=== PATIENT | male | born 1955 | race Caucasian/White ===

== ENCOUNTER 2018-04-05 04:24 | Emergency (ER) | payer MEDICAID, SELFPAY ==
[2018-04-05] VITALS (36 sets, daily range): BP systolic 102–134; BP diastolic 57–88; PULSE 60–76; RESP 11–39; TEMP 36.5; O2SAT 80–99
--- NOTE | 2018-04-05 04:26 | ED.GENADUL_ITS ---
Discharge Plan Disposition Patient Disposition: HOME Condition: Good Discharge Details Chief Complaint: ETOHWithdr Clinical Impression: Alcohol intoxication in active alcoholic Primary Care Provider: Abraham Rosario ED Provider: Robinson Mayorga Finley Meds and New Rx's Prescriptions: Continue citalopram 20 MG tablet 20 mg PO DAILY RF: 0 ibuprofen 600 MG tablet 600 mg PO PRN PRNRF: 0 hydroxyzine HCl 25 MG tablet 25 mg PO PRN PRNRF: 0 Discharge Instructions Instructions: Alcohol Intoxication (ED) Additional Instructions: Continue to work with Mauricio Amador in getting into rehab. Try drinking in moderation, not excess in the meantime, if unable to stop on own. Follow up with primary care as needed. Return to ED if problems. Referrals: Abraham Rosario MD [Primary Care Provider] - Medical Decision Making Will hold patient here until clinically sober then discharge. No acute medical issues. No respiratory distress with associated chronic SOB from smoking. No evidence of acute withdrawal. Can continue to attempt placement in rehab as outpatient on his own. Patient awakens easily and feels ok this morning. His vitals are fine. His speech is clear. He says he is ready to go. He needs to find a ride. Will plan on discharge. Medical Records Medical records reviewed: Yes I reviewed the patient's medical records. HPI General Mode of arrival: EMS . Date/Time Provider Initiated Documentation: 04/05/18 04:56 . Information obtained by: patient and old records reviewed . HPI Narrative: Patient here with alcohol intoxication. Patient reports being at his girlfriend's house, woke her up and they began fighting because he was intoxicated. Rather than let it escalate, he called 911 and asked the ambulance to bring him here. He denies any physical complaints other than smoker's cough and chronic SOB from 40 years of smoking. He denies suicidal or homicidal thoughts. He is trying to get into a 30 day program even though he just got out of [facility] two weeks ago and started drinking again after just a couple of days. Related Data Home Medications Medication Instructions Recorded Confirmed citalopram 20 mg PO DAILY 01/20/17 04/05/18 ibuprofen 600 mg PO PRN PRN 01/20/17 04/05/18 hydroxyzine HCl 25 mg PO PRN PRN 02/05/17 04/05/18 Allergies Allergy/AdvReac Type Severity Reaction Status Date / Time Penicillins Allergy Unverified 04/05/18 04:44 Sulfa (Sulfonamide AdvReac Unverified 04/05/18 04:44 Antibiotics) Review of Systems Constitutional Denies chills, Denies fever(s), Denies headache(s) and Denies weakness ENT Denies headache(s) and Denies neck pain Cardiovascular Denies chest pain, Denies syncope, Denies rapid heart rate and Reports dyspnea Respiratory Reports cough and Reports dyspnea Gastrointestinal Denies abdominal pain, Denies nausea and Denies vomiting Musculoskeletal Denies back pain, Denies arthralgias, Denies neck pain and Denies numbness Neurologic Denies syncope, Denies headache(s), Denies numbness and Denies weakness Psychiatric Denies homicidal ideation and Denies suicidal ideation [facility] Medical History Alcohol abuse (Chronic) HTN (hypertension) (Chronic) Social History Smoking/Tobacco Use Status: Current every day alcohol intake: current Surgical History H/O hernia repair (Inactive) Exam Const General: cooperative, no acute distress and intoxicated appearing Orientation: alert and oriented x3 Neck Neck: trachea midline and supple Resp Effort & Inspection: normal respiratory effort Auscultation: rhonchi (scattered through out) Cardio Rate: regular rate Rhythm: regular rhythm Heart Sounds: S1 normal and S2 normal GI Palpation: soft, not firm, no guarding and nontender Neuro General: alert, oriented x3, no focal motor deficits and CN's II-XI intact bilaterally Speech: abnormal speech slurred Psych Appearance: grossly normal Speech and Movement: slurred speech Attitude: cooperative Thought Process: normal Thought Content: normal
== END 2018-04-05 07:59 | disposition home or self-care (01) ==
PROVIDERS: Emergency Provider Emergency Medicine; PCP General Practice
DX: F10.229 Alcohol dependence with intoxication, unspecified (principal); I10 Essential (primary) hypertension
CPT/HCPCS: 99284; 99283

== ENCOUNTER 2018-04-07 21:38 | Emergency (ER) | payer MEDICAID, SELFPAY ==
[2018-04-07 21:40] VITALS: BP 136/84; PULSE 86; RESP 18; TEMP 37.5; O2SAT 94
--- NOTE | 2018-04-07 22:29 | ED.GENADUL_ITS ---
Discharge Plan Disposition Patient Disposition: HOME Condition: Stable Discharge Details Chief Complaint: GenMedical Clinical Impression: Alcohol intoxication, Medication refill Reason For Visit: RANDAL Primary Care Provider: Abraham Rosario ED Provider: Jazmine Barker Home Meds and New Rx's Prescriptions: Continue citalopram 20 MG tablet 20 mg PO DAILY RF: 0 ibuprofen 600 MG tablet 600 mg PO PRN PRNRF: 0 hydroxyzine HCl 25 MG tablet 25 mg PO PRN PRNRF: 0 Discharge Instructions Instructions: Alcohol Intoxication (ED) Additional Instructions: Call your primary care doctor's office tomorrow to schedule follow-up appointment for reevaluation and to discuss whether he should continue these medications, especially with drinking alcohol daily. You should receive a call from care management regarding plan for follow-up with primary care doctor and your medications. Return to the emergency department any worsening or new concerning symptoms. Discharge Data Discharge Physician: Jazmine Barker Medical Decision Making 62-year-old male with history of alcohol abuse who presents for request for refill of his Celexa and Atarax. Patient was here 2 days ago for alcohol abuse and was discharged home after clinically sober. Patient states he has been in care home for the past 2 days and was released yesterday but he is unsure about why he was initially there. ED note from 2 days ago notes that patient had an argument with his girlfriend but he had denied suicidal or homicidal ideation and was medically cleared. Patient states the police took his bottles of Celexa and Atarax 2 days ago and he has been without these meds for 2 days. He currently denies any suicidal or homicidal ideation. Patient states he takes 20 mg of Celexa daily and 25 mg of Atarax as needed. He states he drank 1 /5 of vodka today. He denies any drug use. Oxygen saturation 94% but he is a chronic smoker. He denies any complaints of chest pain or shortness of breath. No tachycardia or hypertension. No acute signs of alcohol withdrawal. I discussed with patient that I am concerned about giving him prescriptions for Atarax and Celexa as they should not be taken with alcohol. 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 Alcohol level checked due to concern of giving Atarax in intoxication and to verify that patient may not go through withdrawal if alcohol negative. Alcohol level 329. Will give 1 dose of celexa here now and place pt on care management list to verify with pcp if pt is taking these medications and whether they should be continued especially if patient continues to drink daily. Patient states he does not have a plan to stop drinking alcohol at this time. He states he was in [facility] recently for rehab. Patient states he does not have a ride home. Patient took ambulance here. Patient has been ambulatory around the ED, in no acute distress, no acute signs of withdrawal, talking and walking and appears in no acute distress. This alcohol level may be close to his baseline. I think patient is medically cleared for discharge home. Discussed with care management and they will arrange for a ride home through [facility]. HPI General Mode of arrival: EMS . Date/Time Provider Initiated Documentation: 04/07/18 21:41 . Limitations to Documentation: no limitations and other (intoxicated) . Information obtained by: patient . HPI Narrative: Pt is a 62yo M w/ a h/o alcohol abuse who presents for request for medication refill. Patient states he takes Celexa 20 mg daily and Atarax 25 mg as needed anxiety. Patient was seen here 2 days ago for alcohol abuse and was sent home after clinically sober. Patient states he has been in care home for the past 2 days and was released from the care home yesterday. Patient states while he was in the care home the police took custody of his bottles of Celexa and Atarax and he has not had medications for the past 2 days. Patient states he drank 1/5 of vodka today. He denies any acute medical complaints. He denies suicidal homicidal ideation. Patient was brought here by EMS. Patient states he does not have a ride home. Pt states Dr. Rosario fills his medications. Pt states he thinks they were last filled 1 month ago. Pt states he wants a new primary care doctor. Past medical history: Alcohol abuse, hypertension Surgical history: Hernia repair Social history: Smokes tobacco, daily alcohol use, denies drugs Medications: Celexa, hydroxyzine Allergies: Sulfa, penicillin PCP: Dr. Rosario Related Data Home Medications Medication Instructions Recorded Confirmed citalopram 20 mg PO DAILY 01/20/17 04/07/18 ibuprofen 600 mg PO PRN PRN 01/20/17 04/07/18 hydroxyzine HCl 25 mg PO PRN PRN 02/05/17 04/07/18 Allergies Allergy/AdvReac Type Severity Reaction Status Date / Time Penicillins Allergy Unverified 04/07/18 21:39 Sulfa (Sulfonamide AdvReac Unverified 04/07/18 21:39 Antibiotics) General Stated Complaint: GenMedical ALEENA: 4 Review of Systems Review of Systems All systems reviewed & are unremarkable except as noted in HPI and below Constitutional Reports as per HPI, Denies chills and Denies fever(s) Eyes Denies blurry vision ENT Denies dizziness, Denies sore throat and Denies throat swelling Cardiovascular Denies chest pain and Denies dyspnea Respiratory Denies dyspnea Gastrointestinal Denies abdominal pain, Denies diarrhea and Denies vomiting Genitourinary Denies hematuria and Denies dysuria Musculoskeletal Denies back pain and Denies numbness Integumentary/Breasts Denies lesions and Denies rash Neurologic Denies dizziness and Denies numbness Allergic/Immunologic Denies throat swelling [facility] Medical History Alcohol abuse (Chronic) HTN (hypertension) (Chronic) Social History Smoking/Tobacco Use Status: Current every day alcohol intake: current Surgical History H/O hernia repair (Inactive) Exam Const General: cooperative, healthy appearing, no acute distress and intoxicated appearing Orientation: alert, awake and oriented x3 HENMT Head: normal to inspection Mouth: oral mucosae normal Eyes General: appearance normal, both eyes and all related structures Neck Neck: normal visual inspection Resp Effort & Inspection: normal respiratory effort and able to speak in complete sentences Auscultation: clear to auscultation bilaterally Cardio Rate: regular rate Rhythm: regular rhythm GI Palpation: soft, not firm and nontender Auscultation: normal bowel sounds Skin General skin exam: no rashes or lesions noted Neuro General: alert, awake and oriented x3 Motor: muscle tone normal throughout Extrem General: normal to inspection and full ROM Psych Appearance: grossly normal Affect: normal affect Course Vital Signs Temperature 99.5 F 04/07/18 21:40 Pulse 86 04/07/18 21:40 Respiratory Rate 18 04/07/18 21:40 Blood Pressure 136/84 04/07/18 21:40 Pulse Oximetry 94 L 04/07/18 21:40 Temperature 99.5 F 04/07/18 21:40 Temperature Source Temporal Artery Scan 04/07/18 21:40 Pulse 86 04/07/18 21:40 Respiratory Rate 18 04/07/18 21:40 Respiratory Effort 04/07/18 21:43 Blood Pressure 136/84 04/07/18 21:40 Pulse Oximetry 94 L 04/07/18 21:40 Oxygen Delivery Method Room Air 04/07/18 21:40 Oxygen Flow Rate 0 04/07/18 21:40 Pain Level 0 04/07/18 21:40
[2018-04-07 22:32] LABS: ETHANOL BLOOD 329.5 mg/dL (<3)
[2018-04-07] MEDS: Citalopram 20 MG TAB PO (23:14)
--- NOTE | 2018-04-08 07:51 | PDOC.ERCMPRO ---
Care Management Progress Note 04/08-Dr. Barker requested assistance with a PCP (Abraham) f/u this week for ETOH and ? Medication refills, ?should patient continue on meds. Referral faxed to Dr. Rosario's office this am.
== END 2018-04-07 23:20 | disposition home or self-care (01) ==
PROVIDERS: Emergency Provider Physician Assistant; PCP General Practice
DX: F10.120 Alcohol abuse with intoxication, uncomplicated (principal)
CPT/HCPCS: 99282; 80320

== ENCOUNTER 2018-04-12 13:33 | Emergency (ER) | payer MEDICAID, SELFPAY ==
[2018-04-12 13:40] VITALS: BP 126/81; PULSE 72; RESP 16; TEMP 36.3; O2SAT 95
--- NOTE | 2018-04-12 14:03 | DI.RAD_ITS ---
SYMPTOM/DIAGNOSIS: SOB, CHEST CONGESTION FRONTAL AND LATERAL CHEST: Comparison is made with 01/07/18. Heart size and pulmonary vasculature are within normal limits. There is an infiltrate seen in the left lung base. The right lung is clear. No effusions or pneumothoraces are identified. Mild degenerative changes are seen in the spine. IMPRESSION: Left basilar infiltrate. This may represent atelectasis or pneumonia.
--- NOTE | 2018-04-12 14:04 | W.ED.GENAD ---
Discharge Plan Disposition Patient Disposition: HOME Condition: Improving Discharge Details Chief Complaint: ETOHWithdr Clinical Impression: ETOH abuse, PNA (pneumonia) Primary Care Provider: Abraham Rosario ED Provider: Michael Dimas [place] Meds and New Rx's Prescriptions: New doxycycline monohydrate 100 mg tablet 100 mg PO BID Qty: 20 RF: 0 No Action citalopram 20 MG tablet 20 mg PO DAILY RF: 0 ibuprofen 600 MG tablet 600 mg PO PRN PRNRF: 0 hydroxyzine HCl 25 MG tablet 25 mg PO PRN PRNRF: 0 Discharge Instructions Instructions: Abuse of Alcohol (ED), Pneumonia (ED) Referrals: [facility] Emergency Dept. [Outside] - Return if symptoms worsen Medical Decision Making Patient clearly intoxicated. Will establish IV and administer banana bag and promethazine for nausea. Will monitor until clinical sober. we will reevaluate for discharge home at that time. GF came from the room saying patient is an ass hole and asked for help. Pt states he is more restless and is hungry. Will have nurse administer Ativan and provide supper. GF at bedside becomes restless and concerned about his breathing. Patient is sedated after Ativan. SaO2 94%. Easily aroused. Laying on left side. GF voices her concern for him but admits she never had to deal with alcohol abuse until meeting South. South slept most of all afternoon. He is now easily arousal and tells me and nurse he is feeling better. He ambulated to the BR with smooth stable gait. He received one banana bag. His GF is concerned about his well being and maintaining his sobriety. I explained that alcoholism is a hard fight that starts the individual. She verbalized understanding. He verbalized understanding. I advised to f/u at Dr. Shante brooks and attend AA meetings. Continue to try to get in [facility]. I did prescribe Doxy for suspect pneumonia. First dose administered here. Advised to return to ED for worsening symptoms. Elisa with [facility] did stop in tonight to see another patient and also talked with him. She has been trying to help him get into [facility]. Imaging Data Radiologic Study: My impression: ? patchiness o the left lower. Radiologist's impression: v-rad: Mild opacity in the left base may represent atelectasis or pneumonia Lab Data Lab results reviewed: Yes I reviewed the patient's lab results. Lab results narrative: Other than etoh over 400 labs are remarkably within acceptable limits. Mild low magnesium and potassium. Patient is receiving banana which should support. HPI General Mode of arrival: ambulatory. Date/Time Provider Initiated Documentation: 04/12/18 13:50. Limitations to Documentation: altered mental status (patient intoxicated). Information obtained by: patient. HPI Narrative: 62 y/o male brought in by Mita JONES asking for detoxification from ETOH. He tells me he drank a bottle of vodka this am. He has been trying to get into [facility] for rehab but they have no opening currently. He explains he has been in and out of rehab many times. He has been drinking for over 40 years. He admits to being homeless for years but currently living with mother and drives her car. Denies any cp but has had a cough and feels like he may be SOB. He is a daily smoker. Denies any drug use or other concerns. Want to detox from ETOH. He does speak out about not knowing what he is capable of and doesn't want to harm anyone. However he denies any SI or HI. He does have slight slurred speech. Related Data Home Medications Medication Instructions Recorded Confirmed citalopram 20 mg PO DAILY 01/20/17 04/12/18 ibuprofen 600 mg PO PRN PRN 01/20/17 04/12/18 hydroxyzine HCl 25 mg PO PRN PRN 02/05/17 04/12/18 doxycycline monohydrate 100 mg PO BID #20 tab 04/12/18 Previous Rx's Medication Instructions Recorded doxycycline monohydrate 100 mg PO BID #20 tab 04/12/18 Allergies Allergy/AdvReac Type Severity Reaction Status Date / Time Penicillins Allergy Unverified 04/12/18 13:46 Sulfa (Sulfonamide AdvReac Unverified 04/12/18 13:46 Antibiotics) General Stated Complaint: ETOHWithdr ALEENA: 3 Review of Systems Constitutional Reports as per HPI Eyes Reports system reviewed and no additional complaints, except as docu ENT Reports system reviewed and no additional complaints, except as docu Cardiovascular Reports system reviewed and no additional complaints, except as docu Respiratory Reports cough Gastrointestinal Reports system reviewed and no additional complaints, except as docu Genitourinary Reports system reviewed and no additional complaints, except as docu Musculoskeletal Reports system reviewed and no additional complaints, except [facility] Integumentary/Breasts Reports system reviewed and no additional complaints, except as [facility] Neurologic Reports system reviewed and no additional complaints, except as [facility] Psychiatric Reports as per [facility] Hematologic/Lymphatic Reports system reviewed and no additional complaints, except as docu Exam Const General: cooperative, no acute distress, disheveled and other (appears intoxicated) Nutritional Appearance: average body habitus Orientation: alert, awake and oriented x3 Limitations: altered mental status (from ETOH) [facility] Head: normal to inspection Ears: hearing grossly normal bilaterally and external ears normal General nose exam: external nose normal Mouth: oropharynx normal, no drooling and oral mucosa abnormal (dry) Throat: posterior oropharynx normal and other (gag reflux active and normal) Eyes General: appearance normal, both eyes and all related structures Alignment and Position: alignment normal Eyelids: eyelids normal Conjunctivae: conjunctivae normal Sclera: sclerae normal Pupils: PERRL EOM: nystagmus Neck Neck: normal visual inspection, full ROM and no lymphadenopathy Chest Chest: normal inspection of the chest Resp Effort & Inspection: normal respiratory effort Auscultation: bronchial breath sounds bilaterally Cardio Jugular venous pressure: no JVD Rate: regular rate Rhythm: regular rhythm Heart Sounds: S1 normal and S2 normal GI Inspection: normal to inspection Palpation: soft, no guarding, no hepatosplenomegaly, no masses and nontender Auscultation: normal bowel sounds Back/Spine/Pelvis Back: No back tenderness Skin General skin exam: no rashes or lesions noted and jaundice (skin looks ambigous jaundice to the chest and upper arms) Lesions: no lesions Rashes: no rashes Wounds: no wounds Neuro General: alert, awake, oriented x3 and other (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 ) Cranial Nerves: nystagmus Extrem General: normal to inspection Psych Appearance: disheveled Mental Status: mental status grossly normal Mood: congruent mood Affect: indifferent (from ETOH) Attitude: cooperative Thought Process: normal Insight: fair Judgment: fair Course Vital Signs Temperature 36.3 C L 04/12/18 13:40 Pulse 72 04/12/18 13:40 Respiratory Rate 16 04/12/18 13:40 Blood Pressure 126/81 04/12/18 13:40 Pulse Oximetry 95 04/12/18 13:40 Temperature 36.3 C L 04/12/18 13:40 Temperature Source Skin 04/12/18 13:40 Pulse 72 04/12/18 13:40 Respiratory Rate 16 04/12/18 13:40 Respiratory Effort Non-Labored 04/12/18 13:44 Blood Pressure 126/81 04/12/18 13:40 Pulse Oximetry 95 04/12/18 13:40 Pain Level 10 04/12/18 13:40
[2018-04-12 14:19] LABS: Bilirubin Negative (Negative); Blood Negative (Negative); Clarity Clear; Glucose Negative (Negative); Ketones Negative (Negative); Leukocyte Esterase Negative (Negative); Nitrite Negative (Negative); Urobilinogen 0.2 EU/dL (Up TO 0.2)
[2018-04-12 14:23] LABS: Abs Immature Grans 0.01 k/cumm (0.0-0.09); Absolute Basophil Count 0.02 k/cumm (0.0-0.2); Absolute Eosinophil Count 0.13 k/cumm (0.0-0.7); Absolute Monocyte Count 0.43 k/cumm (0.11-0.7); Basophils % 0.5; Eosinophils % 3.3; HCT 35.4 % (40.0-50.0); Immature Grans % 0.3; Lymphocytes % 30.8; Mean Corp. HGB Concentration 33.9 g/dL (32.0-36.0); Mean Corpuscular Hemoglobin 32.6 pg (27.0-33.0); Mean Corpuscular Volume 96.2 fL (80-95); Mean Platelet Volume 9.2 fL (8.0-11.0); Monocytes % 11.1; Platelet Count 118 x1000/uL (130-400); RBC 3.68 m/cumm (4.50-6.00); RBC Distribution Width 16.6 % (11.8-14.1); White Blood Cell Count 3.89 k/cumm (4.4-10.8)
--- NOTE | 2018-04-12 14:24 | ED.GENADUL_ITS ---
Discharge Plan Disposition Patient Disposition: HOME Condition: Improving Discharge Details Chief Complaint: ETOHWithdr Clinical Impression: ETOH abuse, PNA (pneumonia) Primary Care Provider: Abraham Rosario ED Provider: Michael Dimas [place] Meds and New Rx's Prescriptions: New doxycycline monohydrate 100 mg tablet 100 mg PO BID Qty: 20 RF: 0 No Action citalopram 20 MG tablet 20 mg PO DAILY RF: 0 ibuprofen 600 MG tablet 600 mg PO PRN PRNRF: 0 hydroxyzine HCl 25 MG tablet 25 mg PO PRN PRNRF: 0 Discharge Instructions Instructions: Abuse of Alcohol (ED), Pneumonia (ED) Referrals: [facility] Emergency Dept. [Outside] - Return if symptoms worsen Medical Decision Making Patient clearly intoxicated. Will establish IV and administer banana bag and promethazine for nausea. Will monitor until clinical sober. we will reevaluate for discharge home at that time. GF came from the room saying patient is an ass hole and asked for help. Pt states he is more restless and is hungry. Will have nurse administer Ativan and provide supper. GF at bedside becomes restless and concerned about his breathing. Patient is sedated after Ativan. SaO2 94%. Easily aroused. Laying on left side. GF voices her concern for him but admits she never had to deal with alcohol abuse until meeting South. South slept most of all afternoon. He is now easily arousal and tells me and nurse he is feeling better. He ambulated to the BR with smooth stable gait. He received one banana bag. His GF is concerned about his well being and maintaining his sobriety. I explained that alcoholism is a hard fight that starts the individual. She verbalized understanding. He verbalized understanding. I advised to f/u at Dr. Shante brooks and attend AA meetings. Continue to try to get in [facility]. I did prescribe Doxy for suspect pneumonia. First dose administered here. Advised to return to ED for worsening symptoms. Elisa with [facility] did stop in tonight to see another patient and also talked with him. She has been trying to help him get into [facility]. Imaging Data Radiologic Study: My impression: ? patchiness o the left lower. Radiologist's impression: v-rad: Mild opacity in the left base may represent atelectasis or pneumonia Lab Data Lab results reviewed: Yes I reviewed the patient's lab results. Lab results narrative: Other than etoh over 400 labs are remarkably within acceptable limits. Mild low magnesium and potassium. Patient is receiving banana which should support. HPI General Mode of arrival: ambulatory . Date/Time Provider Initiated Documentation: 04/12/18 13:50 . Limitations to Documentation: altered mental status (patient intoxicated) . Information obtained by: patient . HPI Narrative: 62 y/o male brought in by Mita JONES asking for detoxification from ETOH. He tells me he drank a bottle of vodka this am. He has been trying to get into [facility] for rehab but they have no opening currently. He explains he has been in and out of rehab many times. He has been drinking for over 40 years. He admits to being homeless for years but currently living with mother and drives her car. Denies any cp but has had a cough and feels like he may be SOB. He is a daily smoker. Denies any drug use or other concerns. Want to detox from ETOH. He does speak out about not knowing what he is capable of and doesn' t want to harm anyone. However he denies any SI or HI. He does have slight slurred speech. Related Data Home Medications Medication Instructions Recorded Confirmed citalopram 20 mg PO DAILY 01/20/17 04/12/18 ibuprofen 600 mg PO PRN PRN 01/20/17 04/12/18 hydroxyzine HCl 25 mg PO PRN PRN 02/05/17 04/12/18 doxycycline monohydrate 100 mg PO BID #20 tab 04/12/18 Previous Rx's Medication Instructions Recorded doxycycline monohydrate 100 mg PO BID #20 tab 04/12/18 Allergies Allergy/AdvReac Type Severity Reaction Status Date / Time Penicillins Allergy Unverified 04/12/18 13:46 Sulfa (Sulfonamide AdvReac Unverified 04/12/18 13:46 Antibiotics) General Stated Complaint: ETOHWithdr ALEENA: 3 Review of Systems Constitutional Reports as per HPI Eyes Reports system reviewed and no additional complaints, except as docu ENT Reports system reviewed and no additional complaints, except as docu Cardiovascular Reports system reviewed and no additional complaints, except as docu Respiratory Reports cough Gastrointestinal Reports system reviewed and no additional complaints, except as docu Genitourinary Reports system reviewed and no additional complaints, except as docu Musculoskeletal Reports system reviewed and no additional complaints, except as [facility] Integumentary/Breasts Reports system reviewed and no additional complaints, except as [facility] Neurologic Reports system reviewed and no additional complaints, except as [facility] Psychiatric Reports as per [facility] Hematologic/Lymphatic Reports system reviewed and no additional complaints, except as docu Exam Const General: cooperative, no acute distress, disheveled and other (appears intoxicated) Nutritional Appearance: average body habitus Orientation: alert, awake and oriented x3 Limitations: altered mental status (from ETOH) [facility] Head: normal to inspection Ears: hearing grossly normal bilaterally and external ears normal General nose exam: external nose normal Mouth: oropharynx normal, no drooling and oral mucosa abnormal (dry) Throat: posterior oropharynx normal and other (gag reflux active and normal) Eyes General: appearance normal, both eyes and all related structures Alignment and Position: alignment normal Eyelids: eyelids normal Conjunctivae: conjunctivae normal Sclera: sclerae normal Pupils: PERRL EOM: nystagmus Neck Neck: normal visual inspection, full ROM and no lymphadenopathy Chest Chest: normal inspection of the chest Resp Effort & Inspection: normal respiratory effort Auscultation: bronchial breath sounds bilaterally Cardio Jugular venous pressure: no JVD Rate: regular rate Rhythm: regular rhythm Heart Sounds: S1 normal and S2 normal GI Inspection: normal to inspection Palpation: soft, no guarding, no hepatosplenomegaly, no masses and nontender Auscultation: normal bowel sounds Back/Spine/Pelvis Back: No back tenderness Skin General skin exam: no rashes or lesions noted and jaundice (skin looks ambigous jaundice to the chest and upper arms) Lesions: no lesions Rashes: no rashes Wounds: no wounds Neuro General: alert, awake, oriented x3 and other (grossly altered from the bottle of vodka he drank [employer]. ) Cranial Nerves: nystagmus Extrem General: normal to inspection Psych Appearance: disheveled Mental Status: mental status grossly normal Mood: congruent mood Affect: indifferent (from ETOH) Attitude: cooperative Thought Process: normal Insight: fair Judgment: fair Course Vital Signs Temperature 36.3 C L 04/12/18 13:40 Pulse 72 04/12/18 13:40 Respiratory Rate 16 04/12/18 13:40 Blood Pressure 126/81 04/12/18 13:40 Pulse Oximetry 95 04/12/18 13:40 Temperature 36.3 C L 04/12/18 13:40 Temperature Source Skin 04/12/18 13:40 Pulse 72 04/12/18 13:40 Respiratory Rate 16 04/12/18 13:40 Respiratory Effort Non-Labored 04/12/18 13:44 Blood Pressure 126/81 04/12/18 13:40 Pulse Oximetry 95 04/12/18 13:40 Pain Level 10 04/12/18 13:40
[2018-04-12 14:28] LABS: *AMPHETAMINES SCREEN URINE Negative (Negative); *BARBITURATES SCREEN URINE Negative (Negative); *BENZODIAZEPINES SCREEN URINE Negative (Negative); Cannabinoids THC Negative (Negative); Cocaine Screen,Urine Negative (Negative); METHADONE URINE SCREEN Negative (Negative); OPIATES URINE SCREEN Negative (Negative)
[2018-04-12 14:37] LABS: ALT 44 U/L (12-78); AST 77 U/L (15-37); Albumin 3.2 g/dL (3.4-5.0); Alkaline Phosphatase 91 U/L (46-116); BUN 5 mg/dL (7-18); CREATININE 0.85 mg/dL (0.70-1.30); Calcium 8.3 mg/dL (8.5-10.1); Chloride 102 mmol/L (98-107); Glucose 72 mg/dL (70-100); Potassium 3.4 mmol/L (3.5-5.1); Sodium 145 mmol/L (136-145); Total Protein 6.8 g/dL (6.4-8.2)
[2018-04-12] MEDS: MAGNESIUM SULFATE 8.12 MEQ, MULTIVITAMIN 10 ML, THIAMINE 100 MG, FOLIC ACID 1 MG in Nor... 168.867 MG IV (14:41)
[2018-04-12 14:42] LABS: Tricyclic Antidepressants Negative (Negative)
[2018-04-12 14:42] LABS: ETHANOL BLOOD 410.9 mg/dL (<3)
[2018-04-12] MEDS: LORazepam 2 MG/ML VIAL IVP (15:23)
[2018-04-12 15:30] VITALS: PULSE 70; O2SAT 95
[2018-04-12 15:55] VITALS: BP 126/87; PULSE 69; O2SAT 98
--- NOTE | 2018-04-12 16:44 | DI.VRAD_ITS ---
EXAM: XR Chest, 2 Views EXAM DATE/TIME: 04/12/2018 2:04 PM CLINICAL HISTORY: 62 years old, male; Signs and symptoms; Shortness of breath TECHNIQUE: XR of the chest, 2 views. COMPARISON: CR CHEST 2 VIEWS PA,LAT 01/07/2018 6:15 PM FINDINGS: Lungs: Mild opacity in the left base may represent atelectasis or pneumonia. Pleural space: Unremarkable. No pleural effusion. No pneumothorax. Heart/Mediastinum: Unremarkable. No cardiomegaly. Bones/joints: Osseous structures are stable IMPRESSION: Mild opacity in the left base may represent atelectasis or pneumonia. Dictated and Authenticated by: Heron Chakraborty MD. Ordering:YEMI REEVES MD
[2018-04-12 17:13] VITALS: BP 143/69; PULSE 72; RESP 17; O2SAT 96
[2018-04-12 19:35] VITALS: BP 130/72; PULSE 58; RESP 16; O2SAT 92
[2018-04-12] MEDS: Doxycycline Hyclate 100 MG CAP PO (19:51)
[2018-04-12 21:04] VITALS: BP 126/56; PULSE 64; RESP 17; O2SAT 98
== END 2018-04-12 21:04 | disposition home or self-care (01) ==
PROVIDERS: Emergency Provider Nurse Practitioner Family; PCP General Practice
DX: F10.230 Alcohol dependence with withdrawal, uncomplicated (principal); J18.9 Pneumonia, unspecified organism
CPT/HCPCS: 36415; 80053; 80307; 96365; 96366; 96367; 96375; 99285; 71046; 80320; 81003; 83735; 85025; 99284; J2060

== ENCOUNTER 2018-04-29 19:11 | Emergency (ER) | payer MEDICAID, SELFPAY ==
[2018-04-29] VITALS (21 sets, daily range): BP systolic 111–145; BP diastolic 64–79; PULSE 62–75; RESP 11–22; TEMP 36.8; O2SAT 90–96
--- NOTE | 2018-04-29 19:18 | DI.CT_ITS ---
SYMPTOMS/DIAGNOSIS: SHORTNESS OF BREATH CT ANGIOGRAPHY, CHEST: CT angiography was performed with multi slice acquisition and multi planar and 3D reconstruction. CT angiography of the chest was performed with a bolus infusion of 100 cc of Omnipaque 350. Images obtained through the upper abdomen show hepatic steatosis. Visualized portions of the spleen, pancreas and adrenals appear normal. The lungs are predominantly clear with minimal lingular scarring or atelectasis. No pleural effusion or pleural-based mass. No mediastinal or hilar adenopathy. The tracheobronchial tree appears intact. No evidence of pulmonary embolic disease. No aortic dissection or aneurysm. CONCLUSION: No evidence of pulmonary embolic disease. Note is made of hepatic steatosis.
--- NOTE | 2018-04-29 19:24 | ED.GENADUL_ITS ---
Discharge Plan Discharge Details Chief Complaint: SOB Reason For Visit: RANDAL Primary Care Provider: Abraham Rosario ED Provider: Ronnie Scanlon Home Meds and New Rx's Prescriptions: No Action citalopram 20 MG tablet 20 mg PO DAILY RF: 0 ibuprofen 600 MG tablet 600 mg PO PRN PRNRF: 0 hydroxyzine HCl 25 MG tablet 25 mg PO PRN PRNRF: 0 Medical Decision Making <Michael Muniz MD - Last Filed: 04/29/18 19:24> 62 yo male with hx of htn, alcohol abuse, who comes in with chief complaint of shortness of breath intermittently for 2 weeks despite being treated for pna with doxy and finishing this. He is intoxicated and admits to heavy alcohol use tonight though is caox4. He denies chest pain or pressure. He has clear lungs on exam. No fevers so unlikely pna. Given clear lung sounds and wells score moderate will obtain CTA to eval for possible pe and also eval for anemia. No chest pain or pressure, no radiation of pain or pain with exertion so doubt acs at this time Differential Diagnosis pe, pna, anemia, acs ECG Data Attestation: I personally reviewed and interpreted this ECG (s) as follows: Prior ECG tracings: not available for review Interpretation: sinus rhythm, rate of 65, pr 164, normal axis, no acute st t wave ischemic findings <Ronnie Scanlon DO - Last Filed: 04/29/18 22:45> This is a 62-year-old male with a past medical history of alcoholism who presents for evaluation of shortness of breath. The case is signed out to me by my colleague Dr. Muniz, we are pending CT angios at that time. CT scan results have returned and demonstrates no evidence of acute process. I reevaluated the patient he does appear clinically sober. I discussed with him my desire to get a repeat troponin at 3 hours, however patient was unwilling to wait for this. He was frustrated that he has not been able to get in contact with his outpatient caseworkers for mental health, and so I did personally call mental health, and discussed the case with them and they will be following up with him in the next 24-48 hours. I gave them his new cellular phone number. The patient's troponin and EKG were normal. Unfortunately the patient was very unwilling to wait for the repeat troponin. Patient left against my medical advice. He does appear clinically sober and of sound mind so I think it is reasonable that he does leave however we had a long discussion with him regarding the risks of leaving prior to complete evaluation. The patient is able to speak clearly. There is no demonstration of any slurring of speech. There is evidence of clear decision making capacity. Patient is able to ambulate well without any difficulty. There are no signs of ataxia or stumbling motions. MPRESSION: No pulmonary embolism or other acute abnormality. HPI <Michael Muniz MD - Last Filed: 04/29/18 19:24> General Mode of arrival: EMS . Date/Time Provider Initiated Documentation: 04/29/18 19:15 . Limitations to Documentation: no limitations . Information obtained by: patient . History of Present Illness 62 year old M presents to the emergency department with the chief complaint of short of breath, described as moderate, Patient started experiencing this week(s) (2) and it has been intermittent. No relieving factors improve symptom(s), No exacerbating factors reported . Patient did receive the following treatments prior to arrival, none Related Data Home Medications Medication Instructions Recorded Confirmed citalopram 20 mg PO DAILY 01/20/17 04/29/18 ibuprofen 600 mg PO PRN PRN 01/20/17 04/29/18 hydroxyzine HCl 25 mg PO PRN PRN 02/05/17 04/29/18 Allergies Allergy/AdvReac Type Severity Reaction Status Date / Time Penicillins Allergy Unverified 04/29/18 19:33 Sulfa (Sulfonamide AdvReac Unverified 04/29/18 19:33 Antibiotics) General ALEENA: 3 Review of Systems <Michael Muniz MD - Last Filed: 04/29/18 19:24> Review of Systems All systems reviewed & are unremarkable except as noted in HPI and below Constitutional Denies chills, Denies fever(s) and Denies weakness Eyes Denies loss of vision ENT Denies change in voice Cardiovascular Denies chest pain Gastrointestinal Denies abdominal pain, Denies nausea and Denies vomiting Genitourinary Denies dysuria Musculoskeletal Denies joint swelling Integumentary/Breasts Denies rash Neurologic Denies loss of vision and Denies weakness Exam <Michael Muniz MD - Last Filed: 04/29/18 19:24> Const General: no acute distress Orientation: alert HENMT Head: normal to inspection Ears: external ears normal General nose exam: external nose normal Mouth: moist mucous membranes Eyes General: appearance normal, both eyes and all related structures Neck Neck: normal visual inspection Resp Effort & Inspection: normal respiratory effort and able to speak in complete sentences Cardio Rate: regular rate Skin General skin exam: no rashes or lesions noted Neuro General: alert and oriented x3 Extrem General: normal to inspection Psych Mental Status: mental status grossly normal
[2018-04-29] MEDS: Omnipaque 350 MG/ML 100 ML BTL IV (19:40)
[2018-04-29 19:42] LABS: Abs Immature Grans 0.01 k/cumm (0.0-0.09); Absolute Basophil Count 0.05 k/cumm (0.0-0.2); Absolute Eosinophil Count 0.37 k/cumm (0.0-0.7); Absolute Lymphocyte Count 1.92 k/cumm (1.2-3.4); Absolute Monocyte Count 0.45 k/cumm (0.11-0.7); Absolute Neutrophil Count 2.36 k/cumm (1.2-6.7); Eosinophils % 7.2; HCT 35.2 % (40.0-50.0); HGB 11.9 g/dL (13.5-17.5); Immature Grans % 0.2; Lymphocytes % 37.2; Mean Corp. HGB Concentration 33.8 g/dL (32.0-36.0); Mean Corpuscular Hemoglobin 33.6 pg (27.0-33.0); Mean Corpuscular Volume 99.4 fL (80-95); Mean Platelet Volume 9.5 fL (8.0-11.0); Monocytes % 8.7; Neutrophils % 45.7; Platelet Count 237 x1000/uL (130-400); RBC 3.54 m/cumm (4.50-6.00); RBC Distribution Width 16.4 % (11.8-14.1); White Blood Cell Count 5.16 k/cumm (4.4-10.8)
[2018-04-29 19:52] LABS: PTT Activated 22.4 sec (21.0-31.4); Prothrombin Time 9.9 sec (9.3-10.8)
[2018-04-29 19:53] LABS: ALT 82 U/L (12-78); AST 76 U/L (15-37); Albumin 3.6 g/dL (3.4-5.0); Alkaline Phosphatase 71 U/L (46-116); Anion Gap 10.8 mmol/L (3-11); BUN 6 mg/dL (7-18); Bilirubin, Total 0.8 mg/dL (0.2-1.0); CO2 29.2 mmol/L (21.0-32.0); CREATININE 0.79 mg/dL (0.70-1.30); Chloride 101 mmol/L (98-107); Glucose 72 mg/dL (70-100); Potassium 3.4 mmol/L (3.5-5.1); Sodium 141 mmol/L (136-145); Total Protein 7.2 g/dL (6.4-8.2)
[2018-04-29 19:55] LABS: ETHANOL BLOOD 301.5 mg/dL (<3); Troponin I < 0.02 ng/mL (0.00-0.06)
[2018-04-29] MEDS: Normal Saline 1,000 ML 1000 ML IV (20:06)
--- NOTE | 2018-04-29 20:07 | DI.VRAD_ITS ---
EXAM: CT Angiography Chest With Intravenous Contrast EXAM DATE/TIME: 04/29/2018 7:19 PM CLINICAL HISTORY: 62 years old, male; Signs and symptoms; Shortness of breath TECHNIQUE: Axial computed tomographic angiography images of the chest with intravenous contrast using CT angiography protocol. All CT scans at this facility use at least one of these dose optimization techniques: automated exposure control; mA and/or kV adjustment per patient size (includes targeted exams where dose is matched to clinical indication); or iterative reconstruction. Coronal and sagittal reformatted images were created and reviewed. MIP reconstructed images were created and reviewed. CONTRAST: 100 ml of omnipaque 350 administered intravenously. COMPARISON: CR XR CHEST 2V PA LATERAL 04/12/2018 4:08 PM FINDINGS: Pulmonary arteries: Normal. No pulmonary emboli. Aorta: Normal. No aortic aneurysm. No aortic dissection. Lungs: Minimal linear atelectasis and/or scar in the lingula. Mild paraseptal and centrilobular pulmonary emphysema. Pleural space: Normal. No pneumothorax. No pleural effusion. Heart: Normal. No cardiomegaly. No pericardial effusion. Bones/joints: Unremarkable. No acute fracture. Soft tissues: Unremarkable. Lymph nodes: Unremarkable. No enlarged lymph nodes. IMPRESSION: No pulmonary embolism or other acute abnormality. Dictated and Authenticated by: Eliceo Murry MD. Ordering:MARITZA REEVES MD
[2018-04-29 20:09] LABS: D-Dimer 1367 ng/mlFEU (<500)
[2018-04-29 21:16] LABS: *BARBITURATES SCREEN URINE Negative (Negative); *BENZODIAZEPINES SCREEN URINE Negative (Negative); Cannabinoids THC Negative (Negative); Cocaine Screen,Urine Negative (Negative); METHADONE URINE SCREEN Negative (Negative); OPIATES URINE SCREEN Negative (Negative)
[2018-04-29 21:40] LABS: Tricyclic Antidepressants Negative (Negative)
[2018-04-29 21:45] LABS: *AMPHETAMINES SCREEN URINE Negative (Negative)
--- NOTE | 2018-04-29 22:10 | NUR.NOTE ---
Nursing Note: Pt pulling off leads and became very aggitated- refusing any more treatment and demanding to go AMA. Dr. Scanlon is aware and patient has signed AMA paperwork. Gait is steady, speech is clear. Pt called a taxi on cell phone but was told they are not running at this hour. [facility] will attempt to get patient a ride from [facility].
--- NOTE | 2018-04-29 22:21 | NUR.NOTE ---
Nursing Note: Pt registered and is in front waiting room awaiting call back from [facility] for a possible ride tonight. Pt was provided with a cup of coffee per his request
--- NOTE | 2018-04-29 23:15 | NUR.NOTE ---
Nursing Note: Pt was provided a ride home from [facility]
== END 2018-04-29 22:11 ==
PROVIDERS: Emergency Medicine; Emergency Provider Student in an Organized Health Care Education/Training Program; PCP General Practice
DX: R06.02 Shortness of breath (principal); Z53.29 Procedure and treatment not carried out because of patient's decision for other reasons; F10.229 Alcohol dependence with intoxication, unspecified; Y90.8 Blood alcohol level of 240 mg/100 ml or more; I10 Essential (primary) hypertension
CPT/HCPCS: 36415; 71275; 80053; 80307; 93005; 96360; 99285; 80320; 84484; 85025; 85379; 85610; 85730; 93010; 99284; J3490

== ENCOUNTER 2018-05-06 14:25 | Emergency (ER) | payer MEDICAID, SELFPAY ==
[2018-05-06 14:32] VITALS: BP 152/89; PULSE 70; TEMP 36.7; O2SAT 96
--- NOTE | 2018-05-06 14:43 | W.ED.GENAD ---
Discharge Plan Disposition Patient Disposition: [facility] Condition: Fair Discharge Details Chief Complaint: Laceration Clinical Impression: Alcohol intoxication, Abrasion of face, Elevated liver enzymes, Closed compression fracture of thoracic vertebra, Enlarged prostate Reason For Visit: RANDAL Primary Care Provider: Abraham Rosario ED Provider: Lata Dickson Home Meds and New Rx's Prescriptions: Continue citalopram 20 MG tablet 20 mg PO DAILY RF: 0 ibuprofen 600 MG tablet 600 mg PO PRN PRNRF: 0 hydroxyzine HCl 25 MG tablet 25 mg PO PRN PRNRF: 0 Discharge Instructions Instructions: Head Injury (ED), Alcohol Intoxication (ED) Additional Instructions: Encourage hydration with water. I have asked her care according to have facility follow-up with both urology and orthopedics as we discussed. No acute findings were noted on your imaging today. No intervention is needed for your facial abrasion. Please keep the wound clean and dry. Monitor for signs of infection with redness, warmth, drainage, fever/chills. If these arise please seek care urgently once again. Please seek care urgently once again with any new or worsening symptoms. Referrals: Abraham Rosario MD [Primary Care Provider] - Discharge Data Discharge Date/Time-TO BE ENTERED AT DEPARTURE: 05/06/18 19:07 Medical Decision Making Patient is a 62-year-old male, well-known to the department, with chief complaint of fall while intoxicated. Unknown amount of alcohol this morning. Reports I drink a quart of vodka a day. States that this morning, while in his home, he tripped and fell forward striking his chin. Does not believe that he lost consciousness but is currently endorsing a headache. Denies any neck pain but reports that he has had chest pain. However, states the chest pain has been chronic since a fall that he had a few weeks ago. States that he falls frequently. Reports that he has multiple blackout spells. Denies any suicidal or homicidal ideation. He did suffer a laceration to his chin. Patient does have facial hair make this difficult to evaluate. I have asked nursing staff to cleanse and so I can get a better look. Will check tetanus status. Patient does appear clearly intoxicated at this time. Will prather scan the patient is I am unable to evaluate him well secondary to his intoxicated state. He reports he does not want help with his alcoholism. States his been to rehab multiple times does not feel that this is successful. However, he would like help with housing as he currently lives in his mother's basement. Laboratory evaluation significant for alcohol of 417. Patient is noted to be anemic, this is unchanged from baseline. AST and ALT are elevated, likely associated with his drinking, and have been elevated historically. Patient does have upcoming appointment with his primary care at which time we will discuss this further with him. Patient's alcohol is typically elevated in the 300s. Mentation is intact and unchanged from baseline when I have seen him historically. CT reviewed by radiologist. CT of the head showed no acute intracranial hemorrhage. Mild diffuse heterogeneity with white matter attenuation, consistent with chronic white matter ischemic changes. Mild cerebral atrophy. No ventriculomegaly. Incomplete fracture of the right zygomatic arch. This fracture was not noted by the O radiologist we have here. This is also not consistent with physical exam findings. There is no swelling, discoloration or pain to palpation over this area. There is a note in no acute sinusitis. Mastoid air cells are normal as visualized with no mass or effusion. Soft tissues are normal. CT of the cervical spine reviewed by radiologist. No acute fracture of cervical spine. No subluxation or dislocation of the cervical spine. Anterior osteophyte formation at C2 through C7 degenerative facet at multiple levels there are degenerative changes at C1-C2. Intervertebral disc space narrowing at C5 C7 which may represent degenerative disc disease. Osteophytic formation noted posteriorly at C3 through C7. Soft tissues are unremarkable. Thyroid is heterogeneous. Lung apices are normal. CT of the patient's chest reviewed by radiologist. No consolidation or masses. No pneumothorax or pleural effusion. No cardiomegaly or pericardial effusion. No aortic aneurysm. Lymph no significant for small retropharyngeal nodes. Mild compression fractures of unknown age in the lower thoracic spine. Soft tissues are unremarkable. Advised no acute fracture CT of the abdomen and pelvis read by radiologist. Advised liver is normal with no mass. Gallbladder and bile ducts are normal limits of the duct dilation. Pancreas is normal in the ductal dilation. Spleen is normal no splenomegaly. The adrenals are normal no mass. Kidneys are normal no hydronephrosis. Stomach and bowel are normal no obstruction or mucosal thickening. No evidence of appendicitis. Bladder is distended. Prostate is enlarged greater than 5 cm. Contains calcifications, they recommend urology consult. Intraperitoneal space is normal no free air, no significant fluid collection. Bones are normal with no acute fracture or dislocation. Soft tissues are unremarkable procedure is normal with no abdominal aortic aneurysm. Lymph nodes are significant for small. Pancreatic nodes. On the right ankle have asked her insurance healthcare consultant to help facilitate follow-up with urology for enlarged prostate. I discussed this with the patient he reports that he has known that he has prostatic enlargement and has frequent urination associated with this. Also discussed these mild compression fractures of unknown age with the patient. I reevaluated the patient he has full range of motion of the spine with no pain on palpation. He reports he fell and injured his back and chest approximately 1 month ago, these are likely not acute. At this point, patient continues to decline any help with alcohol management. He continues to deny any suicidal homicidal ideation. Do not feel any intervention is appropriate for the abrasion on his chin. There is no area that requires closure. This was cleansed by nursing staff. Tetanus is updated. With the patient's alcohol level and frequent falls, I feel that he is unsafe to be discharged home. Instead, I feel that the patient should be discharged into police custody to be able to sober up. I have requested [facility] human services to evaluate the patient and discuss placement for tonight. Mental health evaluated the patient. Given his level of intoxication, he will be sent to corrections where he is able to sober. This will allow him to do this in a safe place for continued monitoring. I do not see any acute medical emergent issue at this time. However, he was given strict return precautions. Our insurance healthcare consultant will reach out to him with follow-up with orthopedics as well as urology. Encourage hydration and for him to continue to consider alcohol cessation. He has been given intervention by techniques for this historically multiple times. However, at this point he does not feel that is appropriate for him to stop drinking alcohol does not feel that he would be successful with this. All of his questions and concerns were addressed and he is in agreement this plan. Patient will be discharged into police custody HPI General Mode of arrival: ambulatory. Date/Time Provider Initiated Documentation: 05/06/18 14:42. Limitations to Documentation: no limitations. Information obtained by: patient and police. History of Present Illness 62 year old M presents to the emergency department with the chief complaint of chin laceration, described as mild, Quality is described as aching (endorses headache), and is localized to the head, face and chest. Patient reports no radiation. Patient started experiencing this unknown (patient has had multiple falls with several different areas of discomfort) and it has been constant. No relieving factors improve symptom(s), No exacerbating factors reported . Patient notes chest pain, headaches and syncope (endorses multiple black out); denies cough, fever/chills, loss of appetite, nausea/vomiting, rash, seizure and shortness of breath. Related Data Home Medications Medication Instructions Recorded Confirmed citalopram 20 mg PO DAILY 01/20/17 04/29/18 ibuprofen 600 mg PO PRN PRN 01/20/17 04/29/18 hydroxyzine HCl 25 mg PO PRN PRN 02/05/17 04/29/18 Allergies Allergy/AdvReac Type Severity Reaction Status Date / Time Penicillins Allergy Unverified 04/29/18 19:33 Sulfa (Sulfonamide AdvReac Unverified 04/29/18 19:33 Antibiotics) General Stated Complaint: Laceration ALEENA: 4 Review of Systems Review of Systems Unobtainable due to (Patient is intoxicated) Constitutional Reports as per HPI, Denies body ache(s), Denies chills, Denies fatigue, Denies fever(s), Reports headache(s) and Denies weakness Eyes Denies change in vision, Denies diplopia and Denies loss of vision ENT Reports headache(s) Cardiovascular Reports as per HPI, Reports chest pain (Endorses chest discomfort since fall one month ago), Denies dyspnea and Denies dyspnea on exertion Respiratory Reports as per HPI, Denies chest congestion, Denies cough, Denies dyspnea, Denies dyspnea on exertion and Denies wheezing Gastrointestinal Reports as per HPI, Denies abdominal pain, Denies change in stool character, Denies nausea and Denies vomiting Genitourinary Denies system reviewed and no additional complaints, except as docu Musculoskeletal Reports as per HPI, Denies numbness and Denies tingling Integumentary/Breasts Reports as per HPI Neurologic Reports as per HPI, Reports headache(s), Denies lack of coordination, Denies focal weakness, Denies loss of vision, Denies numbness, Denies tingling and Denies weakness Endocrine Denies fatigue Allergic/Immunologic Denies wheezing Exam Const General: cooperative, comfortable, no acute distress and intoxicated appearing Nutritional Appearance: average body habitus and well nourished Orientation: alert, awake and oriented x3 [facility] Head: normal to inspection, no palpable skull fracture, normocephalic and atraumatic Ears: hearing grossly normal bilaterally, external ears normal and TM's normal bilaterally General nose exam: external nose normal Face and sinus: normal facial exam, sinuses nontender, face symmetric, abrasion (Patient has multiple scabbed over abrasions. Reports that he frequently picks at his forehead. Has a new abrasion over his chin measuring approximate 1.5 cm x 5 mm. No deep wound. This does not communicate to the inner aspect of the lip), no erythema, no edema, no maxillary instability and no sinus tenderness Mouth: oral mucosae normal, lip normal and tongue normal Throat: posterior oropharynx normal, tonsils normal and uvula midline Eyes General: appearance normal, both eyes and all related structures Neck Neck: normal visual inspection, full ROM, no meningeal signs and trachea midline Chest Chest: normal inspection of the chest, normal palpation of entire chest wall, no crepitus and no localized rib tenderness Resp Effort & Inspection: normal respiratory effort, able to speak in complete sentences and no respiratory distress Auscultation: clear to auscultation bilaterally, no rales, no rhonchi and no wheezes Cardio Rate: regular rate Rhythm: regular rhythm Heart Sounds: S1 normal and S2 normal GI Inspection: normal to inspection and no edema Palpation: soft, no hepatosplenomegaly, not firm, no guarding and nontender Auscultation: normal bowel sounds Back/Spine/Pelvis Back: no CVA tenderness Cervical Spine: normal cervical lordosis and cervical ROM normal Thoracic/Lumbar Spine: thoracic and lumbar spine normal to inspection, thoraco-lumbar ROM normal, No pain with thoraco-lumbar ROM, No paraspinal tenderness, No thoraco-lumbar ROM limited and No thoracic spinal tenderness Pelvis: no pain with anterior-posterior compression Skin Trauma: abrasion (As above. Patient has multiple areas consistent with a history of picking on his back and face) Neuro General: alert, awake, oriented x3, gait normal, tone normal, moves all extremities, no meningeal signs, no focal motor deficits, CN's II-XI intact bilaterally and deep tendon reflexes 2+ bilaterally Cranial Nerves: CN's II-XI intact bilaterally, PERRL, accommodation normal, EOM intact bilaterally, no nystagmus, facial strength normal and tongue midline Cognition: normal cognition Speech: speech normal Gait: normal gait Motor: muscle tone normal throughout, strength 5/5 throughout, no pronator drift, no movement abnormalities noted and no fasciculations Sensory Exam: no sensory deficits noted Plantar Reflexes: Downgoing: bilateral Coordination: [id number] test normal and [id number] test normal Extrem General: normal to inspection Psych Appearance: grossly normal Mental Status: mental status grossly normal Speech and Movement: speech and movement normal Course Vital Signs Temperature 36.7 C 05/06/18 14:32 Pulse 70 05/06/18 14:32 Blood Pressure 152/89 H 05/06/18 14:32 Pulse Oximetry 96 05/06/18 14:32 Temperature 36.7 C 05/06/18 14:32 Temperature Source Temporal Artery Scan 05/06/18 14:32 Pulse 70 05/06/18 14:32 Respiratory Effort 05/06/18 14:34 Blood Pressure 152/89 H 05/06/18 14:32 Blood Pressure Position Supine 05/06/18 14:32 Pulse Oximetry 96 05/06/18 14:32 Oxygen Delivery Method Room Air 05/06/18 14:32 Oxygen Flow Rate 0 05/06/18 14:32 Pain Level 10 05/06/18 14:35
--- NOTE | 2018-05-06 14:59 | ED.GENADUL_ITS ---
Discharge Plan Disposition Patient Disposition: [facility] Condition: Fair Discharge Details Chief Complaint: Laceration Clinical Impression: Alcohol intoxication, Abrasion of face, Elevated liver enzymes, Closed compression fracture of thoracic vertebra, Enlarged prostate Reason For Visit: RANDAL Primary Care Provider: Abraham Rosario ED Provider: Lata Dickson Home Meds and New Rx's Prescriptions: Continue citalopram 20 MG tablet 20 mg PO DAILY RF: 0 ibuprofen 600 MG tablet 600 mg PO PRN PRNRF: 0 hydroxyzine HCl 25 MG tablet 25 mg PO PRN PRNRF: 0 Discharge Instructions Instructions: Head Injury (ED), Alcohol Intoxication (ED) Additional Instructions: Encourage hydration with water. I have asked her care according to have facility follow-up with both urology and orthopedics as we discussed. No acute findings were noted on your imaging today. No intervention is needed for your facial abrasion. Please keep the wound clean and dry. Monitor for signs of infection with redness, warmth, drainage, fever/chills. If these arise please seek care urgently once again. Please seek care urgently once again with any new or worsening symptoms. Referrals: Abraham Rosario MD [Primary Care Provider] - Discharge Data Discharge Date/Time-TO BE ENTERED AT DEPARTURE: 05/06/18 19:07 Medical Decision Making Patient is a 62-year-old male, well-known to the department, with chief complaint of fall while intoxicated. Unknown amount of alcohol this morning. Reports I drink a quart of vodka a day. States that this morning, while in his home, he tripped and fell forward striking his chin. Does not believe that he lost consciousness but is currently endorsing a headache. Denies any neck pain but reports that he has had chest pain. However, states the chest pain has been chronic since a fall that he had a few weeks ago. States that he falls frequently. Reports that he has multiple blackout spells. Denies any suicidal or homicidal ideation. He did suffer a laceration to his chin. Patient does have facial hair make this difficult to evaluate. I have asked nursing staff to cleanse and so I can get a better look. Will check tetanus status. Patient does appear clearly intoxicated at this time. Will prather scan the patient is I am unable to evaluate him well secondary to his intoxicated state. He reports he does not want help with his alcoholism. States his been to rehab multiple times does not feel that this is successful. However, he would like help with housing as he currently lives in his mother's basement. Laboratory evaluation significant for alcohol of 417. Patient is noted to be anemic, this is unchanged from baseline. AST and ALT are elevated, likely associated with his drinking, and have been elevated historically. Patient does have upcoming appointment with his primary care at which time we will discuss this further with him. Patient's alcohol is typically elevated in the 300s. Mentation is intact and unchanged from baseline when I have seen him historically. CT reviewed by radiologist. CT of the head showed no acute intracranial hemorrhage. Mild diffuse heterogeneity with white matter attenuation, consistent with chronic white matter ischemic changes. Mild cerebral atrophy. No ventriculomegaly. Incomplete fracture of the right zygomatic arch. This fracture was not noted by the O radiologist we have here. This is also not consistent with physical exam findings. There is no swelling, discoloration or pain to palpation over this area. There is a note in no acute sinusitis. Mastoid air cells are normal as visualized with no mass or effusion. Soft tissues are normal. CT of the cervical spine reviewed by radiologist. No acute fracture of cervical spine. No subluxation or dislocation of the cervical spine. Anterior osteophyte formation at C2 through C7 degenerative facet at multiple levels there are degenerative changes at C1-C2. Intervertebral disc space narrowing at C5 C7 which may represent degenerative disc disease. Osteophytic formation noted posteriorly at C3 through C7. Soft tissues are unremarkable. Thyroid is heterogeneous. Lung apices are normal. CT of the patient's chest reviewed by radiologist. No consolidation or masses. No pneumothorax or pleural effusion. No cardiomegaly or pericardial effusion. No aortic aneurysm. Lymph no significant for small retropharyngeal nodes. Mild compression fractures of unknown age in the lower thoracic spine. Soft tissues are unremarkable. Advised no acute fracture CT of the abdomen and pelvis read by radiologist. Advised liver is normal with no mass. Gallbladder and bile ducts are normal limits of the duct dilation. Pancreas is normal in the ductal dilation. Spleen is normal no splenomegaly. The adrenals are normal no mass. Kidneys are normal no hydronephrosis. Stomach and bowel are normal no obstruction or mucosal thickening. No evidence of appendicitis. Bladder is distended. Prostate is enlarged greater than 5 cm. Contains calcifications, they recommend urology consult. Intraperitoneal space is normal no free air, no significant fluid collection. Bones are normal with no acute fracture or dislocation. Soft tissues are unremarkable procedure is normal with no abdominal aortic aneurysm. Lymph nodes are significant for small. Pancreatic nodes. On the right ankle have asked her home health care worker to help facilitate follow-up with urology for enlarged prostate. I discussed this with the patient he reports that he has known that he has prostatic enlargement and has frequent urination associated with this. Also discussed these mild compression fractures of unknown age with the patient. I reevaluated the patient he has full range of motion of the spine with no pain on palpation. He reports he fell and injured his back and chest approximately 1 month ago, these are likely not acute. At this point, patient continues to decline any help with alcohol management. He continues to deny any suicidal homicidal ideation. Do not feel any intervention is appropriate for the abrasion on his chin. There is no area that requires closure. This was cleansed by nursing staff. Tetanus is updated. With the patient's alcohol level and frequent falls, I feel that he is unsafe to be discharged home. Instead, I feel that the patient should be discharged into police custody to be able to sober up. I have requested [facility] human services to evaluate the patient and discuss placement for tonight. Mental health evaluated the patient. Given his level of intoxication, he will be sent to corrections where he is able to sober. This will allow him to do this in a safe place for continued monitoring. I do not see any acute medical emergent issue at this time. However, he was given strict return precautions. Our home health care worker will reach out to him with follow-up with orthopedics as well as urology. Encourage hydration and for him to continue to consider alcohol cessation. He has been given intervention by techniques for this historically multiple times. However, at this point he does not feel that is appropriate for him to stop drinking alcohol does not feel that he would be successful with this. All of his questions and concerns were addressed and he is in agreement this plan. Patient will be discharged into police custody HPI General Mode of arrival: ambulatory . Date/Time Provider Initiated Documentation: 05/06/18 14:42 . Limitations to Documentation: no limitations . Information obtained by: patient and police . History of Present Illness 62 year old M presents to the emergency department with the chief complaint of chin laceration, described as mild, Quality is described as aching ( endorses headache), and is localized to the head, face and chest. Patient reports no radiation. Patient started experiencing this unknown (patient has had multiple falls with several different areas of discomfort) and it has been constant. No relieving factors improve symptom(s), No exacerbating factors reported . Patient notes chest pain, headaches and syncope (endorses multiple black out); denies cough, fever/chills, loss of appetite, nausea/ vomiting, rash, seizure and shortness of breath. Related Data Home Medications Medication Instructions Recorded Confirmed citalopram 20 mg PO DAILY 01/20/17 04/29/18 ibuprofen 600 mg PO PRN PRN 01/20/17 04/29/18 hydroxyzine HCl 25 mg PO PRN PRN 02/05/17 04/29/18 Allergies Allergy/AdvReac Type Severity Reaction Status Date / Time Penicillins Allergy Unverified 04/29/18 19:33 Sulfa (Sulfonamide AdvReac Unverified 04/29/18 19:33 Antibiotics) General Stated Complaint: Laceration ALEENA: 4 Review of Systems Review of Systems Unobtainable due to (Patient is intoxicated) Constitutional Reports as per HPI, Denies body ache(s), Denies chills, Denies fatigue, Denies fever(s), Reports headache(s) and Denies weakness Eyes Denies change in vision, Denies diplopia and Denies loss of vision ENT Reports headache(s) Cardiovascular Reports as per HPI, Reports chest pain (Endorses chest discomfort since fall one month ago), Denies dyspnea and Denies dyspnea on exertion Respiratory Reports as per HPI, Denies chest congestion, Denies cough, Denies dyspnea, Denies dyspnea on exertion and Denies wheezing Gastrointestinal Reports as per HPI, Denies abdominal pain, Denies change in stool character, Denies nausea and Denies vomiting Genitourinary Denies system reviewed and no additional complaints, except as docu Musculoskeletal Reports as per HPI, Denies numbness and Denies tingling Integumentary/Breasts Reports as per HPI Neurologic Reports as per HPI, Reports headache(s), Denies lack of coordination, Denies focal weakness, Denies loss of vision, Denies numbness, Denies tingling and Denies weakness Endocrine Denies fatigue Allergic/Immunologic Denies wheezing Exam Const General: cooperative, comfortable, no acute distress and intoxicated appearing Nutritional Appearance: average body habitus and well nourished Orientation: alert, awake and oriented x3 [facility] Head: normal to inspection, no palpable skull fracture, normocephalic and atraumatic Ears: hearing grossly normal bilaterally, external ears normal and TM's normal bilaterally General nose exam: external nose normal Face and sinus: normal facial exam, sinuses nontender, face symmetric, abrasion (Patient has multiple scabbed over abrasions. Reports that he frequently picks at his forehead. Has a new abrasion over his chin measuring approximate 1.5 cm x 5 mm. No deep wound. This does not communicate to the inner aspect of the lip), no erythema, no edema, no maxillary instability and no sinus tenderness Mouth: oral mucosae normal, lip normal and tongue normal Throat: posterior oropharynx normal, tonsils normal and uvula midline Eyes General: appearance normal, both eyes and all related structures Neck Neck: normal visual inspection, full ROM, no meningeal signs and trachea midline Chest Chest: normal inspection of the chest, normal palpation of entire chest wall, no crepitus and no localized rib tenderness Resp Effort & Inspection: normal respiratory effort, able to speak in complete sentences and no respiratory distress Auscultation: clear to auscultation bilaterally, no rales, no rhonchi and no wheezes Cardio Rate: regular rate Rhythm: regular rhythm Heart Sounds: S1 normal and S2 normal GI Inspection: normal to inspection and no edema Palpation: soft, no hepatosplenomegaly, not firm, no guarding and nontender Auscultation: normal bowel sounds Back/Spine/Pelvis Back: no CVA tenderness Cervical Spine: normal cervical lordosis and cervical ROM normal Thoracic/Lumbar Spine: thoracic and lumbar spine normal to inspection, thoraco- lumbar ROM normal, No pain with thoraco-lumbar ROM, No paraspinal tenderness, No thoraco-lumbar ROM limited and No thoracic spinal tenderness Pelvis: no pain with anterior-posterior compression Skin Trauma: abrasion (As above. Patient has multiple areas consistent with a history of picking on his back and face) Neuro General: alert, awake, oriented x3, gait normal, tone normal, moves all extremities, no meningeal signs, no focal motor deficits, CN's II-XI intact bilaterally and deep tendon reflexes 2+ bilaterally Cranial Nerves: CN's II-XI intact bilaterally, PERRL, accommodation normal, EOM intact bilaterally, no nystagmus, facial strength normal and tongue midline Cognition: normal cognition Speech: speech normal Gait: normal gait Motor: muscle tone normal throughout, strength 5/5 throughout, no pronator drift , no movement abnormalities noted and no fasciculations Sensory Exam: no sensory deficits noted Plantar Reflexes: Downgoing: bilateral Coordination: [id number] test normal and [id number] test normal Extrem General: normal to inspection Psych Appearance: grossly normal Mental Status: mental status grossly normal Speech and Movement: speech and movement normal Course Vital Signs Temperature 36.7 C 05/06/18 14:32 Pulse 70 05/06/18 14:32 Blood Pressure 152/89 H 05/06/18 14:32 Pulse Oximetry 96 05/06/18 14:32 Temperature 36.7 C 05/06/18 14:32 Temperature Source Temporal Artery Scan 05/06/18 14:32 Pulse 70 05/06/18 14:32 Respiratory Effort 05/06/18 14:34 Blood Pressure 152/89 H 05/06/18 14:32 Blood Pressure Position Supine 05/06/18 14:32 Pulse Oximetry 96 05/06/18 14:32 Oxygen Delivery Method Room Air 05/06/18 14:32 Oxygen Flow Rate 0 05/06/18 14:32 Pain Level 10 05/06/18 14:35
[2018-05-06 15:29] LABS: Abs Immature Grans 0.02 k/cumm (0.0-0.09); Absolute Basophil Count 0.02 k/cumm (0.0-0.2); Absolute Eosinophil Count 0.26 k/cumm (0.0-0.7); Absolute Lymphocyte Count 1.35 k/cumm (1.2-3.4); Absolute Monocyte Count 0.32 k/cumm (0.11-0.7); Absolute Neutrophil Count 1.61 k/cumm (1.2-6.7); Basophils % 0.6; Eosinophils % 7.3; HCT 36.9 % (40.0-50.0); HGB 12.3 g/dL (13.5-17.5); Immature Grans % 0.6; Lymphocytes % 37.7; Mean Corp. HGB Concentration 33.3 g/dL (32.0-36.0); Mean Corpuscular Hemoglobin 33.1 pg (27.0-33.0); Mean Corpuscular Volume 99.2 fL (80-95); Mean Platelet Volume 9.7 fL (8.0-11.0); Monocytes % 8.9; Neutrophils % 44.9; Platelet Count 156 x1000/uL (130-400); RBC 3.72 m/cumm (4.50-6.00); RBC Distribution Width 16.8 % (11.8-14.1); White Blood Cell Count 3.58 k/cumm (4.4-10.8)
[2018-05-06 15:44] LABS: ALT 97 U/L (12-78); AST 130 U/L (15-37); Albumin 3.4 g/dL (3.4-5.0); Alkaline Phosphatase 70 U/L (46-116); Anion Gap 9.2 mmol/L (3-11); BUN 6 mg/dL (7-18); Bilirubin, Total 0.4 mg/dL (0.2-1.0); CO2 32.8 mmol/L (21.0-32.0); CREATININE 0.96 mg/dL (0.70-1.30); Calcium 8.6 mg/dL (8.5-10.1); Chloride 103 mmol/L (98-107); Glucose 83 mg/dL (70-100); Magnesium 1.1 mg/dL (1.8-2.4); Potassium 3.6 mmol/L (3.5-5.1); Sodium 145 mmol/L (136-145); Total Protein 6.8 g/dL (6.4-8.2)
[2018-05-06 15:45] LABS: Troponin I < 0.02 ng/mL (0.00-0.06)
[2018-05-06 15:59] LABS: Bilirubin Negative (Negative); Blood Negative (Negative); Clarity Clear; Glucose Negative (Negative); Ketones Negative (Negative); Leukocyte Esterase Negative (Negative); Nitrite Negative (Negative); Urobilinogen 0.2 EU/dL (Up TO 0.2)
[2018-05-06] MEDS: Omnipaque 350 MG/ML 100 ML BTL IJ (16:15)
--- NOTE | 2018-05-06 16:21 | DI.CT_ITS ---
SYMPTOMS/DIAGNOSIS: FALL WHILE INTOXICATED CRANIAL CT: A noncontrast examination was performed. There is no evidence of an intra/extra -axial hemorrhage. There is some increased absorption, likely on the bases of beam hardening involving the frontal lobe. There is no mass or edema. Findings in the frontoparietal and periventricular white matter are consistent with small vessel disease. There is no evidence of a territorial infarct, edema or fluid collection. The ventricles are intact. The posterior fossa is unremarkable. There is no abnormality involving the paranasal sinuses or mastoid air cells. SUMMARY: No acute intracranial abnormality is demonstrated. C-SPINE CT: The study was carried out without contrast enhancement according to the usual protocol. The vertebral bodies are intact. The vertebral alignment is normal. There is disc narrowing and associated degenerative bony changes involving C4 through C7-T1, the findings most advanced at C5-6 and C6-C7. At C6-C7, there is prominent posterior spurring with moderate bilateral bony foraminal compromise. Less severe changes are also noted at C5-C6. The posterior elements are intact. The odontoid is well maintained and is closely applied to the anterior arch of C1. The prevertebral soft tissues are unremarkable. SUMMARY: No evidence of a fracture or subluxation. Degenerative changes as described above.
--- NOTE | 2018-05-06 16:21 | DI.CT_ITS ---
SYMPTOMS/DIAGNOSIS: FALL WHILE INTOXICATED CHEST, ABDOMEN AND PELVIS CT: CT examination of the chest, abdomen and pelvis was performed with a bolus infusion of 100 cc of Omnipaque 350. The lungs are clear and well expanded. No evidence of mediastinal vascular injury. No adenopathy seen. Tracheobronchial tree appears intact. No pleural effusions seen. Note is made of hepatic steatosis. No evidence of acute injury of liver, spleen , pancreas, adrenals or kidneys. No evidence of intraabdominal vascular injury. No abdominal or pelvic adenopathy seen. No evidence of bowel injury. Prostatic enlargement noted. Urinary bladder is distended. No bony injury seen. CONCLUSION: No evidence of acute thoracic or abdominal injury.
--- NOTE | 2018-05-06 16:44 | DI.VRAD_ITS ---
EXAM: CT Head Without Intravenous Contrast EXAM DATE/TIME: 05/06/2018 2:56 PM CLINICAL HISTORY: 62 years old, male; Injury or trauma; Fall; Initial encounter; Blunt trauma (contusions or hematomas); Consciousness not specified; Injury details: Fall while intoxicated TECHNIQUE: Axial computed tomography images of the head/brain without intravenous contrast. All CT scans at this facility use at least one of these dose optimization techniques: automated exposure control; mA and/or kV adjustment per patient size (includes targeted exams where dose is matched to clinical indication); or iterative reconstruction. Coronal and sagittal reformatted images were created and reviewed. COMPARISON: No relevant prior studies available. FINDINGS: Brain: No acute intracranial hemorrhage. There is mild diffuse heterogeneity of the white matter attenuation, consistent with chronic white matter ischemic changes. Mild cerebral atrophy Ventricles: Normal. No ventriculomegaly. Bones/joints: Incompletely fracture of the right zygomatic arch. Sinuses: Normal as visualized. No acute sinusitis. Mastoid air cells: Normal as visualized. No mastoid effusion. Soft tissues: Normal. IMPRESSION: 1. No acute intracranial hemorrhage. 2. Incompletely fracture of the right zygomatic arch. EXAM: CT Cervical Spine Without Intravenous Contrast EXAM DATE/TIME: 05/06/2018 2:56 PM CLINICAL HISTORY: 62 years old, male; Injury or trauma; Fall; Initial encounter; Blunt trauma (contusions or hematomas); Consciousness not specified; Injury details: Fall while intoxicated TECHNIQUE: Axial computed tomography images of the cervical spine without intravenous contrast. All CT scans at this facility use at least one of these dose optimization techniques: automated exposure control; mA and/or kV adjustment per patient size (includes targeted exams where dose is matched to clinical indication); or iterative reconstruction. Coronal and sagittal reformatted images were created and reviewed. COMPARISON: No relevant prior studies available. FINDINGS: Vertebrae: No acute fracture of the cervical spine. No subluxation or dislocation of the cervical spine. Anterior osteophyte formation C2-C7 Degenerative changes in the facets at multiple levels Degenerative changes at C1/C2 Discs/Spinal canal/Neural foramina: Intervertebral disc space narrowing C5-C7 may represent degenerative disc disease.. Posterior osteophyte formation C3-C7 Soft tissues: Unremarkable. Thyroid: The thyroid is heterogeneous Lungs: Lung apices are normal. IMPRESSION: 1. No acute fracture of the cervical spine. 2. No subluxation or dislocation of the cervical spine. 3. Intervertebral disc space narrowing C5-C7 may represent degenerative disc disease.. Dictated and Authenticated by: Heron Chakraborty MD. Ordering:MARILYN TORO MD
[2018-05-06] MEDS: Normal Saline 1,000 ML 1000 ML IV (16:48)
--- NOTE | 2018-05-06 16:51 | DI.VRAD_ITS ---
EXAM: CT Chest With Contrast EXAM DATE/TIME: 05/06/2018 2:56 PM CLINICAL HISTORY: 62 years old, male; Injury or trauma; Fall; Initial encounter; Blunt; Generalized; Blunt trauma (contusions or hematomas); Patient HX: Fall while intoxicated TECHNIQUE: Axial computed tomography images of the chest with intravenous contrast. All CT scans at this facility use at least one of these dose optimization techniques: automated exposure control; mA and/or kV adjustment per patient size (includes targeted exams where dose is matched to clinical indication); or iterative reconstruction. Coronal and sagittal reformatted images were created and reviewed. COMPARISON: No relevant prior studies available. FINDINGS: Lungs: Normal. No consolidation. No masses. Pleural space: Normal. No pneumothorax. No pleural effusion. Heart: Normal. No cardiomegaly. No pericardial effusion. Aorta: Normal. No aortic aneurysm. Lymph nodes: Small retrocrural nodes Bones/joints: Mild compression fractures of unknown age in the lower thoracic spine Soft tissues: Unremarkable. IMPRESSION: No acute process EXAM: CT Abdomen and Pelvis With Intravenous Contrast EXAM DATE/TIME: 05/06/2018 2:56 PM CLINICAL HISTORY: 62 years old, male; Injury or trauma; Fall; Initial encounter; Blunt; Generalized; Blunt trauma (contusions or hematomas); Patient HX: Fall while intoxicated TECHNIQUE: Axial computed tomography images of the abdomen and pelvis with intravenous contrast. All CT scans at this facility use at least one of these dose optimization techniques: automated exposure control; mA and/or kV adjustment per patient size (includes targeted exams where dose is matched to clinical indication); or iterative reconstruction. Coronal and sagittal reformatted images were created and reviewed. CONTRAST: 100 ml of omni 350 administered intravenously. COMPARISON: No relevant prior studies available. FINDINGS: Lower thorax: See report for CT chest ABDOMEN: Liver: Normal. No mass. Gallbladder and bile ducts: Normal. No calcified stones. No ductal dilation. Pancreas: Normal. No ductal dilation. Spleen: Normal. No splenomegaly. Adrenals: Normal. No mass. Kidneys and ureters: Normal. No hydronephrosis. Stomach and bowel: Normal. No obstruction. No mucosal thickening. Appendix: No evidence of appendicitis. PELVIS: Bladder: Distended bladder Reproductive: The prostate is enlarged, greater than 5 cm.. It contains calcifications Recommend urology consult ABDOMEN and PELVIS: Intraperitoneal space: Normal. No free air. No significant fluid collection. Bones/joints: No acute fracture. No dislocation. Soft tissues: Unremarkable. Vasculature: Normal. No abdominal aortic aneurysm. Lymph nodes: Small peripancreatic nodes IMPRESSION: The prostate is enlarged, greater than 5 cm.. It contains calcifications Recommend urology consult Dictated and Authenticated by: Heron Chakraborty MD. Ordering:MARILYN TORO MD
[2018-05-06 19:05] VITALS: BP 135/80; PULSE 88; RESP 18; TEMP 36.8; O2SAT 96
== END 2018-05-06 19:07 | disposition home or self-care (01) ==
PROVIDERS: Emergency Provider Physician Assistant; PCP General Practice
DX: S00.81XA Abrasion of other part of head, initial encounter (principal); F10.920 Alcohol use, unspecified with intoxication, uncomplicated; R94.5 Abnormal results of liver function studies; S22.000A Wedge compression fracture of unspecified thoracic vertebra, initial encounter for closed fracture; W01.0XXA Fall on same level from slipping, tripping and stumbling without subsequent striking against object, initial encounter
CPT/HCPCS: 36415; 74177; 80053; 90471; 96360; 99285; 70450; 71260; 72125; 80320; 81003; 83735; 84484; 85025; J3490

== ENCOUNTER 2018-06-16 06:53 | Emergency (ER) | payer MEDICAID, SELFPAY ==
[2018-06-16] VITALS (14 sets, daily range): BP systolic 125–138; BP diastolic 66–83; PULSE 71–81; RESP 5–23; TEMP 37; O2SAT 79–97
--- NOTE | 2018-06-16 06:59 | NUR.NOTE ---
MD Muniz is at the bedside.
--- NOTE | 2018-06-16 07:09 | W.ED.GENAD ---
Discharge Plan Disposition Patient Disposition: [facility] Condition: Stable Discharge Details Chief Complaint: ETOHWithdr Clinical Impression: Alcohol intoxication Reason For Visit: RANDAL Primary Care Provider: Abraham Rosario ED Provider: Liz Stevens Home Meds and New Rx's Prescriptions: No Action citalopram 20 MG tablet 20 mg PO DAILY RF: 0 ibuprofen 600 MG tablet 600 mg PO PRN PRNRF: 0 hydroxyzine HCl 25 MG tablet 25 mg PO PRN PRNRF: 0 Discharge Instructions Instructions: Alcohol Intoxication (ED) Additional Instructions: Please return immediately to the emergency department if you develop any new or worsening symptoms or if you become otherwise concerned. It is extremely important that you make an appointment to be seen by your primary care doctor within the next 1-2 weeks in follow-up for this visit. Referrals: Abraham Rosario MD [Primary Care Provider] - Medical Decision Making <Michael Muniz MD - Last Filed: 06/16/18 07:13> 62 yo male with hx of alcoholism who was released from [facility] a week ago comes in with continued alcohol use and wants to go to rehab again. He has no other complaints a tthis time, does smell of alcohol and denies si/hi. I advised we can't place pt's in detox from here. I recommended he call facilities himself which he did not give a response to. He has no one to come pick him up. Zaynab attempted breathalyzer but he couldn't do it do to lack of participation, will have lab draw blood level. Differential Diagnosis alcohol intoxication, alcohol abuse <Liz Stevens MD - Last Filed: 06/16/18 10:04> Patient signed out to me by Dr. Muniz at time of shift change with ethanol level and evaluation by mental health pending. Time of my evaluation, patient reporting that he feels fine and has no complaints. He reports chronic pain everywhere that is unchanged. He denies falling or hitting his head. He reports that he drinks a quart of vodka a day, which he did yesterday. Patient with normal gait, loose thought process, clear speech. Clinically sober. Patient seen by mental health, plan for placement at [facility] for detox. I had a lengthy discussion with Patient regarding return to emergency department precautions and importance of outpatient follow-up with PCP. Pt verbalizes understanding of the plan. Disposition decision was made weighing the risks and benefits of hospitalization versus outpatient treatment, the risk for further decompensation, and the patient's wishes. Lab Data Lab results reviewed: Yes I reviewed the patient's lab results. Laboratory Tests Range/Units 06/16/18 07:30 Ethyl Alcohol (<3) mg/dL 376.0 HPI <Michael Muniz MD - Last Filed: 06/16/18 07:13> General Mode of arrival: EMS. Date/Time Provider Initiated Documentation: 06/16/18 06:56. Limitations to Documentation: no limitations. Information obtained by: patient. History of Present Illness 62 year old M presents to the emergency department with the chief complaint of alcohol intoxication, and it has been constant. No relieving factors improve symptom(s), No exacerbating factors reported . Patient notes no other symptoms.. Related Data Home Medications Medication Instructions Recorded Confirmed citalopram 20 mg PO DAILY 01/20/17 04/29/18 ibuprofen 600 mg PO PRN PRN 01/20/17 04/29/18 hydroxyzine HCl 25 mg PO PRN PRN 02/05/17 04/29/18 Allergies Allergy/AdvReac Type Severity Reaction Status Date / Time Penicillins Allergy Unverified 06/16/18 06:56 Sulfa (Sulfonamide AdvReac Unverified 06/16/18 06:56 Antibiotics) General Stated Complaint: ETOHWithdr ALEENA: 3 Review of Systems <Michael Muniz MD - Last Filed: 06/16/18 07:13> Review of Systems All systems reviewed & are unremarkable except as noted in HPI and below Constitutional Denies chills, Denies fever(s) and Denies weakness ENT Denies change in voice Gastrointestinal Denies nausea and Denies vomiting Neurologic Denies weakness Endocrine Denies heat intolerance PFSH <Michael Muniz MD - Last Filed: 06/16/18 07:13> Medical History Alcohol abuse (Chronic) HTN (hypertension) (Chronic) Surgical History H/O hernia repair (Inactive) Social History Smoking/Tobacco Use Status: Current every day alcohol intake: current Exam <Michael Muniz MD - Last Filed: 06/16/18 07:13> Const General: no acute distress Orientation: alert HENNV Head: normal to inspection Ears: external ears normal General nose exam: external nose normal Mouth: moist mucous membranes Eyes General: appearance normal, both eyes and all related structures Neck Neck: normal visual inspection Resp Effort & Inspection: normal respiratory effort and able to speak in complete sentences Cardio Rate: regular rate Skin General skin exam: no rashes or lesions noted Neuro General: alert and oriented x3 Extrem General: normal to inspection Psych Mental Status: mental status grossly normal Course <Michael Muniz MD - Last Filed: 06/16/18 07:13> Vital Signs Temperature 37.0 C 06/16/18 06:51 Pulse 81 06/16/18 06:51 Respiratory Rate 16 06/16/18 06:51 Blood Pressure 134/83 06/16/18 06:51 Pulse Oximetry 93 L 06/16/18 06:51 Temperature 37.0 C 06/16/18 06:51 Temperature Source Temporal Artery Scan 06/16/18 06:51 Pulse 81 06/16/18 06:51 Respiratory Rate 16 06/16/18 06:51 Respiratory Effort 06/16/18 06:58 Respiratory Pattern Normal 06/16/18 06:57 Blood Pressure 134/83 06/16/18 06:51 Pulse Oximetry 93 L 06/16/18 06:51 Pain Level 0 06/16/18 06:51
--- NOTE | 2018-06-16 07:13 | ED.GENADUL_ITS ---
Discharge Plan Disposition Patient Disposition: [facility] Condition: Stable Discharge Details Chief Complaint: ETOHWithdr Clinical Impression: Alcohol intoxication Reason For Visit: RANDAL Primary Care Provider: Abraham Rosario ED Provider: Liz Stevens Home Meds and New Rx's Prescriptions: No Action citalopram 20 MG tablet 20 mg PO DAILY RF: 0 ibuprofen 600 MG tablet 600 mg PO PRN PRNRF: 0 hydroxyzine HCl 25 MG tablet 25 mg PO PRN PRNRF: 0 Discharge Instructions Instructions: Alcohol Intoxication (ED) Additional Instructions: Please return immediately to the emergency department if you develop any new or worsening symptoms or if you become otherwise concerned. It is extremely important that you make an appointment to be seen by your primary care doctor within the next 1-2 weeks in follow-up for this visit. Referrals: Abraham Rosario MD [Primary Care Provider] - Medical Decision Making <Michael Muniz MD - Last Filed: 06/16/18 07:13> 62 yo male with hx of alcoholism who was released from [facility] a week ago comes in with continued alcohol use and wants to go to rehab again. He has no other complaints a tthis time, does smell of alcohol and denies si/hi. I advised we can't place pt's in detox from here. I recommended he call facilities himself which he did not give a response to. He has no one to come pick him up. Zaynab attempted breathalyzer but he couldn't do it do to lack of participation, will have lab draw blood level. Differential Diagnosis alcohol intoxication, alcohol abuse <Liz Stevens MD - Last Filed: 06/16/18 10:04> Patient signed out to me by Dr. Muniz at time of shift change with ethanol level and evaluation by mental health pending. Time of my evaluation, patient reporting that he feels fine and has no complaints. He reports chronic pain everywhere that is unchanged. He denies falling or hitting his head. He reports that he drinks a quart of vodka a day, which he did yesterday. Patient with normal gait, loose thought process, clear speech. Clinically sober. Patient seen by mental health, plan for placement at [facility] for detox. I had a lengthy discussion with Patient regarding return to emergency department precautions and importance of outpatient follow-up with PCP. Pt verbalizes understanding of the plan. Disposition decision was made weighing the risks and benefits of hospitalization versus outpatient treatment, the risk for further decompensation, and the patient's wishes. Lab Data Lab results reviewed: Yes I reviewed the patient's lab results. Laboratory Tests Range/Units 06/16/18 07:30 Ethyl Alcohol (<3) mg/dL 376.0 HPI <Michael Muniz MD - Last Filed: 06/16/18 07:13> General Mode of arrival: EMS . Date/Time Provider Initiated Documentation: 06/16/18 06:56 . Limitations to Documentation: no limitations . Information obtained by: patient . History of Present Illness 62 year old M presents to the emergency department with the chief complaint of alcohol intoxication, and it has been constant. No relieving factors improve symptom(s), No exacerbating factors reported . Patient notes no other symptoms.. Related Data Home Medications Medication Instructions Recorded Confirmed citalopram 20 mg PO DAILY 01/20/17 04/29/18 ibuprofen 600 mg PO PRN PRN 01/20/17 04/29/18 hydroxyzine HCl 25 mg PO PRN PRN 02/05/17 04/29/18 Allergies Allergy/AdvReac Type Severity Reaction Status Date / Time Penicillins Allergy Unverified 06/16/18 06:56 Sulfa (Sulfonamide AdvReac Unverified 06/16/18 06:56 Antibiotics) General Stated Complaint: ETOHWithdr ALEENA: 3 Review of Systems <Michael Muniz MD - Last Filed: 06/16/18 07:13> Review of Systems All systems reviewed & are unremarkable except as noted in HPI and below Constitutional Denies chills, Denies fever(s) and Denies weakness ENT Denies change in voice Gastrointestinal Denies nausea and Denies vomiting Neurologic Denies weakness Endocrine Denies heat intolerance PFSH <Michael Muniz MD - Last Filed: 06/16/18 07:13> Medical History Alcohol abuse (Chronic) HTN (hypertension) (Chronic) Surgical History H/O hernia repair (Inactive) Social History Smoking/Tobacco Use Status: Current every day alcohol intake: current Exam <Michael Muniz MD - Last Filed: 06/16/18 07:13> Const General: no acute distress Orientation: alert HENRI Head: normal to inspection Ears: external ears normal General nose exam: external nose normal Mouth: moist mucous membranes Eyes General: appearance normal, both eyes and all related structures Neck Neck: normal visual inspection Resp Effort & Inspection: normal respiratory effort and able to speak in complete sentences Cardio Rate: regular rate Skin General skin exam: no rashes or lesions noted Neuro General: alert and oriented x3 Extrem General: normal to inspection Psych Mental Status: mental status grossly normal Course <Michael Muniz MD - Last Filed: 06/16/18 07:13> Vital Signs Temperature 37.0 C 06/16/18 06:51 Pulse 81 06/16/18 06:51 Respiratory Rate 16 06/16/18 06:51 Blood Pressure 134/83 06/16/18 06:51 Pulse Oximetry 93 L 06/16/18 06:51 Temperature 37.0 C 06/16/18 06:51 Temperature Source Temporal Artery Scan 06/16/18 06:51 Pulse 81 06/16/18 06:51 Respiratory Rate 16 06/16/18 06:51 Respiratory Effort 06/16/18 06:58 Respiratory Pattern Normal 06/16/18 06:57 Blood Pressure 134/83 06/16/18 06:51 Pulse Oximetry 93 L 06/16/18 06:51 Pain Level 0 06/16/18 06:51
--- NOTE | 2018-06-16 09:06 | NUR.NOTE ---
sleeping, RR WNL.
== END 2018-06-16 10:02 | disposition home or self-care (01) ==
PROVIDERS: Emergency Medicine; Emergency Provider Student in an Organized Health Care Education/Training Program; PCP General Practice
DX: F10.220 Alcohol dependence with intoxication, uncomplicated (principal); I10 Essential (primary) hypertension
CPT/HCPCS: 36415; 99283; 80320

== ENCOUNTER 2018-07-03 22:58 | Emergency (ER) | payer MEDICAID, SELFPAY ==
[2018-07-03 23:01] VITALS: BP 141/86; PULSE 79; RESP 18; TEMP 36.8; O2SAT 90
--- NOTE | 2018-07-03 23:11 | W.ED.GENAD ---
Discharge Plan Disposition Patient Disposition: [facility] Condition: Serious Discharge Details Chief Complaint: PsychEval Clinical Impression: Chest wall contusion, Abrasion of elbow, Depression with suicidal ideation, Alcohol abuse, Acute alcohol intoxication Reason For Visit: RANDAL Primary Care Provider: Abraham Rosario ED Provider: Lata Dickson Home Meds and New Rx's Prescriptions: Continued citalopram 20 MG tablet 20 mg PO DAILY RF: 0 ibuprofen 600 MG tablet 600 mg PO PRN PRNRF: 0 hydroxyzine HCl 25 MG tablet 25 mg PO PRN PRNRF: 0 Discharge Instructions Instructions: Depression (ED), Abuse of Alcohol (ED), Contusion in Adults (ED), Suicide Prevention for Adults (ED) Additional Instructions: Encourage hydration. Stop drinking alcohol, you have contact information for rehab facilities. Please call them tomorrow. JOAQUIN SMITH will evaluate you in the morning before being discharged from police custody. Monitor abrasion for signs of infection including redness, warmth, drainage, increased pain, fevers/chills. If these arise seek care urgently once again. Follow up as soon as possible with primary care physician. Referrals: Abraham Rosario MD [Primary Care Provider] - Discharge Data Discharge Date/Time-TO BE ENTERED AT DEPARTURE: 07/04/18 02:27 Medical Decision Making Patient is 62-year-old male, brought in via EMS, with chief complaint of fall. Patient is well-known to the department. History of alcohol abuse currently appears intoxicated. Speech is clear and is answering questions appropriately. Is unclear how much alcohol he has had thus far today but his previously reported he drinks approximately quart of vodka daily. He presents today after falling when he slipped on icy sidewalks while walking to [employer] [place]. Reports he landed on his right elbow. Patient does have a superficial abrasion along the lateral aspect of the right elbow. Full range of motion with no discomfort. No swelling. Will obtain imaging of this to evaluate for any fracture although I find this unlikely given his good range of motion. However, given his intoxicated state, will obtain imaging to rule out fracture. Patient is also endorsing pain along the lateral aspect of left chest wall associated with fall last night. States that he tripped in his home and fell striking it against a door jam. Denies any shortness of breath. Pain does not radiate. Pain is worse with deep inspiration. Lungs are clear on exam. Pain is focal over the left lateral chest wall. No evidence of swelling or ecchymosis. Patient is largely excoriated throughout much of his body. He is disheveled and has feces on his feet. Patient appears to have been incontinent of urine recently. Patient is also endorsing feeling like he does not want to live. He denies any plan for suicide, is not actively planning this out but rather feels there is no reason to live. Does not want help for his alcoholism. Reports that he has attempted this in the past and was unsuccessful. Feels that at 62, he would continue to be unsuccessful. He attributes his feeling worthless to his alcohol intake. CPSO ordered and with patient. Heis sleeping comfortably. Patient was evaluated by mental health, he is denying any thoughts of suicidal ideation with them. Plan to obtain screening labs as well and is anxious of the patient's left chest with right elbow. XR reviewed by Dr. Mayorga, no acute abnormalities noted. Labs reviewed, WBC is low, this is typical for patient. Anemia is chornic and unchanged from baseline. AST and ALT elevated, this has been elevated historically and is likely associated with his chronic alcohol abuse. I advised following up with his primary care for this. TSH is low, will obtain free T4. Alcohol 395. [facility] reports that he knows patient. We discussed treatment options. Patient refusing rehab facility at this time. We discussed keeping patient here vs. in police custody. At this time, department has very acute patients. Feel that patient will be better monitored in police custody until he is able to sober enough to speak with mental health for further screening. Discussed plan with patient. He has been in police custody on multiple nights historically with similar alcohol levels. He is frustrated about food at the snf but is otherwise in agreement. JOAQUIN SMITH will evaluate in the morning. Patient is clincally sober and appropriate at this time. XR reviewed by radiologist: CXR FINDINGS: Bones/joints: Deformity of the distal left clavicle is chronic, with left acromioclavicular degenerative changes. No acute fracture or subluxation. No rib fractures are identified. Soft tissues: Normal. IMPRESSION: No acute bony pathology. FINDINGS: Bones/joints: No displaced fracture. Minimal undulation, lateral aspect of the radial head, with no cortical step-off. Probable mild joint effusion. Mild swelling over the olecranon. Soft tissues: See Bones/joints Finding. IMPRESSION: 1. No displaced fracture. 2. Minimal undulation, lateral aspect of the radial head, with no cortical step-off. Consider a minor nondisplaced fracture in the right clinical setting. 3. Probable mild joint effusion. Mild swelling over the olecranon. Discussed this with Dr. Mayorga who felt that there was no XR. Patient continues to have full ROM. Pain seems to be morea ssociated with abrasion that bony tenderness. At this point, I do not feel that patient will keep sling on and have low suspicion for an actual fracture. Concerned that this may be an over read. HPI General Mode of arrival: EMS. Date/Time Provider Initiated Documentation: 07/03/18 23:10. Limitations to Documentation: altered mental status (appears intoxicated). Information obtained by: patient and EMS. HPI Narrative: Patient is a 62 year old male, history of hypertension, alcohol abuse, with c/c of fall. He reports that he fell today while walking to [place]. States he slipped on the ice and fell striking his right forearm and suffering superficial abrasion to lateral elbow. Is also endorsing left sided rib pain. States he fell yesterday at home when he tripped while intoxicated and injured his left anterior chest wall at that time. He denies SOB. Denies striking his head, no LOC. Denies pain in his back. Endorses diarrhea x 1 week. Patient reports he drinks heavily daily, does not know how much he drank today. Also endorsing thoughts of self harm, rpeorts there is no point is living. Denies any plan. Feels that at 62, there is no reason to attempt to stop drinking or seek help, feels that it is just too late. Currently living in his mothers basement. Related Data Home Medications Medication Instructions Recorded Confirmed citalopram 20 mg PO DAILY 01/20/17 04/29/18 ibuprofen 600 mg PO PRN PRN 01/20/17 04/29/18 hydroxyzine HCl 25 mg PO PRN PRN 02/05/17 04/29/18 Allergies Allergy/AdvReac Type Severity Reaction Status Date / Time Penicillins Allergy Unverified 07/03/18 23:11 Sulfa (Sulfonamide AdvReac Unverified 07/03/18 23:11 Antibiotics) General Stated Complaint: PsychEval ALEENA: 2 Review of Systems Constitutional Reports as per HPI, Denies chills, Denies fatigue, Denies fever(s), Denies headache(s) and Denies weakness Eyes Reports as per HPI, Denies blurry vision, Denies change in vision and Denies loss of vision ENT Denies headache(s) and Denies neck pain Cardiovascular Reports as per HPI, Denies chest pain and Denies dyspnea Respiratory Reports as per HPI, Denies cough and Denies dyspnea Gastrointestinal Reports as per HPI, Denies abdominal pain, Denies melena, Reports diarrhea, Denies nausea and Denies vomiting Genitourinary Reports as per HPI (patient denies any change in urinary habits) Musculoskeletal Reports as per HPI, Denies back pain, Denies muscle cramps, Denies neck pain, Denies numbness and Denies tingling Integumentary/Breasts Reports as per HPI and Reports other (abrasion right elbow) Neurologic Denies headache(s), Denies loss of vision, Denies numbness, Denies tingling and Denies weakness Psychiatric Reports as per HPI, Reports depression, Reports hopelessness, Denies hallucinations, Denies homicidal ideation and Reports suicidal ideation Endocrine Denies fatigue [facility] Medical History Alcohol abuse (Chronic) HTN (hypertension) (Chronic) Surgical History H/O hernia repair (Inactive) Social History Smoking/Tobacco Use Status: Current every day alcohol intake: current Exam Const General: cooperative, comfortable, no acute distress, well developed, disheveled, ill appearing chronically and intoxicated appearing Nutritional Appearance: average body habitus and well nourished Orientation: alert, awake and oriented x3 HENMT Head: normal to inspection, no palpable skull fracture, normocephalic and atraumatic Ears: hearing grossly normal bilaterally, external ears normal and TM's normal bilaterally General nose exam: external nose normal Mouth: oral mucosae normal, lip normal and tongue normal Throat: posterior oropharynx normal Eyes General: appearance normal, both eyes and all related structures Visual Manzo: normal visual manzo by confrontation Alignment and Position: alignment normal Periorbital: periorbital findings normal Eyelids: eyelids normal Conjunctivae: conjunctivae normal Pupils: PERRL EOM: EOM intact bilaterally Neck Neck: normal visual inspection, full ROM, no lymphadenopathy, no meningeal signs, trachea midline and supple Chest Chest: normal inspection of the chest, normal palpation of entire chest wall, no crepitus and localized rib tenderness with anteroposterior compression (patient has discomort with palpation over the left lateral chest wall) Resp Effort & Inspection: normal respiratory effort, able to speak in complete sentences and no respiratory distress Auscultation: clear to auscultation bilaterally, no rales, no rhonchi and no wheezes Cardio Rate: regular rate Rhythm: regular rhythm Heart Sounds: S1 normal and S2 normal GI Inspection: normal to inspection, no abdominal wall ecchymosis, no edema and non-distended Palpation: soft, no hepatosplenomegaly, not firm, no guarding, no pulsatile masses, not rigid and nontender Auscultation: normal bowel sounds Back/Spine/Pelvis Back: no CVA tenderness Cervical Spine: normal cervical lordosis and cervical ROM normal Thoracic/Lumbar Spine: thoracic and lumbar spine normal to inspection, thoraco-lumbar ROM normal, No thoraco-lumbar ROM limited, No thoraco-lumbar spasm and No thoracic spinal tenderness Pelvis: no pain with anterior-posterior compression and no pain with lateral compression Skin General skin exam: crusts, dry skin and other (patient is excoriated on back, head, extremities) Trauma: abrasion (superficial abrasion to lateral right elbow) Neuro General: alert, awake, oriented x3, gait normal, tone normal and moves all extremities Cranial Nerves: CN's II-XI intact bilaterally Cognition: normal cognition Speech: speech normal Gait: normal gait Motor: muscle tone normal throughout and strength 5/5 throughout Sensory Exam: no sensory deficits noted (no saddle paresthesias) Extrem General: abnormal to inspection (abrasion as above. Full ROM RUE), full ROM, normal capillary refill, no pedal edema and no calf tenderness Psych Appearance: disheveled Mental Status: mental status grossly normal Speech and Movement: speech and movement normal and speech clear Mood: labile mood Affect: sad Attitude: avoids eye contact Course Vital Signs Temperature 36.8 C 07/03/18 23:01 Pulse 79 07/03/18 23:01 Respiratory Rate 18 07/03/18 23:01 Blood Pressure 141/86 H 07/03/18 23:01 Pulse Oximetry 90 L 07/03/18 23:01 Temperature 36.8 C 07/03/18 23:01 Temperature Source Temporal Artery Scan 07/03/18 23:01 Pulse 79 07/03/18 23:01 Respiratory Rate 18 07/03/18 23:01 Blood Pressure 141/86 H 07/03/18 23:01 Pulse Oximetry 90 L 07/03/18 23:01 Oxygen Delivery Method Room Air 07/03/18 23:01 Oxygen Flow Rate 0 07/03/18 23:01 Pain Level 0 07/03/18 23:01
--- NOTE | 2018-07-03 23:22 | ED.GENADUL_ITS ---
Discharge Plan Disposition Patient Disposition: [facility] Condition: Serious Discharge Details Chief Complaint: PsychEval Clinical Impression: Chest wall contusion, Abrasion of elbow, Depression with suicidal ideation, Alcohol abuse, Acute alcohol intoxication Reason For Visit: RANDAL Primary Care Provider: Abraham Rosario ED Provider: Lata Dickson Home Meds and New Rx's Prescriptions: Continued citalopram 20 MG tablet 20 mg PO DAILY RF: 0 ibuprofen 600 MG tablet 600 mg PO PRN PRNRF: 0 hydroxyzine HCl 25 MG tablet 25 mg PO PRN PRNRF: 0 Discharge Instructions Instructions: Depression (ED), Abuse of Alcohol (ED), Contusion in Adults (ED), Suicide Prevention for Adults (ED) Additional Instructions: Encourage hydration. Stop drinking alcohol, you have contact information for rehab facilities. Please call them tomorrow. JOAQUIN SMITH will evaluate you in the morning before being discharged from police custody. Monitor abrasion for signs of infection including redness, warmth, drainage, increased pain, fevers/chills. If these arise seek care urgently once again. Follow up as soon as possible with primary care physician. Referrals: Abraham Rosario MD [Primary Care Provider] - Discharge Data Discharge Date/Time-TO BE ENTERED AT DEPARTURE: 07/04/18 02:27 Medical Decision Making Patient is 62-year-old male, brought in via EMS, with chief complaint of fall. Patient is well-known to the department. History of alcohol abuse currently appears intoxicated. Speech is clear and is answering questions appropriately. Is unclear how much alcohol he has had thus far today but his previously reported he drinks approximately quart of vodka daily. He presents today after falling when he slipped on icy sidewalks while walking to [place]. Reports he landed on his right elbow. Patient does have a superficial abrasion along the lateral aspect of the right elbow. Full range of motion with no discomfort. No swelling. Will obtain imaging of this to evaluate for any fracture although I find this unlikely given his good range of motion. However, given his intoxicated state, will obtain imaging to rule out fracture. Patient is also endorsing pain along the lateral aspect of left chest wall associated with fall last night. States that he tripped in his home and fell striking it against a door jam. Denies any shortness of breath. Pain does not radiate. Pain is worse with deep inspiration. Lungs are clear on exam. Pain is focal over the left lateral chest wall. No evidence of swelling or ecchymosis. Patient is largely excoriated throughout much of his body. He is disheveled and has feces on his feet. Patient appears to have been incontinent of urine recently. Patient is also endorsing feeling like he does not want to live. He denies any plan for suicide, is not actively planning this out but rather feels there is no reason to live. Does not want help for his alcoholism. Reports that he has attempted this in the past and was unsuccessful. Feels that at 62, he would continue to be unsuccessful. He attributes his feeling worthless to his alcohol intake. [employer] ordered and with patient. Heis sleeping comfortably. Patient was evaluated by mental health, he is denying any thoughts of suicidal ideation with them. Plan to obtain screening labs as well and is anxious of the patient's left chest with right elbow. XR reviewed by Dr. Mayorga, no acute abnormalities noted. Labs reviewed, WBC is low, this is typical for patient. Anemia is chornic and unchanged from baseline. AST and ALT elevated, this has been elevated historically and is likely associated with his chronic alcohol abuse. I advised following up with his primary care for this. TSH is low, will obtain free T4. Alcohol 395. [facility] reports that he knows patient. We discussed treatment options. Patient refusing rehab facility at this time. We discussed keeping patient here vs. in police custody. At this time, department has very acute patients. Feel that patient will be better monitored in police custody until he is able to sober enough to speak with mental health for further screening. Discussed plan with patient. He has been in police custody on multiple nights historically with similar alcohol levels. He is frustrated about food at the [facility] but is otherwise in agreement. JOAQUIN SMITH will evaluate in the morning. Patient is clincally sober and appropriate at this time. XR reviewed by radiologist: CXR FINDINGS: Bones/joints: Deformity of the distal left clavicle is chronic, with left acromioclavicular degenerative changes. No acute fracture or subluxation. No rib fractures are identified. Soft tissues: Normal. IMPRESSION: No acute bony pathology. FINDINGS: Bones/joints: No displaced fracture. Minimal undulation, lateral aspect of the radial head, with no cortical step-off. Probable mild joint effusion. Mild swelling over the olecranon. Soft tissues: See Bones/joints Finding. IMPRESSION: 1. No displaced fracture. 2. Minimal undulation, lateral aspect of the radial head, with no cortical step- off. Consider a minor nondisplaced fracture in the right clinical setting. 3. Probable mild joint effusion. Mild swelling over the olecranon. Discussed this with Dr. Mayorga who felt that there was no XR. Patient continues to have full ROM. Pain seems to be morea ssociated with abrasion that bony tenderness. At this point, I do not feel that patient will keep sling on and have low suspicion for an actual fracture. Concerned that this may be an over read. HPI General Mode of arrival: EMS . Date/Time Provider Initiated Documentation: 07/03/18 23:10 . Limitations to Documentation: altered mental status (appears intoxicated) . Information obtained by: patient and EMS . HPI Narrative: Patient is a 62 year old male, history of hypertension, alcohol abuse, with c/c of fall. He reports that he fell today while walking to [place]. States he slipped on the ice and fell striking his right forearm and suffering superficial abrasion to lateral elbow. Is also endorsing left sided rib pain. States he fell yesterday at home when he tripped while intoxicated and injured his left anterior chest wall at that time. He denies SOB. Denies striking his head, no LOC. Denies pain in his back. Endorses diarrhea x 1 week. Patient reports he drinks heavily daily, does not know how much he drank today. Also endorsing thoughts of self harm, rpeorts there is no point is living. Denies any plan. Feels that at 62, there is no reason to attempt to stop drinking or seek help, feels that it is just too late. Currently living in his mothers basement. Related Data Home Medications Medication Instructions Recorded Confirmed citalopram 20 mg PO DAILY 01/20/17 04/29/18 ibuprofen 600 mg PO PRN PRN 01/20/17 04/29/18 hydroxyzine HCl 25 mg PO PRN PRN 02/05/17 04/29/18 Allergies Allergy/AdvReac Type Severity Reaction Status Date / Time Penicillins Allergy Unverified 07/03/18 23:11 Sulfa (Sulfonamide AdvReac Unverified 07/03/18 23:11 Antibiotics) General Stated Complaint: PsychEval ALEENA: 2 Review of Systems Constitutional Reports as per HPI, Denies chills, Denies fatigue, Denies fever(s), Denies headache(s) and Denies weakness Eyes Reports as per HPI, Denies blurry vision, Denies change in vision and Denies loss of vision ENT Denies headache(s) and Denies neck pain Cardiovascular Reports as per HPI, Denies chest pain and Denies dyspnea Respiratory Reports as per HPI, Denies cough and Denies dyspnea Gastrointestinal Reports as per HPI, Denies abdominal pain, Denies melena, Reports diarrhea, Denies nausea and Denies vomiting Genitourinary Reports as per HPI (patient denies any change in urinary habits) Musculoskeletal Reports as per HPI, Denies back pain, Denies muscle cramps, Denies neck pain, Denies numbness and Denies tingling Integumentary/Breasts Reports as per HPI and Reports other (abrasion right elbow) Neurologic Denies headache(s), Denies loss of vision, Denies numbness, Denies tingling and Denies weakness Psychiatric Reports as per HPI, Reports depression, Reports hopelessness, Denies hallucinations, Denies homicidal ideation and Reports suicidal ideation Endocrine Denies fatigue [facility] Medical History Alcohol abuse (Chronic) HTN (hypertension) (Chronic) Surgical History H/O hernia repair (Inactive) Social History Smoking/Tobacco Use Status: Current every day alcohol intake: current Exam Const General: cooperative, comfortable, no acute distress, well developed, disheveled, ill appearing chronically and intoxicated appearing Nutritional Appearance: average body habitus and well nourished Orientation: alert, awake and oriented x3 HENMT Head: normal to inspection, no palpable skull fracture, normocephalic and atraumatic Ears: hearing grossly normal bilaterally, external ears normal and TM's normal bilaterally General nose exam: external nose normal Mouth: oral mucosae normal, lip normal and tongue normal Throat: posterior oropharynx normal Eyes General: appearance normal, both eyes and all related structures Visual Manzo: normal visual manzo by confrontation Alignment and Position: alignment normal Periorbital: periorbital findings normal Eyelids: eyelids normal Conjunctivae: conjunctivae normal Pupils: PERRL EOM: EOM intact bilaterally Neck Neck: normal visual inspection, full ROM, no lymphadenopathy, no meningeal signs, trachea midline and supple Chest Chest: normal inspection of the chest, normal palpation of entire chest wall, no crepitus and localized rib tenderness with anteroposterior compression (patient has discomort with palpation over the left lateral chest wall) Resp Effort & Inspection: normal respiratory effort, able to speak in complete sentences and no respiratory distress Auscultation: clear to auscultation bilaterally, no rales, no rhonchi and no wheezes Cardio Rate: regular rate Rhythm: regular rhythm Heart Sounds: S1 normal and S2 normal GI Inspection: normal to inspection, no abdominal wall ecchymosis, no edema and non-distended Palpation: soft, no hepatosplenomegaly, not firm, no guarding, no pulsatile masses, not rigid and nontender Auscultation: normal bowel sounds Back/Spine/Pelvis Back: no CVA tenderness Cervical Spine: normal cervical lordosis and cervical ROM normal Thoracic/Lumbar Spine: thoracic and lumbar spine normal to inspection, thoraco- lumbar ROM normal, No thoraco-lumbar ROM limited, No thoraco-lumbar spasm and No thoracic spinal tenderness Pelvis: no pain with anterior-posterior compression and no pain with lateral compression Skin General skin exam: crusts, dry skin and other (patient is excoriated on back, head, extremities) Trauma: abrasion (superficial abrasion to lateral right elbow) Neuro General: alert, awake, oriented x3, gait normal, tone normal and moves all extremities Cranial Nerves: CN's II-XI intact bilaterally Cognition: normal cognition Speech: speech normal Gait: normal gait Motor: muscle tone normal throughout and strength 5/5 throughout Sensory Exam: no sensory deficits noted (no saddle paresthesias) Extrem General: abnormal to inspection (abrasion as above. Full ROM RUE), full ROM, normal capillary refill, no pedal edema and no calf tenderness Psych Appearance: disheveled Mental Status: mental status grossly normal Speech and Movement: speech and movement normal and speech clear Mood: labile mood Affect: sad Attitude: avoids eye contact Course Vital Signs Temperature 36.8 C 07/03/18 23:01 Pulse 79 07/03/18 23:01 Respiratory Rate 18 07/03/18 23:01 Blood Pressure 141/86 H 07/03/18 23:01 Pulse Oximetry 90 L 07/03/18 23:01 Temperature 36.8 C 07/03/18 23:01 Temperature Source Temporal Artery Scan 07/03/18 23:01 Pulse 79 07/03/18 23:01 Respiratory Rate 18 07/03/18 23:01 Blood Pressure 141/86 H 07/03/18 23:01 Pulse Oximetry 90 L 07/03/18 23:01 Oxygen Delivery Method Room Air 07/03/18 23:01 Oxygen Flow Rate 0 07/03/18 23:01 Pain Level 0 07/03/18 23:01
--- NOTE | 2018-07-04 00:03 | DI.RAD_ITS ---
SYMPTOMS/DIAGNOSIS: FALL, PAIN LATERAL ELBOW RIGHT ELBOW: Three views priors. No acute fracture or dislocation is identified. On the oblique view there is mild undulation of the lateral aspect of the radial head. This may be chronic but a mild nondisplaced fracture can not be excluded. There is a small joint effusion present. On the lateral view there is a lucency seen in the coronoid process and a nondisplaced fracture can not be excluded. IMPRESSION: 1. Small joint effusion. 2. Lucency on the lateral view overlying the coronoid process which may represent a nondisplaced fracture. 3. Undulation along the lateral aspect of the articular surface of the radial head. This may be chronic but a small nondisplaced fracture can not be excluded. Follow up as clinically appropriate. LEFT RIBS AND PA AND LATERAL CHEST: The heart size and pulmonary vasculature are within normal limits. The lungs are clear. No effusions or pneumothoraces are identified. No acute rib fractures are seen. There are hypertrophic changes of the acromioclavicular joints bilaterally consistent with osteoarthritis. There is underlying COPD. Degenerative changes are seen in the spine. IMPRESSION: No acute pulmonary process.
[2018-07-04 00:54] LABS: Salicylate < 2.8 mg/dL (2.8-20.0)
[2018-07-04 01:04] LABS: ALT 92 U/L (12-78); AST 171 U/L (15-37); Albumin 3.2 g/dL (3.4-5.0); Alkaline Phosphatase 75 U/L (46-116); Anion Gap 10.4 mmol/L (3-11); BUN 13 mg/dL (7-18); Bilirubin, Total 0.4 mg/dL (0.2-1.0); CO2 31.6 mmol/L (21.0-32.0); CREATININE 0.98 mg/dL (0.70-1.30); Calcium 8.4 mg/dL (8.5-10.1); Chloride 105 mmol/L (98-107); Glucose 90 mg/dL (70-100); Potassium 3.7 mmol/L (3.5-5.1); Sodium 147 mmol/L (136-145); TSH 0.18 uIU/mL (0.358-3.74); Total Protein 6.8 g/dL (6.4-8.2)
[2018-07-04 01:10] LABS: ETHANOL BLOOD 395.4 mg/dL (<3)
[2018-07-04 01:18] LABS: Abs Immature Grans 0.01 k/cumm (0.0-0.09); Absolute Basophil Count 0.02 k/cumm (0.0-0.2); Absolute Monocyte Count 0.44 k/cumm (0.11-0.7); Basophils % 0.6; HCT 35.3 % (40.0-50.0); HGB 11.9 g/dL (13.5-17.5); Immature Grans % 0.3; Lymphocytes % 23.7; Mean Corp. HGB Concentration 33.7 g/dL (32.0-36.0); Mean Corpuscular Hemoglobin 32.5 pg (27.0-33.0); Mean Corpuscular Volume 96.4 fL (80-95); Mean Platelet Volume 10.2 fL (8.0-11.0); Monocytes % 13.1; Neutrophils % 59.3; RBC 3.66 m/cumm (4.50-6.00); RBC Distribution Width 16.4 % (11.8-14.1); White Blood Cell Count 3.37 k/cumm (4.4-10.8)
[2018-07-04 01:34] LABS: Acetaminophen < 2 ug/mL (10-30)
[2018-07-04 01:36] LABS: Platelet Count 76 x1000/uL (130-400)
[2018-07-04 01:37] LABS: Diff Comment PLT Morph Reviewed; RBC Morphology Normal
--- NOTE | 2018-07-04 02:39 | DI.VRAD_ITS ---
EXAM: XR Left Ribs, 2 Views EXAM DATE/TIME: 07/04/2018 12:05 AM CLINICAL HISTORY: 62 years old, male; Injury or trauma; Fall; Initial encounter; Blunt trauma (contusions or hematomas); Rib area, left side TECHNIQUE: XR Left ribs 2 views. COMPARISON: CR XR CHEST 2V PA LATERAL 04/12/2018 4:08 PM FINDINGS: Bones/joints: Deformity of the distal left clavicle is chronic, with left acromioclavicular degenerative changes. No acute fracture or subluxation. No rib fractures are identified. Soft tissues: Normal. IMPRESSION: No acute bony pathology. EXAM: XR Chest, 2 Views EXAM DATE/TIME: 07/04/2018 12:05 AM CLINICAL HISTORY: 62 years old, male; Injury or trauma; Fall; Initial encounter; Blunt trauma (contusions or hematomas); Rib area, left side TECHNIQUE: XR of the chest, 2 views. COMPARISON: CR XR CHEST 2V PA LATERAL 04/12/2018 4:08 PM FINDINGS: Lungs: Hyperinflation without airspace consolidation. Pleural space: No pleural effusion. No pneumothorax. Heart/Mediastinum: No cardiomegaly. Bones/joints: Chronic deformities of the distal clavicles are stable. Degenerative changes in the acromioclavicular joints. IMPRESSION: Hyperinflation without airspace consolidation. Dictated and Authenticated by: Bonnie Ferreira MD. Ordering:MARILYN Guido MD
--- NOTE | 2018-07-04 02:40 | DI.VRAD_ITS ---
EXAM: XR Right Elbow Complete, 3 or more Views EXAM DATE/TIME: 07/04/2018 12:21 AM CLINICAL HISTORY: 62 years old, male; Injury or trauma; Fall; Initial encounter; Blunt trauma (contusions or hematomas; Elbow; Right TECHNIQUE: XR Right elbow, 3 or more views. COMPARISON: No relevant prior studies available. FINDINGS: Bones/joints: No displaced fracture. Minimal undulation, lateral aspect of the radial head, with no cortical step-off. Probable mild joint effusion. Mild swelling over the olecranon. Soft tissues: See Bones/joints Finding. IMPRESSION: 1. No displaced fracture. 2. Minimal undulation, lateral aspect of the radial head, with no cortical step-off. Consider a minor nondisplaced fracture in the right clinical setting. 3. Probable mild joint effusion. Mild swelling over the olecranon. Dictated and Authenticated by: Bonnie Ferreira MD. Ordering:MARILYN Guido MD
[2018-07-04 02:41] LABS: FREE T4 1.01 ng/dL (0.76-1.46)
[2018-07-04 02:47] VITALS: BP 140/84; PULSE 72; RESP 18; O2SAT 92
== END 2018-07-04 02:27 | disposition home or self-care (01) ==
PROVIDERS: Emergency Provider Physician Assistant; PCP General Practice
DX: S20.212A Contusion of left front wall of thorax, initial encounter (principal); S50.02XA Contusion of left elbow, initial encounter; R45.851 Suicidal ideations; F10.120 Alcohol abuse with intoxication, uncomplicated; W00.0XXA Fall on same level due to ice and snow, initial encounter; I10 Essential (primary) hypertension
CPT/HCPCS: 80053; 99285; 71046; 71100; 73080; 80320; 80329; 84439; 84443; 85025; 99284

== ENCOUNTER 2018-07-19 09:02 | Outpatient (CLI) | payer MEDICAID, SELFPAY ==
[2018-07-19 10:54] LABS: HCT 33.2 % (40.0-50.0); HGB 11.5 g/dL (13.5-17.5); Mean Corp. HGB Concentration 34.6 g/dL (32.0-36.0); Mean Corpuscular Hemoglobin 33.5 pg (27.0-33.0); Mean Corpuscular Volume 96.8 fL (80-95); Mean Platelet Volume 10.8 fL (8.0-11.0); RBC 3.43 m/cumm (4.50-6.00); RBC Distribution Width 16.9 % (11.8-14.1); White Blood Cell Count 3.16 k/cumm (4.4-10.8)
[2018-07-19 11:12] LABS: Platelet Count 52 x1000/uL (130-400)
[2018-07-19 12:04] LABS: ALT 77 U/L (12-78); AST 159 U/L (15-37); Albumin 3.5 g/dL (3.4-5.0); Alkaline Phosphatase 83 U/L (46-116); Anion Gap 12.8 mmol/L (3-11); BUN 10 mg/dL (7-18); Bilirubin, Total 0.8 mg/dL (0.2-1.0); CO2 28.2 mmol/L (21.0-32.0); CREATININE 0.96 mg/dL (0.70-1.30); Chloride 99 mmol/L (98-107); Glucose 93 mg/dL (70-100); Magnesium 1.3 mg/dL (1.8-2.4); Potassium 3.8 mmol/L (3.5-5.1); Sodium 140 mmol/L (136-145); Total Protein 7.5 g/dL (6.4-8.2); Vitamin B12 732 pg/mL (193-986)
[2018-07-22 12:35] LABS: Thiamine (Vitamin B1), WB 92 nmol/L (70-180)
== END 2018-07-19 09:22 ==
PROVIDERS: PCP Nurse Practitioner Family; Visit Provider Nurse Practitioner Family
DX: I10 Essential (primary) hypertension (principal); F10.10 Alcohol abuse, uncomplicated
CPT/HCPCS: 36415; 80053; 85027; 82607; 83735; 84425

== ENCOUNTER 2018-07-25 15:21 | Emergency (ER) | payer MEDICAID, SELFPAY ==
[2018-07-25] VITALS (31 sets, daily range): BP systolic 128–180; BP diastolic 72–93; PULSE 75–101; RESP 10–35; TEMP 36.6; O2SAT 92–100
[2018-07-25] MEDS: FAMOTIDINE 20 MG/50 ML BAG 200 MG IVPB (15:52)
[2018-07-25] MEDS: diphenhydrAMINE 50 MG/ML VIAL IVP (15:53)
[2018-07-25] MEDS: methylPREDNISolone SUCC 125 MG VIAL IVP (15:53)
--- NOTE | 2018-07-25 15:56 | DI.CT_ITS ---
SYMPTOM/DIAGNOSIS: DRUNK, FALLS CT BRAIN: Noncontrast examination. Comparison 05/06/18 No intracranial hemorrhage, midline shift or mass effect is identified. There is global cerebral atrophy consistent with the patient's age. There are areas of decreased attenuation in the white matter most likely reflecting small vessel ischemic disease. The ventricles are intact. The basilar cisterns are patent. There is an old right zygomatic arch fracture. Deformity of the nasal bones appears stable. No definite acute fracture is appreciated. There is mucosal thickening seen in the maxillary sinuses and ethmoid air cells. There is fluid seen in the nasal passageway which may reflect congestion or blood. The mastoid air cells are well pneumatized. IMPRESSION: 1. No definite acute intracranial process 2. Findings of old facial fractures. 3. Mucosal thickening in the maxillary sinuses and ethmoid air cells. 4. Fluid seen within the nasal passageway. This may represent congestion vs hemorrhage. Please correlate clinically.
[2018-07-25 16:02] LABS: Abs Immature Grans 0.02 k/cumm (0.0-0.09); Absolute Basophil Count 0.02 k/cumm (0.0-0.2); Absolute Eosinophil Count 0.09 k/cumm (0.0-0.7); Absolute Lymphocyte Count 1.24 k/cumm (1.2-3.4); Absolute Monocyte Count 0.59 k/cumm (0.11-0.7); Absolute Neutrophil Count 1.87 k/cumm (1.2-6.7); Basophils % 0.5; Eosinophils % 2.3; HCT 35.8 % (40.0-50.0); HGB 12.2 g/dL (13.5-17.5); Immature Grans % 0.5; Lymphocytes % 32.4; Mean Corp. HGB Concentration 34.1 g/dL (32.0-36.0); Mean Corpuscular Hemoglobin 33.6 pg (27.0-33.0); Mean Corpuscular Volume 98.6 fL (80-95); Mean Platelet Volume 10.7 fL (8.0-11.0); Monocytes % 15.4; Neutrophils % 48.9; RBC 3.63 m/cumm (4.50-6.00); RBC Distribution Width 16.8 % (11.8-14.1); White Blood Cell Count 3.83 k/cumm (4.4-10.8)
[2018-07-25] MEDS: PROPOFOL 1,000 MG/100 ML BTL 7.6 MG (16:10)
--- NOTE | 2018-07-25 16:12 | DI.RAD_ITS ---
SYMPTOM/DIAGNOSIS: INTUBATION CHEST X-RAY: AP views. Comparison 07/04/18 Heart size and pulmonary vasculature are within normal limits. There is poor inspiration. Linear infiltrates are seen in the lung bases bilaterally. This may represent atelectasis or scarring. Pneumonia cannot be entirely excluded. No focal consolidating infiltrates, effusions or pneumothoraces are identified. There is an endotracheal tube present. The tip lies at the level of the thoracic inlet. it lies approximately 7 cm above the zaida IMPRESSION: 1. Tip of endotracheal tube approximately 7 cm above the zaida. 2. Bilateral linear basilar opacities. This is likely reflecting atelectasis.
[2018-07-25 16:29] LABS: Platelet Count 78 x1000/uL (130-400)
[2018-07-25 16:30] LABS: ALT 78 U/L (12-78); AST 177 U/L (15-37); Albumin 3.9 g/dL (3.4-5.0); Alkaline Phosphatase 80 U/L (46-116); Anion Gap 9.7 mmol/L (3-11); BUN 14 mg/dL (7-18); CO2 28.3 mmol/L (21.0-32.0); CREATININE 1.03 mg/dL (0.70-1.30); Calcium 8.9 mg/dL (8.5-10.1); Chloride 97 mmol/L (98-107); Glucose 92 mg/dL (70-100); Potassium 4.5 mmol/L (3.5-5.1); Sodium 135 mmol/L (136-145); Total Protein 8.6 g/dL (6.4-8.2)
[2018-07-25 16:40] LABS: ETHANOL BLOOD 311.1 mg/dL (<3)
[2018-07-25 16:42] LABS: Bilirubin Negative (Negative); Blood Trace-lysed (Negative); Clarity Sl Cloudy; Glucose Negative (Negative); Ketones Negative (Negative); Leukocyte Esterase Negative (Negative); Nitrite Negative (Negative); Urobilinogen 0.2 EU/dL (Up TO 0.2); pH 6.5 (5-8)
--- NOTE | 2018-07-25 16:44 | DI.VRAD_ITS ---
EXAM: XR Chest, 1 View EXAM DATE/TIME: 07/25/2018 4:23 PM CLINICAL HISTORY: 62 years old, male; Device placement; Other: Intubation TECHNIQUE: XR of the chest, 1 view. COMPARISON: CR XR CHEST 2V PA LATERAL 04/12/2018 4:08 PM FINDINGS: Tubes, catheters and devices: Endotracheal tube present within the mid trachea approximately 7 cm above the zaida. Lungs: Minimal linear and patchy densities in the lung bases, likely atelectasis. Tiny infiltrate in the right lower lobe is not completely excluded. Pleural space: Unremarkable. No pleural effusion. No pneumothorax. Heart/Mediastinum: The cardiomediastinal silhouette and pulmonary vasculature are within normal limits. Bones/joints: There are degenerative changes of aging throughout the thoracic spine. IMPRESSION: 1. Endotracheal tube tip superimposed over the mid trachea approximate 7 cm above the zaida. 2. Bibasilar lung opacities, likely atelectasis. Dictated and Authenticated by: Eliceo Murry MD. Ordering:NARINDER Rico MD
--- NOTE | 2018-07-25 16:45 | W.ED.GENAD ---
Discharge Plan Disposition Patient Disposition: [facility] Condition: Serious Discharge Details Chief Complaint: Allergic Clinical Impression: Angioedema Primary Care Provider: Mounika Heard ED Provider: Ronnie Scanlon Home Meds and New Rx's Prescriptions: No Action citalopram 20 MG tablet 20 mg PO DAILY RF: 0 ibuprofen 600 MG tablet 600 mg PO PRN PRNRF: 0 hydroxyzine HCl 25 MG tablet 25 mg PO PRN PRNRF: 0 Medical Decision Making This is a 62-year-old male who presents today for evaluation of angioedema. The patient states that late this morning/early this afternoon he developed notable swelling of his lower lip, and over the last hour he has had worsening swelling of his lip, some swelling of his tongue, and stating that it feels like his throat is tightening up and closing. On initial assessment the patient is hemodynamically stable. He has no historical factors of familial hereditary angioedema recent seafood intake, or other food allergies. The patient is on lisinopril, but has missed a couple doses in the past week. He is a poor historian in general. Patient is a notable chronic alcoholic. Physical exam demonstrates notable edema and swelling of the lower lip, mild to moderate swelling of the tongue, and a grade 3 malum potty view. I had a long discussion with the patient and his significant other who were at bedside discussing the risks and benefits of intubation for airway protection, and through shared decision making process we have elected to debate protection as he seems to be rapidly swelling, and signs concerning for loss of the airway. He has been given Solu-Medrol, Benadryl, and Pepcid. Do not think that epinephrine is indicated at this time. Patient was intubated successfully with anesthesia at bedside. No complications during the intubation. Because of the patient's alcoholism we did get a head CT, no acute process is noted. Patient's laboratory workup is otherwise relatively benign, with slightly low platelets at 78 which appears to be near his baseline, no significant anemia, no significant electrolyte or renal abnormalities. Alcohol is present and elevated, which correlates well with his chronic clinical history. I did discuss the case with office rental clerk at [facility], Dr. Bragg and and they agreed with the current plan, the did not recommend giving FFP. Made no additional recommendations and did recommend transfer. The patient will be transferred down to [facility] by main campus medical center for further management. I have extensively reviewed the treatment plan with the patient. I have addressed all patient concerns at this time. I have also discussed the plan with the admitting physician and they agree with the current assessment and plan and have agreed to assume responsibility for the patient. All parties demonstrate verbal understanding and agreement with our assessment and plan at this time. Comparison: CT HEAD CERVICAL SPINE WO 05/06/2018 3:53 PM Findings: Brain: Global cerebral atrophy is consistent with patient's age. Decreased attenuation within the white matter tracts of both cerebral hemispheres is nonspecific but typically seen with small vessel disease/chronic white matter ischemic changes of aging. No intracranial hemorrhage or mass effect. Ventricles: Unremarkable. No ventriculomegaly. Bones/joints: Findings suspicious for a nondisplaced fracture of the anterior aspect of the left nasal bone of uncertain age. Sinuses: Bilateral maxillary and bilateral ethmoid mucosal thickening. No paranasal sinus air fluid level. Mastoid air cells: Visualized mastoid air cells are unremarkable. No mastoid effusion. Soft tissues: Unremarkable. Nasal cavity: Diminished aeration of the nasal passages, likely congestion or blood in the setting of trauma. Impression: 1. No acute intracranial abnormality. 2. Mild mucosal thickening of ethmoid and maxillary sinuses. 3. Findings suspicious for nondisplaced fracture the anterior aspect of the left nasal bone of uncertain age. 4. Nasal cavity congestion. Dictated and Authenticated by: Eliceo Murry MD. Comparison: CR XR CHEST 2V PA LATERAL 04/12/2018 4:08 PM Findings: Tubes, catheters and devices: Endotracheal tube present within the mid trachea approximately 7 cm above the zaida. Lungs: Minimal linear and patchy densities in the lung bases, likely atelectasis. Tiny infiltrate in the right lower lobe is not completely excluded. Pleural space: Unremarkable. No pleural effusion. No pneumothorax. Heart/Mediastinum: The cardiomediastinal silhouette and pulmonary vasculature are within normal limits. Bones/joints: There are degenerative changes of aging throughout the thoracic spine. Impression: 1. Endotracheal tube tip superimposed over the mid trachea approximate 7 cm above the zaida. 2. Bibasilar lung opacities, likely atelectasis. Dictated and Authenticated by: Eliceo Murry MD. HPI General Date/Time Provider Initiated Documentation: 07/25/18 15:45. HPI Narrative: This is a 62-year-old male with a past medical history of hypertension, chronic alcoholism, and anxiety who presents today for evaluation of edema of the lip and tongue. The patient does take lisinopril regularly, but may have missed various doses as of late. Patient states that this morning he woke up and had no significant edema or swelling, however late this morning and early this afternoon he noticed some increased lip swelling which is gradually and noticeably worsening over the last few hours. Over the last hour the patient has noticed swelling of his tongue, tightening of his throat, stating that he is like he is having a slightly harder time to breathe now. He has not eaten any new foods, he has no history of food allergies. He denies any family history of hereditary angioedema. He denies any recent traumas, but does have bruises over him likely secondary to his chronic alcoholism and falls. Patient denies any other complaints at this time. He denies any nausea, vomiting, diarrhea, chest pain or shortness of breath Related Data Home Medications Medication Instructions Recorded Confirmed citalopram 20 mg PO DAILY 01/20/17 07/25/18 ibuprofen 600 mg PO PRN PRN 01/20/17 07/25/18 hydroxyzine HCl 25 mg PO PRN PRN 02/05/17 07/25/18 Allergies Allergy/AdvReac Type Severity Reaction Status Date / Time lisinopril Allergy Severe Swelling/Ed Unverified 07/25/18 17:13 pastor Penicillins Allergy Unverified 07/25/18 17:13 Sulfa (Sulfonamide AdvReac Unverified 07/25/18 17:13 Antibiotics) General Stated Complaint: Allergic ALEENA: 2 Review of Systems Review of Systems All systems reviewed & are unremarkable except as noted in HPI and below [facility] Social History Smoking and Tabacco status: Current every day alcohol intake: current Exam Narrative Exam Narrative: 1.Const: Well-nourished, Well-developed, appearing stated age 2.Eyes: PERRL, no conjunctival injection, and symmetrical lids. 3.ENT: Atraumatic external nose and ears. Moist MM. Neck: Symmetric, trachea midline, No thyromegaly. Notable swelling of the patient's lower lip, mild swelling of the patient's upper lip. Tongue demonstrates minimal edema. Mallampati score of 3, no significant uvular edema. There is no evidence of raccoon eyes, hawk sign, CSF rhinorrhea, mastoid tenderness, cranial crepitus, hemotympanum, exophthalmos, or hyphema. Patient demonstrates intact dentition with no signs of tooth avulsion or fracture, no signs of jaw deformity, no evidence of a LeFort's fracture, with an intact palate, nose and orbital region. There is no evidence of a nasal septal hematoma. No proptosis. Jaw closes symmetrically. 4.CVS: +S1/S2, No murmurs or gallops. Peripheral pulses 2+ and equal in all extremities. Brisk capillary refill in all extremities. 5.RESP: Unlabored respiratory effort. Clear to auscultation bilaterally. No wheezes rales or rhonchi 6.GI: Soft, Nontender/Nondistended, No hepatosplenomegaly. No guarding or rebound. 7.MSK: Normocephalic/Atraumatic, Extremities w/o deformity or ttp No cyanosis or clubbing, Normal movement of all extremities 8.Skin: Warm, Dry. Visible old abrasions and old bruises are present on the extremities. 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 Sensation grossly intact, no focal neurologic deficits. 10.Psych: (AAO) x3. Appropriate mood and affect Course Vital Signs Temperature 36.6 C 07/25/18 15:30 Pulse 86 07/25/18 15:30 Respiratory Rate 18 07/25/18 15:30 Blood Pressure 128/72 07/25/18 15:30 Pulse Oximetry 93 L 07/25/18 15:30 Temperature 36.6 C 07/25/18 15:30 Temperature Source Temporal Artery Scan 07/25/18 15:30 Pulse 75 07/25/18 15:59 Respiratory Rate 15 07/25/18 16:22 Respiratory Effort 07/25/18 15:36 Blood Pressure 163/93 H 07/25/18 15:59 Blood Pressure Position Sitting 07/25/18 15:30 Pulse Oximetry 99 07/25/18 16:22 Respiratory End-tidal CO2 38 07/25/18 16:22 Oxygen Delivery Method Nasal Cannula 07/25/18 15:59 Oxygen Flow Rate 15 07/25/18 15:59 Fraction of Inspired Oxygen (FIO2) 50 07/25/18 16:22 Pain Level 0 07/25/18 15:30 Lab/Test Results Lab/Test Results: Laboratory Tests Range/Units 07/25/18 07/25/18 07/25/18 15:49 15:49 15:50 WBC (4.4-10.8) k/cumm 3.83 L RBC (4.50-6.00) m/cumm 3.63 L Hgb (13.5-17.5) g/dL 12.2 L Hct (40.0-50.0) % 35.8 L MCV (80-95) fL 98.6 H MCH (27.0-33.0) pg 33.6 H MCHC (32.0-36.0) g/dL 34.1 RDW (11.8-14.1) % 16.8 H Plt Count (130-400) x1000/uL 78 L MPV (8.0-11.0) fL 10.7 Immature Gran % 0.5 Neutrophils % 48.9 Lymphocytes % 32.4 Monocytes % 15.4 Eosinophils % 2.3 Basophils % 0.5 Absolute Neutrophils (1.2-6.7) k/cumm 1.87 Absolute Lymphocytes (1.2-3.4) k/cumm 1.24 Absolute Monocytes (0.11-0.7) k/cumm 0.59 Absolute Eosinophils (0.0-0.7) k/cumm 0.09 Absolute Basophils (0.0-0.2) k/cumm 0.02 Sodium (136-145) mmol/L 135 L Potassium (3.5-5.1) mmol/L 4.5 Chloride (98-107) mmol/L 97 L BUN (7-18) mg/dL 14 Creatinine (0.70-1.30) mg/dL 1.03 Estimated GFR/1.73 m2 (mL/min/1.73m2) >= 60.00 Glucose (70-100) mg/dL 92 Calcium (8.5-10.1) mg/dL 8.9 Total Bilirubin (0.2-1.0) mg/dL 1.0 Alkaline Phosphatase (46-116) U/L 80 Total Protein (6.4-8.2) g/dL 8.6 H Albumin (3.4-5.0) g/dL 3.9 Ethyl Alcohol (<3) mg/dL 311.1
[2018-07-25 16:49] LABS: Bacteria Rare HPF (Negative); C & S Indicated? No; Casts Negative LPF (Negative); Crystals Negative HPF (Negative); Epithelial Cells Rare HPF (Negative); Mucus Negative (Negative); Other Cells Negative (Negative); RBC 0-2 (0-2); WBC Negative HPF (0-5)
--- NOTE | 2018-07-25 17:01 | NUR.NOTE ---
propofol rate increased to 25 mcg/kg/min 1700.
--- NOTE | 2018-07-25 17:02 | DI.VRAD_ITS ---
EXAM: CT Head Without Contrast EXAM DATE/TIME: 07/25/2018 3:57 PM CLINICAL HISTORY: 62 years old, male; Injury or trauma; Fall; Initial encounter; Additional info: ETOH TECHNIQUE: Axial computed tomography images of the head/brain without contrast. Coronal and sagittal reformatted images were created and reviewed. COMPARISON: CT HEAD CERVICAL SPINE WO 05/06/2018 3:53 PM FINDINGS: Brain: Global cerebral atrophy is consistent with patient's age. Decreased attenuation within the white matter tracts of both cerebral hemispheres is nonspecific but typically seen with small vessel disease/chronic white matter ischemic changes of aging. No intracranial hemorrhage or mass effect. Ventricles: Unremarkable. No ventriculomegaly. Bones/joints: Findings suspicious for a nondisplaced fracture of the anterior aspect of the left nasal bone of uncertain age. Sinuses: Bilateral maxillary and bilateral ethmoid mucosal thickening. No paranasal sinus air fluid level. Mastoid air cells: Visualized mastoid air cells are unremarkable. No mastoid effusion. Soft tissues: Unremarkable. Nasal cavity: Diminished aeration of the nasal passages, likely congestion or blood in the setting of trauma. IMPRESSION: 1. No acute intracranial abnormality. 2. Mild mucosal thickening of ethmoid and maxillary sinuses. 3. Findings suspicious for nondisplaced fracture the anterior aspect of the left nasal bone of uncertain age. 4. Nasal cavity congestion. Dictated and Authenticated by: Eliceo Murry MD. Ordering:ANGELICA Trujillo MD
--- NOTE | 2018-07-25 17:13 | NUR.NOTE ---
patient's propofol increased to 30 mcg/kg/min due to some restlessness.:
[2018-07-25 17:14] LABS: BE -1.2 mmol/L (-3-3); HCO3 24 mmol/L (22-28); pCO2 43 mmHg (34-47); pH 7.36 (7.35-7.45); pO2 132 mmHg (83-108); sO2 99 % (94-98); tCO2 23 mmol/L (22-29)
[2018-07-25 17:15] LABS: Site Left Radial
--- NOTE | 2018-07-25 17:15 | NUR.NOTE ---
patient given 100 mg bolus of propofol in r forearm due to becoming more alert per Dr. Muniz.
[2018-07-25] MEDS: Rocuronium 50 MG/5 ML SYR 100 MG IVP (17:20)
[2018-07-25] MEDS: Rocuronium 50 MG/5 ML SYR 100 MG IV (17:21)
[2018-07-25] MEDS: MIDAZOLAM 50 MG in Normal Saline 90 ML IV (17:44)
== END 2018-07-25 18:14 | disposition short-term general hospital (02) ==
PROVIDERS: Emergency Provider Student in an Organized Health Care Education/Training Program; PCP Nurse Practitioner Family
DX: R60.0 Localized edema (principal); R09.89 Other specified symptoms and signs involving the circulatory and respiratory systems; T78.3XXA Angioneurotic edema, initial encounter; F10.20 Alcohol dependence, uncomplicated; Y90.8 Blood alcohol level of 240 mg/100 ml or more; I10 Essential (primary) hypertension
CPT/HCPCS: 31500; 36415; 51702; 77001; 80053; 82805; 96365; 96366; 96368; 96375; 96376; 99291; 36569; 36600; 70450; 80320; 81003; 81015; 85025; J2930; J3490

== ENCOUNTER 2018-08-14 17:04 | Outpatient (REF) | payer MEDICAID, SELFPAY ==
[2018-08-14 19:40] LABS: Anion Gap 4.5 mmol/L (3-11); BUN 17 mg/dL (7-18); CO2 33.5 mmol/L (21.0-32.0); CREATININE 1.27 mg/dL (0.70-1.30); Calcium 9.6 mg/dL (8.5-10.1); Chloride 102 mmol/L (98-107); Estimated GFR 57.46 (mL/min/1.73m2); Glucose 118 mg/dL (70-100); Sodium 140 mmol/L (136-145)
== END 2018-08-14 17:24 ==
LOC: NCHCN 17:04
PROVIDERS: PCP Nurse Practitioner Family; Visit Provider Nurse Practitioner Family
DX: F10.10 Alcohol abuse, uncomplicated (principal)
CPT/HCPCS: 80048

== ENCOUNTER 2018-08-22 15:11 | Outpatient (REF) | payer MEDICAID, SELFPAY ==
[2018-08-25 10:00] LABS: PSA, Screening 1.1 ng/ml (0-4.5)
== END 2018-08-22 15:31 ==
LOC: NCHCN 15:11
PROVIDERS: PCP Nurse Practitioner Family; Visit Provider Nurse Practitioner Family
DX: Z12.5 Encounter for screening for malignant neoplasm of prostate (principal); N40.0 Benign prostatic hyperplasia without lower urinary tract symptoms
CPT/HCPCS: 84153

== ENCOUNTER 2018-09-22 14:56 | Outpatient (REF) | payer MEDICAID, SELFPAY ==
[2018-09-22 14:28] LABS: HCT 39.3 % (40.0-50.0); HGB 13.1 g/dL (13.5-17.5); Mean Corp. HGB Concentration 33.3 g/dL (32.0-36.0); Mean Corpuscular Hemoglobin 32.7 pg (27.0-33.0); Mean Platelet Volume 11.3 fL (8.0-11.0); Platelet Count 188 x1000/uL (130-400); RBC 4.01 m/cumm (4.50-6.00); RBC Distribution Width 13.1 % (11.8-14.1); White Blood Cell Count 6.21 k/cumm (4.4-10.8)
[2018-09-22 14:43] LABS: ALT 31 U/L (12-78); AST 30 U/L (15-37); Albumin 4.1 g/dL (3.4-5.0); Alkaline Phosphatase 63 U/L (46-116); Bilirubin, Direct 0.13 mg/dL (0.00-0.20); Bilirubin, Total 0.7 mg/dL (0.2-1.0); Total Protein 7.6 g/dL (6.4-8.2)
== END 2018-09-22 15:16 ==
LOC: NCHCN 14:56
PROVIDERS: PCP Nurse Practitioner Family; Visit Provider Nurse Practitioner Family
DX: F10.10 Alcohol abuse, uncomplicated (principal)
CPT/HCPCS: 80076; 85027

== ENCOUNTER 2018-09-26 08:14 | Day surgery (SDC) | payer MEDICAID, SELFPAY ==
[2018-09-26 08:45] VITALS: BP 135/82; PULSE 84; RESP 18; TEMP 35.6; O2SAT 99
[2018-09-26] MEDS: Lactated Ringers 1,000 ML 80 ML IV (08:52)
--- NOTE | 2018-09-26 09:52 | W.COLOREPORT ---
Date of service: 09/26/18 Time of Service: 09:53 Colonoscopy Report Date of procedure: 09/26/18 Pre-op diagnosis general: CRC screen Post-op diagnosis procedure note: same Procedure: CE Surgeon: iMcheline Acosta Anesthesia proc note operative: GETA Estimated blood loss (mL): 0 Pathology: none sent Complications: None Disposition: same day Indications: CRC screen Prep: Miralax Retraction Time: 15 mins Findings: nl Procedure Description: After informed consent was obtained the patient was taken to the procedure room and placed in a left decubitous position. Monitors were applied and a time out was done. The patients name, date of , procedure, allergies to medications and metal in their body was reviewed. The patient was then sedated. Once sedated and comfortable a rectal exam was done. External exam was normal. Internal exam revealed a normal sphincter tone and no palpable masses. The prostate nl. The scope was then introduced and retrofelexed. NO internal hemorrhoids were identified. The scope was then advanced to the cecum 90cm difficulty. The TI and appendiceal orifice were identified. The prep was adequate. The scope was then slowly retracted over 15 minutes back into the rectum. We had to quite a bit of washing to view the muscosa- lesions smaller than 5mm may have been missed. no divertic. Polyps were removed at -none. The scope was removed and the patient was woken up and taken back to Same day surgery in stable condition. The patient tolerated the procedure well and there were no immediate complications. Follow up: The patient should follow up in 10 years unless they develop changes in bowel habits or other new gastrointestinal complaints.
--- NOTE | 2018-09-26 09:55 | W.PM.DSUDISC ---
Discharge Plan Disposition Patient Disposition: HOME Condition: Good Discharge Details Attending Provider: Micheline Acosta Primary Care Provider: Mounika Heard Home Meds and New Rx's Prescriptions: Continued fluticasone propionate [Flonase Allergy Relief] 50 mcg/actuation spray,suspension 1 spray CRISTIANA DAILY RF: 0 tamsulosin 0.4 mg capsule 0.4 mg PO DAILY RF: 0 chlorpromazine 25 mg tablet 25 mg PO Q6H RF: 0 thiamine HCl (vitamin B1) 100 mg tablet 100 mg PO DAILY RF: 0 loratadine 10 mg capsule 10 mg PO DAILY RF: 0 folic acid 1 mg tablet 1 mg PO DAILY RF: 0 amlodipine 5 mg tablet 5 mg PO DAILY RF: 0 Symbicort 160-4.5 mcg/actuation HFA aerosol inhaler 2 puff IH BID RF: 0 mirtazapine 15 mg tablet 15 mg PO DAILY RF: 0 albuterol sulfate [ProAir HFA] 90 mcg/actuation HFA aerosol inhaler 2 puff IH Q6H PRNRF: 0 magnesium citrate 100 mg tablet 400 mg PO DAILY RF: 0 hydrochlorothiazide 25 mg tablet 25 mg PO DAILY RF: 0 trazodone 50 mg Tablet 50 mg PO HS RF: 0 citalopram 20 MG tablet 20 mg PO DAILY RF: 0 ibuprofen 600 MG tablet 600 mg PO PRN PRNRF: 0 hydroxyzine HCl 25 MG tablet 25 mg PO PRN PRNRF: 0 Discontinued bisacodyl [Dulcolax (bisacodyl)] 5 mg tablet,delayed release (DR/EC) 5 mg PO ONCE Qty: 4 RF: 0 polyethylene glycol 3350 17 gram/dose powder 238 g PO ONCE Qty: 238 RF: 0 Discharge Instructions Activity:: no lifting over 10#'s. no driving. strenous activity all for 24 hrs Diet:: sm lt meals today
[2018-09-26 10:22] VITALS: BP 126/70; PULSE 66; RESP 18; TEMP 35.4; O2SAT 98
== END 2018-09-26 11:05 | disposition home or self-care (01) ==
PROVIDERS: PCP Nurse Practitioner Family; Visit Provider Surgery
PROC: 0DJD8ZZ Inspection of Lower Intestinal Tract, Via Natural or Artificial Opening Endoscopic (ICD-10-PCS; CPT 45378; principal; 2018-09-26 09:30)
DX: Z12.11 Encounter for screening for malignant neoplasm of colon (principal); J44.9 Chronic obstructive pulmonary disease, unspecified; F17.210 Nicotine dependence, cigarettes, uncomplicated; F10.10 Alcohol abuse, uncomplicated
CPT/HCPCS: 45378

== ENCOUNTER 2018-10-06 12:35 | Emergency (ER) | payer MEDICAID, SELFPAY ==
--- NOTE | 2018-10-06 12:47 | W.ED.GENAD ---
Discharge Plan Disposition Patient Disposition: HOME Condition: Improving Discharge Details Chief Complaint: PsychEval Clinical Impression: Alcohol abuse Primary Care Provider: Mounika Heard ED Provider: Sergio Muro Home Meds and New Rx's Prescriptions: Continued fluticasone propionate [Flonase Allergy Relief] 50 mcg/actuation spray,suspension 1 spray CRISTIANA DAILY RF: 0 tamsulosin 0.4 mg capsule 0.4 mg PO DAILY RF: 0 chlorpromazine 25 mg tablet 25 mg PO Q6H RF: 0 thiamine HCl (vitamin B1) 100 mg tablet 100 mg PO DAILY RF: 0 loratadine 10 mg capsule 10 mg PO DAILY RF: 0 folic acid 1 mg tablet 1 mg PO DAILY RF: 0 amlodipine 5 mg tablet 5 mg PO DAILY RF: 0 Symbicort 160-4.5 mcg/actuation HFA aerosol inhaler 2 puff IH BID RF: 0 mirtazapine 15 mg tablet 15 mg PO DAILY RF: 0 albuterol sulfate [ProAir HFA] 90 mcg/actuation HFA aerosol inhaler 2 puff IH Q6H PRNRF: 0 magnesium citrate 100 mg tablet 400 mg PO DAILY RF: 0 hydrochlorothiazide 25 mg tablet 25 mg PO DAILY RF: 0 trazodone 50 mg Tablet 50 mg PO HS RF: 0 citalopram 20 MG tablet 20 mg PO DAILY RF: 0 ibuprofen 600 MG tablet 600 mg PO PRN PRNRF: 0 hydroxyzine HCl 25 MG tablet 25 mg PO PRN PRNRF: 0 Discharge Instructions Instructions: Abuse of Alcohol (ED) Additional Instructions: Please continue efforts to decrease and cease use of alcohol. Continue your regularly prescribed medications. Follow-up with Mounika Heard for routine care. Please followup with [facility] Human Services as discussed with Pete oneal [facility]. Return at any time for re-evaluation. Medical Decision Making 62-year-old male presents via EMS from local [facility]. He states to me that since the of his mother, he lost ability to live in her house and is been alternatively homeless and living in motels. He is been on an alcohol binge for some weeks, not taking his medications, complains primarily of loose watery stool and depression that led him to call EMS this morning he was at fear for harming himself. On initial exam is diminished breath sounds bilaterally, otherwise notable for poorly groomed and likely with numerous bedbug's. He underwent medical screening examination, including laboratory analysis, given banana bag, DuoNeb updraft, chest x-ray. Laboratories are mostly notable for an elevated alcohol level greater than 300. Chemistries reassuring, mild elevation AST at 81. Chest x-ray without focal infiltrate. Following DuoNeb, patient able to wean from oxygen. He will need to restart his daily medications including budesonide, albuterol, antihypertensives. Budesonide initiated in the emergency department in addition to DuoNeb. After period of observation, alcohol rechecked and patient metabolizing alcohol and clinically sobering. He is able to sit, conversant, ate a meal. Patient's girlfriend Nerissa presented to the emergency department, was evaluated by mental health, accepts custody of the patient. He is now no longer complaining of depression or suicidal thoughts. He understands the need to cut down his alcohol use. He is stable for discharge with sober adult. Lab Data Lab results reviewed: Yes I reviewed the patient's lab results. Laboratory Results - last 24 hr 10/06/18 10/06/18 10/06/18 13:00 13:00 13:00 WBC 5.43 RBC 3.89 L Hgb 12.9 L Hct 37.8 L MCV 97.2 H MCH 33.2 H MCHC 34.1 RDW 13.5 Plt Count 138 MPV 9.8 Immature Gran % 0.2 Neutrophils % 50.0 Lymphocytes % 36.8 Monocytes % 8.3 Eosinophils % 4.1 Basophils % 0.6 Absolute Neutrophils 2.72 Absolute Lymphocytes 2.00 Absolute Monocytes 0.45 Absolute Eosinophils 0.22 Absolute Basophils 0.03 Sodium 144 Potassium 4.3 Chloride 103 Carbon Dioxide 32.2 H Anion Gap 8.8 BUN 11 Creatinine 1.05 Estimated GFR/1.73 m2 >= 60.00 Glucose 101 H Calcium 8.8 Total Bilirubin 0.6 AST 81 H ALT 55 Alkaline Phosphatase 62 Total Protein 7.2 Albumin 3.6 TSH 0.11 L Salicylates < 2.8 L Acetaminophen < 2 L Ethyl Alcohol 391.0 HPI General Mode of arrival: EMS. Date/Time Provider Initiated Documentation: 10/06/18 12:37. Limitations to Documentation: no limitations. Information obtained by: patient and EMS. History of Present Illness 62 year old M presents to the emergency department with the chief complaint of Depression and alcohol abuse since mother , described as moderate, Quality is described as constant, Patient started experiencing this day(s) and it has been constant. No relieving factors improve symptom(s), No exacerbating factors reported . Patient notes loss of appetite and other (Loose and watery stool. Not taking medications.). Patient did receive the following treatments prior to arrival, none Related Data Home Medications Medication Instructions Recorded Confirmed citalopram 20 mg PO DAILY 01/20/17 10/06/18 ibuprofen 600 mg PO PRN PRN 01/20/17 10/06/18 hydroxyzine HCl 25 mg PO PRN PRN 02/05/17 10/06/18 albuterol sulfate HFA 90 2 puff IH Q6H PRN 09/03/18 10/06/18 mcg/actuation aerosol inhaler amlodipine 5 mg tablet 5 mg PO DAILY 09/03/18 10/06/18 budesonide-formoterol HFA 160 2 puff IH BID 09/03/18 10/06/18 mcg-4.5 mcg/actuation aerosol inhaler chlorpromazine 25 mg tablet 25 mg PO Q6H 09/03/18 10/06/18 fluticasone propionate 50 1 spray CRISTIANA DAILY 09/03/18 10/06/18 mcg/actuation nasal spray,suspension folic acid 1 mg tablet 1 mg PO DAILY 09/03/18 10/06/18 hydrochlorothiazide 25 mg tablet 25 mg PO DAILY 09/03/18 10/06/18 loratadine 10 mg capsule 10 mg PO DAILY 09/03/18 10/06/18 magnesium citrate 100 mg tablet 400 mg PO DAILY tab 09/03/18 10/06/18 mirtazapine 15 mg tablet 15 mg PO DAILY 09/03/18 10/06/18 tamsulosin 0.4 mg capsule 0.4 mg PO DAILY 09/03/18 10/06/18 thiamine HCl (vitamin B1) 100 mg 100 mg PO DAILY 09/03/18 10/06/18 tablet trazodone 50 mg PO HS 09/26/18 10/06/18 Allergies Allergy/AdvReac Type Severity Reaction Status Date / Time lisinopril Allergy Severe Swelling/Ed Unverified 10/06/18 13:10 pastor Penicillins Allergy pt unsure Unverified 10/06/18 13:10 happened in childhood ? Rash, hives Sulfa (Sulfonamide AdvReac Skin Rash Unverified 10/06/18 13:10 Antibiotics) General ALEENA: 2 Review of Systems Review of Systems Patient has loose watery stool. Not taking medicines. ongoing depression, cannot live with his mother's house since her , living in a local motel, denies fall, headache, recent injury [facility] Medical History Hx of angioedema (Acute) Alcohol abuse (Chronic) BPH (benign prostatic hyperplasia) (Chronic) COPD (chronic obstructive pulmonary disease) (Chronic) Depression (Chronic) HTN (hypertension) (Chronic) Left knee pain (Chronic) Alcohol withdrawal seizure (Resolved) Surgical History H/O hernia repair (Inactive) Social History Smoking/Tobacco Use Status: Current every day Tobacco Type: cigarettes Alcohol Intake: current Drug use: Never Substance use type: does not use Details: Pt states he quit drinking approximately 2 months ago (07/2018) and is currently in a recovery facility. Pt states that he had a seizure when at [facility] for alcohol abuse approx 2 months ago Do you feel safe at home: No Do you feel safe in your relationship?: Yes Exam Narrative Exam Narrative: GEN: awake, alert, oriented 3. Pleasant, poorly groomed, interactive. HEAD: Normocephalic, atraumatic ENT: Mucous membranes moist, oropharynx unremarkable, External ear exam unremarkable EYES: PERRL, EOMI NECK: Full ROM, no SCARLETT, no menigismus CHEST/RESP: Nontender, diminished bilateral CARDIOVASCULAR: RRR, no murmur, rub alee. 2+ Rad pulse bilateral ABDOMEN: Soft, nontender, no mass. +Bowel sounds EXT: Full ROM, no edema, no rash. Few excoriated lesions on skin. Neuro: Grossly normal neurologic exam, conversant, interactive. Psych: Speech fluent, thoughts congruent, affect normal
--- NOTE | 2018-10-06 12:52 | ED.GENADUL_ITS ---
Discharge Plan Disposition Patient Disposition: HOME Condition: Improving Discharge Details Chief Complaint: PsychEval Clinical Impression: Alcohol abuse Primary Care Provider: Mounika Heard ED Provider: Sergio Muro Home Meds and New Rx's Prescriptions: Continued fluticasone propionate [Flonase Allergy Relief] 50 mcg/actuation spray,suspension 1 spray CRISTIANA DAILY RF: 0 tamsulosin 0.4 mg capsule 0.4 mg PO DAILY RF: 0 chlorpromazine 25 mg tablet 25 mg PO Q6H RF: 0 thiamine HCl (vitamin B1) 100 mg tablet 100 mg PO DAILY RF: 0 loratadine 10 mg capsule 10 mg PO DAILY RF: 0 folic acid 1 mg tablet 1 mg PO DAILY RF: 0 amlodipine 5 mg tablet 5 mg PO DAILY RF: 0 Symbicort 160-4.5 mcg/actuation HFA aerosol inhaler 2 puff IH BID RF: 0 mirtazapine 15 mg tablet 15 mg PO DAILY RF: 0 albuterol sulfate [ProAir HFA] 90 mcg/actuation HFA aerosol inhaler 2 puff IH Q6H PRNRF: 0 magnesium citrate 100 mg tablet 400 mg PO DAILY RF: 0 hydrochlorothiazide 25 mg tablet 25 mg PO DAILY RF: 0 trazodone 50 mg Tablet 50 mg PO HS RF: 0 citalopram 20 MG tablet 20 mg PO DAILY RF: 0 ibuprofen 600 MG tablet 600 mg PO PRN PRNRF: 0 hydroxyzine HCl 25 MG tablet 25 mg PO PRN PRNRF: 0 Discharge Instructions Instructions: Abuse of Alcohol (ED) Additional Instructions: Please continue efforts to decrease and cease use of alcohol. Continue your regularly prescribed medications. Follow-up with Mounika Heard for routine care. Please followup with [facility] Human Services as discussed with Pete oneal [facility]. Return at any time for re-evaluation. Medical Decision Making 62-year-old male presents via EMS from local [facility]. He states to me that since the of his mother, he lost ability to live in her house and is been al ternatively homeless and living in motels. He is been on an alcohol binge for some weeks, not taking his medications, complains primarily of loose watery stool and depression that led him to call EMS this morning he was at fear for harming himself. On initial exam is diminished breath sounds bilaterally, otherwise notable for poorly groomed and likely with numerous bedbug's. He underwent medical screening examination, including laboratory analysis, given banana bag, DuoNeb updraft, chest x-ray. Laboratories are mostly notable for an elevated alcohol level greater than 300. Chemistries reassuring, mild elevation AST at 81. Chest x-ray without focal infiltrate. Following DuoNeb, patient able to wean from oxygen. He will need to restart his daily medications including budesonide, albuterol, antihypertensives. Budesonide initiated in the emergency department in addition to DuoNeb. After period of observation, alcohol rechecked and patient metabolizing alcohol and clinically sobering. He is able to sit, conversant, ate a meal. Patient's girlfriend Nerissa presented to the emergency department, was evaluated by mental health, accepts custody of the patient. He is now no longer complaining of depression or suicidal thoughts. He understands the need to cut down his alcohol use. He is stable for discharge with sober adult. Lab Data Lab results reviewed: Yes I reviewed the patient's lab results. Laboratory Results - last 24 hr 10/06/18 10/06/18 10/06/18 13:00 13:00 13:00 WBC 5.43 RBC 3.89 L Hgb 12.9 L Hct 37.8 L MCV 97.2 H MCH 33.2 H MCHC 34.1 RDW 13.5 Plt Count 138 MPV 9.8 Immature Gran % 0.2 Neutrophils % 50.0 Lymphocytes % 36.8 Monocytes % 8.3 Eosinophils % 4.1 Basophils % 0.6 Absolute Neutrophils 2.72 Absolute Lymphocytes 2.00 Absolute Monocytes 0.45 Absolute Eosinophils 0.22 Absolute Basophils 0.03 Sodium 144 Potassium 4.3 Chloride 103 Carbon Dioxide 32.2 H Anion Gap 8.8 BUN 11 Creatinine 1.05 Estimated GFR/1.73 m2 >= 60.00 Glucose 101 H Calcium 8.8 Total Bilirubin 0.6 AST 81 H ALT 55 Alkaline Phosphatase 62 Total Protein 7.2 Albumin 3.6 TSH 0.11 L Salicylates < 2.8 L Acetaminophen < 2 L Ethyl Alcohol 391.0 HPI General Mode of arrival: EMS . Date/Time Provider Initiated Documentation: 10/06/18 12:37 . Limitations to Documentation: no limitations . Information obtained by: patient and EMS . History of Present Illness 62 year old M presents to the emergency department with the chief complaint of Depression and alcohol abuse since mother , described as moderate, Quality is described as constant, Patient started experiencing this day(s) and it has been constant. No relieving factors improve symptom(s), No exacerbating factors reported . Patient notes loss of appetite and other (Loose and watery stool. Not taking medications.). Patient did receive the following treatments prior to arrival, none Related Data Home Medications Medication Instructions Recorded Confirmed citalopram 20 mg PO DAILY 01/20/17 10/06/18 ibuprofen 600 mg PO PRN PRN 01/20/17 10/06/18 hydroxyzine HCl 25 mg PO PRN PRN 02/05/17 10/06/18 albuterol sulfate HFA 90 2 puff IH Q6H PRN 09/03/18 10/06/18 mcg/actuation aerosol inhaler amlodipine 5 mg tablet 5 mg PO DAILY 09/03/18 10/06/18 budesonide-formoterol HFA 160 2 puff IH BID 09/03/18 10/06/18 mcg-4.5 mcg/actuation aerosol inhaler chlorpromazine 25 mg tablet 25 mg PO Q6H 09/03/18 10/06/18 fluticasone propionate 50 1 spray CRISTIANA DAILY 09/03/18 10/06/18 mcg/actuation nasal spray,suspension folic acid 1 mg tablet 1 mg PO DAILY 09/03/18 10/06/18 hydrochlorothiazide 25 mg tablet 25 mg PO DAILY 09/03/18 10/06/18 loratadine 10 mg capsule 10 mg PO DAILY 09/03/18 10/06/18 magnesium citrate 100 mg tablet 400 mg PO DAILY tab 09/03/18 10/06/18 mirtazapine 15 mg tablet 15 mg PO DAILY 09/03/18 10/06/18 tamsulosin 0.4 mg capsule 0.4 mg PO DAILY 09/03/18 10/06/18 thiamine HCl (vitamin B1) 100 mg 100 mg PO DAILY 09/03/18 10/06/18 tablet trazodone 50 mg PO HS 09/26/18 10/06/18 Allergies Allergy/AdvReac Type Severity Reaction Status Date / Time lisinopril Allergy Severe Swelling/Ed Unverified 10/06/18 13:10 pastor Penicillins Allergy pt unsure Unverified 10/06/18 13:10 happened in childhood ? Rash, hives Sulfa (Sulfonamide AdvReac Skin Rash Unverified 10/06/18 13:10 Antibiotics) General ALEENA: 2 Review of Systems Review of Systems Patient has loose watery stool. Not taking medicines. ongoing depression, cannot live with his mother's house since her , living in a local motel, denies fall, headache, recent injury [facility] Medical History Hx of angioedema (Acute) Alcohol abuse (Chronic) BPH (benign prostatic hyperplasia) (Chronic) COPD (chronic obstructive pulmonary disease) (Chronic) Depression (Chronic) HTN (hypertension) (Chronic) Left knee pain (Chronic) Alcohol withdrawal seizure (Resolved) Surgical History H/O hernia repair (Inactive) Social History Smoking/Tobacco Use Status: Current every day Tobacco Type: cigarettes Alcohol Intake: current Drug use: Never Substance use type: does not use Details: Pt states he quit drinking approximately 2 months ago (07/2018) and is currently in a recovery facility. Pt states that he had a seizure when at [facility] for alcohol abuse approx 2 months ago Do you feel safe at home: No Do you feel safe in your relationship?: Yes Exam Narrative Exam Narrative: GEN: awake, alert, oriented 3. Pleasant, poorly groomed, interactive. HEAD: Normocephalic, atraumatic ENT: Mucous membranes moist, oropharynx unremarkable, External ear exam unremarkable EYES: PERRL, EOMI NECK: Full ROM, no SCARLETT, no menigismus CHEST/RESP: Nontender, diminished bilateral CARDIOVASCULAR: RRR, no murmur, rub alee. 2+ Rad pulse bilateral ABDOMEN: Soft, nontender, no mass. +Bowel sounds EXT: Full ROM, no edema, no rash. Few excoriated lesions on skin. Neuro: Grossly normal neurologic exam, conversant, interactive. Psych: Speech fluent, thoughts congruent, affect normal
--- NOTE | 2018-10-06 12:54 | DI.RAD_ITS ---
SYMPTOMS/DIAGNOSIS: COPD, MILD HYPOXIA PORTABLE AP CHEST: Comparison is made with July,. The heart size is within normal limits for projection. The lungs appear clear. IMPRESSION: Negative portable chest.
[2018-10-06 13:00] VITALS: BP 125/70; PULSE 79; RESP 12; TEMP 36.5; O2SAT 85
[2018-10-06 13:10] LABS: Abs Immature Grans 0.01 k/cumm (0.0-0.09); Absolute Basophil Count 0.03 k/cumm (0.0-0.2); Absolute Eosinophil Count 0.22 k/cumm (0.0-0.7); Absolute Monocyte Count 0.45 k/cumm (0.11-0.7); Absolute Neutrophil Count 2.72 k/cumm (1.2-6.7); Basophils % 0.6; Eosinophils % 4.1; HCT 37.8 % (40.0-50.0); HGB 12.9 g/dL (13.5-17.5); Immature Grans % 0.2; Lymphocytes % 36.8; Mean Corp. HGB Concentration 34.1 g/dL (32.0-36.0); Mean Corpuscular Hemoglobin 33.2 pg (27.0-33.0); Mean Corpuscular Volume 97.2 fL (80-95); Mean Platelet Volume 9.8 fL (8.0-11.0); Monocytes % 8.3; Platelet Count 138 x1000/uL (130-400); RBC 3.89 m/cumm (4.50-6.00); RBC Distribution Width 13.5 % (11.8-14.1); White Blood Cell Count 5.43 k/cumm (4.4-10.8)
--- NOTE | 2018-10-06 13:21 | PDOC.MHCN ---
Date of service: 10/06/18 Time of Service: 13:22 Mental Health Crisis Note Presenting Issue How did you arrive at the ED and why did you come: South was called in to emergency services through a phone calll he had made to his outpatient clinician reporting that he was feeling suicidal. The therapist called [facility] emergency services and an outreach contact was made. South reiterated that he is suicidal, doesn't care about living anymore, and refused to leave his information with this global technical writer as to where he was. Precipitating Factors South's mother approximately two months ago. South has a history of these symptoms of depression that have been exacerbated by patterns of chronic alcohol misuse. South has been assessed historically with B.A.C. levels between .3 and .4. He is currently homeless due to he not being allowed on his mother's property; even though he had lived there with her . He had been staying at a [facility] based recovery community in [facility] for two months. This logan based recovery program took him off his medications and/or has kept the medication from him for other reasons (South's report of this is not clear). Either way he reports he has not taken his medication for both medical and psychological reasons. Disposition BEHAVIOR: Sullen EYE CONTACT: poor MOOD: depressed AFFECT: flat APPETITE: poor SLEEP(trouble falling/staying asleep: poor Plan South will be screened for a voluntary hospitalization and/or one that can handle co-occurring disorders.
[2018-10-06 13:29] LABS: Salicylate < 2.8 mg/dL (2.8-20.0)
[2018-10-06 13:30] LABS: Acetaminophen < 2 ug/mL (10-30)
--- NOTE | 2018-10-06 13:31 | PDOC.MHCN_ITS ---
Date of service: 10/06/18 Time of Service: 13:22 Mental Health Crisis Note Presenting Issue How did you arrive at the ED and why did you come: South was called in to emergency services through a phone calll he had made to his outpatient clinician reporting that he was feeling suicidal. The therapist called [facility] emergency services and an outreach contact was made. South reiterated that he is suicidal, doesn't care about living anymore, and refused to leave his information with this justowriter operator as to where he was. Precipitating Factors South's mother approximately two months ago. South has a history of these s ymptoms of depression that have been exacerbated by patterns of chronic alcohol misuse. South has been assessed historically with B.A.C. levels between .3 and .4. He is currently homeless due to he not being allowed on his mother's property; even though he had lived there with her . He had been staying at a logan based recovery community in [facility] for two months. This logan based recovery program took him off his medications and/or has kept the medication from him for other reasons (South's report of this is not clear). Either way he reports he has not taken his medication for both medical and psychological reasons. Disposition BEHAVIOR: Sullen EYE CONTACT: poor MOOD: depressed AFFECT: flat APPETITE: poor SLEEP(trouble falling/staying asleep: poor Plan South will be screened for a voluntary hospitalization and/or one that can handle co-occurring disorders.
[2018-10-06] MEDS: MAGNESIUM SULFATE 8.12 MEQ, MULTIVITAMIN 10 ML, THIAMINE 100 MG, FOLIC ACID 1 MG in Nor... 168.867 MG IV (13:32)
[2018-10-06] MEDS: Normal Saline Flush 10 ML SYR IVP (13:33)
[2018-10-06 13:34] LABS: ALT 55 U/L (12-78); AST 81 U/L (15-37); Albumin 3.6 g/dL (3.4-5.0); Alkaline Phosphatase 62 U/L (46-116); Anion Gap 8.8 mmol/L (3-11); BUN 11 mg/dL (7-18); Bilirubin, Total 0.6 mg/dL (0.2-1.0); CO2 32.2 mmol/L (21.0-32.0); CREATININE 1.05 mg/dL (0.70-1.30); Chloride 103 mmol/L (98-107); Glucose 101 mg/dL (70-100); Potassium 4.3 mmol/L (3.5-5.1); Sodium 144 mmol/L (136-145); TSH 0.11 uIU/mL (0.358-3.74); Total Protein 7.2 g/dL (6.4-8.2)
[2018-10-06 13:35] LABS: Calcium 8.8 mg/dL (8.5-10.1)
[2018-10-06 14:01] VITALS: PULSE 97; RESP 16; RESP 8; O2SAT 99
[2018-10-06] MEDS: Albuterol/Ipratropium 3 ML UPD VIAL UPD (14:01)
--- NOTE | 2018-10-06 15:12 | NUR.NOTE ---
patient sleeping. compliant with tx at this time. still awaiting a urine specimen.
[2018-10-06 16:06] LABS: Bilirubin Negative (Negative); Blood Negative (Negative); Clarity Clear; Glucose Negative (Negative); Ketones Negative (Negative); Leukocyte Esterase Negative (Negative); Nitrite Negative (Negative); Specific Gravity 1.015 (1.005-1.025); Urobilinogen 0.2 EU/dL (Up TO 0.2)
[2018-10-06 16:16] LABS: *AMPHETAMINES SCREEN URINE Negative (Negative); *BARBITURATES SCREEN URINE Negative (Negative); *BENZODIAZEPINES SCREEN URINE Negative (Negative); Cannabinoids THC Negative (Negative); Cocaine Screen,Urine Negative (Negative); METHADONE URINE SCREEN Negative (Negative); OPIATES URINE SCREEN Negative (Negative)
[2018-10-06 16:19] LABS: Tricyclic Antidepressants Negative (Negative)
[2018-10-06] MEDS: Budesonide/Formoterol 160/4.5 6 GM 60 PUFF INH IH (16:34)
[2018-10-06] MEDS: Inhaler, Assist Device 1 EACH MC (16:36)
== END 2018-10-06 17:15 | disposition home or self-care (01) ==
PROVIDERS: Emergency Provider Emergency Medicine; PCP Nurse Practitioner Family
DX: F10.10 Alcohol abuse, uncomplicated (principal); F32.9 Major depressive disorder, single episode, unspecified; R19.7 Diarrhea, unspecified; R45.851 Suicidal ideations
CPT/HCPCS: 36415; 80053; 80307; 94640; 96365; 96366; 99285; 71045; 80320; 80329; 81003; 84443; 85025; 99284; J7620

== ENCOUNTER 2019-01-01 23:16 | Emergency (ER) | payer MEDICAID, SELFPAY ==
--- NOTE | 2019-01-01 23:17 | W.ED.GENAD ---
Discharge Plan Disposition Patient Disposition: HOME Condition: Good Discharge Details Chief Complaint: ETOHWithdr Clinical Impression: Anxiety, Chronic alcohol abuse Primary Care Provider: Mounika Heard ED Provider: Ronnie Scanlon Home Meds and New Rx's Prescriptions: No Action fluticasone propionate [Flonase Allergy Relief] 50 mcg/actuation spray,suspension 1 spray CRISTIANA DAILY RF: 0 tamsulosin 0.4 mg capsule 0.4 mg PO DAILY RF: 0 chlorpromazine 25 mg tablet 25 mg PO Q6H RF: 0 thiamine HCl (vitamin B1) 100 mg tablet 100 mg PO DAILY RF: 0 loratadine 10 mg capsule 10 mg PO DAILY RF: 0 folic acid 1 mg tablet 1 mg PO DAILY RF: 0 amlodipine 5 mg tablet 5 mg PO DAILY RF: 0 Symbicort 160-4.5 mcg/actuation HFA aerosol inhaler 2 puff IH BID RF: 0 mirtazapine 15 mg tablet 15 mg PO DAILY RF: 0 albuterol sulfate [ProAir HFA] 90 mcg/actuation HFA aerosol inhaler 2 puff IH Q6H PRNRF: 0 magnesium citrate 100 mg tablet 400 mg PO DAILY RF: 0 hydrochlorothiazide 25 mg tablet 25 mg PO DAILY RF: 0 trazodone 50 mg Tablet 50 mg PO HS RF: 0 citalopram 20 MG tablet 20 mg PO DAILY RF: 0 ibuprofen 600 MG tablet 600 mg PO PRN PRNRF: 0 hydroxyzine HCl 25 MG tablet 25 mg PO PRN PRNRF: 0 Discharge Instructions Instructions: Abuse of Alcohol (ED), Anxiety (ED) Additional Instructions: The power and recovery shift engineer will contact you tomorrow for potential rehab. In the meantime please continue to drink plenty of fluids. Take the single pill of Ativan in the morning if you feel any significant anxiety coming on. If you notice any worsening of your symptoms, or any new symptoms such as vomiting, diarrhea, fever, chills, shortness of breath, chest pain, numbness, weakness, or fainting , please return immediately to the emergency department for reevaluation. Please follow up with your primary care provider as soon as possible for reassessment and reevaluation. As always, it was a pleasure participating in your medical care today. Referrals: Mounika Heard [Primary Care Provider] - Medical Decision Making This is a 63-year-old male with a past medical history of chronic alcohol abuse, COPD, hypertension, previous angioedema requiring intubation, and had DTs. He presents today out of concern for DTs. Last drink was this morning. He states that he feels very anxious and tremulous. He denies any homicidal or suicidal ideations. See was score is low looks to be about 8 points. We will treat with mild anxiolytics, rehydrate and reassess. Currently the patient states that he would like to go home, and does not want to stay overnight if he does not have to. 1:07 AM Laboratory work-up is relatively benign. assistant boys track coach has come and seen and assessed the patient, and they would like to follow-up with him again tomorrow morning for potential outpatient follow-up and rehabilitation. The patient agrees and likes this plan. After hydration patient is feeling much better he feels ready to go. He has no tremor, no signs of anxiety whatsoever and feels very comfortable and rested. With no clinical evidence of severe DTs requiring medication or admission, I feel that he can be discharged home with close follow-up tomorrow morning. Respecting his wishes for home, the patient will be discharged. With a complete resolution of his symptoms, and no current indication for continued anxiolytics, a do not feel at this time that there is clinical indication for home anxiolytic prescription. We will give a single tab of p.o. Ativan to take as needed when he goes home. We discussed red flags which to return, including the importance of worsening of his symptoms for which she should immediately return for further management. The patient is able to speak clearly. There is no demonstration of any slurring of speech. There is evidence of clear decision making capacity. Patient is able to ambulate well without any difficulty. There are no signs of ataxia or stumbling motions. I have extensively reviewed the treatment plan and discharge instructions with the patient. I have addressed all patient concerns at this time. The patient was made aware of what symptoms to monitor for that would warrant a return to the emergency department. Discussed the plan with the patient, they demonstrate verbal understanding and agreement with our assessment and plan at this time. HPI General Date/Time Provider Initiated Documentation: 01/01/19 23:16. HPI Narrative: This is a 63-year-old male with a past medical history of COPD, chronic alcohol abuse, previous DTs. He presents today for evaluation of DTs, dehydration, and mild anxiety. He is recently been at [facility], just left there today. Last drink was this morning. He admits to feelings of anxiety, tremulousness, and agitation. He denies any homicidal or suicidal ideations. He denies any IV or illicit drug use at this time. No other complaints or modifying factors. He is seeking help and would like to go home tonight. Related Data Home Medications Medication Instructions Recorded Confirmed citalopram 20 mg PO DAILY 01/20/17 01/01/19 ibuprofen 600 mg PO PRN PRN 01/20/17 01/01/19 hydroxyzine HCl 25 mg PO PRN PRN 02/05/17 01/01/19 albuterol sulfate 90 mcg/actuation 2 puff IH Q6H PRN 09/03/18 01/01/19 aerosol inhaler amlodipine 5 mg tablet 5 mg PO DAILY 09/03/18 01/01/19 budesonide-formoterol HFA 160 2 puff IH BID 09/03/18 01/01/19 mcg-4.5 mcg/actuation aerosol inhaler chlorpromazine 25 mg tablet 25 mg PO Q6H 09/03/18 01/01/19 fluticasone propionate 50 1 spray CRISTIANA DAILY 09/03/18 01/01/19 mcg/actuation nasal spray,suspension folic acid 1 mg tablet 1 mg PO DAILY 09/03/18 01/01/19 hydrochlorothiazide 25 mg tablet 25 mg PO DAILY 09/03/18 01/01/19 loratadine 10 mg capsule 10 mg PO DAILY 09/03/18 01/01/19 magnesium citrate 100 mg tablet 400 mg PO DAILY tab 09/03/18 01/01/19 mirtazapine 15 mg tablet 15 mg PO DAILY 09/03/18 01/01/19 tamsulosin 0.4 mg capsule 0.4 mg PO DAILY 09/03/18 01/01/19 thiamine HCl (vitamin B1) 100 mg 100 mg PO DAILY 09/03/18 01/01/19 tablet trazodone 50 mg PO HS 09/26/18 01/01/19 Allergies Allergy/AdvReac Type Severity Reaction Status Date / Time lisinopril Allergy Severe Swelling/Ed Unverified 07/18/19 23:35 pastor Penicillins Allergy pt unsure Unverified 01/01/19 23:35 happened in childhood ? Rash, hives Sulfa (Sulfonamide AdvReac Skin Rash Unverified 01/01/19 23:35 Antibiotics) General ALEENA: 2 Review of Systems Review of Systems All systems reviewed & are unremarkable except as noted in HPI and below PFSH Medical History (Updated 10/31/18 @ 13:35 by Nathalie Glass RN) Alcohol abuse (Chronic) Alcohol withdrawal seizure (Resolved) BPH (benign prostatic hyperplasia) (Chronic) COPD (chronic obstructive pulmonary disease) (Chronic) Depression (Chronic) HTN (hypertension) (Chronic) Hx of angioedema (Acute) Left knee pain (Chronic) Normal colonoscopy (Resolved) Surgical History H/O hernia repair (Inactive) Social History Smoking/Tobacco Use Status: Current every day Tobacco Type: cigarettes Alcohol Intake: current Drug use: Never Substance use type: does not use Details: Pt states he quit drinking approximately 2 months ago (07/2018) and is currently in a recovery facility. Pt states that he had a seizure when at [facility] for alcohol abuse approx 2 months ago Do you feel safe at home: No Do you feel safe in your relationship?: Yes Exam Narrative Exam Narrative: 1.Const: Well-nourished, Well-developed, appearing stated age 2.Eyes: PERRL, no conjunctival injection, and symmetrical lids. 3.ENT: Atraumatic external nose and ears. Moist MM. Neck: Symmetric, trachea midline, No thyromegaly. 4.CVS: +S1/S2, No murmurs or gallops. Peripheral pulses 2+ and equal in all extremities. Brisk capillary refill in all extremities. 5.RESP: Unlabored respiratory effort. Clear to auscultation bilaterally. No wheezes rales or rhonchi 6.GI: Soft, Nontender/Nondistended, No hepatosplenomegaly. No guarding or rebound. 7.MSK: Normocephalic/Atraumatic, Extremities w/o deformity or ttp No cyanosis or clubbing, Normal movement of all extremities 8.Skin: Warm, Dry. Notable superficial scratch watts, and picking lesions. No evidence of active bleeding or cellulitis. 9.Neuro: preparole counseling aide II-XII grossly intact. Sensation grossly intact, no focal neurologic deficits. 10.Psych: (AAO) x3. Anxious, tremulous. CIWA Score of 8
[2019-01-01 23:20] VITALS: BP 169/89; PULSE 77; RESP 16; TEMP 37.2; O2SAT 97
[2019-01-01] MEDS: LORazepam 2 MG/ML VIAL 1 MG IVP (23:53)
[2019-01-01] MEDS: Normal Saline 1,000 ML 1000 ML IV (23:55)
[2019-01-02 00:03] LABS: Abs Immature Grans 0.01 k/cumm (0.0-0.09); Absolute Basophil Count 0.02 k/cumm (0.0-0.2); Absolute Eosinophil Count 0.05 k/cumm (0.0-0.7); Absolute Lymphocyte Count 0.84 k/cumm (1.2-3.4); Absolute Neutrophil Count 3.75 k/cumm (1.2-6.7); Basophils % 0.4; Eosinophils % 0.9; HCT 38.1 % (40.0-50.0); HGB 13.3 g/dL (13.5-17.5); Immature Grans % 0.2; Lymphocytes % 15.4; Mean Corp. HGB Concentration 34.9 g/dL (32.0-36.0); Mean Corpuscular Hemoglobin 34.2 pg (27.0-33.0); Mean Corpuscular Volume 97.9 fL (80-95); Mean Platelet Volume 9.9 fL (8.0-11.0); Monocytes % 14.6; Neutrophils % 68.5; Platelet Count 166 x1000/uL (130-400); RBC 3.89 m/cumm (4.50-6.00); RBC Distribution Width 15.9 % (11.8-14.1); White Blood Cell Count 5.47 k/cumm (4.4-10.8)
[2019-01-02 00:16] LABS: ALT 65 U/L (12-78); AST 77 U/L (15-37); Albumin 3.8 g/dL (3.4-5.0); Alkaline Phosphatase 69 U/L (46-116); BUN 19 mg/dL (7-18); Bilirubin, Total 0.9 mg/dL (0.2-1.0); CREATININE 1.11 mg/dL (0.70-1.30); Calcium 9.3 mg/dL (8.5-10.1); Chloride 100 mmol/L (98-107); Glucose 140 mg/dL (70-100); Potassium 3.9 mmol/L (3.5-5.1); Sodium 140 mmol/L (136-145); Total Protein 7.5 g/dL (6.4-8.2)
[2019-01-02 00:18] LABS: *AMPHETAMINES SCREEN URINE Negative (Negative); *BARBITURATES SCREEN URINE Negative (Negative); *BENZODIAZEPINES SCREEN URINE POSITIVE (Negative); Cannabinoids THC Negative (Negative); Cocaine Screen,Urine Negative (Negative); METHADONE URINE SCREEN Negative (Negative); OPIATES URINE SCREEN Negative (Negative)
[2019-01-02 00:19] LABS: Tricyclic Antidepressants Negative (Negative)
[2019-01-02 00:42] LABS: ETHANOL BLOOD < 3.0 mg/dL (<3)
[2019-01-02] MEDS: LORazepam 1 MG TAB PO (02:39)
[2019-01-02 02:54] VITALS: BP 158/84; PULSE 80; RESP 16; O2SAT 94
== END 2019-01-02 02:52 | disposition home or self-care (01) ==
PROVIDERS: Emergency Provider Student in an Organized Health Care Education/Training Program; PCP Nurse Practitioner Family
DX: F10.230 Alcohol dependence with withdrawal, uncomplicated (principal); F41.9 Anxiety disorder, unspecified; F10.10 Alcohol abuse, uncomplicated; J44.9 Chronic obstructive pulmonary disease, unspecified; F17.210 Nicotine dependence, cigarettes, uncomplicated; I10 Essential (primary) hypertension
CPT/HCPCS: 36415; 80053; 80307; 96361; 96374; 99283; 80320; 85025; J2060

== ENCOUNTER 2019-01-04 22:16 | Emergency (ER) | payer MEDICAID, SELFPAY ==
[2019-01-04 22:20] VITALS: BP 120/73; PULSE 65; RESP 16; TEMP 36.5; O2SAT 95
--- NOTE | 2019-01-04 22:46 | ED.GENADUL_ITS ---
Discharge Plan Disposition Patient Disposition: STILL A PATIENT Condition: Good Discharge Details Chief Complaint: PsychEval Clinical Impression: ETOH abuse Primary Care Provider: Mounika Heard ED Provider: Ronnie Scanlon Home Meds and New Rx's Prescriptions: No Action fluticasone propionate [Flonase Allergy Relief] 50 mcg/actuation spray,suspension 1 spray CRISTIANA DAILY RF: 0 tamsulosin 0.4 mg capsule 0.4 mg PO DAILY RF: 0 chlorpromazine 25 mg tablet 25 mg PO Q6H RF: 0 thiamine HCl (vitamin B1) 100 mg tablet 100 mg PO DAILY RF: 0 loratadine 10 mg capsule 10 mg PO DAILY RF: 0 folic acid 1 mg tablet 1 mg PO DAILY RF: 0 amlodipine 5 mg tablet 5 mg PO DAILY RF: 0 Symbicort 160-4.5 mcg/actuation HFA aerosol inhaler 2 puff IH BID RF: 0 mirtazapine 15 mg tablet 15 mg PO DAILY RF: 0 albuterol sulfate [ProAir HFA] 90 mcg/actuation HFA aerosol inhaler 2 puff IH Q6H PRNRF: 0 magnesium citrate 100 mg tablet 400 mg PO DAILY RF: 0 hydrochlorothiazide 25 mg tablet 25 mg PO DAILY RF: 0 trazodone 50 mg Tablet 50 mg PO HS RF: 0 citalopram 20 MG tablet 20 mg PO DAILY RF: 0 ibuprofen 600 MG tablet 600 mg PO PRN PRNRF: 0 hydroxyzine HCl 25 MG tablet 25 mg PO PRN PRNRF: 0 clonidine HCl 0.1 mg Tablet 0.1 mg PO TID RF: 0 potassium chloride 10 mEq Capsule, Extended Release 20 meq PO DAILY RF: 0 Discharge Instructions Instructions: Abuse of Alcohol (ED) Additional Instructions: Please go directly to [facility] after making the appropriate phone calls as recommended by the high school football coach. If you notice any worsening of your symptoms, or any new symptoms such as vomiting, diarrhea, fever, chills, shortness of breath, chest pain, numbness, weakness, or fainting , please return immediately to the emergency department for reevaluation. Please follow up with your primary care provider as soon as possible for reassessment and reevaluation. As always, it was a pleasure participating in your medical care today. Referrals: Mounika Heard [Primary Care Provider] - Discharge Data Discharge Date/Time-TO BE ENTERED AT DEPARTURE: 01/05/19 09:03 Medical Decision Making This is a 63-year-old male with a past medical history of COPD, chronic alcohol abuse, previous DTs. He presents today for alcohol intoxication and depressed thoughts. He is recently seen, and then subsequently discharged per his request with planned outpatient admission to [facility] for alcohol de tox. Unfortunately this did not come to fruition, secondary to multiple factors. The patient had family member come up to the area today, which caused a significant amount of stress for the patient which led to notable alcohol consumption starting this morning with a combination of beer and vodka. And wound was called secondary to the patient's notable intoxication. He does admit to depression and some suicidal thoughts, however he denies any focal plan, any homicidal ideations. Patient appears notably intoxicated, no evidence of focal trauma. We will rehydrate the patient, give a banana bag, and allow him to sober up. Will reassess once sober. If he remains on suicidal on sobriety evaluation, mental health will be contacted for further evaluation . 6:45 AM On reassessment the patient is now clinically sober. He denies any homicidal or suicidal ideations. He states he just wants to go to [facility]. We did contact case management, and their recommendation was for contacting high school football coach. We will contact them to help facilitate admission to [facility]. The patient is able to speak clearly. There is no demonstration of any slurring of speech. There is evidence of clear decision making capacity. Patient is able to ambulate well without any difficulty. There are no signs of ataxia or stumbling motions. No evidence of severe DTs. 7:43 AM We are waiting on high school football coach to come and help the patient facilitate he is transition to [facility]. Patient will be signed out to my colleague Dr. Liz Stevens for final disposition. HPI General Date/Time Provider Initiated Documentation: 01/04/19 22:18 . HPI Narrative: This is a 63-year-old male with a past medical history of COPD, chronic alcohol abuse, previous DTs. He presents today for evaluation of intoxication and suicidal ideations. Patient was recently seen and assessed, at that time he was discharged pending outpatient admission to [facility] for detox. Unfortunately this did not work out, partially secondary to patient noncompliance and per the patient altercations with certain staff. Over the last day and a half he has had family that have been up, which is caused a significant amount of stress and then subsequent significant drinking. He has been drinking heavily all morning, last drink was an hour prior to arrival. He has been drinking accommodation beer and vodka. He does admit to depressed thoughts, but denies any focal suicidal plan. He denies any homicidal ideations. He states that his main goal is to get to [facility] for detox. Patient denies any other complaints at this time. No other modifying factors. He denies IV or illicit drug use. Related Data Home Medications Medication Instructions Recorded Confirmed citalopram 20 mg PO DAILY 01/20/17 01/04/19 ibuprofen 600 mg PO PRN PRN 01/20/17 01/04/19 hydroxyzine HCl 25 mg PO PRN PRN 02/05/17 01/04/19 albuterol sulfate 90 mcg/actuation 2 puff IH Q6H PRN 09/03/18 01/04/19 aerosol inhaler amlodipine 5 mg tablet 5 mg PO DAILY 09/03/18 01/04/19 budesonide-formoterol HFA 160 2 puff IH BID 09/03/18 01/04/19 mcg-4.5 mcg/actuation aerosol inhaler chlorpromazine 25 mg tablet 25 mg PO Q6H 09/03/18 01/01/19 fluticasone propionate 50 1 spray CRISTIANA DAILY 09/03/18 01/04/19 mcg/actuation nasal spray,suspension folic acid 1 mg tablet 1 mg PO DAILY 09/03/18 01/01/19 hydrochlorothiazide 25 mg tablet 25 mg PO DAILY 09/03/18 01/04/19 loratadine 10 mg capsule 10 mg PO DAILY 09/03/18 01/04/19 magnesium citrate 100 mg tablet 400 mg PO DAILY tab 09/03/18 01/01/19 mirtazapine 15 mg tablet 15 mg PO DAILY 09/03/18 01/01/19 tamsulosin 0.4 mg capsule 0.4 mg PO DAILY 09/03/18 01/04/19 thiamine HCl (vitamin B1) 100 mg 100 mg PO DAILY 09/03/18 01/01/19 tablet trazodone 50 mg PO HS 09/26/18 01/04/19 clonidine HCl 0.1 mg PO TID 01/04/19 01/04/19 potassium chloride 20 meq PO DAILY 01/04/19 01/04/19 Allergies Allergy/AdvReac Type Severity Reaction Status Date / Time lisinopril Allergy Severe Swelling/Ed Unverified 01/01/19 23:35 pastor Penicillins Allergy pt unsure Unverified 01/01/19 23:35 happened in childhood ? Rash, hives Sulfa (Sulfonamide AdvReac Skin Rash Unverified 01/01/19 23:35 Antibiotics) General Stated Complaint: PsychEval ALEENA: 2 Review of Systems Review of Systems All systems reviewed & are unremarkable except as noted in HPI and below [facility] Medical History (Updated 10/31/18 @ 13:35 by Nathalie Glass RN) Alcohol abuse (Chronic) Alcohol withdrawal seizure (Resolved) BPH (benign prostatic hyperplasia) (Chronic) COPD (chronic obstructive pulmonary disease) (Chronic) Depression (Chronic) HTN (hypertension) (Chronic) Hx of angioedema (Acute) Left knee pain (Chronic) Normal colonoscopy (Resolved) Surgical History H/O hernia repair (Inactive) Social History Smoking/Tobacco Use Status: Current every day Tobacco Type: cigarettes Alcohol Intake: current Alcohol Intake frequency: 3 or more drinks per day Alcohol type: hard liquor Drug use: Never Substance use type: does not use Details: Pt states he quit drinking approximately 2 months ago (07/2018) and is currently in a recovery facility. Pt states that he had a seizure when at [facility] for alcohol abuse approx 2 months ago Do you feel safe at home: No Do you feel safe in your relationship?: Yes Exam Narrative Exam Narrative: 1.Const: Well-nourished, Well-developed, appearing stated age 2.Eyes: PERRL, no conjunctival injection, and symmetrical lids. 3.ENT: Atraumatic external nose and ears. Moist MM. Neck: Symmetric, trachea midline, No thyromegaly. 4.CVS: +S1/S2, No murmurs or gallops. Peripheral pulses 2+ and equal in all extremities. Brisk capillary refill in all extremities. 5.RESP: Unlabored respiratory effort. Clear to auscultation bilaterally. No wheezes rales or rhonchi 6.GI: Soft, Nontender/Nondistended, No hepatosplenomegaly. No guarding or rebound. 7.MSK: Normocephalic/Atraumatic, Extremities w/o deformity or ttp No cyanosis or clubbing, Normal movement of all extremities 8.Skin: Warm, Dry. No rashes or lesions. 9.Neuro: science job titles II-XII grossly intact. Sensation grossly intact, no focal neurologic deficits. 10.Psych: (AAO) x3. Appropriate mood and affect, except the patient does appear notably intoxicated. Course Vital Signs Temperature 36.5 C 01/04/19 22:20 Pulse 65 01/04/19 22:20 Respiratory Rate 16 01/04/19 22:20 Blood Pressure 120/73 01/04/19 22:20 Pulse Oximetry 95 01/04/19 22:20 Temperature 36.5 C 01/04/19 22:20 Temperature Source Temporal Artery Scan 01/04/19 22:20 Pulse 65 01/04/19 22:20 Respiratory Rate 16 01/04/19 22:20 Respiratory Effort Non-Labored 01/04/19 22:30 Blood Pressure 120/73 01/04/19 22:20 Blood Pressure Position Sitting 01/04/19 22:20 Pulse Oximetry 95 01/04/19 22:20 Oxygen Delivery Method Room Air 01/04/19 22:20 Oxygen Flow Rate 0 01/04/19 22:20 Pain Level 0 01/04/19 22:20
[2019-01-04 22:50] LABS: Abs Immature Grans 0.02 k/cumm (0.0-0.09); Absolute Basophil Count 0.03 k/cumm (0.0-0.2); Absolute Eosinophil Count 0.28 k/cumm (0.0-0.7); Absolute Lymphocyte Count 2.14 k/cumm (1.2-3.4); Absolute Monocyte Count 0.38 k/cumm (0.11-0.7); Absolute Neutrophil Count 2.46 k/cumm (1.2-6.7); Basophils % 0.6; Eosinophils % 5.3; HCT 37.1 % (40.0-50.0); Immature Grans % 0.4; Lymphocytes % 40.3; Mean Corpuscular Hemoglobin 34.9 pg (27.0-33.0); Mean Corpuscular Volume 99.5 fL (80-95); Mean Platelet Volume 9.4 fL (8.0-11.0); Monocytes % 7.2; Neutrophils % 46.2; Platelet Count 159 x1000/uL (130-400); RBC 3.73 m/cumm (4.50-6.00); RBC Distribution Width 15.8 % (11.8-14.1); White Blood Cell Count 5.31 k/cumm (4.4-10.8)
[2019-01-04] MEDS: Normal Saline 1,000 ML 1000 ML IV (22:56)
[2019-01-04 23:14] LABS: Salicylate 4.1 mg/dL (2.8-20.0)
[2019-01-04 23:15] LABS: Acetaminophen < 2 ug/mL (10-30)
[2019-01-04 23:16] LABS: ALT 46 U/L (12-78); AST 52 U/L (15-37); Albumin 3.5 g/dL (3.4-5.0); Alkaline Phosphatase 64 U/L (46-116); BUN 16 mg/dL (7-18); Bilirubin, Total 0.5 mg/dL (0.2-1.0); CREATININE 1.13 mg/dL (0.70-1.30); Calcium 8.7 mg/dL (8.5-10.1); Chloride 104 mmol/L (98-107); ETHANOL BLOOD 370.8 mg/dL (<3); Glucose 78 mg/dL (70-100); Potassium 3.8 mmol/L (3.5-5.1); Sodium 143 mmol/L (136-145); TSH (W/Ref FT4) 0.18 uIU/mL (0.358-3.74)
[2019-01-04] MEDS: MAGNESIUM SULFATE 8.12 MEQ, MULTIVITAMIN 10 ML, THIAMINE 100 MG, FOLIC ACID 1 MG in Nor... 168.867 MG IV (23:53)
[2019-01-05 00:17] LABS: FREE T4 1.16 ng/dL (0.76-1.46)
[2019-01-05 00:29] LABS: *AMPHETAMINES SCREEN URINE Negative (Negative); *BARBITURATES SCREEN URINE Negative (Negative); *BENZODIAZEPINES SCREEN URINE Negative (Negative); Cannabinoids THC Negative (Negative); Cocaine Screen,Urine Negative (Negative); METHADONE URINE SCREEN Negative (Negative); OPIATES URINE SCREEN Negative (Negative)
[2019-01-05 00:33] LABS: Tricyclic Antidepressants Negative (Negative)
[2019-01-05 06:32] VITALS: BP 119/68; PULSE 71; RESP 18; TEMP 36.4; O2SAT 94
[2019-01-05 09:04] VITALS: BP 144/73; PULSE 70; RESP 15; TEMP 36.2; O2SAT 95
== END 2019-01-05 09:03 | disposition still patient (30) ==
PROVIDERS: Emergency Provider Student in an Organized Health Care Education/Training Program; PCP Nurse Practitioner Family
DX: F10.120 Alcohol abuse with intoxication, uncomplicated (principal); Y90.8 Blood alcohol level of 240 mg/100 ml or more; F32.9 Major depressive disorder, single episode, unspecified; R45.851 Suicidal ideations; J44.9 Chronic obstructive pulmonary disease, unspecified; F17.210 Nicotine dependence, cigarettes, uncomplicated; I10 Essential (primary) hypertension
CPT/HCPCS: 36415; 80053; 80307; 96361; 96365; 96366; 99284; 80320; 80329; 84439; 84443; 85025

== ENCOUNTER 2019-07-08 09:29 | Emergency (ER) | payer MEDICAID, SELFPAY ==
[2019-07-08 09:33] VITALS: BP 157/75; PULSE 87; RESP 16; TEMP 36.7; O2SAT 94
[2019-07-08] MEDS: Acetaminophen 500 MG TAB (10:46)
--- NOTE | 2019-07-08 10:51 | ED.GENADUL_ITS ---
Discharge Plan Disposition Patient Disposition: HOME Condition: Good Discharge Details Chief Complaint: DrugWithdr Clinical Impression: Withdrawal from opioids Primary Care Provider: Mounika Heard ED Provider: Cate Loco Home Meds and New Rx's Prescriptions: No Action fluticasone propionate [Flonase Allergy Relief] 50 mcg/actuation spray,suspension 1 spray CRISTIANA DAILY RF: 0 tamsulosin 0.4 mg capsule 0.4 mg PO DAILY RF: 0 thiamine HCl (vitamin B1) 100 mg tablet 100 mg PO DAILY RF: 0 albuterol sulfate [ProAir HFA] 90 mcg/actuation HFA aerosol inhaler 2 puff IH Q6H PRNRF: 0 cetirizine 10 mg Tablet 10 mg PO DAILY RF: 0 Pain Reliever Plus 250-250-65 mg Tablet 2 tab PO BID PRNRF: 0 fluticasone propion-salmeterol [AirDuo RespiClick] 113-14 mcg/actuation Aerosol Powdr Breath Activated 1 puff INHALATION BID RF: 0 ibuprofen 600 MG tablet 600 mg PO PRN PRNRF: 0 Discharge Instructions Additional Instructions: Go directly to [facility] in [place] for Suboxone induction. Phone number is [phone] Follow-up with [facility] as scheduled next week. Return for any alarming symptoms, worsening or concerns. Continue to abstain from opiate use and alcohol use. Return if needed Medical Decision Making Is a 63-year-old patient presenting for drug withdrawal. Patient reports history of long-term opiate use. Patient recently incarcerated 6 months. Has been released for the last 4 days. Patient reports last use of opiates was while he was incarcerated he was buying 10 mg Suboxone tablets from other inmates. Reports he would split his dose 3-4 times a day, crush the tablet and snorted it. Patient denies history of IV drug use. Patient reports he has been using Suboxone daily for the last 6 months. Patient went to [place] this morning to have induction but there is no practitioner available and they referred him to the emergency room. Patient does report at this time obvious withdrawal symptoms specifically muscle aches, feeling mildly anxious, GI cramping with nausea and diarrhea. Patient reports no use in the last 4 days. Patient does have a history of alcohol abuse which he has had a single relapse since his release 4 days ago but does have a plan to follow-up with AA and outpatient providers. Patient reports when taking Suboxone his alcohol use is significantly reduced as he has minimal cravings. Myself as well as the ER doctor present are both pending Rx wavers. I did call the [facility] and they have no appropriate practitioners for the next several days. They are able to see this patient on Saturday however I am concerned he could use off the street in the meantime. I did call [facility] in [place] who does have avai lable time to induce this patient this morning. Spoke with middle school volleyball coach who will provide patient with transportation at this time. Patient is willing to go to [facility] in [place] and initiate induction. Tylenol ordered for patient's back discomfort prior to traveling. The patient was stable and requested discharge. Prior to discharge, my usual and customary return precautions were reviewed with the patient - this included follow-up instructions and reasons to return to the Emergency Department if conditions worsens, does not improve as expected, or other new concerns arise. HPI General Date/Time Provider Initiated Documentation: 07/08/19 09:39 . HPI Narrative: This is a 63-year-old patient presenting for concerns of opiate withdrawal. Patient reports he has been a longtime opiate user and was recently incarcerated for the last 6 months. Patient reports while incarcerated he was buying Suboxone films from other inmates he was using a dose of 10 mg divided 3-4 times a day. Patient reports he has had no opiates or Suboxone in the last 4 days and is experiencing moderate withdrawal symptoms specifically abdominal cramping, nausea and diarrhea as well as body aches. Patient feeling somewhat anxious at this time. Patient went to [facility] this morning but they had no provider to induce the patient this morning and would have no provider until Saturday. Patient was referred up to the emergency room where he presents at this time. Patient requesting Suboxone induction. Patient clinically does not appear intoxicated. No other concerns or complaints at this time. patient does have a history of chronic lower back pain Related Data Home Medications Medication Instructions Recorded Confirmed ibuprofen 600 mg PO PRN PRN 01/20/17 07/08/19 albuterol sulfate 90 mcg/actuation 2 puff IH Q6H PRN 09/03/18 07/08/19 aerosol inhaler fluticasone propionate 50 1 spray CRISTIANA DAILY 09/03/18 07/08/19 mcg/actuation nasal spray,suspension tamsulosin 0.4 mg capsule 0.4 mg PO DAILY 09/03/18 07/08/19 thiamine HCl (vitamin B1) 100 mg 100 mg PO DAILY 09/03/18 07/08/19 tablet [id number] 2 tab PO BID PRN 07/08/19 07/08/19 [Pain Reliever Plus] cetirizine 10 mg PO DAILY 07/08/19 07/08/19 fluticasone propion-salmeterol 1 puff INHALATION BID 07/08/19 07/08/19 [AirDuo RespiClick] Allergies Allergy/AdvReac Type Severity Reaction Status Date / Time lisinopril Allergy Severe Swelling/Ed Unverified 07/08/19 09:37 pastor Penicillins Allergy pt unsure Unverified 07/08/19 09:37 happened in childhood ? Rash, hives Sulfa (Sulfonamide AdvReac Skin Rash Unverified 07/08/19 09:37 Antibiotics) General Stated Complaint: DrugWithdr ALEENA: 3 Review of Systems All systems reviewed & are unremarkable except as noted in HPI and below Constitutional Constitutional: Denies chills, Denies fatigue, Denies fever(s), Denies headache(s) and Denies malaise ENT Ears, Nose, Mouth, and Throat: Denies headache(s) Gastrointestinal Gastrointestinal: Denies abdominal pain, Reports cramping, Reports diarrhea, Reports nausea and Denies vomiting Musculoskeletal Musculoskeletal: Reports back pain and Reports myalgias Neurologic Neurologic: Denies headache(s) Endocrine Endocrine: Denies fatigue [facility] Medical History Alcohol abuse (Chronic) Alcohol withdrawal seizure (Resolved) BPH (benign prostatic hyperplasia) (Chronic) COPD (chronic obstructive pulmonary disease) (Chronic) Depression (Chronic) HTN (hypertension) (Chronic) Hx of angioedema (Acute) Unknown allergic rxn 07/25/18 requiring endotracheal intubation and transfer to [facility] for further treatment. Left knee pain (Chronic) Normal colonoscopy (Resolved) 09/26/18 Dr Acosta, [facility], normal, repeat 10 years. Surgical History H/O hernia repair (Inactive) Social History Smoking/Tobacco Use Status: Current every day Tobacco Type: cigarettes Years smoked: 40 Alcohol Intake: current Alcohol Intake frequency: 3 or more drinks per day Alcohol type: hard liquor Drug use: Occasionally Substance use type: does not use Details: Pt states he quit drinking approximately 2 months ago (07/2018) and is currently in a recovery facility. Pt states that he had a seizure when at [facility] for alcohol abuse approx 2 months ago Do you feel safe at home: Yes Do you feel safe in your relationship?: Yes Exam Narrative Exam Narrative: CONST: Healthy appearing patient, in no acute distress. Well hydrated. Alert and oriented. HENMT: Head nomocephalic, normal to inspection. Atraumatic. Hearing grossly normal. EYES: General normal appearance. Alignment normal. Eyelids normal. Conjunctiva normal. NECK: Normal visual inspection. FROM. Trachea midline. No Midline tenderness. CHEST: Normal insepection of the chest. RESP: Normal respiratory effort. Speaking full sentences. No cough. No audible wheezing. No retractions. No rhonchi, rales or wheezing. Clear breath sounds, full and equal bilaterally CARDIO: No JVD. No murmur. Regular rate and rhythm GI: abdomen soft, mild diffuse pain with palpation, no peritoneal signs, aaron ound, or guarding. MUSCULOSKELETAL: Normal Gait. FROM of all extremities. SKIN: Normal. Dry. No rashes. NEURO: Alert and awake. Speech clear. PSYCH: Normal affect. Cooperative. Course Vital Signs Vital signs: Vital Signs Temperature 36.7 C 07/08/19 09:33 Pulse 87 07/08/19 09:33 Respiratory Rate 16 07/08/19 09:33 Blood Pressure 157/75 H 07/08/19 09:33 Pulse Oximetry 94 L 07/08/19 09:33 Temperature 36.7 C 07/08/19 09:33 Temperature Source Temporal Artery Scan 07/08/19 09:33 Pulse 87 07/08/19 09:33 Respiratory Rate 16 07/08/19 09:33 Respiratory Effort Non-Labored 07/08/19 09:35 Respiratory Pattern Normal 07/08/19 10:06 Blood Pressure 157/75 H 07/08/19 09:33 Blood Pressure Position Sitting 07/08/19 09:33 Pulse Oximetry 94 L 01/22/20 09:33 Oxygen Delivery Method Room Air 07/08/19 09:33 Oxygen Flow Rate 0 07/08/19 09:33 Pain Level 0 07/08/19 09:33
--- NOTE | 2019-07-08 10:51 | NUR.NOTE ---
patient received medication per MD order , patient took apap not motrin, patient received ride to [facility] from [facility]. Nursing Note:
== END 2019-07-08 10:48 | disposition home or self-care (01) ==
PROVIDERS: Emergency Provider Physician Assistant; PCP Nurse Practitioner Family
DX: F11.23 Opioid dependence with withdrawal (principal); F10.20 Alcohol dependence, uncomplicated; I10 Essential (primary) hypertension; J44.9 Chronic obstructive pulmonary disease, unspecified; F17.210 Nicotine dependence, cigarettes, uncomplicated
CPT/HCPCS: 99282

== ENCOUNTER 2019-07-17 12:47 | Emergency (ER) | payer OTHER, SELFPAY ==
[2019-07-17 12:55] VITALS: BP 111/56; PULSE 60; RESP 18; TEMP 36.7; O2SAT 95
--- NOTE | 2019-07-17 13:09 | ED.GENADUL_ITS ---
Discharge Plan Disposition Patient Disposition: [facility] Condition: Stable Discharge Details Chief Complaint: RashLesion Clinical Impression: Rash, Conjunctivitis Primary Care Provider: Mounika Heard ED Provider: iMchael Muniz [place] Meds and New Rx's Prescriptions: New clindamycin HCl 150 mg capsule 450 mg PO TID 10 Days Qty: 90 RF: 0 prednisone 20 mg tablet 60 mg PO DAILY 5 Days Qty: 15 RF: 0 acyclovir 800 mg tablet 800 mg PO Q6H 5 Days Qty: 20 RF: 0 Continued fluticasone propionate [Flonase Allergy Relief] 50 mcg/actuation spray,suspension 1 spray CRISTIANA DAILY RF: 0 tamsulosin 0.4 mg capsule 0.4 mg PO DAILY RF: 0 thiamine HCl (vitamin B1) 100 mg tablet 100 mg PO DAILY RF: 0 albuterol sulfate [ProAir HFA] 90 mcg/actuation HFA aerosol inhaler 2 puff IH Q6H PRNRF: 0 cetirizine 10 mg Tablet 10 mg PO DAILY RF: 0 Pain Reliever Plus 250-250-65 mg Tablet 2 tab PO BID PRNRF: 0 fluticasone propion-salmeterol [AirDuo RespiClick] 113-14 mcg/actuation Aerosol Powdr Breath Activated 1 puff INHALATION BID RF: 0 ibuprofen 600 MG tablet 600 mg PO PRN PRNRF: 0 Discharge Instructions Additional Instructions: Use the erythromycin ointment in both eyes every 6 hours for 5 days or until tube is gone the rash on your forehead appears to be shingles. The rash on the body seems to be a contact dermatitis with overlying cellulitis if you develop high fevers, difficulty breathing or persistent vomit return to the emergency department Medical Decision Making 63 yo male with hx of substance abuse recently incarcerated who comes in with chief complaint of rash for a few days without fevers or severe pain. He states he had a rash develop on his left forehead without vision changes and then st arted to have itching rash on torso. NO rash on hands or arms or legs or back. He has vesciles that are crusted over on the left forehead, no vision changes though has bilateral mild erythema of both conjunctiva without evidence of pseudodenrite. The rash on the forehead does appear to be shingles and will start him on acyclovir. Has multiple small papules on torso with some mild surrounding erythema where he has been itching, no drainage or discharge, appears to be some type of dermatitis with possible cellulitis from the scratching. Will start him on steroids and abx for this. Return precautions given Differential Diagnosis Differential Diagnosis: shingles, dermatitis, cellulitis Medical Records Medical records reviewed: Yes I reviewed the patient's medical records. HPI General Mode of arrival: ambulatory . Date/Time Provider Initiated Documentation: 07/17/19 12:50 . Limitations to Documentation: no limitations . Information obtained by: patient . History of Present Illness 63 year old M presents to the emergency department with the chief complaint of rash, described as moderate, and it has been constant. No relieving factors improve symptom(s), No exacerbating factors reported . Patient did receive the following treatments prior to arrival, none Related Data Home Medications Medication Instructions Recorded Confirmed ibuprofen 600 mg PO PRN PRN 01/20/17 07/08/19 albuterol sulfate 90 mcg/actuation 2 puff IH Q6H PRN 09/03/18 07/08/19 aerosol inhaler fluticasone propionate 50 1 spray CRISTIANA DAILY 09/03/18 07/08/19 mcg/actuation nasal spray,suspension tamsulosin 0.4 mg capsule 0.4 mg PO DAILY 09/03/18 07/08/19 thiamine HCl (vitamin B1) 100 mg 100 mg PO DAILY 09/03/18 07/08/19 tablet Pain Reliever Plus 2 tab PO BID PRN 07/08/19 07/08/19 cetirizine 10 mg PO DAILY 07/08/19 07/08/19 fluticasone propion-salmeterol 1 puff INHALATION BID 07/08/19 07/08/19 [AirDuo RespiClick] acyclovir 800 mg PO Q6H 5 Days #20 tab 07/17/19 clindamycin HCl 450 mg PO TID 10 Days #90 cap 07/17/19 prednisone 60 mg PO DAILY 5 Days #15 tab 07/17/19 Previous Rx's Medication Instructions Recorded acyclovir 800 mg PO Q6H 5 Days #20 tab 07/17/19 clindamycin HCl 450 mg PO TID 10 Days #90 cap 07/17/19 prednisone 60 mg PO DAILY 5 Days #15 tab 07/17/19 Allergies Allergy/AdvReac Type Severity Reaction Status Date / Time lisinopril Allergy Severe Swelling/Ed Unverified 07/08/19 09:37 pastor Penicillins Allergy pt unsure Unverified 07/08/19 09:37 happened in childhood ? Rash, hives Sulfa (Sulfonamide AdvReac Skin Rash Unverified 07/08/19 09:37 Antibiotics) General Stated Complaint: RashLesion ALEENA: 3 Review of Systems All systems reviewed & are unremarkable except as noted in HPI and below Constitutional Constitutional: Denies chills, Denies fever(s) and Denies weakness Cardiovascular Cardiovascular: Denies chest pain and Denies dyspnea Respiratory Respiratory: Denies cough and Denies dyspnea Gastrointestinal Gastrointestinal: Denies abdominal pain, Denies nausea and Denies vomiting Genitourinary Genitourinary: Denies dysuria Musculoskeletal Musculoskeletal: Denies joint swelling Neurologic Neurologic: Denies weakness [facility] Surgical History H/O hernia repair (Inactive) Social History Smoking/Tobacco Use Status: Current every day Tobacco Type: cigarettes Years smoked: 40 Alcohol Intake: current Alcohol Intake frequency: 3 or more drinks per day Alcohol type: hard liquor Drug use: Occasionally Substance use type: does not use Details: Pt states I'm a heavy drinker and I forget to take care of myself Pt states that he had a seizure when at [facility] for alcohol abuse approx Additional Social history: unable to assess privately Exam Const General: no acute distress Orientation: alert HENMT Head: normal to inspection Ears: external ears normal General nose exam: external nose normal Mouth: moist mucous membranes Eyes General: appearance normal, both eyes and all related structures Neck Neck: normal visual inspection Resp Effort & Inspection: normal respiratory effort and able to speak in complete sentences Cardio Rate: regular rate Skin General skin exam: elasticity normal Neuro General: alert and oriented x3 Extrem General: normal to inspection Psych Mental Status: mental status grossly normal Course Vital Signs Vital signs: Vital Signs Temperature 36.7 C 07/17/19 12:55 Pulse 60 07/17/19 12:55 Respiratory Rate 18 07/17/19 12:55 Blood Pressure 111/56 L 07/17/19 12:55 Pulse Oximetry 95 07/17/19 12:55 Temperature 36.7 C 07/17/19 12:55 Temperature Source Skin 07/17/19 12:55 Pulse 60 07/17/19 12:55 Respiratory Rate 18 07/17/19 12:55 Respiratory Effort 07/17/19 12:59 Blood Pressure 111/56 L 07/17/19 12:55 Blood Pressure Position Sitting 07/17/19 12:55 Pulse Oximetry 95 07/17/19 12:55 Oxygen Delivery Method Room Air 07/17/19 12:55 Oxygen Flow Rate 0 07/17/19 12:55 Pain Level 6 07/17/19 12:55
[2019-07-17] MEDS: Acyclovir 400 MG TAB 800 MG PO (13:21)
[2019-07-17] MEDS: predniSONE 20 MG TAB 60 MG PO (13:21)
[2019-07-17] MEDS: Clindamycin 150 MG CAP 450 MG PO (13:21)
[2019-07-17] MEDS: Erythromycin Ophth Oint 3.5 GM TUBE OP (13:21)
== END 2019-07-17 13:29 | disposition home or self-care (01) ==
LOC: ER 13:11
PROVIDERS: Emergency Provider Emergency Medicine; PCP Nurse Practitioner Family
DX: H10.023 Other mucopurulent conjunctivitis, bilateral (principal); B02.9 Zoster without complications; L25.9 Unspecified contact dermatitis, unspecified cause
CPT/HCPCS: 99283; J7512

== ENCOUNTER 2019-08-31 19:16 | Outpatient (REF) | payer MEDICAID, SELFPAY ==
[2019-08-31 19:49] LABS: Mean Corp. HGB Concentration 33.3 g/dL (32.0-36.0); Mean Corpuscular Volume 98.9 fL (80-95); Mean Platelet Volume 11.1 fL (8.0-11.0); Platelet Count 173 x1000/uL (130-400); RBC 3.64 m/cumm (4.50-6.00); RBC Distribution Width 14.6 % (11.8-14.1)
[2019-08-31 19:59] LABS: Iron 74 ug/dL (65-175); Total Iron Binding Capacity 328 ug/dL (250-450); Transferrin Sat 23 % (20-55)
[2019-08-31 20:03] LABS: ALT 28 U/L (16-63); AST 40 U/L (15-37); Albumin 3.8 g/dL (3.4-5.0); Alkaline Phosphatase 71 U/L (46-116); Anion Gap 6.6 mmol/L (3-11); BUN 17 mg/dL (7-18); Bilirubin, Total 0.8 mg/dL (0.2-1.0); CO2 33.4 mmol/L (21.0-32.0); CREATININE 1.17 mg/dL (0.70-1.30); Calcium 8.5 mg/dL (8.5-10.1); Chloride 100 mmol/L (98-107); Glucose 86 mg/dL (74-106); Sodium 140 mmol/L (136-145); Total Protein 6.7 g/dL (6.4-8.2)
[2019-08-31 20:32] LABS: Ferritin 94 ng/mL (26-388)
[2019-08-31 20:33] LABS: Folate > 20.0 ng/mL (8.6-20.0)
== END 2019-08-31 19:36 ==
LOC: NCHCN 19:16
PROVIDERS: PCP Nurse Practitioner Family; Visit Provider Nurse Practitioner Family
DX: I10 Essential (primary) hypertension (principal); F10.11 Alcohol abuse, in remission
CPT/HCPCS: 80053; 85027; 82728; 82746; 83540; 83550

== ENCOUNTER 2019-09-16 17:40 | Emergency (ER) | payer MEDICAID, SELFPAY ==
--- NOTE | 2019-09-16 17:29 | ED.GENADUL_ITS ---
Discharge Plan Disposition Patient Disposition: HOME Condition: Good Discharge Details Chief Complaint: PsychEval Clinical Impression: Depression, Acute respiratory infection Primary Care Provider: Mounika Heard ED Provider: Lata Dickson Home Meds and New Rx's Prescriptions: Continued fluticasone propionate [Flonase Allergy Relief] 50 mcg/actuation spray,suspension 1 spray CRISTIANA DAILY RF: 0 tamsulosin 0.4 mg capsule 0.4 mg PO DAILY RF: 0 thiamine HCl (vitamin B1) 100 mg tablet 100 mg PO DAILY RF: 0 albuterol sulfate [ProAir HFA] 90 mcg/actuation HFA aerosol inhaler 2 puff IH Q6H PRNRF: 0 cetirizine 10 mg Tablet 10 mg PO DAILY RF: 0 Pain Reliever Plus 250-250-65 mg Tablet 2 tab PO BID PRNRF: 0 fluticasone propion-salmeterol [AirDuo RespiClick] 113-14 mcg/actuation Aerosol Powdr Breath Activated 1 puff INHALATION BID RF: 0 ibuprofen 600 MG tablet 600 mg PO PRN PRNRF: 0 Discharge Instructions Instructions: Depression (ED) Additional Instructions: You have contracted for safety through your mental health consult. Please stay with your girlfriend. She will be in touch at 9 tonight and then again at 8 tomorrow morning. Please call any point you have worsening thoughts of depression or suicidal ideation. You may contact mental health at [phone]. If you have new or worsening symptoms please return to the emergency department. At this time, there is concern that you have been exposed and have symptoms of COVID-19. You will be tested as an outpatient. You will be contacted tomorrow to schedule a time to be tested as an outpatient at the stand-alone tent outside. The result be called to the emergency department, we will call you with any positive results. It is very important that you self-quarantine and stay at home for the next 14 days. Please see attached information on quarantine and helping prevent the spread of this to family and the community. Encourage water intake. You may use Tylenol and/or Ibuprofen as needed for discomfort. Follow directions on label. If you develop difficulty breathing, shortness of breath, severe headaches, stiff neck, chest pain or other new/worsening symptoms please seek care urgently once again. Please CALL prior to coming back. Please contact your primary care with any questions/concerns and to discuss needed follow up. Please follow-up with your primary care in 1 week. Stand Alone Forms: POSITIVE COVID-19/TO BE TESTED Referrals: Mounika Heard [Primary Care Provider] - Discharge Data Discharge Date/Time-TO BE ENTERED AT DEPARTURE: 09/16/19 19:55 Medical Decision Making Patient is a 63-year-old male, well-known to myself in the department, presenting today with chief complaint of suicidal ideation. Patient has history of depression, alcohol abuse, and seizures with alcohol withdrawal, BPH, COPD, hypertension. He reports that for the past week he has been having URI symptoms including shortness of breath, cough, fever, nasal congestion. He reports nasal congestion is making it difficult for him to sleep. He reports that overall the symptoms are greatly improved. He does report chronic shortness of breath and cough associated with smoking but feels that these may have been mildly worsened with his URI. He denies any recent travel. States that he was febrile but has not any fevers in the past 24 hours. No known sick contacts. States that with this illness, he has been very concerned that he may have contracted COVID which is been increasing his depression leading him to have suicidal thoughts that began today. He denies any plan. Unclear if he is actively suicidal. Patient has had mental health admissions historically secondary to suicidal ideation. Patient has been drinking today but does appear to be at his baseline and does not appear acutely intoxicated. Plan for consultation with mental health. Will have CPS O. Will perform baseline screening labs. Also concern for possible COVID given the patient's concomitant symptoms. His lungs are clear, heart rate and oxygen saturation are normal. Plan for COVID influenza testing. Labs reviewed. Potassium is low at 3.1, will replenish orally. His TSH is low at 0.08, free T4 was added. Patient's alcohol is 304 which does appear to be baseline for the patient and chart review. Chest x-ray is reviewed by radiologist: FINDINGS: Lungs: Mild linear airspace disease and/or atelectasis right base. Pleural space: Unremarkable. No pleural effusion. No pneumothorax. Heart/Mediastinum: Unremarkable. No cardiomegaly. Bones/joints: Unremarkable. Soft tissues: 9 mm nodular density right lung base, possibly nipple shadow artifact. IMPRESSION: Mild linear airspace disease and/or atelectasis right base. Lungs are clear and patient is not have evidence of pneumonia on clinical exam and history at this time. Patient reports improvement of his symptoms, find atelectasis more likely. Mental health evaluated the patient. He reports that he is not actively suicidal but he needed to feel safe and had that relief while here. They report that he is able to go home in the care of his significant other. He was able to contract to safety. Mental health will contact him tonight at 8 PM again tomorrow morning. He was given strict return precautions. He will follow-up with primary care. Patient's alcohol is elevated but as this is baseline for the patient he does not appear intoxicated, I feel he can be discharged home in the care of his significant other. Patient was given contact information for [facility] services, he is currently a patient of theirs. He will contact them with endorsing symptoms and is aware that he may return anytime if he develops increased suicidal ideations or new/worsening respiratory symptoms. All of his questions and concerns were addressed and he is in agreement this plan. HPI General Mode of arrival: ambulatory . Date/Time Provider Initiated Documentation: 09/16/19 17:57 . Limitations to Documentation: no limitations . Information obtained by: patient, EMS and RN notes reviewed . History of Present Illness 63 year old M presents to the emergency department with the chief complaint of suicidal ideation, described as moderate and similar to prior episodes (has been hospitalized historically, no plan at this time), Quality is described as other (denies any pain), Patient started experiencing this week(s) and it has been constant. No relieving factors improve symptom(s), Other factors that worsen symptoms (states that recent illness has exacerbated his underlying depression) . Patient notes cough, fever/chills (none over the past 24 hours), malaise and shortness of breath; denies chest pain, diaphoresis, headaches, loss of appetite, nausea/vomiting, rash and weakness. Patient did receive the following treatments prior to arrival, none Related Data Home Medications Medication Instructions Recorded Confirmed ibuprofen 600 mg PO PRN PRN 01/20/17 09/16/19 albuterol sulfate 90 mcg/actuation 2 puff IH Q6H PRN 09/03/18 09/16/19 aerosol inhaler fluticasone propionate 50 1 spray CRISTIANA DAILY 03/20/19 04/01/20 mcg/actuation nasal spray,suspension tamsulosin 0.4 mg capsule 0.4 mg PO DAILY 09/03/18 09/16/19 thiamine HCl (vitamin B1) 100 mg 100 mg PO DAILY 09/03/18 09/16/19 tablet Pain Reliever Plus 2 tab PO BID PRN 07/08/19 09/16/19 cetirizine 10 mg PO DAILY 07/08/19 09/16/19 fluticasone propion-salmeterol 1 puff INHALATION BID 07/08/19 09/16/19 [AirDuo RespiClick] Allergies Allergy/AdvReac Type Severity Reaction Status Date / Time lisinopril Allergy Severe Swelling/Ed Unverified 09/16/19 17:52 pastor Penicillins Allergy pt unsure Unverified 09/16/19 17:52 happened in childhood ? Rash, hives Sulfa (Sulfonamide AdvReac Skin Rash Unverified 09/16/19 17:52 Antibiotics) General ALEENA: 3 Review of Systems Constitutional Constitutional: Reports as per HPI, Reports chills, Reports fatigue, Reports fever(s), Denies headache(s) and Denies weakness Eyes Eyes: Denies change in vision ENT Ears, Nose, Mouth, and Throat: Denies headache(s) Cardiovascular Cardiovascular: Reports as per HPI, Denies chest pain, Denies lightheadedness, Reports dyspnea and Reports dyspnea on exertion Respiratory Respiratory: Reports as per HPI, Denies chest congestion, Reports cough, Denies hemoptysis, Denies excessive phlegm production, Denies pain on inspiration, Denies pain with cough, Reports dyspnea and Reports dyspnea on exertion Gastrointestinal Gastrointestinal: Reports as per HPI, Denies abdominal pain, Denies change in bowel habits, Denies nausea and Denies vomiting Genitourinary Genitourinary: Denies system reviewed and no additional complaints, except as documented (denies any change in urinary habits) Musculoskeletal Musculoskeletal: Denies abnormal gait Integumentary/Breasts Skin/Breast: Reports as per HPI and Denies rash Neurologic Neurologic: Denies abnormal movements, Denies abnormal speech, Denies abnormal gait, Denies headache(s), Denies paresthesias and Denies weakness Psychiatric Psychiatric: Reports abnormal sleep pattern, Reports anxiety, Reports depression, Denies auditory hallucinations, Reports hopelessness, Reports irritability, Reports mood swings, Denies visual hallucinations, Denies homicidal ideation and Reports suicidal ideation Endocrine Endocrine: Reports fatigue PFSH Surgical History H/O hernia repair (Inactive) Social History Smoking/Tobacco Use Status: Current every day Tobacco Type: cigarettes Years smoked: 40 Alcohol Intake: current Alcohol Intake frequency: 3 or more drinks per day Alcohol type: hard liquor Drug use: Occasionally Substance use type: does not use Details: PT reports drinking a 5th of Rum prior to calling EMS. Do you feel safe at home: No (Suicidal) Do you feel safe in your relationship?: No Exam Const General: cooperative, healthy appearing, comfortable, no acute distress, well developed and well groomed Nutritional Appearance: average body habitus and well nourished Orientation: alert and awake Eyes General: appearance normal, both eyes and all related structures Resp Effort & Inspection: normal respiratory effort, able to speak in complete sentences and no respiratory distress Auscultation: clear to auscultation bilaterally, no rales, no rhonchi and no wheezes Cardio Rate: regular rate Rhythm: regular rhythm Heart Sounds: S1 normal and S2 normal Skin General skin exam: no rashes or lesions noted Trauma: no lacerations or abrasions Neuro General: patient alert and patient awake Cognition: normal cognition Speech: speech normal Gait: normal gait Psych Appearance: grossly normal and well kempt Mental Status: mental status grossly normal Speech and Movement: speech and movement normal Mood: congruent mood Affect: sad Attitude: cooperative and guarded Thought Process: normal Thought Content: suicidality Insight: fair Judgment: fair
[2019-09-16 17:43] VITALS: BP 154/70; PULSE 71; RESP 16; TEMP 36.7; O2SAT 96
[2019-09-16 17:56] VITALS: TEMP 36.5
[2019-09-16 18:18] LABS: Bilirubin Negative (Negative); Blood Negative (Negative); Clarity Clear (Clear); Glucose Negative (Negative); Ketones Negative (Negative); Leukocyte Esterase Negative (Negative); Nitrite Negative (Negative); Urobilinogen 0.2 EU/dL (Up TO 0.2)
[2019-09-16 18:20] LABS: Abs Immature Grans 0.06 k/cumm (0.0-0.09); Absolute Basophil Count 0.03 k/cumm (0.0-0.2); Absolute Eosinophil Count 0.16 k/cumm (0.0-0.7); Absolute Lymphocyte Count 2.18 k/cumm (1.2-3.4); Absolute Monocyte Count 0.78 k/cumm (0.11-0.7); Absolute Neutrophil Count 5.59 k/cumm (1.2-6.7); Basophils % 0.3; Eosinophils % 1.8; HCT 42.4 % (40.0-50.0); Immature Grans % 0.7 %; Lymphocytes % 24.8; Mean Corp. HGB Concentration 35.4 g/dL (32.0-36.0); Mean Corpuscular Hemoglobin 33.9 pg (27.0-33.0); Mean Corpuscular Volume 95.7 fL (80-95); Mean Platelet Volume 10.2 fL (8.0-11.0); Monocytes % 8.9; Neutrophils % 63.5; Platelet Count 191 x1000/uL (130-400); RBC 4.43 m/cumm (4.50-6.00); RBC Distribution Width 14.6 % (11.8-14.1)
[2019-09-16 18:25] LABS: Bacteria Few HPF (Negative); C & S Indicated? No; Casts Negative LPF (Negative); Crystals Negative HPF (Negative); Epithelial Cells Negative HPF (Negative); Mucus Trace (Negative); Other Cells Negative (Negative); RBC Negative HPF (0-2); WBC 0-2 HPF (0-5)
--- NOTE | 2019-09-16 18:30 | DI.RAD_ITS ---
EXAM: XR PORTABLE CHEST AP CLINICAL HISTORY: SOB COMPARISON: XR PORTABLE CHEST AP from 10/06/2018 FINDINGS: Portable AP views were obtained. A faint nodular radiodensity over the right lower lobe, probable nip ple shadow, intrapulmonary nodule not excluded, repeat PA chest with nipple markers requested. Otherwise lungs appear clear. No pleural effusion on these frontal films. IMPRESSION: Possible pulmonary nodule versus nipple shadow. Repeat chest with nipple markers requested. No other significant findings.
[2019-09-16 18:35] LABS: Acetaminophen < 2 ug/mL (10-30); Salicylate 3.9 mg/dL (2.8-20.0)
[2019-09-16 18:35] LABS: *AMPHETAMINES SCREEN URINE Negative (Negative); *BARBITURATES SCREEN URINE Negative (Negative); *BENZODIAZEPINES SCREEN URINE Negative (Negative); Cannabinoids THC Negative (Negative); Cocaine Screen,Urine Negative (Negative); METHADONE URINE SCREEN Negative (Negative); OPIATES URINE SCREEN Negative (Negative)
[2019-09-16 18:36] LABS: Tricyclic Antidepressants Negative (Negative)
[2019-09-16 18:40] LABS: ALT 23 U/L (16-63); AST 28 U/L (15-37); Albumin 3.9 g/dL (3.4-5.0); Alkaline Phosphatase 94 U/L (46-116); Anion Gap 13.5 mmol/L (3-11); BUN 13 mg/dL (7-18); Bilirubin, Total 0.9 mg/dL (0.2-1.0); CO2 27.5 mmol/L (21.0-32.0); CREATININE 1.05 mg/dL (0.70-1.30); Calcium 8.9 mg/dL (8.5-10.1); Chloride 99 mmol/L (98-107); ETHANOL BLOOD 304.1 mg/dL (<3); Glucose 76 mg/dL (74-106); Potassium 3.1 mmol/L (3.5-5.1); Sodium 140 mmol/L (136-145); TSH 0.08 uIU/mL (0.36-3.74); Total Protein 7.8 g/dL (6.4-8.2)
--- NOTE | 2019-09-16 19:05 | DI.VRAD_ITS ---
PROCEDURE INFORMATION: Exam: XR Chest, 1 View Exam date and time: 09/16/2019 6:44 PM Age: 63 years old Clinical indication: Shortness of breath; Patient HX: Psychiatric patient. Fever. Possibility of covid exposure. TECHNIQUE: Imaging protocol: XR of the chest Views: 1 view. COMPARISON: CR XR PORTABLE CHEST AP 10/06/2018 1:20 PM FINDINGS: Lungs: Mild linear airspace disease and/or atelectasis right base. Pleural space: Unremarkable. No pleural effusion. No pneumothorax. Heart/Mediastinum: Unremarkable. No cardiomegaly. Bones/joints: Unremarkable. Soft tissues: 9 mm nodular density right lung base, possibly nipple shadow artifact. IMPRESSION: Mild linear airspace disease and/or atelectasis right base. Dictated and Authenticated by: Abraham Alexis MD. Ordering:MARILYN Guido MD
[2019-09-16 19:59] VITALS: PULSE 71; RESP 16; TEMP 36.5; O2SAT 96
[2019-09-16 20:07] LABS: FREE T4 1.51 ng/dL (0.76-1.46)
== END 2019-09-16 19:55 | disposition home or self-care (01) ==
PROVIDERS: Emergency Provider Physician Assistant; PCP Nurse Practitioner Family
DX: F32.9 Major depressive disorder, single episode, unspecified (principal); J06.9 Acute upper respiratory infection, unspecified; R05 Cough; R50.9 Fever, unspecified; E87.6 Hypokalemia
CPT/HCPCS: 36415; 80053; 80307; 99285; 71045; 80320; 80329; 81003; 81015; 84439; 84443; 85025; 99284

== ENCOUNTER 2019-10-13 07:24 | Emergency (ER) | payer MEDICAID, SELFPAY ==
[2019-10-13] VITALS (25 sets, daily range): BP systolic 126–153; BP diastolic 57–83; PULSE 72–92; RESP 11–25; TEMP 36.8; O2SAT 92–98
--- NOTE | 2019-10-13 07:39 | ED.GENADUL_ITS ---
Discharge Plan Disposition Patient Disposition: HOME Condition: Stable Discharge Details Chief Complaint: ETOHWithdr Clinical Impression: Alcohol abuse Primary Care Provider: Mounika Heard ED Provider: Ronnie Scanlon Home Meds and New Rx's Prescriptions: No Action fluticasone propionate [Flonase Allergy Relief] 50 mcg/actuation spray,suspension 1 spray CRISTIANA DAILY RF: 0 tamsulosin 0.4 mg capsule 0.4 mg PO DAILY RF: 0 thiamine HCl (vitamin B1) 100 mg tablet 100 mg PO DAILY RF: 0 albuterol sulfate [ProAir HFA] 90 mcg/actuation HFA aerosol inhaler 2 puff IH Q6H PRNRF: 0 cetirizine 10 mg Tablet 10 mg PO DAILY RF: 0 Pain Reliever Plus 250-250-65 mg Tablet 2 tab PO BID PRNRF: 0 fluticasone propion-salmeterol [AirDuo RespiClick] 113-14 mcg/actuation Aerosol Powdr Breath Activated 1 puff INHALATION BID RF: 0 ibuprofen 600 MG tablet 600 mg PO PRN PRNRF: 0 Discharge Instructions Instructions: Abuse of Alcohol (DC) Additional Instructions: Please slowly decrease your alcohol use. Our mental health team will reach out to you in regards to transition to rehab facilities on an outpatient basis. If you notice any worsening of your symptoms, or any new symptoms such as vomiting, diarrhea, fever, chills, shortness of breath, chest pain, numbness, weakness, or fainting , please return immediately to the emergency department for reevaluation. Please follow up with your primary care provider as soon as possible for reassessment and reevaluation. As always, it was a pleasure participating in your medical care today. Referrals: Mounika Heard [Primary Care Provider] - Medical Decision Making <Michael Muniz MD - Last Filed: 10/13/19 07:42> 63 yo male with hx of depression, alcohol abuse who comes in with EMS stating he drank heavily all night, last having vodka an hour ago and has been more depressed and having thoughts of self harm without actually attempting to harm himself. He denies drug use, chest pain, dyspnea, fevers, cough, vomit. He arrives HD stable with no focal neuro deficits though does have some mild slurring of words. Will obtain lab work including tox screen and alcohol and once clinically sober have mental health evaluate pt signed out to oncomig provider pending lab work and mental health eval when sober Differential Diagnosis Differential Diagnosis: alcholism, sI, depression <Ronnie Scanlon DO - Last Filed: 10/13/19 12:19> Patient was signed out to me by my colleague Dr. Michael Muniz. Please refer to his HPI documentation assessment and plan. At time of signout we are pending laboratory work-up and evaluation by mental health. By the time mental health arrived the patient was no longer complaining of suicidal ideations. He states that he does not want to hurt himself, I do not want to end my life, I just want to go home. I have the strength to maintain my life. Laboratory work-up has returned relatively benign, the patient has received a banana bag here. Initial alcohol level was elevated at 298. UDS salicylates and acetaminophen was otherwise unremarkable/negative. After an extended observation time here in the ED the patient was reassessed multiple times, he continues to demonstrate no homicidal or suicidal ideations. He states that he would like to go home wants to hold off right now rehab facility transfer. We did discuss this with mental health and they agree with the plan. At this time the patient's girlfriend is arrived and would like to take the patient home to care for him there. The patient is requesting this. Patient appears clinically stable, and has demonstrated clinical sobriety at this time after the extended observation period in the ED and fluids. The patient is able to speak clearly. There is no demonstration of any slurring of speech. There is evidence of clear decision making capacity. Patient is able to ambulate well without any difficulty. There are no signs of ataxia or stumbling motions. I have extensively reviewed the treatment plan and discharge instructions with the patient and their family. I have addressed all patient concerns at this time. The patient and family was made aware of what symptoms to monitor for that would warrant a return to the emergency department. Discussed the plan with the patient and family, they demonstrate verbal understanding and agreement with our assessment and plan at this time. HPI <Michael Muniz MD - Last Filed: 10/13/19 07:42> General Mode of arrival: EMS . Date/Time Provider Initiated Documentation: 10/13/19 07:31 . Information obtained by: patient and EMS . History of Present Illness 63 year old M presents to the emergency department with the chief complaint of alcoholism, described as moderate, and it has been constant. No relieving factors improve symptom(s), No exacerbating factors reported . Related Data Home Medications Medication Instructions Recorded Confirmed ibuprofen 600 mg PO PRN PRN 01/20/17 09/16/19 albuterol sulfate 90 mcg/actuation 2 puff IH Q6H PRN 09/03/18 09/16/19 aerosol inhaler fluticasone propionate 50 1 spray CRISTIANA DAILY 09/03/18 09/16/19 mcg/actuation nasal spray,suspension tamsulosin 0.4 mg capsule 0.4 mg PO DAILY 09/03/18 09/16/19 thiamine HCl (vitamin B1) 100 mg 100 mg PO DAILY 09/03/18 09/16/19 tablet Pain Reliever Plus 2 tab PO BID PRN 07/08/19 09/16/19 cetirizine 10 mg PO DAILY 07/08/19 09/16/19 fluticasone propion-salmeterol 1 puff INHALATION BID 07/08/19 09/16/19 [AirDuo RespiClick] Allergies Allergy/AdvReac Type Severity Reaction Status Date / Time lisinopril Allergy Severe Swelling/Ed Unverified 09/16/19 17:52 pastor Penicillins Allergy pt unsure Unverified 09/16/19 17:52 happened in childhood ? Rash, hives Sulfa (Sulfonamide AdvReac Skin Rash Unverified 09/16/19 17:52 Antibiotics) General Stated Complaint: ETOHWithdr ALEENA: 3 Review of Systems <Michael Muniz MD - Last Filed: 10/13/19 07:42> All systems reviewed & are unremarkable except as noted in HPI and below Constitutional Constitutional: Denies chills and Denies fever(s) ENT Ears, Nose, Mouth, and Throat: Denies change in voice Cardiovascular Cardiovascular: Denies chest pain and Denies dyspnea Respiratory Respiratory: Denies cough and Denies dyspnea Gastrointestinal Gastrointestinal: Denies abdominal pain, Denies nausea and Denies vomiting Endocrine Endocrine: Denies cold intolerance and Denies heat intolerance PFS <Michael Muniz MD - Last Filed: 10/13/19 07:42> Surgical History H/O hernia repair (Inactive) Social History Smoking/Tobacco Use Status: Current every day Tobacco Type: cigarettes Years smoked: 40 Alcohol Intake: current Alcohol Intake frequency: 3 or more drinks per day Alcohol type: hard liquor Drug use: Occasionally Substance use type: does not use Details: PT reports drinking a 5th of Rum prior to calling EMS. Do you feel safe at home: No (Suicidal) Do you feel safe in your relationship?: No Exam <Michael Muniz MD - Last Filed: 10/13/19 07:42> Const General: no acute distress Orientation: alert HENMT Head: normal to inspection Ears: external ears normal General nose exam: external nose normal Mouth: moist mucous membranes Eyes General: appearance normal, both eyes and all related structures Neck Neck: normal visual inspection Resp Effort & Inspection: normal respiratory effort and able to speak in complete sentences Cardio Rate: regular rate Skin General skin exam: no rashes or lesions noted Neuro General: patient alert and patient oriented x3 Extrem General: normal to inspection Psych Affect: sad Course <Michael Muniz MD - Last Filed: 10/13/19 07:42> Vital Signs Vital signs: Vital Signs Temperature 36.8 C 10/13/19 07:21 Pulse 72 10/13/19 07:21 Respiratory Rate 18 10/13/19 07:21 Blood Pressure 143/83 H 10/13/19 07:21 Pulse Oximetry 95 10/13/19 07:21 Temperature 36.8 C 10/13/19 07:21 Temperature Source Temporal Artery Scan 10/13/19 07:21 Pulse 72 10/13/19 07:21 Respiratory Rate 18 10/13/19 07:21 Blood Pressure 143/83 H 10/13/19 07:21 Blood Pressure Position Supine 10/13/19 07:21 Pulse Oximetry 95 10/13/19 07:21 Oxygen Delivery Method Room Air 10/13/19 07:21 Oxygen Flow Rate 0 10/13/19 07:21 End Tidal Co2 0 10/13/19 07:21 Sign Out <Michael Muniz MD - Last Filed: 10/13/19 07:42> Sign Out Data: Sign Out Comment: follow up labs and mental health Last updated by Michael Muniz MD at 10/13/19 07:48
[2019-10-13] MEDS: Normal Saline 1,000 ML 1000 ML IV (07:55)
[2019-10-13 08:14] LABS: Abs Immature Grans 0.02 k/cumm (0.0-0.09); Absolute Basophil Count 0.04 k/cumm (0.0-0.2); Absolute Eosinophil Count 0.18 k/cumm (0.0-0.7); Absolute Lymphocyte Count 1.31 k/cumm (1.2-3.4); Absolute Neutrophil Count 2.59 k/cumm (1.2-6.7); Basophils % 0.9; Eosinophils % 3.9; HCT 40.7 % (40.0-50.0); HGB 13.8 g/dL (13.5-17.5); Immature Grans % 0.4 %; Lymphocytes % 28.2; Mean Corp. HGB Concentration 33.9 g/dL (32.0-36.0); Mean Corpuscular Hemoglobin 34.1 pg (27.0-33.0); Mean Corpuscular Volume 100.5 fL (80-95); Mean Platelet Volume 9.3 fL (8.0-11.0); Monocytes % 10.8; Neutrophils % 55.8; Platelet Count 250 x1000/uL (130-400); RBC 4.05 m/cumm (4.50-6.00); RBC Distribution Width 15.3 % (11.8-14.1); White Blood Cell Count 4.64 k/cumm (4.4-10.8)
[2019-10-13 08:28] LABS: ALT 42 U/L (16-63); AST 55 U/L (15-37); Albumin 3.6 g/dL (3.4-5.0); Alkaline Phosphatase 54 U/L (46-116); BUN 13 mg/dL (7-18); Bilirubin, Total 0.6 mg/dL (0.2-1.0); CREATININE 0.98 mg/dL (0.70-1.30); Calcium 8.8 mg/dL (8.5-10.1); Chloride 104 mmol/L (98-107); ETHANOL BLOOD 298.7 mg/dL (<3); Glucose 89 mg/dL (74-106); Potassium 3.8 mmol/L (3.5-5.1); Sodium 145 mmol/L (136-145); TSH (W/Ref FT4) 0.21 uIU/mL (0.36-3.74); Total Protein 7.2 g/dL (6.4-8.2)
[2019-10-13] MEDS: MAGNESIUM SULFATE 8.12 MEQ, MULTIVITAMIN 10 ML, THIAMINE 100 MG, FOLIC ACID 1 MG in Nor... 168.867 MG IV (08:39)
[2019-10-13 08:45] LABS: Salicylate < 2.8 mg/dL (2.8-20.0)
[2019-10-13 08:48] LABS: FREE T4 1.16 ng/dL (0.76-1.46)
[2019-10-13 08:57] LABS: Acetaminophen < 2 ug/mL (10-30)
--- NOTE | 2019-10-13 10:24 | CMACTNOTE_ITS ---
- If Service Date Differs Date of service: 10/13/19 Time of Service: 10:24 Care Management Activity Note South meets with Laura Drummond, [facility] crisis screener, with CM present in the room for the telehealth assessment. South reports having had suicidal ideation earlier today but no longer feeling suicidal, saying my will to live is stronger than my desire to . He expresses an interest in returning to [facility] for inpatient substance abuse treatment and is agreeable to remaining at [facility] while his blood alcohol level decreases. An [facility] screener will reassess him once he is no longer under the influence of alcohol and will assist him in contacted [facility], if he is still interested in seeking placement at that time.
--- NOTE | 2019-10-13 10:24 | PDOC.ERCMACT ---
- If Service Date Differs Date of service: 10/13/19 Time of Service: 10:24 Care Management Activity Note South meets with Laura Drummond, [facility] crisis screener, with CM present in the room for the telehealth assessment. South reports having had suicidal ideation earlier today but no longer feeling suicidal, saying my will to live is stronger than my desire to . He expresses an interest in returning to [facility] for inpatient substance abuse treatment and is agreeable to remaining at [facility] while his blood alcohol level decreases. An [facility] screener will reassess him once he is no longer under the influence of alcohol and will assist him in contacted [facility], if he is still interested in seeking placement at that time.
[2019-10-13 10:58] LABS: Bilirubin Negative (Negative); Blood Negative (Negative); Clarity Clear (Clear); Glucose Negative (Negative); Ketones Negative (Negative); Leukocyte Esterase Negative (Negative); Nitrite Negative (Negative); Specific Gravity >= 1.030 (1.005-1.025); Urobilinogen 0.2 EU/dL (Up TO 0.2)
[2019-10-13 11:11] LABS: Bacteria Negative HPF (Negative); C & S Indicated? No; Casts Negative LPF (Negative); Crystals Negative HPF (Negative); Epithelial Cells Negative HPF (Negative); Mucus Trace (Negative); RBC Negative HPF (0-2); WBC 0-2 HPF (0-5)
[2019-10-13 11:17] LABS: *AMPHETAMINES SCREEN URINE Negative (Negative); *BARBITURATES SCREEN URINE Negative (Negative); *BENZODIAZEPINES SCREEN URINE Negative (Negative); Cannabinoids THC Negative (Negative); Cocaine Screen,Urine Negative (Negative); METHADONE URINE SCREEN Negative (Negative); OPIATES URINE SCREEN Negative (Negative); Tricyclic Antidepressants Negative (Negative)
== END 2019-10-13 12:16 | disposition home or self-care (01) ==
PROVIDERS: Emergency Medicine; Emergency Provider Student in an Organized Health Care Education/Training Program; PCP Nurse Practitioner Family
DX: F10.20 Alcohol dependence, uncomplicated (principal)
CPT/HCPCS: 80053; 80307; 96360; 99285; 80320; 80329; 81003; 81015; 84439; 84443; 85025; 99284

== ENCOUNTER 2019-10-13 20:36 | Inpatient (IN) | payer MEDICAID, SELFPAY ==
[2019-10-13 20:41] VITALS: BP 134/75; PULSE 82; RESP 16; TEMP 36.9; O2SAT 90
--- NOTE | 2019-10-13 20:45 | ED.GENADUL_ITS ---
Discharge Plan Disposition Patient Disposition: [facility] INPATIENT Condition: Fair Discharge Details Chief Complaint: PsychEval Clinical Impression: Alcohol abuse, Depression, Suicidal thoughts Primary Care Provider: Mounika Heard ED Provider: Robinson Mayorga Home Meds and New Rx's Prescriptions: No Action fluticasone propionate [Flonase Allergy Relief] 50 mcg/actuation spray,suspension 1 spray CRISTIANA DAILY RF: 0 tamsulosin 0.4 mg capsule 0.4 mg PO DAILY RF: 0 thiamine HCl (vitamin B1) 100 mg tablet 100 mg PO DAILY RF: 0 albuterol sulfate [ProAir HFA] 90 mcg/actuation HFA aerosol inhaler 2 puff IH Q6H PRNRF: 0 cetirizine 10 mg Tablet 10 mg PO DAILY RF: 0 Pain Reliever Plus 250-250-65 mg Tablet 2 tab PO BID PRNRF: 0 fluticasone propion-salmeterol [AirDuo RespiClick] 113-14 mcg/actuation A erosol Powdr Breath Activated 1 puff INHALATION BID RF: 0 citalopram [Celexa] 20 mg Tablet 20 mg PO DAILY RF: 0 ibuprofen 600 MG tablet 600 mg PO PRN PRNRF: 0 Medical Decision Making Patient returns with intoxication and complaint of suicidal ideation. Was just here this morning for same. Laboratory studies this morning were unremarkable. Patient is awake and alert with normal speech and mentation. Denies attempt or ingestion but complains of ideation. Having relationship problems with his girlfriend which is likely driving his depression and drinking. Discussed with mental health, care management, hospitalist. Patient will be admitted overnight on CIWA protocol and CPSO. No repeat labs tonight as they were fine this morning. Medical Records Medical records reviewed: Yes I reviewed the patient's medical records. Lab Data Lab results reviewed: Yes I reviewed the patient's lab results. Lab results narrative: Reviewed labs from earlier today. HPI General Mode of arrival: ambulatory . Date/Time Provider Initiated Documentation: 10/13/19 20:45 . Limitations to Documentation: altered mental status (intoxicated) . Information obtained by: patient, police, RN notes reviewed and old records reviewed . HPI Narrative: Patient is brought in by police for evaluation of suicidal thoughts. Patient had checked into the ED this morning at 730 with intoxication and suicidal thoughts. Laboratory work-up was unremarkable except for alcohol level. By the time care management and mental health were able to evaluate him, he no longer was feeling suicidal. He was deemed safe to be discharged with his girlfriend home. He is back tonight intoxicated and suicidal. On further questioning it turns out that his girlfriend and him not getting along. Is likely the source of his problems including alcohol and depre ssion. He has no physical complaints of. Of note on September 15 he was seen here with URI. Subsequently positive for COVID. Has since had negative COVID testing and has no symptoms or complaints of URI, cough, fever. Related Data Home Medications Medication Instructions Recorded Confirmed ibuprofen 600 mg PO PRN PRN 01/20/17 10/13/19 albuterol sulfate 90 mcg/actuation 2 puff IH Q6H PRN 09/03/18 10/13/19 aerosol inhaler fluticasone propionate 50 1 spray CRISTIANA DAILY 09/03/18 10/13/19 mcg/actuation nasal spray,suspension tamsulosin 0.4 mg capsule 0.4 mg PO DAILY 09/03/18 10/13/19 thiamine HCl (vitamin B1) 100 mg 100 mg PO DAILY 09/03/18 09/16/19 tablet Pain Reliever Plus 2 tab PO BID PRN 07/08/19 09/16/19 cetirizine 10 mg PO DAILY 07/08/19 10/13/19 fluticasone propion-salmeterol 1 puff INHALATION BID 07/08/19 10/13/19 [AirDuo RespiClick] citalopram [Celexa] 20 mg PO DAILY 10/13/19 10/13/19 Allergies Allergy/AdvReac Type Severity Reaction Status Date / Time lisinopril Allergy Severe Swelling/Ed Unverified 10/13/19 20:56 pastor Penicillins Allergy pt unsure Unverified 10/13/19 20:56 happened in childhood ? Rash, hives Sulfa (Sulfonamide AdvReac Skin Rash Unverified 10/13/19 20:56 Antibiotics) General Stated Complaint: PsychEval ALEENA: 2 Review of Systems Narrative: 03/30 Review of Systems completed and is negative except as stated above in HPI (Systems reviewed: Const, ENT, Resp, CV, GI, , MSK, Skin, Neuro, psych) PFSH Medical History Alcohol abuse (Chronic) Alcohol withdrawal seizure (Resolved) BPH (benign prostatic hyperplasia) (Chronic) COPD (chronic obstructive pulmonary disease) (Chronic) Depression (Chronic) HTN (hypertension) (Chronic) Hx of angioedema (Acute) Unknown allergic rxn 07/25/18 requiring endotracheal intubation and transfer to [facility] [place]. Left knee pain (Chronic) Normal colonoscopy (Resolved) 09/26/18 Dr Acosta, [facility], normal, repeat 10 years. Surgical History H/O hernia repair (Inactive) Social History Smoking/Tobacco Use Status: Current every day Tobacco Type: cigarettes Years smoked: 40 Alcohol Intake: current Alcohol Intake frequency: 3 or more drinks per day Alcohol type: hard liquor Drug use: Occasionally Substance use type: does not use Do you feel safe at home: No (Suicidal) Do you feel safe in your relationship?: No Exam Narrative Exam Narrative: Vitals: Afebrile. Normal vital signs. O2 saturation low 90s, baseline with COPD. Const: WDWN male in NAD. HEENT: NC/AT. Normal facial exam. Eyes: Normal conjunctiva and sclera. Neck: Supple. Trachea midline. Lungs: Normal respiratory effort. Cor: Good radial pulses. GI: Soft. NT/ND. Back: Neuro: A+O x 3. Normal speech, mentation, gait. Cranial nerves II - XII grossly intact. No gross motor or sensory deficit. Ext: No C/C/E. Skin: Warm and dry. Psych: Poor eye contact. Crying. Depressed. Reports suicidal ideation. Denies suicide attempt/ingestion. Course Vital Signs Vital signs: Vital Signs Temperature 98.4 F 10/13/19 20:41 Pulse 82 10/13/19 20:41 Respiratory Rate 16 10/13/19 20:41 Blood Pressure 134/75 10/13/19 20:41 Pulse Oximetry 90 L 10/13/19 20:41 Temperature 98.4 F 10/13/19 20:41 Pulse 82 10/13/19 20:41 Respiratory Rate 16 10/13/19 20:41 Blood Pressure 134/75 10/13/19 20:41 Pulse Oximetry 90 L 10/13/19 20:41 Oxygen Delivery Method Room Air 10/13/19 20:41 Oxygen Flow Rate 0 10/13/19 20:41 Pain Level 0 10/13/19 20:41
--- NOTE | 2019-10-13 21:17 | NUR.NOTE ---
To room 5 with c/o SI. Pt seen this am for same, felt safe to go home. Went home and had a fight with girlfriend, drank alcohol. Called 911 stated to police he was going to use knives to kill himself. Changed into paper clothing. Pt reports tested postitive for Covid last week, states has had negative test since. Mask in place. Changed to paper clothing.
--- NOTE | 2019-10-13 21:20 | CMSP_ITS ---
- If Service Date Differs Date of service: 10/13/19 Time of Service: 21:20 Care Management Safety Plan South arrives to the ED per provider intoxicated. He is being admitted for acute intoxication and suicidal ideation. South has a significant history of ETOH abuse and suicidal ideation, he is well known to the ED staff, care management and [facility]. He is not medically clear at this time due to intoxication. In the interim; please note safety plan below to guide patient care while awaiting further assessment by mental health and established plan. SAFETY PLAN: 1. Will remain on suicide precautions and in paper clothes. 2. Will remain in room under direct supervision of one-on-one staff at all times provided by [facility], RECONDITIONER clinical nursing instructor. 3. May have paper cups, plates, finger foods as well as a metal spoon with which to eat meals. [facility] staff will be responsible for accounting of utensils after meals. 4. Follow [facility] Management of the Admitted Behavioral Health Patient policy. 5. Comfort bath or shower with qualified supervision. 6. No personal belongings 7. No visitors. 8. Phone privilege at the discretion of primary care team 9. Patient may have television in the room. 10.. Due to VOLUNTARY status, if patient wishes to leave [facility], the [facility] dope maintenance worker must be contacted to re-evaluate patient prior to patient exiting the building. If deemed appropriate for inpatient psychiatric care by mental health crisis, safety plan will be established with patient, and care team, to adhere to patient goals, identify restrictions based on behavioral status, address nutrition, and determine allowed personal belongings, tools for hygiene and per matias care. As well plan will determine level of activity including ambulation, level of supervision, visitors, and determine privileges based on level of acuity, behaviors and level of engagement by patient.
--- NOTE | 2019-10-13 21:46 | W.PM.HP.N ---
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 He is having relational conflict with his girlfriend and is having increased suicidal ideation especially while he is intoxicated. He will be admitted to the medical floor for observation on the [facility] protocol with a saline lock and oral therapy if needed. He will be encouraged to drink fluids and eat normally with mental health to follow-up in the morning to reevaluate for appropriate psychiatric intervention. We will update labs in the morning. He is a full code. Qualifiers: Complication of substance-induced condition: uncomplicated Qualified Code(s): F10.920 - Alcohol use, unspecified with intoxication, uncomplicated (2) Suicidal thoughts: Start date: 10/13/19 Status: Acute Assessment and plan: Patient appears to have thoughts of ending his life only when intoxicated but he is always intoxicated. It appears his labs are fairly normal despite his daily drinking. Mental health consultation in the morning for further evaluation of his psychiatric needs whether inpatient placement versus outpatient follow-up more appropriate than was arranged this morning. (3) Alcohol abuse: Status: Chronic Assessment and plan: Patient drinks alcohol daily with vodka as his main drink. It appears he has no plans on stopping at this point. This may be problematic. He may require inpatient treatment for this before he can adequately be evaluated for depression and suicidal ideation. (4) Depression: Start date: 10/13/19 Status: Chronic Assessment and plan: Patient is chronically on citalopram but compliance is in question. Patient needs to be reevaluated for for appropriate counseling along with medication management. This may be problematic as long as he is drinking alcohol. Qualifiers: Active/Remission status: currently active Depression Type: major depressive disorder Major depression episode severity: severe Major depression recurrence: recurrent Psychotic features: without psychotic features Qualified Code(s): F33.2 - Major depressive disorder, recurrent severe without psychotic features History of Present Illness History of Present Illness Chief Complaint: Alcohol intoxication with suicidal ideation Narrative: This is a 63-year-old gentleman who is a chronic alcoholic drinking vodka daily and rarely goes through withdrawal because of continued drinking. A few years ago he did have alcohol withdrawal seizures when he stopped drinking for a period of time. Recently has had increased depression with suicidal ideation. He and his girlfriend are having relational discord and this morning he reported to the ED with similar complaints and alcohol intoxication with an elevated alcohol level but otherwise fairly stable lab. By the time he was evaluated by mental health this morning he had sobered up enough to where his suicide thoughts had resolved and he was thought safe to go home with his girlfriend with whom he has conflicts. Tonight he became intoxicated again, began having increased suicidal thoughts and was brought to the ED by police. He is at risk of alcohol withdrawal and complications therefore he will be placed on the medical floor overnight with [facility] protocol. He will have an IV saline lock but no cardiac monitoring with continuous visual monitoring and he will also have a physical presence of a sitter in his room. Mental health has been consulted and will see him in the morning. We will update labs in the morning. When I talked to the patient he was fairly nonverbal answering questions with 1 or 2 words and had slightly slurred speech. He was not obviously intoxicated but did appear sleepy. He is not complaining of any respiratory or cardiovascular symptoms and had no GI symptoms. Specifically he had no GI pain with a history of alcoholic gastritis and pancreatitis in the past. As stated he does drink vodka daily. 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 Review of Systems Narrative: 13 point review of systems otherwise unrevealing or stable with patient chronically depressed and chronically abusing alcohol [facility] Medical History Alcohol abuse (Chronic) Alcohol withdrawal seizure (Resolved) BPH (benign prostatic hyperplasia) (Chronic) COPD (chronic obstructive pulmonary disease) (Chronic) Depression (Chronic) HTN (hypertension) (Chronic) Hx of angioedema (Acute) Unknown allergic rxn 07/25/18 requiring endotracheal intubation and transfer to [facility] for further treatment. Left knee pain (Chronic) Normal colonoscopy (Resolved) 09/26/18 Dr Acosta, [facility], normal, repeat 10 years. Surgical History H/O hernia repair (Inactive) Social History Smoking/Tobacco Use Status: Current every day Tobacco Type: cigarettes Years smoked: 40 Alcohol Intake: current Alcohol Intake frequency: 3 or more drinks per day Alcohol type: hard liquor Drug use: Occasionally Substance use type: does not use Do you feel safe at home: No (Suicidal) Do you feel safe in your relationship?: No Meds Home Medications and Allergies Home Medications Medication Instructions Recorded Confirmed Type ibuprofen 600 mg PO PRN PRN 01/20/17 10/13/19 History albuterol sulfate 90 mcg/actuation 2 puff IH Q6H PRN 09/03/18 10/13/19 History aerosol inhaler fluticasone propionate 50 1 spray CRISTIANA DAILY 09/03/18 10/13/19 History mcg/actuation nasal spray,suspension tamsulosin 0.4 mg capsule 0.4 mg PO DAILY 09/03/18 10/13/19 History thiamine HCl (vitamin B1) 100 mg 100 mg PO DAILY 09/03/18 09/16/19 History tablet Pain Reliever Plus 2 tab PO BID PRN 07/08/19 09/16/19 History cetirizine 10 mg PO DAILY 07/08/19 10/13/19 History fluticasone propion-salmeterol 1 puff INHALATION BID 07/08/19 10/13/19 History [AirDuo RespiClick] citalopram [Celexa] 20 mg PO DAILY 10/13/19 10/13/19 History Allergies Allergy/AdvReac Type Severity Reaction Status Date / Time lisinopril Allergy Severe Swelling/Ed Unverified 10/13/19 20:56 pastor Penicillins Allergy pt unsure Unverified 10/13/19 20:56 happened in childhood ? Rash, hives Sulfa (Sulfonamide AdvReac Skin Rash Unverified 10/13/19 20:56 Antibiotics) Exam Narrative Exam Narrative: General: Patient appears older than stated age, in moderate distress and withdrawn with flattened affect and poor eye contact along with minimal speech with conversation. He appears severely depressed. He is alert and oriented at least to person and place. HEENT: Normocephalic, eyes with pupils equal and reactive to light with extraocular movement intact. Sclera anicteric. Oropharynx with dry oral mucosa and fair dentition. External ears normal. Neck: Supple without JVD. Back: Stooped posture with no CVA tenderness. Lungs: Bronchovesicular breath sounds diffusely with decreased aeration but clear to auscultation without adventitious sounds. No rales, rhonchi or external wheezes. Heart: Regular rate and rhythm with no murmurs or gallops appreciated. Abdomen: Scaphoid contour, soft and nontender to palpation with no palpable hepatosplenomegaly. Bowel sounds positive in all quadrants. Genitalia: Not examined. Extremities: No pitting edema, cyanosis or clubbing with slight nonpitting edema over ankles and feet. Peripheral pulses intact good cap refill. Skin on legs with loss of hair but no ulcerations and no pigmentation or atrophy of skin. Joints without swelling with fair range of motion. Neuro: Cranial nerves II through XII grossly intact, no focalizing motor deficits. Psych: Depressed mood with flattened affect as described under general description. Patient appears to have remote and recent memory intact. Thought processes are difficult to interpret with patient essentially being nonverbal and withdrawn. Mental health has assessed patient in the ED this morning and will see him in the morning for further psych evaluation. Skin: Pale, warm and dry. No rashes noted. Results Labs Result diagrams: 10/14/19 05:35 10/14/19 05:35 Labs: COVID-19 testing positive early September 2019 with repeat testing negative. CBC this morning with H&H September 40.7 and MCV of 100.5, platelet count 250. CMP with creatinine 0.98 BUN 13 sodium 145 potassium 3.8. Glucose 89 and liver function normal except for slightly increased AST at 55. Urine drug screen was negative for any illicit drugs. TSH was suppressed at 0.21 which is chronic and free T4 was normal at 1.16. Earlier in September his free T4 was 1.51 with TSH more severely suppressed. Alcohol level this morning was 298.7 had been as high as 391 earlier this month. Last Vital Signs Temp 36.9 C 10/13/19 20:41 Pulse 82 10/13/19 20:41 Resp 16 10/13/19 20:41 BP 134/75 10/13/19 20:41 Pulse Ox 90 L 10/13/19 20:41 COVID-19 Screening Traveled to [place] from one of the affected countries or regions?: NO Recent travel in the [place] within the last 14 days?: No Recent out of the country travel within the last 14 days?: No Exposure or possible exposure to illness during travel?: No Had IN PERSON contact w/suspected or confirmed C-19 person: Yes Have you had the following symptoms in the past few days?: No Medical treatment received for symptoms/illness related to travel?: PT previously tested postive for COVID 19 at the begining of September.
[2019-10-13 22:56] VITALS: BP 108/57; PULSE 81; RESP 20; TEMP 36.8; O2SAT 96
[2019-10-14] VITALS (87 sets, daily range): BP systolic 116–172; BP diastolic 51–92; PULSE 62–90; RESP 15–26; TEMP 36–36.8; O2SAT 87–96
[2019-10-14] MEDS: LORazepam 1 MG TAB PO/SL ×6 (02:44→23:51)
[2019-10-14 06:54] LABS: HCT 35.9 % (40.0-50.0); HGB 12.2 g/dL (13.5-17.5); Mean Corpuscular Hemoglobin 34.3 pg (27.0-33.0); Mean Corpuscular Volume 100.8 fL (80-95); Mean Platelet Volume 9.6 fL (8.0-11.0); Platelet Count 189 x1000/uL (130-400); RBC 3.56 m/cumm (4.50-6.00); RBC Distribution Width 14.9 % (11.8-14.1)
[2019-10-14 07:09] LABS: ALT 36 U/L (16-63); AST 48 U/L (15-37); Albumin 3.2 g/dL (3.4-5.0); Alkaline Phosphatase 51 U/L (46-116); Anion Gap 8.6 mmol/L (3-11); BUN 9 mg/dL (7-18); CO2 29.4 mmol/L (21.0-32.0); Calcium 8.3 mg/dL (8.5-10.1); Chloride 105 mmol/L (98-107); Glucose 77 mg/dL (74-106); Potassium 3.4 mmol/L (3.5-5.1); Sodium 143 mmol/L (136-145); Total Protein 6.4 g/dL (6.4-8.2)
[2019-10-14 07:13] LABS: Prothrombin Time 9.9 sec (9.3-11.0)
[2019-10-14 08:19] LABS: Magnesium 1.4 mg/dL (1.8-2.4)
[2019-10-14] MEDS: Nicotine 21 MG/24 HR PATCH TD (09:12)
[2019-10-14] MEDS: Tamsulosin 0.4 MG CAPCR PO (09:16)
[2019-10-14] MEDS: Citalopram 20 MG TAB PO (09:16)
[2019-10-14] MEDS: Multivitamin w/Minerals TAB 1 TAB PO (09:16)
[2019-10-14] MEDS: Thiamine 100 MG TAB PO (09:16)
[2019-10-14] MEDS: Cetirizine 10 MG TAB PO (09:17)
[2019-10-14] MEDS: Potassium Chloride 20 MEQ TABCR 40 MEQ PO (09:17)
[2019-10-14] MEDS: Fluticasone NASAL SPRAY 16 GM BTL NS ×2 (09:36→23:57)
[2019-10-14] MEDS: Budesonide/Formoterol 160/4.5 6 GM 60 PUFF INH IH ×2 (09:52→19:02)
[2019-10-14] MEDS: Acetaminophen 325 MG TAB PO (11:05)
--- NOTE | 2019-10-14 12:13 | W.PM.PROGNOT ---
Date of Service Date of service: 10/14/19 Time of Service: 12:13 Assessment and Plan Assessment and plan (1) Alcohol withdrawal: Status: Acute Assessment and plan: with history of alcohol withdrawal seizures. Patient's status was upgraded to ICU, and he will likely require scheduled medications. For now, monitor the next CIWA score. (2) Acute alcohol intoxication: Status: Acute Assessment and plan: At this point, withdrawing. Qualifiers: Complication of substance-induced condition: uncomplicated Qualified Code(s): F10.920 - Alcohol use, unspecified with intoxication, uncomplicated (3) Suicidal thoughts: Status: Acute Assessment and plan: Await results of mental health consult. (4) Alcohol abuse: Status: Chronic Assessment and plan: Not interested in quitting. Supplement thiamine, MVI. Treat EtOH W/d. (5) Depression: Status: Chronic Assessment and plan: Continue citalopram; await results of mental health consult. Will discuss with care management if there are any ways of wrapping services around the patient in community. Qualifiers: Depression Type: major depressive disorder Major depression recurrence: recurrent Active/Remission status: currently active Major depression episode severity: severe Psychotic features: without psychotic features Qualified Code(s): F33.2 - Major depressive disorder, recurrent severe without psychotic features (6) Hypokalemia: Status: Acute Assessment and plan: replete (7) Hypomagnesemia: Status: Acute Assessment and plan: replete (8) DVT prophylaxis: Status: Acute Assessment and plan: heparin SC (9) Discharge planning issues: Status: Acute Assessment and plan: Full code Awaiting results of mental health consult Subjective Subjective Interval history since last seen: Mr Tsai is now scoring 15 on CIWA. He reports a headache and is shaky. Denies dizziness, chest pain, shortness of breath, nausea, vomiting. He was evaluated by mental health, but the results of this are not yet available to me. Exam Narrative Exam Narrative: General: Middle-aged male, tremulous, eating lunch, appears detached/sad, A&Ox3, speaking in a quiet voice HEENT: EOMI, MMM Heart: RRR, not tachycardic, no m/r/g Lungs: CTAB Abdomen: soft, nontender, nondistended Extremities: no e/c/c BLE's Objective Objective Clinical Data: Abnormal lab results 10/14/19 10/14/19 Range/Units 06:18 06:18 WBC 4.20 L (4.4-10.8) k/cumm RBC 3.56 L (4.50-6.00) m/cumm Hgb 12.2 L (13.5-17.5) g/dL Hct 35.9 L (40.0-50.0) % MCV 100.8 H (80-95) fL MCH 34.3 H (27.0-33.0) pg RDW 14.9 H (11.8-14.1) % Potassium 3.4 L (3.5-5.1) mmol/L Calcium 8.3 L (8.5-10.1) mg/dL Magnesium 1.4 L (1.8-2.4) mg/dL AST 48 H (15-37) U/L Albumin 3.2 L (3.4-5.0) g/dL Vital Signs Temperature 36.7 C 10/14/19 07:30 Temperature Source Temporal Artery Scan 10/14/19 07:30 Pulse 80 10/14/19 09:31 Respiratory Rate 18 10/14/19 04:07 Respiratory Effort Non-Labored 10/14/19 07:30 Respiratory Depth Normal 10/14/19 07:30 Respiratory Pattern Normal 10/14/19 07:30 Blood Pressure 170/82 H 10/14/19 09:31 Blood Pressure Mean 100 10/14/19 09:31 Blood Pressure Position Sitting 10/14/19 07:30 Pulse Oximetry 92 L 10/14/19 08:16 Oxygen Delivery Method Room Air 10/14/19 07:30 Oxygen Flow Rate 0 10/14/19 07:30 Pain Level 7 10/14/19 11:05 Comment 10/14/19 04:07 Intake & Output 10/13/19 10/14/19 10/14/19 23:59 11:59 23:59 Intake Total 720 / 720 Output Total 1220 / 1220 Balance -500 / -500 Weight 86.183 kg 84.9 kg Intake: Oral 720 / 720 Output: Urine 1220 / 1220 Other: Urine Color Yellow Light Leona Urine Appearance Clear Urine Odor Normal Comment voided in urinal Voiding Methods Urinal Laboratory Results WBC 4.20 k/cumm (4.4-10.8) L 10/14/19 06:18 RBC 3.56 m/cumm (4.50-6.00) L 10/14/19 06:18 Hgb 12.2 g/dL (13.5-17.5) L 10/14/19 06:18 Hct 35.9 % (40.0-50.0) L 10/14/19 06:18 MCV 100.8 fL (80-95) H 10/14/19 06:18 MCH 34.3 pg (27.0-33.0) H 10/14/19 06:18 MCHC 34.0 g/dL (32.0-36.0) 10/14/19 06:18 RDW 14.9 % (11.8-14.1) H 10/14/19 06:18 Plt Count 189 x1000/uL (130-400) 10/14/19 06:18 MPV 9.6 fL (8.0-11.0) 10/14/19 06:18 PT 9.9 sec (9.3-11.0) 10/14/19 06:18 INR 1.0 (0.9-1.1) 10/14/19 06:18 Sodium 143 mmol/L (136-145) 10/14/19 06:18 Potassium 3.4 mmol/L (3.5-5.1) L 10/14/19 06:18 Chloride 105 mmol/L (98-107) 10/14/19 06:18 Carbon Dioxide 29.4 mmol/L (21.0-32.0) 10/14/19 06:18 Anion Gap 8.6 mmol/L (3-11) 10/14/19 06:18 BUN 9 mg/dL (7-18) 10/14/19 06:18 Creatinine 0.80 mg/dL (0.70-1.30) 10/14/19 06:18 Estimated GFR/1.73 m2 >= 60.00 (mL/min/1.73m2) 10/14/19 06:18 Glucose 77 mg/dL (74-106) 10/14/19 06:18 Calcium 8.3 mg/dL (8.5-10.1) L 10/14/19 06:18 Magnesium 1.4 mg/dL (1.8-2.4) L 10/14/19 06:18 Total Bilirubin 1.0 mg/dL (0.2-1.0) 10/14/19 06:18 AST 48 U/L (15-37) H 10/14/19 06:18 ALT 36 U/L (16-63) 10/14/19 06:18 Alkaline Phosphatase 51 U/L (46-116) 10/14/19 06:18 Total Protein 6.4 g/dL (6.4-8.2) 10/14/19 06:18 Albumin 3.2 g/dL (3.4-5.0) L 10/14/19 06:18
--- NOTE | 2019-10-14 13:01 | PDOC.MHCN ---
Date of service: 10/13/19 Time of Service: 13:01 Mental Health Crisis Note Presenting Issue How did you arrive at the ED and why did you come: I believe this Pt arrived to the ER via ambulance. He presented to the ER intoxicated and making SI statements. Precipitating Factors Giovani was initially not able ot be screened for safety but on both zoom calls to the ER he stated that his will to survive was stronger than my will to . Giovani requested to go home around noon and so another quick zoom was done to ensure safety. Giovani deneid SI and HI. HE wanted to go home with his girlfriend. Disposition BEHAVIOR: Giovani was cooperative and engaged in questions. He was polite. EYE CONTACT: Eye contact was fair to good. AT times I lost sight of his face due to the way he was holding the camera but he repositioned it when asked. MOOD: Giovani's mood seemed tired and withdrawn. AFFECT: Giovani's affect was flat. APPETITE: Not asked SLEEP(trouble falling/staying asleep: Not asked Plan Giovani will go home with his girlfriend and this clinician will outreach tomorrow to check in and get him set up for services. Signature Clinician's Name/Title: Laura Drummond MS, [facility] Emergency Services Clinician
[2019-10-14] MEDS: Heparin 5,000 UNITS/ML VIAL 5000 UNITS SC ×2 (13:05→22:31)
[2019-10-14] MEDS: MAGNESIUM SULFATE 4 GM/100 ML BAG IVPB (13:13)
--- NOTE | 2019-10-14 13:21 | MHPN_ITS ---
Date of service: 10/14/19 Time of Service: 13:21 Mental Health Crisis Note Presenting Issue How did you arrive at the ED and why did you come: Giovani arrived last night to [facility] ER via ambulance for the 2nd time due to intoxication and SI. Precipitating Factors Giovani denied SI at this time because he is sober. He denied HI as well. There are no signs of delusions or hallucinations. Disposition BEHAVIOR: Giovani is soft spoken and at times hard to hear. He is cooperative and minimally engaged in discussion. I am not sure that he has all his memories intact of what happened last night. EYE CONTACT: Eye contact is fair at times it is lost due to where he is holding the video. MOOD: His mood appears depressed. AFFECT: His affect is flat and appears withdrawn. APPETITE: Giovani reported that his appetite is good SLEEP(trouble falling/staying asleep: Giovani reported that his sleep is not so good. Plan Giovani is interested in a voluntary admission for detox. This clinician was working on this when Care management called to report he is not be able to go due to hx of seizures when he detox's. He may be held for detox there unless he wants to sign out AMA. There is no reason for [facility] to hold Giovani for MH reasons as he does not meet criteria at this time. Signature Clinician's Name/Title: Laura Drummond MS, [facility] Emergency Services Clinician
--- NOTE | 2019-10-14 15:53 | W.NUTCONSULT ---
Date of service: 10/14/19 Time of Service: 15:53 Nutritional Consult ASSESSMENT: 63 year old male with long history of alcohol abuse. PMH: include COPD, HTN. Repleted with MIV, thiamine. Following regular diet with adequate intake (>75%). Does not appear to be at risk for nutritional decline at this time. MONITORING AND EVALUATION: weight, po intake, labs Time Spent in Nutritional Counseling and Treatment: 0 time spent face to face
--- NOTE | 2019-10-14 17:25 | INITIAL_ITS ---
- If Service Date Differs Date of service: 10/14/19 Time of Service: 17:36 Care Management Initial Assess REASON FOR HOSPITALIZATION:: Alcohol intoxication, SI, Depression PAST MEDICAL HISTORY/PAST SURGICAL HISTORY:: Alcohol abuse, alcohol withdrawal seizure, BPH, COPD, Depression, HTN, angioedema, left knee pain, normal colonoscopy, hernia repair PREVIOUS FUNCTIONAL STATUS/SOCIAL/FAMILY SUPPORTS:: South resides alone in [place], [place]. He has a significant other with a reportedly strained relationship. South drinks heavily and presents to the ED and crisis services often. [facility] reports often, he is sent to the drunk tank to sober off. Reportedly his SI is central to intoxication and he does not express SI when sober. South is independent in the community but suffering from severe alcoholism which creates barriers to care and successful intervention. CURRENT FUNCTIONAL STATUS:: South is lying in bed, CM coordinated MH consult over the tablet electronically. He is appropriate in interaction and answers all questions appropriately. He is agreeable to seeking detox placement. MD determined that South would need to remain at [facility] ICU to detox due to hx of detox seizures, he began to withdraw from alcohol mid morning and was placed on CIWA protocol and will be medicated accordingly. ADVANCE DIRECTIVES:: None on file at [facility]. Has patient been provided with information about the portal?: Yes Did the patient sign up for the portal?: No CODE STATUS:: Full Code INSURANCE COVERAGE / FINANCIAL ISSUES:: Medicaid CURRENT HOME/COMMUNITY SERVICES/EQUIPMENT:: No current services or equipment. South is currently agreeable to inpatient and outpatient supports. PRIMARY CARE PHYSICIAN:: Mounika Heard POTENTIAL DISCHARGE NEEDS:: Review of discharge instructions, discuss Ask Me Three. PATIENT/FAMILY EDUCATION NEEDS:: Review discharge instructions, discuss Ask Me Three. ANTICIPATED BARRIERS TO DISCHARGE:: None identified. TRANSPORTATION:: TBD by disposition. PLAN:: South will be closely monitored and treated in the ICU per CIWA protocol due to alcohol withdrawal. CM will continue to follow.
[2019-10-14] MEDS: Magnesium Oxide 400 MG TAB PO (19:02)
[2019-10-14 20:19] LABS: COVID-19 RT-PCR UVMMC Result Negative (Negative)
[2019-10-14] MEDS: Normal Saline Flush 10 ML SYR IVP (23:54)
[2019-10-15] VITALS (22 sets, daily range): BP systolic 138–150; BP diastolic 77–91; PULSE 62–91; RESP 15–24; TEMP 36.3–36.6; O2SAT 97
[2019-10-15] MEDS: Acetaminophen 325 MG TAB PO ×2 (00:13→09:33)
[2019-10-15] MEDS: Refresh PLUS Eye Drops 0.4ml OU ×2 (00:14→06:51)
[2019-10-15] MEDS: Fluticasone NASAL SPRAY 16 GM BTL NS (06:51)
[2019-10-15] MEDS: Budesonide/Formoterol 160/4.5 6 GM 60 PUFF INH IH (06:51)
[2019-10-15] MEDS: LORazepam 1 MG TAB PO/SL ×2 (06:51→12:32)
[2019-10-15 08:29] LABS: Abs Immature Grans 0.01 k/cumm (0.0-0.09); Absolute Basophil Count 0.01 k/cumm (0.0-0.2); Absolute Eosinophil Count 0.35 k/cumm (0.0-0.7); Absolute Lymphocyte Count 0.81 k/cumm (1.2-3.4); Absolute Monocyte Count 0.34 k/cumm (0.11-0.7); Absolute Neutrophil Count 2.76 k/cumm (1.2-6.7); Basophils % 0.2; Eosinophils % 8.2; HCT 39.6 % (40.0-50.0); HGB 13.5 g/dL (13.5-17.5); Immature Grans % 0.2 %; Lymphocytes % 18.9; Mean Corp. HGB Concentration 34.1 g/dL (32.0-36.0); Mean Corpuscular Hemoglobin 34.1 pg (27.0-33.0); Mean Platelet Volume 10.1 fL (8.0-11.0); Monocytes % 7.9; Neutrophils % 64.6; Platelet Count 160 x1000/uL (130-400); RBC 3.96 m/cumm (4.50-6.00); RBC Distribution Width 14.4 % (11.8-14.1); White Blood Cell Count 4.28 k/cumm (4.4-10.8)
[2019-10-15 08:30] LABS: Anion Gap 4.8 mmol/L (3-11); BUN 13 mg/dL (7-18); CO2 31.2 mmol/L (21.0-32.0); Chloride 100 mmol/L (98-107); Glucose 122 mg/dL (74-106); Magnesium 1.8 mg/dL (1.8-2.4); Potassium 3.9 mmol/L (3.5-5.1); Sodium 136 mmol/L (136-145)
--- NOTE | 2019-10-15 08:48 | W.NUTCONSULT ---
Date of service: 10/15/19 Time of Service: 08:48 Nutritional Consult ASSESSMENT: 63 year old male admitted with ETOH withdraw
--- NOTE | 2019-10-15 08:49 | CMPROGNOTE_ITS ---
Care Management Progress Note S/O: South continues to be closely monitored at this time. CM contacted control and recovery combat rescue (JUDY) to support South in decision making regarding disposition at spoke with RC, and connected her to the ICU and South. South is agreeable to attending rehabilitation at [facility] (). CM facilitated intake interview call for South to connect with and provided South with follow up information for [facility] control and recovery combat rescue. A: 63 year old male admitted to [facility] 10/13/19 for alcohol intoxication, suicidal ideation, depression P: South will be closely monitored and treated in the ICU per [facility] protocol due to alcohol withdrawal. CM will continue to follow and support South in seeking inpatient [id number] to outpatient supports. Anticipate he will discharge when ready per MD, either to return home awaiting placement at or directly to dependent on bed availability.
--- NOTE | 2019-10-15 08:49 | PDOC.CMPRO ---
Care Management Progress Note S/O: South continues to be closely monitored at this time. CM contacted oil recovery unit operator (JUDY) to support South in decision making regarding disposition at spoke with RC, and connected her to the ICU and South. South is agreeable to attending rehabilitation at [facility] (). CM facilitated intake interview call for South to connect with and provided South with follow up information for [facility] oil recovery unit operator. A: 63 year old male admitted to [facility] 10/13/19 for alcohol intoxication, suicidal ideation, depression P: South will be closely monitored and treated in the ICU per [facility] protocol due to alcohol withdrawal. CM will continue to follow and support South in seeking inpatient [id number] to outpatient supports. Anticipate he will discharge when ready per MD, either to return home awaiting placement at or directly to dependent on bed availability.
[2019-10-15] MEDS: Multivitamin w/Minerals TAB 1 TAB PO (08:51)
[2019-10-15] MEDS: Magnesium Oxide 400 MG TAB PO (08:51)
[2019-10-15] MEDS: Thiamine 100 MG TAB PO (08:51)
[2019-10-15] MEDS: Citalopram 20 MG TAB PO (08:52)
[2019-10-15] MEDS: Cetirizine 10 MG TAB PO (08:52)
[2019-10-15] MEDS: Tamsulosin 0.4 MG CAPCR PO (08:53)
[2019-10-15] MEDS: Nicotine 21 MG/24 HR PATCH TD (08:53)
[2019-10-15] MEDS: Heparin 5,000 UNITS/ML VIAL 5000 UNITS SC ×2 (09:32→14:45)
--- NOTE | 2019-10-15 10:20 | PHA.REVIEW ---
Pharmacy Admission Review - Admission Clinical Review (Last Reviewed 10/13/19 @ 21:49 by Abraham Bennett) Hypomagnesemia (Acute) Hypokalemia (Acute) Alcohol withdrawal (Acute) Discharge planning issues (Acute) DVT prophylaxis (Acute) Acute alcohol intoxication (Acute) Suicidal thoughts (Acute) lisinopril Allergy (Severe, Unverified 10/13/19 20:56) Swelling/Edema Penicillins Allergy (Unverified 10/13/19 20:56) pt unsure happened in childhood ? Rash, hives Sulfa (Sulfonamide Antibiotics) Adverse Reaction (Unverified 10/13/19 20:56) Skin Rash Height 6 ft 3 in Weight 86.7 kg - Renal Dosing Renal Dosing: BUN 13 mg/dL (7-18) 10/15/19 08:05 Creatinine 0.90 mg/dL (0.70-1.30) 10/15/19 08:05 - Anticoagulation Anticoagulation: Hgb 13.5 g/dL (13.5-17.5) 10/15/19 08:05 Hct 39.6 % (40.0-50.0) L 10/15/19 08:05 Plt Count 160 x1000/uL (130-400) 10/15/19 08:05 INR 1.0 (0.9-1.1) 10/14/19 06:18 Creatinine 0.90 mg/dL (0.70-1.30) 10/15/19 08:05 DVT Prohphylaxis: Reviewed Medications: Heparin - Opiate Usage Evaluate Pain Scale/Pains Meds: N/A - Relevant Labs Sodium 136 mmol/L (136-145) 10/15/19 08:05 Potassium 3.9 mmol/L (3.5-5.1) 10/15/19 08:05 Chloride 100 mmol/L (98-107) 10/15/19 08:05 Magnesium 1.8 mg/dL (1.8-2.4) 10/15/19 08:05 Electrolytes, C-Reactive P, ESR: Reviewed (4 GRAMS MAG REPLACED 10/13) - DM Control DM Control: Glucose 122 mg/dL (74-106) H 10/15/19 08:05 Insulin Dosing: N/A - Heart Failure/LA EF%, TUTU's, B-Blockers, Diuretics: N/A - BP Control BP Control: Blood Pressure [Right Arm] 147/81 Blood Pressure 150/89 Blood Pressure 143/77 - Qtc Review If Elevated: N/A
[2019-10-15] MEDS: Ibuprofen 400 MG TAB PO (12:52)
--- NOTE | 2019-10-15 15:20 | W.PM.DS.N ---
Date of service: 10/15/19 Time of Service: 15:20 DS: Diagnosis Discharge Diagnosis (1) Alcohol withdrawal: Status: Acute Asessment and Plan: Being discharged to [facility] for medically supervised detoxification (2) Acute alcohol intoxication: Status: Resolved (3) Suicidal thoughts: Status: Resolved Asessment and Plan: Cleared by mental health (4) Alcohol abuse: Status: Chronic (5) Depression: Status: Chronic (6) Hypokalemia: Status: Resolved (7) Hypomagnesemia: Status: Resolved (8) COVID-19 ruled out: Status: Acute Discharge Plan Disposition Patient Disposition: OTHER Condition: Fair Discharge Details Chief Complaint: PsychEval Clinical Impression: Alcohol abuse, Depression, Suicidal thoughts Reason For Visit: ALCOHOL INTOXICATION,SUICIDAL IDEATION,DEPRESSION Admit Date/Time: 10/13/19 21:28 Admit Provider: Abraham Bennett Attending Provider: Abraham Bennett Primary Care Provider: Mounika Heard ED Provider: Robinson [facility] Hospital Course: Mr Tsai is a 63 year old male with PMHx of alcohol abuse with h/o alcohol withdrawal seizure once after one week of not drinking, as well history of depression with suicidal ideation that only happens when he is intoxicated, non-oxygen dependent COPD, BPH, who was admitted to [facility] hospitalist service on 10/13/2019 for suicidal ideation in setting of alcohol intoxication and later withdrawal, for which he was preemptively transferred to the ICU, but never truly became serios - it has been mild and he does not appear to be getting worse in the last 24 hours. His electrolytes were repleted and have normalized. The maximum CIWA score in the last 24 hours is 9. He was evaluated by mental health who cleared him from the suicidal precautions stand point, but feel that the patient would benefit from being plugged into an outpatient detoxification and rehab facility, and the patient is interested. He is being discharged today to [facility] for medically monitored detoxification. It is felt that the patient is medically stable for transfer. He ruled out for COVID-19 on this admission, not ever exhibiting any symptoms. Care for patient as well as completion of his discharge summary on day of discharge took 45 minutes. Home Meds and New Rx's Prescriptions: New magnesium oxide 400 mg (241.3 mg magnesium) Tablet 400 mg PO BID Qty: 0 RF: 0 nicotine 21 mg/24 hr Patch 24 Hour 21 mg transdermal DAILY Qty: 0 RF: 0 Therems-M 27-0.4 mg Tablet 1 tab PO DAILY Qty: 0 RF: 0 Continued fluticasone propionate [Flonase Allergy Relief] 50 mcg/actuation spray,suspension 1 spray CRISTIANA DAILY RF: 0 tamsulosin 0.4 mg capsule 0.4 mg PO DAILY RF: 0 thiamine HCl (vitamin B1) 100 mg tablet 100 mg PO DAILY RF: 0 albuterol sulfate [ProAir HFA] 90 mcg/actuation HFA aerosol inhaler 2 puff IH Q6H PRNRF: 0 cetirizine 10 mg Tablet 10 mg PO DAILY RF: 0 Pain Reliever Plus 250-250-65 mg Tablet 2 tab PO BID PRNRF: 0 fluticasone propion-salmeterol [AirDuo RespiClick] 113-14 mcg/actuation Aerosol Powdr Breath Activated 1 puff INHALATION BID RF: 0 citalopram [Celexa] 20 mg Tablet 20 mg PO DAILY RF: 0 ibuprofen 600 MG tablet 600 mg PO PRN PRNRF: 0 Discharge Instructions Instructions: Alcohol Intoxication (DC), Alcohol Withdrawal (DC), Alcohol Use Disorder (DC), Suicide Prevention (DC) Additional Instructions: Return to the hospital if your withdrawal becomes unmanageable at [facility]/home, if you have fever, bleeding, chest pain, or shortness of breath. Referrals: Mounika Heard [Primary Care Provider] - Activity:: Activity as Tolerated Equipment/Supplies:: No Equipment Needed Diet:: As Tolerated Discharge Orders Discharge Orders: Discharge Order (Routine); Ordered 10/15/19 Ordered By: Lorraine Delacruz DS: Summary Status at Discharge Functional status at discharge: independent ambulation Overall status at discharge: patient is progressing back to baseline Mental Status: mental status grossly normal Speech and Movement: speech and movement normal Mood: congruent mood Affect: sad Exam Narrative Exam Narrative: General: Middle-aged male, appears sad, but engaged in coversation, A&Ox3, apears more hopeful, not tremulous HEENT: EOMI, MMM Heart: RRR, not tachycardic, no m/r/g Lungs: CTAB Abdomen: soft, nontender, nondistended Extremities: no e/c/c BLE's Psych Mental Status: mental status grossly normal Speech and Movement: speech and movement normal Mood: congruent mood Affect: sad DS: Data Vitals/I&O Vitals and I&O: Vital Signs Temperature 36.6 C 10/15/19 12:26 Temperature Source Temporal Artery Scan 10/15/19 12:26 Pulse 86 10/15/19 13:01 Pulse 88 10/15/19 13:01 Respiratory Rate 22 10/15/19 13:01 Respiratory Effort Non-Labored 10/15/19 12:26 Respiratory Depth Normal 10/15/19 12:26 Respiratory Pattern Normal 10/15/19 12:26 Blood Pressure 138/91 H 10/15/19 13:01 Blood Pressure Mean 97 10/15/19 13:01 Blood Pressure Position Sitting 10/15/19 12:26 Pulse Oximetry 97 10/15/19 09:29 Oxygen Delivery Method Room Air 10/15/19 12:26 Oxygen Flow Rate 0 10/15/19 12:26 Pain Level 5 10/15/19 12:52 Comment 10/14/19 04:07 Intake & Output 10/14/19 10/15/19 10/15/19 23:59 11:59 23:59 Intake Total 570 / 1290 1010 / 1010 Output Total 545 / 1765 875 / 1425 550 / 1425 Balance 25 / -475 135 / -415 -550 / -415 Weight 86.7 kg Intake: IV Oral 570 / 1290 1000 / 1000 Output: Urine 545 / 1765 875 / 1425 550 / 1425 Other: Urine Color Light Leona Dark Leona Light Leona Urine Appearance Clear Clear Clear Urine Odor None Normal Normal Comment Pt voided approximately 275/8hr Did not check for residual at this time but patient is on flomax. Pt voiding several hundred every few hours. Pt in voiding again now. Patient stands to void in urinal. Stool Size Large Moderate Stool Characteristics Soft Soft Formed Voiding Methods Urinal Bedside Commode Bedside Commode Data Completed and Pending Labs on day of discharge: Labs from last 24 hours 10/15/19 10/15/19 10/13/19 08:05 08:05 22:55 WBC 4.28 L RBC 3.96 L Hgb 13.5 Hct 39.6 L MCV 100.0 H MCH 34.1 H MCHC 34.1 RDW 14.4 H Plt Count 160 MPV 10.1 Immature Gran % 0.2 Neutrophils % 64.6 Lymphocytes % 18.9 Monocytes % 7.9 Eosinophils % 8.2 Basophils % 0.2 Absolute Neutrophils 2.76 Absolute Lymphocytes 0.81 L Absolute Monocytes 0.34 Absolute Eosinophils 0.35 Absolute Basophils 0.01 Sodium 136 Potassium 3.9 Chloride 100 Carbon Dioxide 31.2 Anion Gap 4.8 BUN 13 Creatinine 0.90 Estimated GFR/1.73 m2 >= 60.00 Glucose 122 H Calcium 9.0 Magnesium 1.8 COVID-19 PCR Negative Nasopharyn COVID-19 PCR Not Applicable Ref Test Perform Site [facility] hospital lab [facility] Medical History Alcohol abuse (Chronic) Alcohol withdrawal seizure (Resolved) BPH (benign prostatic hyperplasia) (Chronic) COPD (chronic obstructive pulmonary disease) (Chronic) Depression (Chronic) HTN (hypertension) (Chronic) Hx of angioedema (Acute) Unknown allergic rxn 07/25/18 requiring endotracheal intubation and transfer to [facility] for further treatment. Left knee pain (Chronic) Normal colonoscopy (Resolved) 09/26/18 Dr Acosta, [facility], normal, repeat 10 years. Surgical History H/O hernia repair (Inactive) Social History Smoking/Tobacco Use Status: Current every day Tobacco Type: cigarettes Years smoked: 40 Alcohol Intake: current Alcohol Intake frequency: 3 or more drinks per day Alcohol type: hard liquor Drug use: Occasionally Substance use type: does not use Do you feel safe at home: No (Suicidal) Do you feel safe in your relationship?: No
--- NOTE | 2019-10-15 15:39 | PDOC.CMDIS ---
LACE Index Scoring Tool - Questions: Length of Stay (in days): 3 Acuity (Admit via E.D.?): Yes Comorbidities: Chronic Pulmonary Disease E.D. Visits: 7 - Answers: Total Score: 12 Risk of Readmission: High Risk Care Management Discharge Reason for Hospitalization: Alcohol intoxication, SI, Depression Discharge Plan: [place] will discharge to [facility] in [place], [place]. CM faxed discharge summary, and coordinated transportation for [place] via [facility]. Patient/Family Education Needs: Review of discharge instructions, community based supports, discussed self care needs and service connnection upon returning to the community. Services Needed at Discharge: Transportation (RCT) - MH Services (Omit if N/A) Current MH Services: Other ([facility]: inpatient addiction treatment)
== END 2019-10-15 16:55 | disposition other institution (70) | DRG 881 ==
LOC: ER 21:53 → ICU 23:41
PROVIDERS: Admitting Provider Family Medicine; Emergency Provider Emergency Medicine; PCP Nurse Practitioner Family; Visit Provider Internal Medicine
DX: F32.9 Major depressive disorder, single episode, unspecified (principal); R45.851 Suicidal ideations; F10.230 Alcohol dependence with withdrawal, uncomplicated; F10.220 Alcohol dependence with intoxication, uncomplicated; Y90.9 Presence of alcohol in blood, level not specified; F17.210 Nicotine dependence, cigarettes, uncomplicated; E87.6 Hypokalemia; E83.42 Hypomagnesemia
CPT/HCPCS: 36415; 80048; 80053; 85027; 94640; 99223; 99233; 99239; 99285; U0003; 83735; 85025; 85610; 99283; J1644; J3475

== ENCOUNTER 2019-12-08 13:09 | Emergency (ER) | payer MEDICAID, SELFPAY ==
[2019-12-08 12:59] VITALS: BP 137/74; PULSE 73; TEMP 36.9; O2SAT 98
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
[2019-12-08 14:02] VITALS: BP 137/74; PULSE 73; TEMP 36.9; O2SAT 98
== END 2019-12-08 13:55 | disposition home or self-care (01) ==
PROVIDERS: Emergency Provider Physician Assistant; PCP Nurse Practitioner Family
DX: F10.10 Alcohol abuse, uncomplicated (principal); J44.9 Chronic obstructive pulmonary disease, unspecified; F17.210 Nicotine dependence, cigarettes, uncomplicated; I10 Essential (primary) hypertension
CPT/HCPCS: 99283

== ENCOUNTER 2019-12-16 08:51 | Outpatient (CLI) | payer MEDICAID, SELFPAY ==
--- NOTE | 2019-12-16 | DI.US_ITS ---
EXAM: US ABDOMEN CLINICAL HISTORY: ALCOHOL ABUSE, F10.10, ELEVATED LFTS, R79.89 TECHNIQUE: Ultrasound abdomen performed using standard protocol. COMPARISON: CR,XR XR PORTABLE CHEST AP from 09/16/2019 FINDINGS: ABDOMINAL AORTA AND IVC: Visualized portions normal caliber. PANCREAS: Normal where visualized. LIVER: Diffuse increased echogenicity of the liver consistent with fatty infiltration. Hepatopedal f low in the Portal Vein. GALLBLADDER: No evidence of cholelithiasis. No evidence of wall thickening. No pericholecystic fluid identified. BILIARY SYSTEM: Common bile duct measures 4 mm. No intrahepatic biliary ductal dilation. GUADARRAMA'S SIGN: Negative. KIDNEYS: Kidneys are symmetric in size. No evidence of renal calculi. No evidence of hydronephrosis. No renal mass or cyst identified. SPLEEN: Not enlarged. ASCITES: None seen. There is a very small right pleural effusion. IMPRESSION: 1. Hepatic steatosis. 2. Very small right pleural effusion. DATA REPOSITORY:
== END 2019-12-16 09:11 ==
PROVIDERS: PCP Nurse Practitioner Family; Visit Provider Family Medicine
DX: F10.10 Alcohol abuse, uncomplicated (principal); R79.89 Other specified abnormal findings of blood chemistry; K76.0 Fatty (change of) liver, not elsewhere classified; J90 Pleural effusion, not elsewhere classified
CPT/HCPCS: 76700

== ENCOUNTER 2019-12-26 04:13 | Emergency (ER) | payer MEDICAID, SELFPAY ==
--- NOTE | 2019-12-26 04:00 | RT.EKG_ITS ---
APPROVED REPORT Exam: Resting ECG Patient Location: E HR:74 bpm ECG Measurements Heart Rate 74 AXIS WA 158 P 81 QRSd 106 QRS 58 QT 421 T 54 QTc 468 <Conclusion> Sinus rhythm...normal P axis, V-rate 50- 99 Anteroseptal infarct, age indeterminate...Q >35mS, T neg, V1-V2 Normal [place] Nonspecific ST-T changes Low Voltage Precordial Leads Abnormal Electrocardiogram No Change From Old
[2019-12-26 04:13] VITALS: BP 167/79; PULSE 78; RESP 13; TEMP 37; O2SAT 93
[2019-12-26 04:18] VITALS: RESP 20
--- NOTE | 2019-12-26 04:31 | ED.GENADUL_ITS ---
Discharge Plan Disposition Patient Disposition: HOME Condition: Fair Discharge Details Chief Complaint: Chest Pain Clinical Impression: Alcohol abuse, Epigastric abdominal pain, Pancytopenia, Hypomagnesemia, Hypokalemia Primary Care Provider: Mounika Heard ED Provider: Robinson Mayorga [place] Meds and New Rx's Prescriptions: New omeprazole 40 mg capsule,delayed release(DR/EC) 40 mg PO DAILY Qty: 30 RF: 0 Continued fluticasone propionate [Flonase Allergy Relief] 50 mcg/actuation spray,suspension 1 spray CRISTIANA DAILY RF: 0 tamsulosin 0.4 mg capsule 0.4 mg PO DAILY RF: 0 thiamine HCl (vitamin B1) 100 mg tablet 100 mg PO DAILY RF: 0 albuterol sulfate [ProAir HFA] 90 mcg/actuation HFA aerosol inhaler 2 puff IH Q6H PRNRF: 0 cetirizine 10 mg Tablet 10 mg PO DAILY RF: 0 fluticasone propion-salmeterol [AirDuo RespiClick] 113-14 mcg/actuation Aerosol Powdr Breath Activated 1 puff INHALATION BID RF: 0 citalopram [Celexa] 20 mg Tablet 20 mg PO DAILY RF: 0 magnesium oxide 400 mg (241.3 mg magnesium) Tablet 400 mg PO BID Qty: 0 RF: 0 Therems-M 27-0.4 mg Tablet 1 tab PO DAILY Qty: 0 RF: 0 Discontinued Pain Reliever Plus 250-250-65 mg Tablet 2 tab PO BID PRNRF: 0 ibuprofen 600 MG tablet 600 mg PO PRN PRNRF: 0 Discharge Instructions Instructions: Abuse of Alcohol (ED), Epigastric Pain (ED) Additional Instructions: Decrease your alcohol consumption and if possible discontinue. You may benefit from rehab when you have a serious about abstaining from alcohol. You have significant lab abnormalities related to your alcohol use. You need to take your supplements including the vitamins and magnesium. You should avoid using acetaminophen or ibuprofen containing medications. Start omeprazole for presumed gastritis causing your epigastric pain. Follow-up with your primary care as planned. Return to ED for worsening pain, vomiting blood, fever, shortness of breath, other concerns. Referrals: Mounika Heard [Primary Care Provider] - Medical Decision Making Patient presenting with complaint of chest pain but is pointing to his epigastric area. Vague on his descriptions of pain. Reports having it since last evening. No acute ST changes noted on his EKG. IV in place from EMS. Will obtain laboratory studies including abdominal labs. Will obtain chest x- ray. Will treat with GI cocktail, Pepcid, Phenergan as I suspect this is more related to alcoholic gastritis then cardiac chest pain or pancreatitis. 7 AM?patient laboratory studies are significant for magnesium of 0.9 and potassium of 3.1. Troponin was negative. His lipase was normal. He does have fairly significant pancytopenia with platelets at 46, hemoglobin at 12 and WBC at 3. Alcohol level is 100. Currently sleeping after medications. He is receiving IV magnesium replacement, IV fluids and p.o. potassium. Chest x-ray is unremarkable. 8 AM: Patient much better. Fluids, magnesium, potassium completed. Patient instructed to take his supplements as prescribed and to cut back on alcohol intake. Will start on omeprazole for presumed gastritis. Follow-up with primary care in the next 1 to 2 weeks for recheck. Return to ED for worsening pain, fever, vomiting blood, shortness of breath. Medical Records Medical records reviewed: Yes I reviewed the patient's medical records. Lab Data Lab results reviewed: Yes I reviewed the patient's lab results. ECG Data Interpretation: Please see EKG report. HPI General Mode of arrival: EMS . Date/Time Provider Initiated Documentation: 12/26/19 04:16 . Limitations to Documentation: no limitations . Information obtained by: patient, RN notes reviewed and old records reviewed . HPI Narrative: Patient presents to ED by ambulance with complaint of chest pain. Patient very poor historian and does not elaborate on his symptoms. He is very vague in his complaints. Actually points to the epigastric area as to where he feels pain. Reports having it since last evening. Reports nausea but no vomiting. Reports chronic smoker's cough but no shortness of breath or fever. He is an alcoholic but reports he has not drank for a week or so. Again, vague on why he decided to stop. He denies withdrawal symptoms. He does not appear to be in significa nt distress. Related Data Home Medications Medication Instructions Recorded Confirmed albuterol sulfate 90 mcg/actuation 2 puff IH Q6H PRN 09/03/18 12/08/19 aerosol inhaler fluticasone propionate 50 1 spray CRISTIANA DAILY 09/03/18 12/08/19 mcg/actuation nasal spray,suspension tamsulosin 0.4 mg capsule 0.4 mg PO DAILY 09/03/18 12/08/19 thiamine HCl (vitamin B1) 100 mg 100 mg PO DAILY 09/03/18 12/08/19 tablet cetirizine 10 mg PO DAILY 07/08/19 12/08/19 fluticasone propion-salmeterol 1 puff INHALATION BID 07/08/19 12/08/19 [AirDuo RespiClick] citalopram [Celexa] 20 mg PO DAILY 10/13/19 12/08/19 Therems-M 1 tab PO DAILY #0 tab 10/15/19 12/08/19 magnesium oxide 400 mg PO BID #0 tab 10/15/19 12/08/19 omeprazole 40 mg PO DAILY #30 cap 12/26/19 Previous Rx's Medication Instructions Recorded Therems-M 1 tab PO DAILY #0 tab 10/15/19 magnesium oxide 400 mg PO BID #0 tab 10/15/19 omeprazole 40 mg PO DAILY #30 cap 12/26/19 Allergies Allergy/AdvReac Type Severity Reaction Status Date / Time lisinopril Allergy Severe Swelling/Ed Unverified 12/08/19 13:04 pastor Penicillins Allergy pt unsure Unverified 12/08/19 13:04 happened in childhood ? Rash, hives Sulfa (Sulfonamide AdvReac Skin Rash Unverified 12/08/19 13:04 Antibiotics) General Stated Complaint: Chest Pain ALEENA: 2 Review of Systems Narrative: As documented in HPI otherwise negative as below. Const: no fever, chills, weakness Resp: no SOB, pleuritic pain CV: no diaphoresis, edema, syncope GI: no abdominal pain, vomiting, diarrhea Neuro: no headache, numbness, focal weakness, confusion [facility] Medical History Alcohol abuse (Chronic) Alcohol withdrawal seizure (Resolved) BPH (benign prostatic hyperplasia) (Chronic) COPD (chronic obstructive pulmonary disease) (Chronic) Depression (Chronic) HTN (hypertension) (Chronic) Hx of angioedema (Acute) Unknown allergic rxn 07/25/18 requiring endotracheal intubation and transfer to [facility] [place] further treatment. Left knee pain (Chronic) Normal colonoscopy (Resolved) 09/26/18 Dr Acosta, [facility], normal, repeat 10 years. Surgical History H/O hernia repair (Inactive) Social History Smoking/Tobacco Use Status: Current every day Tobacco Type: cigarettes Years smoked: 40 Alcohol Intake: current Alcohol Intake frequency: 3 or more drinks per day Alcohol type: hard liquor Drug use: Never Substance use type: does not use Do you feel safe at home: Yes (Suicidal) Do you feel safe in your relationship?: Yes Exam Narrative Exam Narrative: Vitals: Afebrile. Hypertensive but normal heart rate. O2 saturations low 90s, baseline due to his smoking. Const: Tall, thin, older appearing than stated age male in NAD. HEENT: NC/AT. Normal facial exam. Neck: Supple. Trachea midline. Lungs: Normal respiratory effort. Lungs are clear. Cor: RRR without murmur/gallop. Good radial pulses. GI: Soft. NT/ND. No guarding or rebound. Neuro: A+O x 3. Normal speech, mentation. Cranial nerves II - XII grossly intact. No gross motor or sensory deficit. Ext: No C/C/E. Skin: Warm and dry. Course Vital Signs Vital signs: Vital Signs Temperature 98.6 F 12/26/19 04:13 Pulse 78 12/26/19 04:13 Respiratory Rate 13 12/26/19 04:13 Blood Pressure 167/79 H 12/26/19 04:13 Pulse Oximetry 93 L 12/26/19 04:13 Temperature 98.6 F 12/26/19 04:13 Temperature Source Temporal Artery Scan 12/26/19 04:13 Pulse 78 12/26/19 04:13 Respiratory Rate 20 12/26/19 04:18 Respiratory Effort Non-Labored 12/26/19 04:18 Respiratory Depth Normal 12/26/19 04:18 Respiratory Pattern Normal 12/26/19 04:18 Blood Pressure 167/79 H 12/26/19 04:13 Blood Pressure Position Sitting 12/26/19 04:13 Pulse Oximetry 93 L 12/26/19 04:13 Oxygen Delivery Method Room Air 12/26/19 04:13 Oxygen Flow Rate 0 12/26/19 04:13 Pain Level 0 12/26/19 04:13
[2019-12-26] MEDS: FAMOTIDINE 20 MG/50 ML BAG 200 MG IVPB (04:50)
--- NOTE | 2019-12-26 04:50 | DI.RAD_ITS ---
EXAM: XR CHEST 2V PA LATERAL CLINICAL HISTORY: chest pain TECHNIQUE: COMPARISON: CR,XR XR PORTABLE CHEST AP from 09/16/2019 FINDINGS: PA and lateral chest was obtained, additionally a repeat PA chest with nipple markers was obtained. There are nipple shadows seen bilaterally. Lungs appear clear. No pleural effusion. Cardiac size i s within normal limits. IMPRESSION: No evidence of acute intrapulmonary process.
[2019-12-26 04:51] LABS: Abs Immature Grans 0.01 k/cumm (0.0-0.09); Absolute Basophil Count 0.01 k/cumm (0.0-0.2); Absolute Eosinophil Count 0.07 k/cumm (0.0-0.7); Absolute Monocyte Count 0.41 k/cumm (0.11-0.7); Absolute Neutrophil Count 1.58 k/cumm (1.2-6.7); Basophils % 0.3; Eosinophils % 2.3; HCT 35.7 % (40.0-50.0); HGB 12.3 g/dL (13.5-17.5); Immature Grans % 0.3 %; Lymphocytes % 30.2; Mean Corp. HGB Concentration 34.5 g/dL (32.0-36.0); Mean Corpuscular Hemoglobin 35.3 pg (27.0-33.0); Mean Corpuscular Volume 102.6 fL (80-95); Mean Platelet Volume 10.7 fL (8.0-11.0); Monocytes % 13.8; Neutrophils % 53.1; RBC 3.48 m/cumm (4.50-6.00); RBC Distribution Width 15.1 % (11.8-14.1); White Blood Cell Count 2.98 k/cumm (4.4-10.8)
--- NOTE | 2019-12-26 04:56 | DI.VRAD_ITS ---
Addendum created by Lars Patiño DO on 12/26/2019 6:11:36 AM EDT PA view of chest was repeated with nipple markers in place. Density of concern on the right is the nipple. Initial report created on 12/26/2019 4:56:13 AM EDT PROCEDURE INFORMATION: Exam: XR Chest, 2 Views Exam date and time: 12/26/2019 4:43 AM Age: 64 years old Clinical indication: Chest pain; Type not specified TECHNIQUE: Imaging protocol: XR of the chest Views: 2 views. COMPARISON: CR XR PORTABLE CHEST AP 09/16/2019 6:40 PM FINDINGS: Lungs: Hyperinflation. 7 mm diameter density projects over lower right hemithorax on PA view, not demonstrated with certainty on lateral view. Prominent retrocardiac airspace. No consolidation. Pleural space: Unremarkable. No pleural effusion. No pneumothorax. Heart/Mediastinum: Unremarkable. No cardiomegaly. Diaphragm: Flattened hemidiaphragms. Bones/joints: Degenerative changes IMPRESSION: 1. Radiopacity overlies lower right hemithorax and could represent the right nipple. Repeat study with nipple markers is recommended 2. Radiographic appearance consistent with the presence of COPD. Dictated and Authenticated by: Lars Patiño MD. Ordering:BIGG Bowers MD
[2019-12-26 05:00] VITALS: BP 161/83; PULSE 68; RESP 12; O2SAT 93
[2019-12-26 05:02] LABS: ALT 66 U/L (16-63); AST 141 U/L (15-37); Albumin 3.8 g/dL (3.4-5.0); Alkaline Phosphatase 55 U/L (46-116); Anion Gap 16.8 mmol/L (3-11); BUN 14 mg/dL (7-18); Bilirubin, Total 1.4 mg/dL (0.2-1.0); CO2 26.2 mmol/L (21.0-32.0); CREATININE 0.94 mg/dL (0.70-1.30); Calcium 8.9 mg/dL (8.5-10.1); Chloride 100 mmol/L (98-107); ETHANOL BLOOD 101.1 mg/dL (<3); Glucose 90 mg/dL (74-106); Lipase 184 U/L (73-393); Magnesium 0.9 mg/dL (1.8-2.4); Potassium 3.1 mmol/L (3.5-5.1); Sodium 143 mmol/L (136-145); Total Protein 6.9 g/dL (6.4-8.2)
[2019-12-26 05:03] LABS: Troponin I < 0.05 ng/mL (<0.06)
[2019-12-26 05:04] LABS: Platelet Count 46 x1000/uL (130-400)
[2019-12-26] MEDS: Normal Saline Flush 10 ML SYR IVP (05:06)
[2019-12-26 05:09] LABS: Diff Comment RBC Morph Reviewed
[2019-12-26 05:10] LABS: Anisocytosis 1+; Macrocytosis 1+; Polychromasia Present
[2019-12-26 05:15] VITALS: BP 173/91; PULSE 72; RESP 11; O2SAT 91
[2019-12-26] MEDS: Potassium Chloride 20 MEQ TABCR 40 MEQ PO (05:36)
[2019-12-26] MEDS: Lactated Ringers 1,000 ML 1000 ML IV (05:36)
[2019-12-26] MEDS: MAGNESIUM SULFATE 2 GM/50 ML BAG IVPB (05:36)
[2019-12-26 08:30] VITALS: BP 163/89; PULSE 93; RESP 20; TEMP 36.5; O2SAT 94
== END 2019-12-26 08:35 | disposition home or self-care (01) ==
PROVIDERS: Emergency Provider Emergency Medicine; PCP Nurse Practitioner Family
DX: R10.13 Epigastric pain (principal); F10.10 Alcohol abuse, uncomplicated; D61.818 Other pancytopenia; E83.42 Hypomagnesemia; E87.6 Hypokalemia; I10 Essential (primary) hypertension; J44.9 Chronic obstructive pulmonary disease, unspecified; F17.210 Nicotine dependence, cigarettes, uncomplicated
CPT/HCPCS: 36415; 80053; 83690; 93005; 96361; 96365; 96366; 96367; 96375; 99285; 71046; 80320; 83735; 84484; 85025; 93010; 99284

== ENCOUNTER 2020-01-24 19:17 | Emergency (ER) | payer MEDICAID, SELFPAY ==
[2020-01-24] MEDS: Normal Saline 1,000 ML 1000 ML IV (19:00)
[2020-01-24 19:18] VITALS: BP 157/75; PULSE 96; RESP 18; TEMP 36.7; O2SAT 100
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
--- NOTE | 2020-01-24 19:45 | RT.EKG_ITS ---
APPROVED REPORT Exam: Resting ECG Patient Location: E HR:92 bpm ECG Measurements Heart Rate 92 AXIS MN 66 P 87 QRSd 102 QRS 79 QT 499 T 3 QTc 618 Conclusion Age and gender not entered, assume 50 yo male for purpose of ECG interpretation Sinus rhythm...normal P axis, V-rate 60- 99 Probable left atrial enlargement...P >50mS, <-0.10mV V1 Anterior infarct, old...Q >40mS, abnormal ST-T, V2-V5 Prolonged QT interval...QTc >500mS
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
[2020-01-24] MEDS: Omnipaque 350 MG/ML 100 ML BTL IJ (20:08)
[2020-01-24 20:13] LABS: Abs Immature Grans 0.05 10^3/uL (0.0-0.06); Absolute Basophil Count 0.03 10^3/uL (0.0-0.2); Absolute Lymphocyte Count 0.41 10^3/uL (1.2-3.4); Absolute Monocyte Count 0.64 10^3/uL (0.1-0.8); Absolute Neutrophil Count 5.07 10^3/uL (1.2-6.7); Basophils % 0.5; HCT 35.1 % (40.0-50.0); HGB 12.6 g/dL (13.5-17.5); Immature Grans % 0.8; Lymphocytes % 6.6; MCH 36.3 pg (27.0-33.0); MCHC 35.9 % (32.0-36.0); MCV 101.2 fL (80-95); MPV 10.6 fL (8.0-11.0); Monocytes % 10.3; Neutrophils % 81.8; Nucleated RBC 0 %; Platelet Count 78 10^3/uL (130-400); RBC 3.47 10^6/uL (4.36-5.78); RDW 14.5 % (11.8-14.1); RDW-SD 54.4 fL
[2020-01-24 20:25] LABS: PTT Activated 22.1 sec (21.0-31.4); Prothrombin Time 10.4 sec (9.3-11.0)
[2020-01-24 20:28] LABS: ALT 78 U/L (16-63); AST 170 U/L (15-37); Albumin 4.2 g/dL (3.4-5.0); Alkaline Phosphatase 67 U/L (46-116); Anion Gap 12.4 mmol/L (3-11); BUN 10 mg/dL (7-18); Bilirubin, Total 2.6 mg/dL (0.2-1.0); CO2 30.6 mmol/L (21.0-32.0); CREATININE 1.22 mg/dL (0.70-1.30); Calcium 9.2 mg/dL (8.5-10.1); Chloride 91 mmol/L (98-107); Glucose 164 mg/dL (74-106); Magnesium 0.9 mg/dL (1.8-2.4); Sodium 134 mmol/L (136-145); Total Protein 7.6 g/dL (6.4-8.2)
[2020-01-24 20:30] LABS: Potassium 2.4 mmol/L (3.5-5.1); Troponin I 0.09 ng/mL (<0.06)
[2020-01-24 20:31] LABS: ETHANOL BLOOD < 3.0 mg/dL (<3)
[2020-01-24] MEDS: Normal Saline - Diluent 50 ML VIAL IV (20:48)
[2020-01-24] MEDS: Normal Saline Flush 10 ML SYR IVP (20:49)
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
[2020-01-24] MEDS: MAGNESIUM SULFATE 8.12 MEQ, MULTIVITAMIN 10 ML, THIAMINE 100 MG, FOLIC ACID 1 MG in Nor... 168.867 MG IV (21:12)
[2020-01-24] MEDS: POTASSIUM CHLORIDE 10 MEQ/100 ML BAG 100 MEQ IVPB (21:13)
[2020-01-24] MEDS: Potassium Chloride 20 MEQ TABCR 40 MEQ PO (21:14)
[2020-01-24] MEDS: Erythromycin Ophth Oint 3.5 GM TUBE OP (21:15)
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
[2020-01-24] MEDS: LORazepam 2 MG/ML VIAL IVP ×2 (21:32→23:24)
[2020-01-24 21:49] VITALS: BP 154/46; PULSE 86; RESP 18; O2SAT 95
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
[2020-01-24 21:53] LABS: Bilirubin Negative (Negative); Blood Moderate (Negative); Clarity Clear (Clear); Glucose Negative (Negative); Ketones Negative (Negative); Leukocyte Esterase Negative (Negative); Nitrite Negative (Negative); Specific Gravity 1.015 (1.005-1.025); pH 7.5 (5-8)
[2020-01-24 22:06] LABS: *AMPHETAMINES SCREEN URINE Negative (Negative); *BARBITURATES SCREEN URINE Negative (Negative); *BENZODIAZEPINES SCREEN URINE Negative (Negative); Cannabinoids THC Negative (Negative); Cocaine Screen,Urine Negative (Negative); METHADONE URINE SCREEN Negative (Negative); OPIATES URINE SCREEN Negative (Negative)
[2020-01-24 22:08] LABS: Tricyclic Antidepressants Negative (Negative)
[2020-01-24 22:17] LABS: Bacteria Negative HPF (Negative); C & S Indicated? No; Crystals Negative HPF (Negative); Epithelial Cells Negative HPF (Negative); Mucus Negative (Negative); RBC 0-2 HPF (0-2); WBC 0-2 HPF (0-5)
--- NOTE | 2020-01-24 22:39 | NUR.NOTE ---
pt voided on floor, bed changed. remains shakey. MD Muniz aware. 2nd iv placed in LAC.
[2020-01-24 22:59] VITALS: BP 139/76; PULSE 83; RESP 19; O2SAT 94
== END 2020-01-24 23:30 | disposition short-term general hospital (02) ==
PROVIDERS: Physician Assistant; Emergency Provider Emergency Medicine; PCP Nurse Practitioner Family
DX: S09.90XA Unspecified injury of head, initial encounter (principal); S26.91XA Contusion of heart, unspecified with or without hemopericardium, initial encounter; S00.11XA Contusion of right eyelid and periocular area, initial encounter; S00.12XA Contusion of left eyelid and periocular area, initial encounter; S02.2XXA Fracture of nasal bones, initial encounter for closed fracture; S02.40EA Zygomatic fracture, right side, initial encounter for closed fracture; S30.0XXA Contusion of lower back and pelvis, initial encounter; S30.811A Abrasion of abdominal wall, initial encounter; V18.0XXA Pedal cycle driver injured in noncollision transport accident in nontraffic accident, initial encounter; Y93.55 Activity, bike riding; R94.31 Abnormal electrocardiogram [ECG] [EKG]; E87.6 Hypokalemia; E83.42 Hypomagnesemia; I10 Essential (primary) hypertension; F10.10 Alcohol abuse, uncomplicated; J44.9 Chronic obstructive pulmonary disease, unspecified; F17.210 Nicotine dependence, cigarettes, uncomplicated
CPT/HCPCS: 36415; 74177; 80053; 80307; 93005; 96361; 96365; 96366; 96368; 96375; 99285; 70450; 70486; 71260; 72125; 80320; 81003; 81015; 83735; 84484; 85025; 85610; 85730; 93010; J2060; J3480; J3490

== ENCOUNTER 2020-02-12 14:46 | Emergency (ER) | payer MEDICAID, SELFPAY ==
--- NOTE | 2020-02-12 14:45 | RT.EKG_ITS ---
APPROVED REPORT Exam: Resting ECG Patient Location: E HR:97 bpm ECG Measurements Heart Rate 97 AXIS IA 155 P 76 QRSd 94 QRS 62 QT 357 T 56 QTc 453 Conclusion Sinus rhythm...normal P axis, V-rate 60- 99 Anteroseptal infarct, age indeterminate...Q >35mS, T neg, V1-V2
[2020-02-12 14:50] VITALS: BP 185/91; PULSE 106; RESP 18; TEMP 26.8; O2SAT 96
--- NOTE | 2020-02-12 15:15 | DI.RAD_ITS ---
EXAM: XR CHEST 2V PA LATERAL CLINICAL HISTORY: chest tightness cough TECHNIQUE: 2D digital imaging was performed. COMPARISON: CR,XR XR PORTABLE CHEST AP from 09/16/2019 CR,XR XR CHEST 2V PA LATERAL from 12/26/[address] CHEST PE CTA from 02/12/2020 FINDINGS: MEDIASTINUM: Normal. HEART: Normal. PULMONARY VASCULATURE: Normal. LUNGS: Clear. COPD. PLEURAL SPACE: No pleural effusion or pneumothorax. BONE:Within normal limits for the patient's age. OTHER FINDINGS:Normal. IMPRESSION: No acute pulmonary findings. DATA REPOSITORY: RADIATION DOSE DELIVERED:
[2020-02-12] MEDS: methylPREDNISolone SUCC 125 MG VIAL IVP (15:38)
--- NOTE | 2020-02-12 15:43 | ED.GENADUL_ITS ---
Discharge Plan Disposition Patient Disposition: HOME Condition: Stable Discharge Details Chief Complaint: RespSymp Clinical Impression: Shortness of breath, COPD exacerbation Primary Care Provider: Mounika Heard ED Provider: Robinson Mayorga Towson Meds and New Rx's Prescriptions: New prednisone 20 mg tablet 40 mg PO DAILY Qty: 8 RF: 0 Continued fluticasone propionate [Flonase Allergy Relief] 50 mcg/actuation spray,suspension 1 spray CRISTIANA DAILY RF: 0 tamsulosin 0.4 mg capsule 0.4 mg PO DAILY RF: 0 thiamine HCl (vitamin B1) 100 mg tablet 100 mg PO DAILY RF: 0 albuterol sulfate [ProAir HFA] 90 mcg/actuation HFA aerosol inhaler 2 puff IH Q6H PRNRF: 0 cetirizine 10 mg Tablet 10 mg PO DAILY RF: 0 fluticasone propion-salmeterol [AirDuo RespiClick] 113-14 mcg/actuation Aerosol Powdr Breath Activated 1 puff INHALATION BID RF: 0 citalopram [Celexa] 20 mg Tablet 20 mg PO DAILY RF: 0 magnesium oxide 400 mg (241.3 mg magnesium) Tablet 400 mg PO BID Qty: 0 RF: 0 Therems-M 27-0.4 mg Tablet 1 tab PO DAILY Qty: 0 RF: 0 omeprazole 40 mg capsule,delayed release(DR/EC) 40 mg PO DAILY Qty: 30 RF: 0 Discharge Instructions Instructions: COPD (Chronic Obstructive Pulmonary Disease) (ED) Additional Instructions: Please contact your primary care physician to arrange follow-up. Call first thing Saturday morning. Your blood pressure was elevated today when he arrived in the emergency room. Please be sure to discuss this with your doctor. COVID-19 testing is pending. It is recommended that you maintain self-isolation until COVID-19 testing is resulted. Return to the ER for any worsening or new concerning symptoms. Stand Alone Forms: POSITIVE COVID-19/TO BE TESTED Referrals: Mounika Heard [Primary Care Provider] - Discharge Data Discharge Date/Time-TO BE ENTERED AT DEPARTURE: 02/12/20 21:25 Medical Decision Making <Maikel Stevens MD - Last Filed: 02/13/20 09:02> 1550??64-year-old male here with shortness of breath and chest tightness. Patient is short of breath, hypotensive and tachycardic on arrival. He has no leg swelling on exam but notes intermittent leg swelling. No calf tenderness. He is saturating well on room air. Low likelihood for pulmonary embolism. Will obtain a d-dimer. Consider acute COPD exacerbation. Patient is noted to wheeze but he does have diminished breath sounds. Will give DuoNeb treatment as well as Solu-Medrol. Patient did have recent trauma with apparent myocardial contusion. I will atte mpt to obtain outside hospital records from trauma center. Screening ECG was reviewed and interpreted by me: Please see report, no STEMI, subtle ST depressions are noted laterally which apparently were present on prior ECG. Consider ACS. Will obtain a troponin. Consider cardiomyopathy given recent cardiac contusion. Will obtain a BNP. --Labs reviewed and d-dimer is elevated. Patient was tachycardic on arrival. Plan to proceed to CT of the chest. --Chest x-ray interpreted by radiology: Patchy infiltrates in the lower lung romano, left greater than right, consider CT. Patient notes that he is feeling little bit flushed. Patient will now be treated as a PUI. CT pending. 20:06 --CT interpreted by radiology: No pulmonary embolism is seen. Minimal pulmonary emphysema. No evidence of pneumonia. Minimal dependent sub segmental atelectasis. Plan for delta troponin and if negative follow-up PCP. I will prescribe prednisone and advised patient to use albuterol inhaler. <Robinson Mayorga MD - Last Filed: 02/12/20 22:28> Patient's second troponin negative. Patient stable and without complaint. Discharged per Dr. Stevens's instructions with follow-up at PCP. Lab Data Lab results reviewed: Yes I reviewed the patient's lab results. HPI <Maikel Stevens MD - Last Filed: 02/13/20 09:02> General Mode of arrival: ambulatory . Date/Time Provider Initiated Documentation: 02/12/20 15:20 . Limitations to Documentation: no limitations . Information obtained by: patient . HPI Narrative: 64-year-old male with multiple medical problems including history of COPD, current smoker, here with chief complaint of difficulty breathing. Patient notes difficulty breathing for the past 2 days. He notes feels like his chest is tight. He has pleuritic chest discomfort over the past 2 days. Symptoms are moderate. No modifiers. Patient also notes some sinus headache and eye infection. He has been treated with antibiotic eye ointment. Of note, patient was seen here for trauma and diagnosed with a myocardial contu melyssa 01/24/2020. Related Data Home Medications Medication Instructions Recorded Confirmed albuterol sulfate 90 mcg/actuation 2 puff IH Q6H PRN 09/03/18 02/12/20 aerosol inhaler fluticasone propionate 50 1 spray CRISTIANA DAILY 09/03/18 02/12/20 mcg/actuation nasal spray,suspension tamsulosin 0.4 mg capsule 0.4 mg PO DAILY 09/03/18 02/12/20 thiamine HCl (vitamin B1) 100 mg 100 mg PO DAILY 09/03/18 02/12/20 tablet cetirizine 10 mg PO DAILY 07/08/19 02/12/20 fluticasone propion-salmeterol 1 puff INHALATION BID 07/08/19 02/12/20 [AirDuo RespiClick] citalopram [Celexa] 20 mg PO DAILY 10/13/19 02/12/20 Therems-M 1 tab PO DAILY #0 tab 10/15/19 02/12/20 magnesium oxide 400 mg PO BID #0 tab 10/15/19 02/12/20 omeprazole 40 mg PO DAILY #30 cap 12/26/19 02/12/20 prednisone 40 mg PO DAILY #8 tab 02/12/20 Previous Rx's Medication Instructions Recorded Therems-M 1 tab PO DAILY #0 tab 10/15/19 magnesium oxide 400 mg PO BID #0 tab 10/15/19 omeprazole 40 mg PO DAILY #30 cap 12/26/19 prednisone 40 mg PO DAILY #8 tab 02/12/20 Allergies Allergy/AdvReac Type Severity Reaction Status Date / Time lisinopril Allergy Severe Swelling/Ed Unverified 02/12/20 14:56 pastor Penicillins Allergy pt unsure Unverified 02/12/20 14:56 happened in childhood ? Rash, hives Sulfa (Sulfonamide AdvReac Skin Rash Unverified 02/12/20 14:56 Antibiotics) General Stated Complaint: RespSymp ALEENA: 3 Review of Systems <Maikel Stevens MD - Last Filed: 02/13/20 09:02> All systems reviewed & are unremarkable except as noted in HPI and below Constitutional Constitutional: Denies fever(s) Cardiovascular Cardiovascular: Reports chest pain and Reports dyspnea Respiratory Respiratory: Reports cough (dry) and Reports dyspnea PFSH <Maikel Stevens MD - Last Filed: 02/13/20 09:02> Medical History Alcohol abuse (Chronic) Alcohol withdrawal seizure (Resolved) BPH (benign prostatic hyperplasia) (Chronic) COPD (chronic obstructive pulmonary disease) (Chronic) Depression (Chronic) HTN (hypertension) (Chronic) Hx of angioedema (Acute) Unknown allergic rxn 07/25/18 requiring endotracheal intubation and transfer to [facility] for further treatment. Left knee pain (Chronic) Normal colonoscopy (Resolved) 09/26/18 Dr Acosta, [facility], normal, repeat 10 years. Surgical History H/O hernia repair (Inactive) Social History Smoking/Tobacco Use Status: Current every day Tobacco Type: cigarettes Years smoked: 40 Alcohol Intake: current Alcohol Intake frequency: 3 or more drinks per day Alcohol type: hard liquor Drug use: Never Substance use type: does not use Do you feel safe at home: Yes (Suicidal) Do you feel safe in your relationship?: Yes Exam <Maikel Stevens MD - Last Filed: 02/13/20 09:02> Const General: cooperative and no acute distress HENMT Mouth: moist mucous membranes Eyes Conjunctivae: normal conjunctivae Sclera: normal sclerae Neck Neck: trachea midline and supple Resp Effort & Inspection: able to speak in complete sentences and other (Diminished breath sounds bilaterally) Auscultation: no rales, no rhonchi and no wheezes Cardio Jugular venous pressure: no JVD Rate: regular rate and not tachycardic Rhythm: regular rhythm GI Palpation: soft, not firm, no guarding, no masses, not rigid and nontender Skin General skin exam: no rashes or lesions noted Neuro General: patient alert, patient awake, patient oriented x3 and tone normal Extrem General: no calf tenderness and no edema Psych Appearance: grossly normal Mental Status: mental status grossly normal Speech and Movement: speech and movement normal Course <Maikel Stevens MD - Last Filed: 02/13/20 09:02> Vital Signs Vital signs: Vital Signs Temperature 26.8 C L 02/12/20 14:50 Pulse 106 H 02/12/20 14:50 Respiratory Rate 18 02/12/20 14:50 Blood Pressure 185/91 H 02/12/20 14:50 Pulse Oximetry 96 02/12/20 14:50 Temperature 26.8 C L 02/12/20 14:50 Temperature Source Temporal Artery Scan 02/12/20 14:50 Pulse 106 H 02/12/20 14:50 Respiratory Rate 18 02/12/20 14:50 Respiratory Effort Non-Labored 02/12/20 15:10 Blood Pressure 185/91 H 02/12/20 14:50 Blood Pressure Position Supine 02/12/20 14:50 Pulse Oximetry 96 02/12/20 14:50 Oxygen Delivery Method Room Air 02/12/20 14:50 Oxygen Flow Rate 0 02/12/20 14:50 Sign Out <Maikel Stevens MD - Last Filed: 02/13/20 09:02> Sign Out Data: Sign Out Comment: Follow-up on delta troponin and dispo patient Last updated by Maikel Stevens MD at 02/12/20 20:30
[2020-02-12 15:51] VITALS: RESP 20; RESP 8
[2020-02-12] MEDS: Albuterol/Ipratropium 3 ML UPD VIAL UPD ×2 (15:51→15:55)
[2020-02-12 15:55] VITALS: RESP 8
[2020-02-12 16:00] LABS: Troponin I < 0.05 ng/mL (<0.06)
[2020-02-12 16:17] LABS: ALT 34 U/L (16-63); AST 46 U/L (15-37); Albumin 3.8 g/dL (3.4-5.0); Alkaline Phosphatase 77 U/L (46-116); Anion Gap 9.8 mmol/L (3-11); BUN 13 mg/dL (7-18); Bilirubin, Total 0.6 mg/dL (0.2-1.0); CO2 30.2 mmol/L (21.0-32.0); CREATININE 1.23 mg/dL (0.70-1.30); Calcium 9.7 mg/dL (8.5-10.1); Chloride 100 mmol/L (98-107); Estimated GFR 59.24 (mL/min/1.73m2); Glucose 158 mg/dL (74-106); NT-proBNP 395 pg/mL (<300); Potassium 3.9 mmol/L (3.5-5.1); Sodium 140 mmol/L (136-145); Total Protein 7.5 g/dL (6.4-8.2)
[2020-02-12 16:21] LABS: D-Dimer 1739 ng/mlFEU (<500)
--- NOTE | 2020-02-12 16:54 | DI.VRAD_ITS ---
PROCEDURE INFORMATION: Exam: XR Chest, 2 Views Exam date and time: 02/12/2020 4:46 PM Age: 64 years old Clinical indication: Other: Chest tightness cough TECHNIQUE: Imaging protocol: XR of the chest Views: 2 views. COMPARISON: CT CHEST/ABD/PEL W 01/24/2020 8:26 PM FINDINGS: Lungs: Patchy infiltrates in the lower lung romano, left greater than right. Consider CT. Pleural space: Unremarkable. No pleural effusion. No pneumothorax. Heart/Mediastinum: Unremarkable. No cardiomegaly. Bones/joints: Degenerative changes in the spine. IMPRESSION: Patchy infiltrates in the lower lung romano, left greater than right. Consider CT. Dictated and Authenticated by: Mike Thakur MD. Ordering:MECHELLE Ko MD
[2020-02-12 17:28] VITALS: TEMP 37.1
[2020-02-12 18:00] VITALS: BP 186/88; PULSE 87; RESP 20; O2SAT 94
--- NOTE | 2020-02-12 18:13 | NUR.NOTE ---
Nursing Note:States he feels better and wants to leave.
[2020-02-12 18:15] VITALS: O2SAT 94
--- NOTE | 2020-02-12 19:39 | DI.CT_ITS ---
EXAM: CT CHEST PE CTA CLINICAL HISTORY: shortness of breath. TECHNIQUE: Imaging Protocol: Axial CT angiography was performed with multi-slice acquisition and mu lti-planar and/or 3D reconstructions. CONTRAST MATERIAL: Intravenous: Omnipaque 350 Contrast volume:80 mL COMPARISON: CT CT CHEST/ABD/PEL W from 01/24/2020 FINDINGS: Pulmonary Arteries: No evidence of filling defect to suggest pulmonary emboli. Tracheobronchial tree: Patent where visualized. Mediastinum and Zhanna: No dominant adenopathy or fluid collection. Pulmonary parenchyma: No consolidation or dominant measurable mass. Mild centrilobular emphysema. Pleura: No effusion or pneumothorax. Heart: The heart is not dilated. No coronary artery calcifications are seen. No pericardial effusion. Aorta: Thoracic aorta non-dilated. Mild atherosclerosis. No dissection. Upper abdomen: Unremarkable. Bones: No acute abnormality. Soft tissues: Bilateral gynecomastia. IMPRESSION: No evidence of pulmonary embolism, thoracic aortic dissection or aneurysm. RADIATION DOSE DELIVERED: 434.81mGy.cm Total DLP DATA REPOSITORY: All CT scans at this facility are submitted to the National Radiology Data Registry (NRDR) Dose Index Registry (DIR) with the [employer] (ACR). RADIATION OPTIMIZATION: All CT scans at this facility use at least one of these dose optimization te chniques: automated exposure control; mA and/or kV adjustment per patient size (includes targeted exa ms where dose is matched to clinical indication); or iterative reconstruction.
[2020-02-12] MEDS: Omnipaque 350 MG/ML 100 ML BTL IJ (19:44)
[2020-02-12] MEDS: Normal Saline Flush 10 ML SYR IVP (19:45)
[2020-02-12] MEDS: Normal Saline - Diluent 50 ML VIAL IV (19:46)
--- NOTE | 2020-02-12 20:02 | DI.VRAD_ITS ---
PROCEDURE INFORMATION: Exam: CT Angiography Chest With Contrast Exam date and time: 02/12/2020 19:40 Age: 64 years old Clinical indication: Shortness of breath TECHNIQUE: Imaging protocol: Computed tomographic angiography of the chest with intravenous contrast. 3D rendering (Not supervised by radiologist): MIP and/or 3D reconstructed images were created by the technologist. Radiation optimization: All CT scans at this facility use at least one of these dose optimization techniques: automated exposure control; mA and/or kV adjustment per patient size (includes targeted exams where dose is matched to clinical indication); or iterative reconstruction. Contrast material: [id number]; Contrast volume: 80 ml; Contrast route: INTRAVENOUS (IV); COMPARISON: CT Private^PE (Adult) 04/29/2018 19:37 FINDINGS: Pulmonary arteries: No pulmonary emboli. Aorta: No aortic aneurysm. No aortic dissection. Lungs: Minimal pulmonary emphysema. No evidence of pneumonia. No airspace consolidation. Minimal dependent subsegmental atelectasis. Pleural space: No pneumothorax. No pleural effusion. Heart: No cardiomegaly. No pericardial effusion. Lymph nodes: No enlarged lymph nodes. Bones/joints: No acute fracture. Soft tissues: Bilateral gynecomastia again seen. IMPRESSION: 1. No pulmonary emboli are seen. 2. Minimal pulmonary emphysema. No evidence of pneumonia. 3. Minimal dependent subsegmental atelectasis. Dictated and Authenticated by: Bonnie Ferreira MD. Ordering:MECHELLE Ko MD
[2020-02-12 21:09] LABS: Troponin I < 0.05 ng/mL (<0.06)
[2020-02-13 00:22] LABS: COVID-19 RT-PCR UVMMC Result Negative (Negative)
--- NOTE | 2020-02-15 11:32 | CMACTNOTE_ITS ---
- If Service Date Differs Date of service: 02/15/20 Time of Service: 11:32 Care Management Activity Note CM is asked by ED provider to find an alternative means of reaching South to let him know his Covid test result is negative. A review of the chart reveals South's scalping machine operator (Thelma [phone]) is on his HIPPA. NORMA calls Thelma's phone number and is able to speak with South.
== END 2020-02-12 21:25 | disposition home or self-care (01) ==
PROVIDERS: Student in an Organized Health Care Education/Training Program; Emergency Provider Emergency Medicine; PCP Nurse Practitioner Family
DX: J44.1 Chronic obstructive pulmonary disease with (acute) exacerbation (principal); R06.02 Shortness of breath; R07.89 Other chest pain; R79.1 Abnormal coagulation profile; Z03.818 Encounter for observation for suspected exposure to other biological agents ruled out; F17.210 Nicotine dependence, cigarettes, uncomplicated; I10 Essential (primary) hypertension
CPT/HCPCS: 36415; 71275; 80053; 93005; 94640; 96374; 99285; U0003; 71046; 83880; 84484; 85379; 93010; J2930; J3490; J7620

== ENCOUNTER 2020-03-11 09:38 | Outpatient (REF) | payer MEDICAID, SELFPAY ==
[2020-03-14 10:33] LABS: Syphilis Serology (RPR) Negative (Negative)
[2020-03-14 10:41] LABS: HIV-1/2 Ag & Ab Screen Negative (Negative)
== END 2020-03-11 09:58 ==
LOC: NCHCN 09:38
PROVIDERS: PCP Nurse Practitioner Family; Visit Provider Nurse Practitioner Family
DX: R21 Rash and other nonspecific skin eruption (principal); Z11.4 Encounter for screening for human immunodeficiency virus [HIV]; Z11.59 Encounter for screening for other viral diseases
CPT/HCPCS: 87389; 86592

== ENCOUNTER 2020-07-28 15:28 | Emergency (ER) | payer MEDICAID, SELFPAY ==
[2020-07-28] VITALS (34 sets, daily range): BP systolic 122–186; BP diastolic 68–124; PULSE 85–108; RESP 8–21; TEMP 36.3; O2SAT 83–94
--- NOTE | 2020-07-28 15:15 | RT.EKG_ITS ---
APPROVED REPORT Exam: Resting ECG Patient Location: E HR:87 bpm ECG Measurements Heart Rate 87 AXIS NE 200 P 71 QRSd 109 QRS 61 QT 431 T 34 QTc 517 Conclusion Sinus rhythm. Atrial premature complexes. QTc >500mS
--- NOTE | 2020-07-28 15:33 | ED.GENADUL_ITS ---
Discharge Plan Disposition Patient Disposition: OTHER Condition: Improving Discharge Details Clinical Impression: Alcohol intoxication Primary Care Provider: Mounika Heard ED Provider: Sergio Muro Home Meds and New Rx's Prescriptions: Continued fluticasone propionate [Flonase Allergy Relief] 50 mcg/actuation spray,suspension 1 spray CRISTIANA DAILY RF: 0 tamsulosin 0.4 mg capsule 0.4 mg PO DAILY RF: 0 thiamine HCl (vitamin B1) 100 mg tablet 100 mg PO DAILY RF: 0 albuterol sulfate [ProAir HFA] 90 mcg/actuation HFA aerosol inhaler 2 puff IH Q6H PRNRF: 0 cetirizine 10 mg Tablet 10 mg PO DAILY RF: 0 fluticasone propion-salmeterol [AirDuo RespiClick] 113-14 mcg/actuation Aerosol Powdr Breath Activated 1 puff INHALATION BID RF: 0 citalopram [Celexa] 20 mg Tablet 20 mg PO DAILY RF: 0 magnesium oxide 400 mg (241.3 mg magnesium) Tablet 400 mg PO BID Qty: 0 RF: 0 Therems-M 27-0.4 mg Tablet 1 tab PO DAILY Qty: 0 RF: 0 omeprazole 40 mg capsule,delayed release(DR/EC) 40 mg PO DAILY Qty: 30 RF: 0 Discontinued prednisone 20 mg tablet 40 mg PO DAILY Qty: 8 RF: 0 Discharge Instructions Instructions: Alcohol Intoxication (ED) Additional Instructions: Please continue your efforts to decrease alcohol use. Continue your regularly prescribed medications. Followup with Mounika Heard in clinic for routine care. Medical Decision Making 64-year-old male with a history of alcohol abuse presents via EMS after police were called for the patient outside with cold exposure after drinking alcohol. There was question of whether he had a fall but the patient denies any injury. He was found to have temperature of 93 ?F on scene. Patient arrives to ER improving with warm packs placed by ambulance. He has a temp of 36, pulse 80-90, blood pressure 150s to 170s over 80s to 90s. He is placed in a rosetta hugger, warm fluids initiated, referred for laboratory testing and screening EKG. Left forearm abrasion/skin tear cleansed and dressed by nursing staff. Patient is intoxicated with alcohol level of 407. Hematocrit 37, platelets have been chronically low and are 64 today. Note of MCV 105. Electrolytes reveal potassium of 3.0, magnesium 1.0, AST 129, ALT 35, negative troponin and CK of 233. Patient received warm IV fluids, electrolyte replacement of both magnesium and potassium, and was observed on a equipment monitor phototypesetting. Patient clinically sobered up. Ate in the evening meal. He called his girlfriend with whom he has been staying and is not able to return to that residence. Overall clinically he is sobering up, his alcohol level of 400 is concerning and I do not feel he can safely be discharged on his own recognizance. After 3 hrs of care, breathalyzer obtained with EtOH level 0.256. [facility] contacted and patient to be taken to care bed for the eveing. HPI General Mode of arrival: ambulatory . Date/Time Provider Initiated Documentation: 07/28/20 15:30 . Limitations to Documentation: no limitations . Information obtained by: patient and EMS . History of Present Illness 64 year old M presents to the emergency department with the chief complaint of Cold exp osure after alcohol intoxication, described as moderate, Quality is described as constant, Patient started experiencing this unknown and it has been constant. No relieving factors improve symptom(s), No exacerbating factors reported . Patient notes denies chest pain, syncope and weakness. Patient did receive the following treatments prior to arrival, heat therapy Related Data Home Medications Medication Instructions Recorded Confirmed albuterol sulfate 90 mcg/actuation 2 puff IH Q6H PRN 09/03/18 02/12/20 aerosol inhaler fluticasone propionate 50 1 spray CRISTIANA DAILY 09/03/18 02/12/20 mcg/actuation nasal spray,suspension tamsulosin 0.4 mg capsule 0.4 mg PO DAILY 09/03/18 02/12/20 thiamine HCl (vitamin B1) 100 mg 100 mg PO DAILY 09/03/18 02/12/20 tablet cetirizine 10 mg PO DAILY 07/08/19 02/12/20 fluticasone propion-salmeterol 1 puff INHALATION BID 07/08/19 02/12/20 [AirDuo RespiClick] citalopram [Celexa] 20 mg PO DAILY 10/13/19 02/12/20 Therems-M 1 tab PO DAILY #0 tab 10/15/19 02/12/20 magnesium oxide 400 mg PO BID #0 tab 10/15/19 02/12/20 omeprazole 40 mg PO DAILY #30 cap 12/26/19 02/12/20 Previous Rx's Medication Instructions Recorded Therems-M 1 tab PO DAILY #0 tab 10/15/19 magnesium oxide 400 mg PO BID #0 tab 10/15/19 omeprazole 40 mg PO DAILY #30 cap 12/26/19 Allergies Allergy/AdvReac Type Severity Reaction Status Date / Time lisinopril Allergy Severe Swelling/Ed Unverified 02/12/20 14:56 pastor Penicillins Allergy pt unsure Unverified 02/12/20 14:56 happened in childhood ? Rash, hives Sulfa (Sulfonamide AdvReac Skin Rash Unverified 02/12/20 14:56 Antibiotics) General ALEENA: 3 Review of Systems Narrative: Denies injury or illness. Admits to alcohol use. No acute complaints. 7 systems reviewed and otherwise negative [facility] Medical History (Updated 07/28/20 @ 19:14 by Sergio Muro MD) Alcohol abuse Alcohol withdrawal seizure BPH (benign prostatic hyperplasia) COPD (chronic obstructive pulmonary disease) Depression HTN (hypertension) Hx of angioedema Unknown allergic rxn 07/25/18 requiring endotracheal intubation and transfer to [facility] for further treatment. Left knee pain Normal colonoscopy 09/26/18 Dr Acosta, [facility], normal, repeat 10 years. Surgical History H/O hernia repair Social History Smoking/Tobacco Use Status: Current every day Tobacco Type: cigarettes Years smoked: 40 Smoking risk assessment performed?: Yes Alcohol Intake: current Alcohol Intake frequency: 3 or more drinks per day Alcohol type: hard liquor Drug use: Never Substance use type: does not use Do you feel safe at home: Yes (Suicidal) Do you feel safe in your relationship?: Yes Exam Narrative Exam Narrative: GEN: awake, alert, oriented 3. Pleasant, well groomed, interactive. HEAD: Normocephalic, atraumatic ENT: Mucous membranes moist, oropharynx unremarkable, External ear exam unremarkable EYES: PERRL, EOMI NECK: Full ROM, no SCARLETT, no menigismus CHEST/RESP: Nontender, clear to auscultation bilateral, no wheeze/rhonchi/rales CARDIOVASCULAR: RRR, no murmur, rub alee. 2+ Rad pulse bilateral ABDOMEN: Soft, nontender, no mass. +Bowel sounds EXT: Full ROM, no edema, superficial abrasions to left forearm. Skin: Excoriations of trunk anterior and posterior. Neuro: Grossly normal neurologic exam, conversant, interactive. Psych: Speech fluent, thoughts congruent, affect normal
[2020-07-28] MEDS: Lactated Ringers 500 ML IV (15:35)
[2020-07-28] MEDS: Bacitracin 1 PACKET (16:05)
[2020-07-28 16:12] LABS: Abs Immature Grans 0.04 10^3/uL (0.0-0.06); Absolute Basophil Count 0.04 10^3/uL (0.0-0.2); Absolute Eosinophil Count 0.19 10^3/uL (0.0-0.7); Absolute Lymphocyte Count 0.83 10^3/uL (1.2-3.4); Absolute Monocyte Count 0.39 10^3/uL (0.1-0.8); Absolute Neutrophil Count 1.53 10^3/uL (1.2-6.7); Basophils % 1.3; Eosinophils % 6.3; HCT 37.3 % (40.0-50.0); HGB 12.7 g/dL (13.5-17.5); Immature Grans % 1.3; Lymphocytes % 27.5; MCH 35.9 pg (27.0-33.0); MCV 105.4 fL (80-95); MPV 9.9 fL (8.0-11.0); Monocytes % 12.9; Neutrophils % 50.7; Nucleated RBC 0 %; RBC 3.54 10^6/uL (4.36-5.78); RDW 14.3 % (11.8-14.1); RDW-SD 55.7 fL; WBC 3.02 10^3/uL (4.4-10.8)
[2020-07-28 16:27] LABS: Diff Comment RBC Morph Reviewed; Macrocytosis 3+; Platelet Count 64 10^3/uL (130-400)
[2020-07-28 16:29] LABS: ALT 35 U/L (16-63); AST 129 U/L (15-37); Albumin 3.1 g/dL (3.4-5.0); Alkaline Phosphatase 92 U/L (46-116); Anion Gap 16.5 mmol/L (3-11); BUN 8 mg/dL (7-18); Bilirubin, Total 0.5 mg/dL (0.2-1.0); CO2 26.5 mmol/L (21.0-32.0); Calcium 8.4 mg/dL (8.5-10.1); Chloride 102 mmol/L (98-107); Creatine Kinase 233 U/L (39-308); Glucose 104 mg/dL (74-106); Sodium 145 mmol/L (136-145); Total Protein 7.2 g/dL (6.4-8.2); Troponin I < 0.05 ng/mL (<0.06)
[2020-07-28 16:35] LABS: ETHANOL BLOOD 407.7 mg/dL (<3)
--- NOTE | 2020-07-28 16:43 | NUR.NOTE ---
Addendum entered by Lulu Jade 07/28/20 17:01: [employer] faxed 4 sheets paper for the patient. These were put in a manilla envelope and put with the patient belongings. Lulu Jade Original Note: Nursing Note: Per Nursing Commercial Administrator staff are to give the patient this person's phone number when he is coherent for him to call at his convenience. Pravin Wynn [employer] [phone] Lulu Jade
[2020-07-28] MEDS: MAGNESIUM SULFATE 2 GM/50 ML BAG IVPB (16:45)
--- NOTE | 2020-07-28 17:43 | NUR.NOTE ---
hot meal ordered for pt Nursing Note:
--- NOTE | 2020-07-28 18:20 | NUR.NOTE ---
pt sitting up in paige-chair eating hot meal Nursing Note:
[2020-07-28 18:21] LABS: Bilirubin Negative (Negative); Blood Trace-lysed (Negative); Clarity Clear (Clear); Glucose Negative (Negative); Ketones Negative (Negative); Leukocyte Esterase Negative (Negative); Nitrite Negative (Negative); pH 7.5 (5-8)
[2020-07-28 18:32] LABS: Bacteria Negative HPF (Negative); C & S Indicated? No; Casts Negative LPF (Negative); Crystals Negative HPF (Negative); Epithelial Cells Rare HPF (Negative); Mucus Trace (Negative); RBC 0-2 HPF (0-2); WBC 0-2 HPF (0-5)
[2020-07-28] MEDS: POTASSIUM CHLORIDE 20 MEQ/100 ML BAG 50 MEQ IVPB (18:40)
[2020-07-28] MEDS: Potassium Chloride 20 MEQ TABCR PO (19:28)
== END 2020-07-28 19:47 | disposition other institution (70) ==
PROVIDERS: Emergency Provider Emergency Medicine; PCP Nurse Practitioner Family
DX: S50.812A Abrasion of left forearm, initial encounter (principal); W19.XXXA Unspecified fall, initial encounter; X31.XXXA Exposure to excessive natural cold, initial encounter; E87.6 Hypokalemia; E83.42 Hypomagnesemia; F10.120 Alcohol abuse with intoxication, uncomplicated; Y90.8 Blood alcohol level of 240 mg/100 ml or more
CPT/HCPCS: 36415; 80053; 82550; 93005; 96361; 96365; 96366; 96367; 99285; 80320; 81003; 81015; 83735; 84484; 85025; 93010; 99284; J3480

== ENCOUNTER 2020-07-29 11:34 | Inpatient (IN) | payer MEDICAID, SELFPAY ==
[2020-07-29] VITALS (156 sets, daily range): BP systolic 124–172; BP diastolic 56–124; PULSE 66–118; RESP 14–29; TEMP 36.7–37.1; O2SAT 90–97
--- NOTE | 2020-07-29 12:00 | RT.EKG_ITS ---
APPROVED REPORT Exam: Resting ECG Patient Location: E HR:88 bpm ECG Measurements Heart Rate 88 AXIS MO 162 P 76 QRSd 106 QRS 63 QT 421 T 55 QTc 509 Conclusion Sinus rhythm. Prolonged QT interval...QTc >500mS
--- NOTE | 2020-07-29 12:15 | DI.RAD_ITS ---
EXAM: XR PORTABLE CHEST AP CLINICAL HISTORY: short of breath TECHNIQUE: 2D digital imaging was performed. COMPARISON: CR,XR XR CHEST 2V PA LATERAL from 02/12/2020 FINDINGS: Leads overlie the chest. The lungs are suboptimally inflated. No infiltrate, effusion or pulmonary edema is seen. Heart size is normal. There is no evidence of pneumothorax. IMPRESSION: No acute pulmonary findings. DATA REPOSITORY: RADIATION DOSE DELIVERED:
--- NOTE | 2020-07-29 12:18 | W.ED.GENAD ---
Discharge Plan Disposition Patient Disposition: [facility] INPATIENT Condition: Serious Discharge Details Clinical Impression: Alcohol withdrawal, Hypomagnesemia Primary Care Provider: Mounika Heard ED Provider: Earnest Ambrocio Home Meds and New Rx's Prescriptions: No Action fluticasone propionate [Flonase Allergy Relief] 50 mcg/actuation spray,suspension 1 spray CRISTIANA DAILY RF: 0 tamsulosin 0.4 mg capsule 0.4 mg PO DAILY RF: 0 thiamine HCl (vitamin B1) 100 mg tablet 100 mg PO DAILY RF: 0 albuterol sulfate [ProAir HFA] 90 mcg/actuation HFA aerosol inhaler 2 puff IH Q6H PRNRF: 0 cetirizine 10 mg Tablet 10 mg PO DAILY RF: 0 fluticasone propion-salmeterol [AirDuo RespiClick] 113-14 mcg/actuation Aerosol Powdr Breath Activated 1 puff INHALATION BID RF: 0 citalopram [Celexa] 20 mg Tablet 20 mg PO DAILY RF: 0 magnesium oxide 400 mg (241.3 mg magnesium) Tablet 400 mg PO BID Qty: 0 RF: 0 Therems-M 27-0.4 mg Tablet 1 tab PO DAILY Qty: 0 RF: 0 omeprazole 40 mg capsule,delayed release(DR/EC) 40 mg PO DAILY Qty: 30 RF: 0 Medical Decision Making This is a 64-year-old gentleman, chronic alcohol abuse, history of alcohol withdrawal seizures, BPH, COPD, depression, hypertension, who is currently homeless. He was seen in the ER yesterday after not being allowed to go back with his significant other, found intoxicated lying hypothermic in the snow. Work-up ensued and subsequently discharged to a care bed. Patient has no recollection of being in the ER yesterday. He reports that he did not drink alcohol today. Currently reports that he feels as though he is withdrawing from alcohol, feels shaky, nauseous, body aches, anxious, mild global headache. He admitted to shortness of breath but reports that this appears chronic and at his baseline secondary to smoking. He denies any recent illness or trauma. Clinically it appears as though he is withdrawing, IV access to be obtained, will initiate cardiac work-up, give banana bag, 2 mg IV Ativan initiate the CIWA protocol. Laboratory values reveal a white blood cell count of 3.98 hemoglobin 12.3 hematocrit 36.3 platelet count 67. Appears baseline. INR 1.1. Potassium 3.3, creatinine 1.3, GFR 55.58, glucose 184, magnesium 0.7 total bili 2.4, AST 130. Initial troponin less than 0.05. Urinalysis 15 ketones, no signs of obvious infection. Rapid Covid negative rapid flu negative Chest x-ray negative per radiology Patient no longer a PUI Repeat Ciwa 8, 2 mg Ativan given. Patient given 2 g IV magnesium and a banana bag. Patient is a sickly at baseline, chronic alcoholic, high likelihood of alcohol withdrawal seizure. He is currently homeless. I do not believe that he can safely be discharged or detox from home. I will discuss the case with our hospitalist team for admission to likely ICU for concern of decompensation. Case discussed with Dr. Delacruz, accepts admission to the ICU and will place orders. Medical Records Medical records reviewed: Yes I reviewed the patient's medical records. Imaging Data Radiologic Study: Attestation: I personally reviewed and interpreted this imaging study as follows: Imaging: X-Ray Radiologist's impression: Chest x-ray negative per radiology Lab Data Lab results reviewed: Yes I reviewed the patient's lab results. Lab results narrative: Laboratory Tests Range/Units 07/29/20 07/29/20 07/29/20 12:05 12:05 12:05 WBC (4.4-10.8) 10^3/uL RBC (4.36-5.78) 10^6/uL Hgb (13.5-17.5) g/dL Hct (40.0-50.0) % MCV (80-95) fL MCH (27.0-33.0) pg MCHC (32.0-36.0) % RDW (11.8-14.1) % Plt Count (130-400) 10^3/uL MPV (8.0-11.0) fL Immature Gran % Neutrophils % Lymphocytes % Monocytes % Eosinophils % Basophils % Nucleated RBC % % Absolute Neutrophils (1.2-6.7) 10^3/uL Absolute Lymphocytes (1.2-3.4) 10^3/uL Absolute Monocytes (0.1-0.8) 10^3/uL Absolute Eosinophils (0.0-0.7) 10^3/uL Absolute Basophils (0.0-0.2) 10^3/uL RBC Morphology Macrocytosis PT (9.3-11.0) sec 11.0 INR (0.9-1.1) 1.1 APTT (21.0-27.5) sec 22.1 Sodium (136-145) mmol/L 138 Potassium (3.5-5.1) mmol/L 3.3 L Chloride (98-107) mmol/L 95 L Carbon Dioxide (21.0-32.0) mmol/L 26.1 Anion Gap (3-11) mmol/L 16.9 H BUN (7-18) mg/dL 7 Creatinine (0.70-1.30) mg/dL 1.3 Estimated GFR/1.73 m2 (mL/min/1.73m2) 55.58 Glucose (74-106) mg/dL 184 H D Calcium (8.5-10.1) mg/dL 8.9 Magnesium (1.8-2.4) mg/dL 0.7 L Total Bilirubin (0.2-1.0) mg/dL 2.4 H AST (15-37) U/L 130 H ALT (16-63) U/L 37 Alkaline Phosphatase (46-116) U/L 97 Troponin I (<0.06) ng/mL < 0.05 Total Protein (6.4-8.2) g/dL 7.7 Albumin (3.4-5.0) g/dL 3.7 Lipase (73-393) U/L 206 Urine Color (Yellow) Urine Clarity (Clear) Urine pH (5-8) Ur Specific [place] (1.005-1.025) Urine Protein (Negative) mg/dL Urine Ketones (Negative) mg/dL Urine Blood (Negative) Urine Nitrite (Negative) Urine Bilirubin (Negative) Urine Urobilinogen (Up TO 0.2) EU/dL Ur Leukocyte Esterase (Negative) Urine RBC (0-2) HPF Urine WBC (0-5) HPF Ur Epithelial Cells (Negative) HPF Urine Crystals (Negative) HPF Urine Bacteria (Negative) HPF Urine Casts (Negative) LPF Urine Mucus (Negative) Ur Culture Indicated? Urine Glucose (Negative) mg/dL COVID-19 Source SARS-CoV-2 (PCR) (Negative) Influenza Type A (PCR) (Negative) Influenza Type B (PCR) (Negative) RSV (PCR) (Negative) Range/Units 07/29/20 07/29/20 07/29/20 12:05 12:30 13:05 WBC (4.4-10.8) 10^3/uL 3.98 L D RBC (4.36-5.78) 10^6/uL 3.42 L Hgb (13.5-17.5) g/dL 12.3 L Hct (40.0-50.0) % 36.3 L MCV (80-95) fL 106.1 H MCH (27.0-33.0) pg 36.0 H MCHC (32.0-36.0) % 33.9 RDW (11.8-14.1) % 14.5 H Plt Count (130-400) 10^3/uL 67 L MPV (8.0-11.0) fL 10.7 Immature Gran % 1.3 Neutrophils % 75.7 Lymphocytes % 10.6 Monocytes % 11.1 Eosinophils % 0.0 Basophils % 1.3 Nucleated RBC % % 0 Absolute Neutrophils (1.2-6.7) 10^3/uL 3.01 Absolute Lymphocytes (1.2-3.4) 10^3/uL 0.42 L Absolute Monocytes (0.1-0.8) 10^3/uL 0.44 Absolute Eosinophils (0.0-0.7) 10^3/uL 0.00 Absolute Basophils (0.0-0.2) 10^3/uL 0.05 RBC Morphology See below Macrocytosis 2+ PT (9.3-11.0) sec INR (0.9-1.1) APTT (21.0-27.5) sec Sodium (136-145) mmol/L Potassium (3.5-5.1) mmol/L Chloride (98-107) mmol/L Carbon Dioxide (21.0-32.0) mmol/L Anion Gap (3-11) mmol/L BUN (7-18) mg/dL Creatinine (0.70-1.30) mg/dL Estimated GFR/1.73 m2 (mL/min/1.73m2) Glucose (74-106) mg/dL Calcium (8.5-10.1) mg/dL Magnesium (1.8-2.4) mg/dL Total Bilirubin (0.2-1.0) mg/dL AST (15-37) U/L ALT (16-63) U/L Alkaline Phosphatase (46-116) U/L Troponin I (<0.06) ng/mL Total Protein (6.4-8.2) g/dL Albumin (3.4-5.0) g/dL Lipase (73-393) U/L Urine Color (Yellow) Yellow Urine Clarity (Clear) Clear Urine pH (5-8) 7.0 Ur Specific [place] (1.005-1.025) >= 1.030 H Urine Protein (Negative) mg/dL 100 H Urine Ketones (Negative) mg/dL 15 H Urine Blood (Negative) Small H Urine Nitrite (Negative) Negative Urine Bilirubin (Negative) Small H Urine Urobilinogen (Up TO 0.2) EU/dL 2.0 H Ur Leukocyte Esterase (Negative) Negative Urine RBC (0-2) HPF 0-2 Urine WBC (0-5) HPF 3-5 Ur Epithelial Cells (Negative) HPF Negative Urine Crystals (Negative) HPF Negative Urine Bacteria (Negative) HPF Few Urine Casts (Negative) LPF 10-20 hyaline Urine Mucus (Negative) Trace Ur Culture Indicated? No Urine Glucose (Negative) mg/dL 100 COVID-19 Source Nasopharynx SARS-CoV-2 (PCR) (Negative) Negative Influenza Type A (PCR) (Negative) Negative Influenza Type B (PCR) (Negative) Negative RSV (PCR) (Negative) Negative ECG Data Attestation: I personally reviewed and interpreted this ECG (s) as follows: Interpretation: Please see official report by Dr. Muro. Sinus rhythm, ventricular rate 88. Prolonged QT interval. No STEMI. HPI General Mode of arrival: wheelchair. Date/Time Provider Initiated Documentation: 07/29/20 11:35. Limitations to Documentation: no limitations. Information obtained by: patient. HPI Narrative: This is a 64-year-old male with past medical history of alcohol abuse, depression, COPD, current smoker, typically drinks roughly 1/5 of vodka daily. He was seen in the ER yesterday after being found outside intoxicated. He was subsequently evaluated in the ER, work-up ensued, and eventually discharged. He typically lives with his significant other however as of yesterday he is not staying with her. He was discharged to a care bed last night. He reports a couple day history of generalized shaking, not feeling well, mild global headache, and what he describes as chronic shortness of breath secondary to his smoking. He has no recollection of being in the ER yesterday. He currently feels as though he is withdrawing from alcohol, has withdrawn from alcohol in the past and reports that he has had a seizure because of this in the past. He has formally detox as well. He currently denies recent illness or trauma. He is homeless and has nowhere to go if discharged from the ER. He feels significant generalized weakness, difficulty caring for himself. He denies drinking any alcohol today. Related Data Home Medications Medication Instructions Recorded Confirmed albuterol sulfate 90 mcg/actuation 2 puff IH Q6H PRN 09/03/18 02/12/20 aerosol inhaler fluticasone propionate 50 1 spray CRISTIANA DAILY 09/03/18 02/12/20 mcg/actuation nasal spray,suspension tamsulosin 0.4 mg capsule 0.4 mg PO DAILY 09/03/18 02/12/20 thiamine HCl (vitamin B1) 100 mg 100 mg PO DAILY 09/03/18 02/12/20 tablet cetirizine 10 mg PO DAILY 07/08/19 02/12/20 fluticasone propion-salmeterol 1 puff INHALATION BID 07/08/19 02/12/20 [AirDuo RespiClick] citalopram [Celexa] 20 mg PO DAILY 10/13/19 02/12/20 Therems-M 1 tab PO DAILY #0 tab 10/15/19 02/12/20 magnesium oxide 400 mg PO BID #0 tab 10/15/19 02/12/20 omeprazole 40 mg PO DAILY #30 cap 12/26/19 02/12/20 Previous Rx's Medication Instructions Recorded Therems-M 1 tab PO DAILY #0 tab 10/15/19 magnesium oxide 400 mg PO BID #0 tab 10/15/19 omeprazole 40 mg PO DAILY #30 cap 12/26/19 Allergies Allergy/AdvReac Type Severity Reaction Status Date / Time lisinopril Allergy Severe Swelling/Ed Unverified 07/29/20 11:52 pastor Penicillins Allergy pt unsure Unverified 07/29/20 11:52 happened in childhood ? Rash, hives Sulfa (Sulfonamide AdvReac Skin Rash Unverified 07/29/20 11:52 Antibiotics) General Stated Complaint: GenMedical ALEENA: 3 Review of Systems Constitutional Constitutional: Reports fatigue, Denies fever(s), Reports headache(s) and Reports weakness (Generalized) Eyes Eyes: Denies change in vision ENT Ears, Nose, Mouth, and Throat: Reports headache(s) and Denies neck pain Cardiovascular Cardiovascular: Denies chest pain and Denies dyspnea Respiratory Respiratory: Reports cough (Chronic) and Denies dyspnea Gastrointestinal Gastrointestinal: Denies abdominal pain, Denies nausea and Denies vomiting Genitourinary Genitourinary: Denies dysuria Musculoskeletal Musculoskeletal: Denies back pain, Denies neck pain, Denies numbness and Denies tingling Integumentary/Breasts Skin/Breast: Reports rash (Chronic eczema) Neurologic Neurologic: Reports headache(s), Denies numbness, Denies tingling and Reports weakness (Generalized) Endocrine Endocrine: Reports fatigue Hematologic/Lymphatic Hematologic/Lymphatic: Denies easy bleeding and Denies easy bruising [facility] Medical History (Updated 07/29/20 @ 14:51 by IVET Hutton) Alcohol abuse Alcohol withdrawal seizure BPH (benign prostatic hyperplasia) COPD (chronic obstructive pulmonary disease) Depression HTN (hypertension) Hx of angioedema Unknown allergic rxn 07/25/18 requiring endotracheal intubation and transfer to [facility] for further treatment. Left knee pain Normal colonoscopy 09/26/18 Dr Acosta, [facility], normal, repeat 10 years. Surgical History H/O hernia repair Social History Smoking/Tobacco Use Status: Current every day Tobacco Type: cigarettes Years smoked: 40 Smoking risk assessment performed?: Yes Alcohol Intake: current Alcohol Intake frequency: 3 or more drinks per day Alcohol type: hard liquor Drug use: Never Substance use type: does not use Do you feel safe at home: Yes (Suicidal) Do you feel safe in your relationship?: Yes Exam Const General: cooperative, disheveled and other (Other than stated age) Orientation: alert, awake, oriented to person and oriented to place [facility] Head: normal to inspection, normocephalic and atraumatic Mouth: moist mucous membranes abnormal (Dry) Eyes Conjunctivae: conjunctivae normal Sclera: sclerae normal Neck Neck: normal visual inspection, full ROM, trachea midline and supple Resp Effort & Inspection: normal respiratory effort and able to speak in complete sentences Auscultation: clear to auscultation bilaterally Cardio Rate: tachycardic (104) Rhythm: regular rhythm GI Palpation: soft and nontender Back/Spine/Pelvis Back: No back tenderness Neuro General: patient alert, patient awake, oriented Patient Orientation: Person and Place, moves all extremities, no focal motor deficits and other (Tremulous) Cognition: normal cognition Speech: speech normal Motor: muscle tone normal throughout Sensory Exam: no sensory deficits noted Psych Appearance: grossly normal Mental Status: mental status grossly normal Course Vital Signs Vital signs: Vital Signs Temperature 36.7 C 07/29/20 11:47 Pulse 103 H 07/29/20 11:47 Respiratory Rate 20 07/29/20 11:47 Blood Pressure 167/124 H 07/29/20 11:47 Pulse Oximetry 95 07/29/20 11:47 Temperature 36.7 C 07/29/20 11:47 Temperature Source Temporal Artery Scan 07/29/20 11:47 Pulse 103 H 07/29/20 11:47 Respiratory Rate 18 07/29/20 11:52 Respiratory Effort 07/29/20 11:52 Respiratory Depth Normal 07/29/20 11:52 Respiratory Pattern Normal 07/29/20 11:52 Blood Pressure 167/124 H 07/29/20 11:47 Blood Pressure Position Sitting 07/29/20 11:47 Pulse Oximetry 95 07/29/20 11:47 Oxygen Delivery Method Room Air 07/29/20 11:47 Oxygen Flow Rate 0 07/29/20 11:47 Pain Level 5 07/29/20 11:47 Critical Care Time Critical Care Time Critical Care Time: Yes Total Critical Care Time: 35 Attestation: Upon my evaluation, this patient had a high probability of clinically significant, life-threatening deterioration due to their current medical conditions, which required my direct attention, intervention, and personal management. I have personally provided greater than 30 minutes of critical care time exclusive of the time spend on separately billable procedures. Time includes obtaining a history, examining the patient, pulse oximetry, review of laboratory data, radiology results, discussion with consultants, arranging urgent treatment with development of a management plan, evaluation of patient's response to treatment, and monitoring for potential decompensation. Interventions were performed as documented above.
[2020-07-29 12:29] LABS: Abs Immature Grans 0.05 10^3/uL (0.0-0.06); Absolute Basophil Count 0.05 10^3/uL (0.0-0.2); Absolute Lymphocyte Count 0.42 10^3/uL (1.2-3.4); Absolute Monocyte Count 0.44 10^3/uL (0.1-0.8); Basophils % 1.3; HCT 36.3 % (40.0-50.0); HGB 12.3 g/dL (13.5-17.5); Immature Grans % 1.3; Lymphocytes % 10.6; MCHC 33.9 % (32.0-36.0); MCV 106.1 fL (80-95); MPV 10.7 fL (8.0-11.0); Monocytes % 11.1; Neutrophils % 75.7; Nucleated RBC 0 %; RBC 3.42 10^6/uL (4.36-5.78); RDW 14.5 % (11.8-14.1); RDW-SD 56.7 fL; WBC 3.98 10^3/uL (4.4-10.8)
[2020-07-29 12:38] LABS: Lipase 206 U/L (73-393)
[2020-07-29 12:42] LABS: INR 1.1 (0.9-1.1); PTT Activated 22.1 sec (21.0-27.5)
[2020-07-29 12:43] LABS: ALT 37 U/L (16-63); AST 130 U/L (15-37); Albumin 3.7 g/dL (3.4-5.0); Alkaline Phosphatase 97 U/L (46-116); Anion Gap 16.9 mmol/L (3-11); BUN 7 mg/dL (7-18); Bilirubin, Total 2.4 mg/dL (0.2-1.0); CO2 26.1 mmol/L (21.0-32.0); CREATININE 1.3 mg/dL (0.70-1.30); Calcium 8.9 mg/dL (8.5-10.1); Chloride 95 mmol/L (98-107); Estimated GFR 55.58 (mL/min/1.73m2); Glucose 184 mg/dL (74-106); Potassium 3.3 mmol/L (3.5-5.1); Sodium 138 mmol/L (136-145); Total Protein 7.7 g/dL (6.4-8.2); Troponin I < 0.05 ng/mL (<0.06)
[2020-07-29 12:45] LABS: Source Nasopharynx
[2020-07-29] MEDS: LORazepam 2 MG/ML VIAL IVP ×2 (12:46→14:47)
[2020-07-29 12:47] LABS: Absolute Neutrophil Count 3.01 10^3/uL (1.2-6.7)
[2020-07-29 12:50] LABS: Magnesium 0.7 mg/dL (1.8-2.4)
[2020-07-29 12:53] LABS: Platelet Count 67 10^3/uL (130-400)
[2020-07-29 12:57] LABS: Diff Comment RBC Morph Reviewed; Macrocytosis 2+
[2020-07-29] MEDS: MAGNESIUM SULFATE 2 GM/50 ML BAG IVPB (13:00)
--- NOTE | 2020-07-29 13:08 | NUR.NOTE ---
Nursing Note: patient o2 sat 90 % RA 2LPM nc applied will inform provider.
[2020-07-29 13:26] LABS: Bilirubin Small (Negative); Blood Small (Negative); Clarity Clear (Clear); Glucose 100 mg/dL (Negative); Ketones 15 mg/dL (Negative); Leukocyte Esterase Negative (Negative); Nitrite Negative (Negative); Specific Gravity >= 1.030 (1.005-1.025)
[2020-07-29 13:26] LABS: COVID-19 PCR Negative (Negative); Influenza A PCR Negative (Negative); Influenza B PCR Negative (Negative); RSV PCR Negative (Negative)
[2020-07-29 13:55] LABS: Bacteria Few HPF (Negative); C & S Indicated? No; Casts 10-20 Hyaline LPF (Negative); Crystals Negative HPF (Negative); Epithelial Cells Negative HPF (Negative); Mucus Trace (Negative); RBC 0-2 HPF (0-2)
[2020-07-29] MEDS: MAGNESIUM SULFATE 8.12 MEQ, MULTIVITAMIN 10 ML, THIAMINE 100 MG, FOLIC ACID 1 MG in Nor... 168.867 MG IV (14:56)
--- NOTE | 2020-07-29 15:00 | RT.EKG_ITS ---
APPROVED REPORT Exam: Resting ECG Patient Location: E HR:84 bpm ECG Measurements Heart Rate 84 AXIS FL 168 P 76 QRSd 93 QRS 43 QT 406 T 28 QTc 481 Conclusion Sinus rhythm Anterosepta q waves, T neg, V1-V2
[2020-07-29 15:12] LABS: ETHANOL BLOOD < 3.0 mg/dL (<3)
[2020-07-29 15:53] LABS: Troponin I < 0.05 ng/mL (<0.06)
--- NOTE | 2020-07-29 16:42 | HPE_ITS ---
Date of service: 07/29/20 Time of Service: 16:42 Assessment and Plan Assessment and plan (1) Alcohol withdrawal: Status: Acute Assessment and plan: Admit to ICU with phenobarbital as needed for withdrawal, banana bag, cardiac monitoring, and electrolyte repletion (2) Hypomagnesemia: Status: Acute Assessment and plan: Replete, recheck in am (3) Hypokalemia: Status: Acute Assessment and plan: Replete, recheck in am (4) Rash: Status: Acute Assessment and plan: Consider dermatology consult Did have recent exposure to cold/hypothermia (5) Pancytopenia: Status: Acute Assessment and plan: Chronic. Check B12/folate levels. (6) COVID-19 ruled out: Status: Ruled-out (7) DVT prophylaxis: Status: Acute Assessment and plan: TEDs/SCDs. Chemical DVT ppx is contraindicated in this case due to thrombocytopenia (8) Discharge planning issues: Status: Acute Assessment and plan: Full code Admit to ICU. Total Critical Care Time 45 minutes. History of Present Illness History of Present Illness Chief Complaint: alcohol withdrawal Narrative: Mr Tsai is a 64 year old male with PMHx of alcohol abuse and alcohol withdrawal seizures, as well as h/o pancytopenia, who was seen in the ED yesterday for hypothermia and discharged to a homeless fpc, from which he was taken to [facility] ED today with severe alcohol withdrawal. His CIWA score in the ED was 18. He received 4 mg of IV ativan. Hospitalists were asked to take over care. The patient states he is feeling better now. HE has a cough, complains of slight shortness of breath (in general, he gets short of breath sometimes), denies dizziness, chest pain, endorses chronic cough, denies nausea. He is A&Ox2. Review of Systems All systems reviewed & are unremarkable except as noted in HPI and below [facility] Medical History (Updated 07/29/20 @ 19:52 by Lorraine Delacruz MD) Alcohol abuse Alcohol withdrawal seizure BPH (benign prostatic hyperplasia) COPD (chronic obstructive pulmonary disease) Depression HTN (hypertension) Hx of angioedema Unknown allergic rxn 07/25/18 requiring endotracheal intubation and transfer to [facility] for further treatment. Left knee pain Normal colonoscopy 09/26/18 Dr Acosta, [facility], normal, repeat 10 years. Surgical History H/O hernia repair Social History Smoking/Tobacco Use Status: Current every day Tobacco Type: cigarettes Years smoked: 40 Smoking risk assessment performed?: Yes Alcohol Intake: current Alcohol Intake frequency: 3 or more drinks per day Alcohol type: hard liquor Drug use: Never Substance use type: does not use Do you feel safe at home: Yes (Suicidal) Do you feel safe in your relationship?: Yes Meds Home Medications and Allergies Home Medications Medication Instructions Recorded Confirmed Type albuterol sulfate 90 mcg/actuation 2 puff IH Q6H PRN 09/03/18 07/29/20 History aerosol inhaler fluticasone propionate 50 1 spray CRISTIANA DAILY 09/03/18 07/29/20 History mcg/actuation nasal spray,suspension tamsulosin 0.4 mg capsule 0.4 mg PO DAILY 09/03/18 07/29/20 History thiamine HCl (vitamin B1) 100 mg 100 mg PO DAILY 09/03/18 07/29/20 History tablet cetirizine 10 mg PO DAILY 07/08/19 07/29/20 History fluticasone propion-salmeterol 1 puff INHALATION BID 07/08/19 07/29/20 History [AirDuo RespiClick] citalopram [Celexa] 20 mg PO DAILY 10/13/19 07/29/20 History Therems-M 1 tab PO DAILY #0 tab 10/15/19 07/29/20 Rx magnesium oxide 400 mg PO BID #0 tab 10/15/19 07/29/20 Rx omeprazole 40 mg PO DAILY #30 cap 12/26/19 07/29/20 Rx Allergies Allergy/AdvReac Type Severity Reaction Status Date / Time lisinopril Allergy Severe Swelling/Ed Unverified 07/29/20 11:52 pastor Penicillins Allergy pt unsure Unverified 07/29/20 11:52 happened in childhood ? Rash, hives Sulfa (Sulfonamide AdvReac Skin Rash Unverified 07/29/20 11:52 Antibiotics) Exam Narrative Exam Narrative: General: Middle-aged male who looks older than his age, with purplish dry skin on his face, neck, and upper torso, A&Ox2, awake, but somnolent, tremulous Neurological: A&Ox2, no focal deficits, tremulous Psychiatric: Flat affect; difficult to fully assess due to mental status Skin: Multiple erythematous skin patches and skin tears HEENT: Atraumatic, normocephalic, EOMI, dry MM, on goiter or JVD, no lymphadenopathy Cardiovascular: RRR, tachycardic Lungs: CTAB Gastrointestinal: soft, nontender, nondistended Genitourinary: deferred Extremities: no edema BLEs Results Imaging Additional studies: CXR: No acute pulmonary findings. EKG #1: NSR, HR 88, artifact, Prolonged QTc (509 ms) EKG #2: NSR, HR 84, no acute ischemia, QTc 481 Labs Result diagrams: 07/29/20 12:05 07/29/20 12:05 Labs: Laboratory Results - last 24 hr 07/29/20 07/29/20 07/29/20 12:05 12:05 12:05 WBC RBC Hgb Hct MCV MCH MCHC RDW Plt Count MPV Immature Gran % Neutrophils % Lymphocytes % Monocytes % Eosinophils % Basophils % Nucleated RBC % Absolute Neutrophils Absolute Lymphocytes Absolute Monocytes Absolute Eosinophils Absolute Basophils RBC Morphology Macrocytosis PT 11.0 INR 1.1 APTT 22.1 Sodium 138 Potassium 3.3 L Chloride 95 L Carbon Dioxide 26.1 Anion Gap 16.9 H BUN 7 Creatinine 1.3 Estimated GFR/1.73 m2 55.58 Glucose 184 H D Calcium 8.9 Magnesium 0.7 L Total Bilirubin 2.4 H AST 130 H ALT 37 Alkaline Phosphatase 97 Troponin I < 0.05 Total Protein 7.7 Albumin 3.7 Lipase 206 Urine Color Urine Clarity Urine pH Ur Specific [place] Urine Protein Urine Ketones Urine Blood Urine Nitrite Urine Bilirubin Urine Urobilinogen Ur Leukocyte Esterase Urine RBC Urine WBC Ur Epithelial Cells Urine Crystals Urine Bacteria Urine Casts Urine Mucus Ur Culture Indicated? Urine Glucose Ethyl Alcohol COVID-19 Source SARS-CoV-2 (PCR) Influenza Type A (PCR) Influenza Type B (PCR) RSV (PCR) 07/29/20 07/29/20 07/29/20 12:05 12:30 13:05 WBC 3.98 L D RBC 3.42 L Hgb 12.3 L Hct 36.3 L MCV 106.1 H MCH 36.0 H MCHC 33.9 RDW 14.5 H Plt Count 67 L MPV 10.7 Immature Gran % 1.3 Neutrophils % 75.7 Lymphocytes % 10.6 Monocytes % 11.1 Eosinophils % 0.0 Basophils % 1.3 Nucleated RBC % 0 Absolute Neutrophils 3.01 Absolute Lymphocytes 0.42 L Absolute Monocytes 0.44 Absolute Eosinophils 0.00 Absolute Basophils 0.05 RBC Morphology See below Macrocytosis 2+ PT INR APTT Sodium Potassium Chloride Carbon Dioxide Anion Gap BUN Creatinine Estimated GFR/1.73 m2 Glucose Calcium Magnesium Total Bilirubin AST ALT Alkaline Phosphatase Troponin I Total Protein Albumin Lipase Urine Color Yellow Urine Clarity Clear Urine pH 7.0 Ur Specific [place] >= 1.030 H Urine Protein 100 H Urine Ketones 15 H Urine Blood Small H Urine Nitrite Negative Urine Bilirubin Small H Urine Urobilinogen 2.0 H Ur Leukocyte Esterase Negative Urine RBC 0-2 Urine WBC 3-5 Ur Epithelial Cells Negative Urine Crystals Negative Urine Bacteria Few Urine Casts 10-20 hyaline Urine Mucus Trace Ur Culture Indicated? No Urine Glucose 100 Ethyl Alcohol COVID-19 Source Nasopharynx SARS-CoV-2 (PCR) Negative Influenza Type A (PCR) Negative Influenza Type B (PCR) Negative RSV (PCR) Negative 07/29/20 07/29/20 14:46 14:46 WBC RBC Hgb Hct MCV MCH MCHC RDW Plt Count MPV Immature Gran % Neutrophils % Lymphocytes % Monocytes % Eosinophils % Basophils % Nucleated RBC % Absolute Neutrophils Absolute Lymphocytes Absolute Monocytes Absolute Eosinophils Absolute Basophils RBC Morphology Macrocytosis PT INR APTT Sodium Potassium Chloride Carbon Dioxide Anion Gap BUN Creatinine Estimated GFR/1.73 m2 Glucose Calcium Magnesium Total Bilirubin AST ALT Alkaline Phosphatase Troponin I < 0.05 Total Protein Albumin Lipase Urine Color Urine Clarity Urine pH Ur Specific [place] Urine Protein Urine Ketones Urine Blood Urine Nitrite Urine Bilirubin Urine Urobilinogen Ur Leukocyte Esterase Urine RBC Urine WBC Ur Epithelial Cells Urine Crystals Urine Bacteria Urine Casts Urine Mucus Ur Culture Indicated? Urine Glucose Ethyl Alcohol < 3.0 COVID-19 Source SARS-CoV-2 (PCR) Influenza Type A (PCR) Influenza Type B (PCR) RSV (PCR) Last Vital Signs Temp 36.7 C 07/29/20 11:47 Pulse 86 07/29/20 15:46 Resp 23 07/29/20 16:01 BP 159/94 H 07/29/20 16:01 Pulse Ox 95 07/29/20 15:40 COVID-19 Screening Have you, or household traveled for leisure in last 14 days?: No Had IN PERSON contact w/suspected or confirmed C-19 person: No
[2020-07-29 17:13] LABS: D-Dimer 4231 ng/mlFEU (<500)
[2020-07-29] MEDS: THIAMINE 100 MG in Normal Saline 100 ML 200 MG IVPB (17:29)
[2020-07-29 17:38] LABS: C-Reactive Protein 0.07 mg/dL (0.0-0.3); Ferritin 475 ng/mL (26-388)
[2020-07-29 18:56] LABS: Procalcitonin < 0.1 ng/mL
[2020-07-29] MEDS: PHENobarbital 130 MG/ML VIAL IVP (19:15)
[2020-07-29] MEDS: Ciprofloxacin 0.3% 2.5 ML BTL OU ×2 (19:15→22:59)
[2020-07-29] MEDS: POTASSIUM CHLORIDE/0.9% NACL 1,000 ML 150 MEQ IV (21:56)
[2020-07-30] VITALS (46 sets, daily range): BP systolic 124–169; BP diastolic 59–94; PULSE 57–97; RESP 12–24; TEMP 36.3–37.4; O2SAT 90–100
[2020-07-30] MEDS: Ciprofloxacin 0.3% 2.5 ML BTL OU ×6 (02:25→23:49)
[2020-07-30] MEDS: PHENobarbital 130 MG/ML VIAL IVP ×9 (02:27→19:40)
[2020-07-30] MEDS: POTASSIUM CHLORIDE/0.9% NACL 1,000 ML 150 MEQ IV (04:15)
[2020-07-30 06:58] LABS: Abs Immature Grans 0.03 10^3/uL (0.0-0.06); Absolute Basophil Count 0.02 10^3/uL (0.0-0.2); Absolute Eosinophil Count 0.07 10^3/uL (0.0-0.7); Absolute Lymphocyte Count 0.55 10^3/uL (1.2-3.4); Absolute Monocyte Count 0.54 10^3/uL (0.1-0.8); Basophils % 0.5; Eosinophils % 1.7; HGB 11.1 g/dL (13.5-17.5); Immature Grans % 0.7; Lymphocytes % 13.4; MCH 36.9 pg (27.0-33.0); MCHC 34.7 % (32.0-36.0); MCV 106.3 fL (80-95); MPV 11.1 fL (8.0-11.0); Monocytes % 13.1; Neutrophils % 70.6; Nucleated RBC 0 %; RBC 3.01 10^6/uL (4.36-5.78); RDW 14.4 % (11.8-14.1); RDW-SD 55.8 fL; WBC 4.11 10^3/uL (4.4-10.8)
[2020-07-30 07:16] LABS: Iron 83 ug/dL (65-175); Total Iron Binding Capacity 215 ug/dL (250-450); Transferrin Sat 39 % (20-55)
[2020-07-30 07:28] LABS: ALT 29 U/L (16-63); AST 90 U/L (15-37); Albumin 3.1 g/dL (3.4-5.0); Alkaline Phosphatase 76 U/L (46-116); Anion Gap 11.2 mmol/L (3-11); BUN 9 mg/dL (7-18); Bilirubin, Total 1.9 mg/dL (0.2-1.0); CO2 29.8 mmol/L (21.0-32.0); CREATININE 0.8 mg/dL (0.70-1.30); Calcium 7.6 mg/dL (8.5-10.1); Chloride 99 mmol/L (98-107); Glucose 74 mg/dL (74-106); Potassium 3.3 mmol/L (3.5-5.1); Sodium 140 mmol/L (136-145); Total Protein 6.1 g/dL (6.4-8.2)
[2020-07-30 07:29] LABS: Diff Comment PLT Morph Reviewed; Macrocytosis 1+; Platelet Count 48 10^3/uL (130-400)
[2020-07-30 07:36] LABS: Magnesium 1.1 mg/dL (1.8-2.4); Vitamin B12 575 pg/mL (193-986)
--- NOTE | 2020-07-30 08:00 | RT.EKG_ITS ---
APPROVED REPORT Exam: Resting ECG Patient Location: I HR:63 bpm ECG Measurements Heart Rate 63 AXIS TN 161 P 73 QRSd 94 QRS 47 QT 471 T 38 QTc 482 Conclusion Sinus rhythm...normal P axis, V-rate 60- 99 Anteroseptal infarct, age indeterminate...Q >35mS, T neg, V1-V2
[2020-07-30] MEDS: Magnesium Oxide 400 MG TAB 800 MG PO ×2 (08:57→19:49)
[2020-07-30] MEDS: Potassium Chloride Liquid 20 MEQ PKT 40 MEQ PO (08:58)
[2020-07-30] MEDS: MAGNESIUM SULFATE 4 GM/100 ML BAG IVPB (09:00)
[2020-07-30 09:11] LABS: Troponin I < 0.05 ng/mL (<0.06)
--- NOTE | 2020-07-30 09:41 | INITIAL_ITS ---
- If Service Date Differs Date of service: 07/30/20 Time of Service: 14:22 Care Management Initial Assess REASON FOR HOSPITALIZATION:: Alcohol withdrawal, hypomagnesemia PAST MEDICAL HISTORY/PAST SURGICAL HISTORY:: Alcohol use disorder, alcohol withdrawal seizure, BPH, COPD, depression, HTN, angioedema, left knee pain, pancytopenia, thrombocytopenia, DVT prophylaxis, normal colonoscopy, hernia repair PREVIOUS FUNCTIONAL STATUS/SOCIAL/FAMILY SUPPORTS:: South reports residing in [place], [place] though states he is currently homeless. He shares that he has previously stayed in a longterm in [place], [place], but not in [place]. He reports he has not been out in the cold but does not share where he has been staying. South drinks heavily and presents to the ED and crisis services often. [facility] reports often, he is sent to the drunk tank to sober off. Reportedly his SI is central to intoxication and he does not express SI when sober. South is independent in the community but suffering from severe alcoholism which creates barriers to care and successful intervention. CURRENT FUNCTIONAL STATUS:: South is sitting up in his chair. His affect is diminished but he makes appropriate eye contact and answers questions or does not reply. He requests support in finding longterm upon discharge as he states he is currently homeless. ADVANCE DIRECTIVES:: None on file at [facility]. Has patient been provided with info about the portal/API?: Yes Did the patient sign up for the portal?: No CODE STATUS:: Full Code INSURANCE COVERAGE / FINANCIAL ISSUES:: Medicaid CURRENT HOME/COMMUNITY SERVICES/EQUIPMENT:: Last September, this teletypewriter operator coordinated South's discharge to [facility] and connected him with a lean coach. At this time, South is only interested in seeking longterm-CM will continue to offer resources for support. PRIMARY CARE PHYSICIAN:: Mounika Heard POTENTIAL DISCHARGE NEEDS:: Review of community based supports, [place] services, housing assistance; 211 and supporting coordination of South being sheltered upon discharge-possibly through [facility] as they did longterm him upon discharge from the ED on 07/28/20. PATIENT/FAMILY EDUCATION NEEDS:: Review discharge instructions, discuss Ask Me [employer]. ANTICIPATED BARRIERS TO DISCHARGE:: None identified. TRANSPORTATION:: Via [facility]. PLAN:: South will discharge when ready per MD. He will follow up with his PCP and plan of care as prescribed. CM will support South in securing longterm through 211 when medically cleared. Anticipate he will transport via [facility], coordinated by NORMA.
[2020-07-30 10:08] LABS: Bilirubin, Direct 0.51 mg/dL (0.00-0.20)
[2020-07-30] MEDS: POTASSIUM CHLORIDE/0.9% NACL 1,000 ML 75 MEQ IV (11:34)
--- NOTE | 2020-07-30 12:48 | W.PM.PROGNOT ---
Date of Service Date of service: 07/30/20 Time of Service: 12:48 Assessment and Plan Assessment and plan (1) Alcohol withdrawal: Status: Acute Assessment and plan: Continue IV and oral replacement potassium and magnesium. Continue with use of phenobarbital either parenteral or oral on a as needed basis for acute alcohol withdrawal symptoms. We will give him a one-time loading dose of 500 mg of phenobarbital to get his levels up to therapeutic to prevent acute alcohol withdrawal seizures. We will change the banana bag over to oral thiamine and folic acid and multivitamin. Discontinue IV fluids and advance his diet to a regular diet. He has no acute withdrawal symptoms today he can be transferred over to the medical/surgical floor and we can continue use of oral phenobarbital on as-needed basis. Qualifiers: Complication of substance-induced condition: uncomplicated Qualified Code(s): F10.230 - Alcohol dependence with withdrawal, uncomplicated (2) Hypomagnesemia: Status: Acute Assessment and plan: Replete, recheck in am (3) Hypokalemia: Status: Acute Assessment and plan: Replete, recheck in am (4) Pancytopenia: Status: Acute Assessment and plan: Chronic. Check B12/folate levels. (5) DVT prophylaxis: Status: Acute Assessment and plan: TEDs/SCDs. Chemical DVT ppx is contraindicated in this case due to thrombocytopenia (6) Discharge planning issues: Status: Acute Assessment and plan: Full code Admit to ICU. Total Critical Care Time 45 minutes. Subjective Subjective Interval history since last seen: Patient denies any nausea or vomiting in fact he states he is hungry and would like something more than clear liquids. Denies any hallucinations. He knows he is in the hospital in [facility] knows the month and the year and otherwise is acting quite appropriately. CIWA scores have ranged between 4 and 12 today. Does have phenobarbital ordered on a as needed basis. At 130 mg - 260 mg IV every 30 minutes as needed moderate to severe alcohol withdrawal symptoms. So far appears that he is only received 3 doses of 130 mg. Given his history of alcohol withdrawal seizures I will give a one-time bolus of 500 mg IV which should get his total dose today up to 890 mg which would be equivalent to 10 mg/kg loading dose. Hopefully at this dosage should prevent him from going through alcohol withdrawal seizures. Does complain of itching of his skin but I think this is not to do any somatic symptoms from his withdrawal but secondary to dry skin and psoriasis. He has a number of psoriatic plaques over his skin and says he uses a lotion at home but cannot recall the name of it. I did not see any topical ointments on his home medication list. I will put him on Kenalog ointment and give him Benadryl on an as-needed basis for the itching. Currently is in ICU patient and because of requiring IV phenobarbital he will remain in the ICU for now. If he remains calm and shows no signs of severe withdrawal symptoms he could be moved to medical/surgical floor and further dose of phenobarbital can be given orally. His calculated maximal absolute dosing of phenobarbital is 2670 mg. This would be equivalent to 30 mg/kg. However I think a softer stop would be at 20 mg/kg which would be 1780 mg. Exam Narrative Exam Narrative: Alert and oriented x3. Acting appropriately. HEENT is remarkable for blepharitis Skin is dry with multiple psoriatic patches over his arms and his back. Heart regular rate and rhythm Lungs are clear to auscultation Abdomen soft and nontender Neuro exam grossly intact he does have a tremor both hands particularly with intention. However tremors also noticeable at rest with static holding of his hands in the air. Objective Last Vital Signs Temp 37.4 C 07/30/20 04:05 Pulse 71 07/30/20 11:12 Resp 19 07/30/20 11:30 BP 152/89 H 07/30/20 11:12 Pulse Ox 96 07/30/20 11:12 Laboratory Results - last 24 hr 07/29/20 07/29/20 07/29/20 12:05 12:05 12:05 WBC 3.98 L D RBC 3.42 L Hgb 12.3 L Hct 36.3 L MCV 106.1 H MCH 36.0 H MCHC 33.9 RDW 14.5 H Plt Count 67 L MPV 10.7 Immature Gran % 1.3 Neutrophils % 75.7 Lymphocytes % 10.6 Monocytes % 11.1 Eosinophils % 0.0 Basophils % 1.3 Nucleated RBC % 0 Absolute Neutrophils 3.01 Absolute Lymphocytes 0.42 L Absolute Monocytes 0.44 Absolute Eosinophils 0.00 Absolute Basophils 0.05 RBC Morphology See below Macrocytosis 2+ PT 11.0 INR 1.1 APTT 22.1 D-Dimer Sodium 138 Potassium 3.3 L Chloride 95 L Carbon Dioxide 26.1 Anion Gap 16.9 H BUN 7 Creatinine 1.3 Estimated GFR/1.73 m2 55.58 Glucose 184 H D Calcium 8.9 Magnesium 0.7 L Iron TIBC Transferrin % Sat Ferritin Total Bilirubin 2.4 H Conjugated Bilirubin AST 130 H ALT 37 Alkaline Phosphatase 97 Troponin I < 0.05 C-Reactive Protein Total Protein 7.7 Albumin 3.7 Vitamin B12 Folate Procalcitonin Urine Color Urine Clarity Urine pH Ur Specific Gilchrist Urine Protein Urine Ketones Urine Blood Urine Nitrite Urine Bilirubin Urine Urobilinogen Ur Leukocyte Esterase Urine RBC Urine WBC Ur Epithelial Cells Urine Crystals Urine Bacteria Urine Casts Urine Mucus Ur Culture Indicated? Urine Glucose Ethyl Alcohol COVID-19 Source SARS-CoV-2 (PCR) Influenza Type A (PCR) Influenza Type B (PCR) RSV (PCR) 07/29/20 07/29/20 07/29/20 12:05 12:30 13:05 WBC RBC Hgb Hct MCV MCH MCHC RDW Plt Count MPV Immature Gran % Neutrophils % Lymphocytes % Monocytes % Eosinophils % Basophils % Nucleated RBC % Absolute Neutrophils Absolute Lymphocytes Absolute Monocytes Absolute Eosinophils Absolute Basophils RBC Morphology Macrocytosis PT INR APTT D-Dimer 4231 H Sodium Potassium Chloride Carbon Dioxide Anion Gap BUN Creatinine Estimated GFR/1.73 m2 Glucose Calcium Magnesium Iron TIBC Transferrin % Sat Ferritin Total Bilirubin Conjugated Bilirubin AST ALT Alkaline Phosphatase Troponin I C-Reactive Protein Total Protein Albumin Vitamin B12 Folate Procalcitonin Urine Color Yellow Urine Clarity Clear Urine pH 7.0 Ur Specific Gilchrist >= 1.030 H Urine Protein 100 H Urine Ketones 15 H Urine Blood Small H Urine Nitrite Negative Urine Bilirubin Small H Urine Urobilinogen 2.0 H Ur Leukocyte Esterase Negative Urine RBC 0-2 Urine WBC 3-5 Ur Epithelial Cells Negative Urine Crystals Negative Urine Bacteria Few Urine Casts 10-20 hyaline Urine Mucus Trace Ur Culture Indicated? No Urine Glucose 100 Ethyl Alcohol COVID-19 Source Nasopharynx SARS-CoV-2 (PCR) Negative Influenza Type A (PCR) Negative Influenza Type B (PCR) Negative RSV (PCR) Negative 07/29/20 07/29/20 07/29/20 14:46 14:46 14:46 WBC RBC Hgb Hct MCV MCH MCHC RDW Plt Count MPV Immature Gran % Neutrophils % Lymphocytes % Monocytes % Eosinophils % Basophils % Nucleated RBC % Absolute Neutrophils Absolute Lymphocytes Absolute Monocytes Absolute Eosinophils Absolute Basophils RBC Morphology Macrocytosis PT INR APTT D-Dimer Sodium Potassium Chloride Carbon Dioxide Anion Gap BUN Creatinine Estimated GFR/1.73 m2 Glucose Calcium Magnesium Iron TIBC Transferrin % Sat Ferritin 475 H Total Bilirubin Conjugated Bilirubin AST ALT Alkaline Phosphatase Troponin I < 0.05 C-Reactive Protein 0.07 Total Protein Albumin Vitamin B12 Folate Procalcitonin Urine Color Urine Clarity Urine pH Ur Specific Gilchrist Urine Protein Urine Ketones Urine Blood Urine Nitrite Urine Bilirubin Urine Urobilinogen Ur Leukocyte Esterase Urine RBC Urine WBC Ur Epithelial Cells Urine Crystals Urine Bacteria Urine Casts Urine Mucus Ur Culture Indicated? Urine Glucose Ethyl Alcohol < 3.0 COVID-19 Source SARS-CoV-2 (PCR) Influenza Type A (PCR) Influenza Type B (PCR) RSV (PCR) 07/29/20 07/30/20 07/30/20 14:46 06:35 06:35 WBC RBC Hgb Hct MCV MCH MCHC RDW Plt Count MPV Immature Gran % Neutrophils % Lymphocytes % Monocytes % Eosinophils % Basophils % Nucleated RBC % Absolute Neutrophils Absolute Lymphocytes Absolute Monocytes Absolute Eosinophils Absolute Basophils RBC Morphology Macrocytosis PT INR APTT D-Dimer Sodium Potassium Chloride Carbon Dioxide Anion Gap BUN Creatinine Estimated GFR/1.73 m2 Glucose Calcium Magnesium 1.1 L Iron 83 TIBC 215 L Transferrin % Sat 39 Ferritin Total Bilirubin Conjugated Bilirubin AST ALT Alkaline Phosphatase Troponin I < 0.05 C-Reactive Protein Total Protein Albumin Vitamin B12 575 Folate 17.0 Procalcitonin < 0.1 Urine Color Urine Clarity Urine pH Ur Specific Gilchrist Urine Protein Urine Ketones Urine Blood Urine Nitrite Urine Bilirubin Urine Urobilinogen Ur Leukocyte Esterase Urine RBC Urine WBC Ur Epithelial Cells Urine Crystals Urine Bacteria Urine Casts Urine Mucus Ur Culture Indicated? Urine Glucose Ethyl Alcohol COVID-19 Source SARS-CoV-2 (PCR) Influenza Type A (PCR) Influenza Type B (PCR) RSV (PCR) 07/30/20 07/30/20 06:35 06:35 WBC 4.11 L RBC 3.01 L Hgb 11.1 L Hct 32.0 L MCV 106.3 H MCH 36.9 H MCHC 34.7 RDW 14.4 H Plt Count 48 L MPV 11.1 H Immature Gran % 0.7 Neutrophils % 70.6 Lymphocytes % 13.4 Monocytes % 13.1 Eosinophils % 1.7 Basophils % 0.5 Nucleated RBC % 0 Absolute Neutrophils 2.90 Absolute Lymphocytes 0.55 L Absolute Monocytes 0.54 Absolute Eosinophils 0.07 Absolute Basophils 0.02 RBC Morphology See below Macrocytosis 1+ PT INR APTT D-Dimer Sodium 140 Potassium 3.3 L Chloride 99 Carbon Dioxide 29.8 Anion Gap 11.2 H BUN 9 Creatinine 0.8 D Estimated GFR/1.73 m2 >= 60.00 Glucose 74 D Calcium 7.6 L Magnesium Iron TIBC Transferrin % Sat Ferritin Total Bilirubin 1.9 H Conjugated Bilirubin 0.51 H AST 90 H ALT 29 Alkaline Phosphatase 76 Troponin I C-Reactive Protein Total Protein 6.1 L Albumin 3.1 L Vitamin B12 Folate Procalcitonin Urine Color Urine Clarity Urine pH Ur Specific Gilchrist Urine Protein Urine Ketones Urine Blood Urine Nitrite Urine Bilirubin Urine Urobilinogen Ur Leukocyte Esterase Urine RBC Urine WBC Ur Epithelial Cells Urine Crystals Urine Bacteria Urine Casts Urine Mucus Ur Culture Indicated? Urine Glucose Ethyl Alcohol COVID-19 Source SARS-CoV-2 (PCR) Influenza Type A (PCR) Influenza Type B (PCR) RSV (PCR)
[2020-07-30] MEDS: Potassium Chloride Liquid 20 MEQ PKT PO ×2 (14:03→19:49)
[2020-07-30] MEDS: Tamsulosin 0.4 MG CAPCR PO (14:06)
[2020-07-30] MEDS: Omeprazole 20 MG CAPCR 40 MG PO (14:06)
[2020-07-30] MEDS: Citalopram 20 MG TAB PO (14:06)
[2020-07-30] MEDS: Triamcinolone 0.1% OINT 15 GM TUBE TP ×2 (14:09→19:50)
[2020-07-30] MEDS: PHENobarbital 130 MG/ML VIAL 500 MG IVP (14:24)
[2020-07-30] MEDS: Normal Saline Flush 10 ML SYR IVP (15:30)
[2020-07-30] MEDS: Acetaminophen 325 MG TAB PO (15:49)
[2020-07-30] MEDS: MAGNESIUM SULFATE 8.12 MEQ, MULTIVITAMIN 10 ML, THIAMINE 100 MG, FOLIC ACID 1 MG in Nor... 168.867 MG IV (15:50)
[2020-07-30] MEDS: diphenhydrAMINE 25 MG CAP PO (19:00)
--- NOTE | 2020-07-30 20:23 | NUR.NOTE ---
between 1900 and 193 pt grew increasingly agitated, attempting to push and swing at nurses. Refused to stay in bed despite being very unsteady on his feet. Pt received phenobarbital at 1910 with no effect. Saleem casey called around 1919 when he began yelling profanity and pushing nurses. ANother dose of phenobarbital give at 1939. Pt placed in soft limb restraints. Order for haldol give by . Pt is now laying in bed with lights off and tv off, he is still agitated and stiffening his arms against the restraints, but eyes are starting to close and the rest of his body is starting to relax. Will continue to monitor need for haldol. Nursing Note:
[2020-07-30] MEDS: Haloperidol 5 MG/ML VIAL 4 MG IM/IV (21:37)
[2020-07-31] VITALS (40 sets, daily range): BP systolic 130–158; BP diastolic 68–95; PULSE 66–122; RESP 14–23; TEMP 36.5–37.7; O2SAT 92–97
[2020-07-31] MEDS: Ciprofloxacin 0.3% 2.5 ML BTL OU ×3 (01:59→10:16)
[2020-07-31 06:44] LABS: HCT 30.7 % (40.0-50.0); HGB 10.8 g/dL (13.5-17.5); MCH 36.2 pg (27.0-33.0); MCHC 35.2 % (32.0-36.0); MPV 11.6 fL (8.0-11.0); RBC 2.98 10^6/uL (4.36-5.78); RDW 14.2 % (11.8-14.1); RDW-SD 53.7 fL
[2020-07-31 06:59] LABS: ALT 27 U/L (16-63); AST 80 U/L (15-37); Alkaline Phosphatase 75 U/L (46-116); Anion Gap 7.2 mmol/L (3-11); BUN 5 mg/dL (7-18); Bilirubin, Total 1.6 mg/dL (0.2-1.0); CO2 28.8 mmol/L (21.0-32.0); CREATININE 0.7 mg/dL (0.70-1.30); Calcium 7.8 mg/dL (8.5-10.1); Chloride 100 mmol/L (98-107); Glucose 92 mg/dL (74-106); Magnesium 1.5 mg/dL (1.8-2.4); Potassium 3.4 mmol/L (3.5-5.1); Sodium 136 mmol/L (136-145); Total Protein 6.4 g/dL (6.4-8.2)
[2020-07-31 07:22] LABS: Platelet Count 47 10^3/uL (130-400)
[2020-07-31] MEDS: Potassium Chloride Liquid 20 MEQ PKT PO ×2 (08:19→21:18)
[2020-07-31] MEDS: Tamsulosin 0.4 MG CAPCR PO (08:20)
[2020-07-31] MEDS: Escitalopram 10 MG TAB PO (08:20)
[2020-07-31] MEDS: Omeprazole 20 MG CAPCR 40 MG PO (08:20)
[2020-07-31] MEDS: Multivitamin TAB 1 TAB PO (08:20)
[2020-07-31] MEDS: Magnesium Oxide 400 MG TAB 800 MG PO ×2 (08:21→21:18)
[2020-07-31] MEDS: Folic Acid 1 MG TAB PO (08:21)
[2020-07-31] MEDS: Thiamine 100 MG TAB PO (08:22)
[2020-07-31] MEDS: Fluticasone NASAL SPRAY 16 GM BTL NS (08:22)
[2020-07-31] MEDS: Triamcinolone 0.1% OINT 15 GM TUBE TP ×3 (08:23→21:17)
[2020-07-31] MEDS: Budesonide/Formoterol 160/4.5 6 GM 60 PUFF INH IH ×2 (08:53→21:16)
--- NOTE | 2020-07-31 10:24 | IN_ITS ---
Date of service: 07/31/20 Time of Service: 09:17 PT Notes Visit Reasons: ALCOHOL WITHDRAWAL, HYPOMAGNESEMIA Inpatient Physical Therapy Evaluation Date: 07/31/20 Referring Doctor: Earnest Najera MD PT Orders: PT CONSULT: Limited Ability Precautions: Standard, Fall Patient Profile/Admitting Diagnosis: South is a 64 yo male brought to ER on 07/28/20 for alcohol intoxication and was discharged the same day. He returned to the ER on 05/28/21 for alcohol withdrawal and was admitted as inpatient. PMHX: Alcohol abuse, Alcohol withdrawal seizure, BPH (benign prostatic hyperplasia), COPD (chronic obstructive pulmonary disease), Depression, HTN (hypertension), Hx of angioedema, Unknown allergic rxn 07/25/18 requiring endotracheal intubation and transfer to [facility] for further treatment, Left knee pain, Normal colonoscopy, H/O hernia repair Social History/Home Situation: Currently homeless Current Functional Limitations: Decreased mobility, coordination, balance, and decision making Equipment Owned/DME: None Subjective: Cleared by nursing to see patient and he is agreeable to PT. Patient sitting up in chair at time of consult and connected to telemetry. Objective: General Observation: Patient is sitting up in chair, poor coordination, delayed response time Pain: Denies pain ROM: Right Upper Extremity:R UE ROM Within functional limits Left Upper Extremity: L UE ROM Within functional limits Right Lower Extremity: R LE ROM Within functional limits Left Lower Extremity: L LE ROM Within functional limits Strength: Right Upper Extremity: Grossly 5/5 R UE strength Left Upper Extremity: Grossly 5/5 L UE strength Right Lower Extremity: Grossly 5/5 R LE strength Left Lower Extremity: Grossly 5/5 L LE strength Sensation: Intact Bed Mobility/Transfers: Not assessed this visit, but nursing states good mobility Gait: Ambulated 30ft with FWW, close CGA, over adjusts walker positioning with turns, mild light headedness, initially has mild posterior balance loss Balance: Static Sitting: Normal Dynamic Sitting: Good Static Standing: Fair Dynamic Standing: Poor Special Tests: Mobility Limitations Standardized Measure [facility] AM-PAC 6 clicks Basic Mobility Inpatient Short Form: Raw Score: 16 CMS Score: 54.16% Informed Consent/Education: Patient instructed in purpose of PT consult and plan of care. Assessment: Patient is a 64 year old male referred to physical therapy services with the diagnosis of limited ability due to alcohol withdrawal. Patient pres ents with clinical signs and symptoms consistent with diagnosis. He has delayed response times and poor coordination. He demonstrates UE and LE ROM and strength within functional limits and grossly 5/5 respectively. He reports some lightheadedness with standing and walking. During ambulation he has difficulty coordinating turns while keeping the walker directly in front. There was some loss of balance with posterior sway in standing. Patient is assessed as a High 70701 complexity based on the following: History: See above Examination: See above Presentation: Evolving Decision Making: High Goals: Goals X1 week 1. Supine-Sit Independent 2. Sit-Supine Independent 3. Sit-Stand Independent 4. Stand-Sit Independent 5. Bed-Chair Independent 6. Chair-Bed Independent 7. Gait 150ft with FWW supervision 8. Stairs Amb 4 steps with rails, alternating gait, supervision 9. Independent with home exercise program 10. Dynamic Balance improved to good Plan of Care/Treatment Plan: 1-2x/day, 7 days/week x 1 week. Plan of care has been reviewed with the MANAGER BATTERY providing the service under Physical Therapy direction. Initiate Physical Therapy intervention for strengthening, bed mobility, transfers, gait, stairs, balance training, use of assistive device. DISCHARGE RECOMMENDATIONS: At this time recommend SNF placement, but will monitor function closely and may be able to resume independence TREATMENT CODE/TIME: 9:17-9:36 (19 minutes), [id number] high complexity ludmila Crespo, PT, DPT, OCS [facility]
--- NOTE | 2020-07-31 12:12 | PGE_ITS ---
Date of Service Date of service: 07/31/20 Time of Service: 12:12 Assessment and Plan Assessment and plan (1) Alcohol withdrawal: Status: Acute Assessment and plan: Patient's had more than adequate amount of phenobarbital to control for acute alcohol withdrawal and to prevent alcohol withdrawal seizures. Am concerned that a total dose of phenobarbital may have approach toxic levels. I will check phenobarbital level now. At this point we should avoid any further sedatives. I have discontinued his as needed dosing of phenobarbital. Any other sedating medications that he receives is as needed Benadryl for his itching from his psoriasis. Continue vitamin supplementation with thiamine and folic acid and multivitamin. Qualifiers: Complication of substance-induced condition: uncomplicated Qualified Code(s): F10.230 - Alcohol dependence with withdrawal, uncomplicated (2) Hypomagnesemia: Status: Acute Assessment and plan: Continues to demonstrate low magnesium level at 1.5. This in spite of him receiving magnesium oxide 800 mg twice a day. I will give him additional IV bolus of magnesium and recheck his levels in the morning. Continue oral replacement. (3) Hypokalemia: Status: Acute Assessment and plan: Potassium level remains low at 3.4 this morning despite having received replacement yesterday. I will give him additional oral supplementation in addition to repeating his magnesium and recheck his levels in the morning. (4) Pancytopenia: Status: Acute Assessment and plan: Chronic. Check B12/folate levels. This was checked and his B12 level was found to be normal at 575 (5) Psoriasis: Status: Chronic Assessment and plan: Topical Kenalog along with as needed Benadryl for itching. (6) DVT prophylaxis: Status: Acute Assessment and plan: TEDs/SCDs. Chemical DVT ppx is contraindicated in this case due to thrombocytopenia (7) Discharge planning issues: Status: Acute Assessment and plan: Full code Patient no longer meets criteria for ICU stay. Patient will be transferred to the medical/surgical floor while we continue to replace his electrolytes and work with him with physical therapy to improve his strength and ADL performance. Upon discharge he will be referred back to [facility] human services for housing placement given that he is homeless. Case management is working on this. Subjective Subjective Interval history since last seen: Patient had an eventful evening last night which he became very confused and delirious and was crawling on the floor and became very agitated. He required a dose of Haldol last night which was ordered by the tank washer. This morning he was much more alert and oriented and acting appropriate for his nurse. He participated in physical therapy and ambulated around the ICU. However at noon time patient is rather somnolent but he is able to be aroused and is verbal. I am concerned that he has received too much phenobarbital. I added up his total dosage between his as needed dose as 1 time bolus of 500 mg IV yesterday and altogether he is received a total of 3800 mg since admission which is equivalent to 42.6 mg/kg. This is above the recommended heart stop of 30 mg/kg. I have since discontinued his as needed dose of phenobarbital. Exam Narrative Exam Narrative: Somnolent but arousable elderly gentleman. Does verbalize and respond to me appropriately. He is asking for a couple coffee. He has no acute complaints. HEENT is remarkable for dry skin along with bilateral blepharitis Lungs are clear to auscultation Heart regular rate and rhythm Abdomen soft nondistended nontender Skin has multiple psoriatic plaques 1 over his left elbow had been bleeding but has since stopped and he has a clear OpSite protecting it. Objective Last Vital Signs Temp 37 C 07/31/20 11:16 Pulse 83 07/31/20 11:12 Resp 17 07/31/20 11:30 BP 152/73 H 07/31/20 11:12 Pulse Ox 93 07/31/20 07:52 Laboratory Results - last 24 hr 07/31/20 07/31/20 06:20 06:20 WBC 5.40 D RBC 2.98 L Hgb 10.8 L Hct 30.7 L MCV 103.0 H D MCH 36.2 H MCHC 35.2 RDW 14.2 H Plt Count 47 L MPV 11.6 H Sodium 136 Potassium 3.4 L Chloride 100 Carbon Dioxide 28.8 Anion Gap 7.2 BUN 5 L Creatinine 0.7 Estimated GFR/1.73 m2 >= 60.00 Glucose 92 Calcium 7.8 L Magnesium 1.5 L Total Bilirubin 1.6 H AST 80 H ALT 27 Alkaline Phosphatase 75 Total Protein 6.4 Albumin 3.0 L
--- NOTE | 2020-07-31 13:51 | PHA.REVIEW ---
Pharmacy Admission Review - Admission Clinical Review (Last Reviewed 07/29/20 @ 13:17 by IVET Hutton) Pancytopenia (Acute) Hypomagnesemia (Acute) Hypokalemia (Acute) Alcohol withdrawal (Acute) Discharge planning issues (Acute) DVT prophylaxis (Acute) Rash (Acute) lisinopril Allergy (Severe, Unverified 07/29/20 11:52) Swelling/Edema Penicillins Allergy (Unverified 07/29/20 11:52) pt unsure happened in childhood ? Rash, hives Sulfa (Sulfonamide Antibiotics) Adverse Reaction (Unverified 07/29/20 11:52) Skin Rash Height 6 ft 3 in Weight 89.2 kg - Renal Dosing Renal Dosing: BUN 5 mg/dL (7-18) L 07/31/20 06:20 Creatinine 0.7 mg/dL (0.70-1.30) 07/31/20 06:20 Medications needing adjustments: Reviewed (CRCL ~110ML/MIN) - Anticoagulation Anticoagulation: Hgb 10.8 g/dL (13.5-17.5) L 07/31/20 06:20 Hct 30.7 % (40.0-50.0) L 07/31/20 06:20 Plt Count 47 10^3/uL (130-400) L 07/31/20 06:20 INR 1.1 (0.9-1.1) 07/29/20 12:05 Creatinine 0.7 mg/dL (0.70-1.30) 07/31/20 06:20 DVT Prohphylaxis: N/A (Chemical DVT ppx is contraindicated in this case due to thrombocytopenia) Therapeutic Anticoagulation: N/A - Relevant Labs Sodium 136 mmol/L (136-145) 07/31/20 06:20 Potassium 3.4 mmol/L (3.5-5.1) L 07/31/20 06:20 Chloride 100 mmol/L (98-107) 07/31/20 06:20 Magnesium 1.5 mg/dL (1.8-2.4) L 07/31/20 06:20 C-Reactive Protein 0.07 mg/dL (0.0-0.3) 07/29/20 14:46 Electrolytes, C-Reactive P, ESR: Reviewed (KCL AND MAG being replaced) - DM Control DM Control: Glucose 92 mg/dL (74-106) 07/31/20 06:20 Insulin Dosing: N/A - Heart Failure/KS Heart Failure/KS: Troponin I < 0.05 ng/mL (<0.06) 07/30/20 06:35 - BP Control BP Control: Blood Pressure 152/73 Blood Pressure 143/82 Blood Pressure 155/69 Blood Pressure 137/71 Blood Pressure 158/75 Blood Pressure 157/79 Blood Pressure 142/84 Blood Pressure 142/84 Blood Pressure 153/73 - Home Meds Home Med List reviewed: Reviewed - Current meds Current Medication Order Review: Reviewed - Comments Comments/Follow Ups: has had max dose phenobarbitol for etoh withdrawal
--- NOTE | 2020-07-31 13:53 | PDOC.CMPRO ---
Care Management Progress Note S/O: South was alert and oriented when meeting with this casualty underwriter early in the day yesterday. Unfortunately, he decompensated throughout the day, requiring increased support in the afternoon and evening. In the afternoon he attempted to light a cigarette in his room. In the evening, he became confused and agitated and was crawling along the floor of his room, per report-initiating a CODE BYERS response and PRN Haldol. Per MD, he is currently receiving max dosing of phenobarbitol and continues to be closely monitored for withdrawal and treated per protocol. He was able to sit up in his chair and eat breakfast this morning, though has had increased fatigue throughout the day. CM continues to follow. A: 64 year old male admitted to [facility] 07/29/20 for Alcohol withdrawal, Hypomagnesemia P: South will discharge when ready per MD. He will follow up with his PCP and plan of care as prescribed. CM will support South in securing care home through [address] [place] [address] or Inpatient rehab when medically cleared and able to meaningfully engage. Anticipate he will transport via [facility], coordinated by [facility].
[2020-07-31] MEDS: Potassium Chloride Liquid 20 MEQ PKT 40 MEQ PO (14:10)
[2020-07-31] MEDS: diphenhydrAMINE 25 MG CAP PO (21:26)
[2020-07-31] MEDS: Acetaminophen 325 MG TAB PO (21:26)
[2020-08-01] VITALS (11 sets, daily range): BP systolic 139–172; BP diastolic 75–84; PULSE 64–76; RESP 16–20; TEMP 36.1–36.8; O2SAT 93–95
[2020-08-01 07:21] LABS: Abs Immature Grans 0.05 10^3/uL (0.0-0.06); Absolute Basophil Count 0.03 10^3/uL (0.0-0.2); Absolute Eosinophil Count 0.16 10^3/uL (0.0-0.7); Absolute Lymphocyte Count 0.42 10^3/uL (1.2-3.4); Absolute Monocyte Count 0.38 10^3/uL (0.1-0.8); Absolute Neutrophil Count 2.81 10^3/uL (1.2-6.7); Basophils % 0.8; Eosinophils % 4.2; HCT 32.2 % (40.0-50.0); HGB 11.1 g/dL (13.5-17.5); Immature Grans % 1.3; Lymphocytes % 10.9; MCH 36.3 pg (27.0-33.0); MCHC 34.5 % (32.0-36.0); MCV 105.2 fL (80-95); Monocytes % 9.9; Neutrophils % 72.9; Nucleated RBC 0 %; RBC 3.06 10^6/uL (4.36-5.78); RDW 14.1 % (11.8-14.1); RDW-SD 54.5 fL; WBC 3.85 10^3/uL (4.4-10.8)
[2020-08-01 07:37] LABS: Magnesium 1.3 mg/dL (1.8-2.4)
[2020-08-01 07:40] LABS: Platelet Count 50 10^3/uL (130-400)
[2020-08-01 07:41] LABS: Diff Comment Diff Reviewed; Macrocytosis 2+; Polychromasia Present
[2020-08-01 07:42] LABS: Poikilocytes 1+
[2020-08-01 07:43] LABS: ALT 28 U/L (16-63); AST 67 U/L (15-37); Albumin 2.8 g/dL (3.4-5.0); Alkaline Phosphatase 75 U/L (46-116); BUN 8 mg/dL (7-18); Bilirubin, Total 0.8 mg/dL (0.2-1.0); CREATININE 0.7 mg/dL (0.70-1.30); Calcium 8.1 mg/dL (8.5-10.1); Chloride 99 mmol/L (98-107); Glucose 84 mg/dL (74-106); Potassium 3.4 mmol/L (3.5-5.1); Sodium 135 mmol/L (136-145); Total Protein 6.4 g/dL (6.4-8.2)
[2020-08-01] MEDS: Budesonide/Formoterol 160/4.5 6 GM 60 PUFF INH IH ×2 (08:10→19:40)
[2020-08-01] MEDS: Omeprazole 20 MG CAPCR 40 MG PO (08:14)
[2020-08-01] MEDS: Thiamine 100 MG TAB PO (08:15)
[2020-08-01] MEDS: Potassium Chloride Liquid 20 MEQ PKT PO ×2 (08:15→14:06)
[2020-08-01] MEDS: Escitalopram 10 MG TAB PO (08:16)
[2020-08-01] MEDS: Folic Acid 1 MG TAB PO (08:16)
[2020-08-01] MEDS: Tamsulosin 0.4 MG CAPCR PO (08:16)
[2020-08-01] MEDS: Multivitamin TAB 1 TAB PO (08:16)
[2020-08-01] MEDS: Magnesium Oxide 400 MG TAB 800 MG PO ×2 (08:17→19:39)
[2020-08-01] MEDS: Fluticasone NASAL SPRAY 16 GM BTL NS (08:18)
[2020-08-01] MEDS: Triamcinolone 0.1% OINT 15 GM TUBE TP ×3 (08:19→19:40)
--- NOTE | 2020-08-01 09:52 | PT.INTREAT ---
Date of service: 08/01/20 Time of Service: 08:40 PT Notes Visit Reasons: ALCOHOL WITHDRAWAL, HYPOMAGNESEMIA Inpatient Physical Therapy Treatment Note [facility] Date: 08/01/2020 PRECAUTIONS: Fall SUBJECTIVE: South states that he is feeling pretty good today. He is pleasant and agreeable to participating in PT. OBJECTIVE: PAIN: No complaints of pain BED MOBILITY/TRANSFERS Supine-sit: SBA Sit-stand: SBA Stand-sit: SBA GAIT Assistive Device: FWW Weight bearing: Full Assist: CGA?SBA Distance: 150' in a.m.; 300' in p.m. Deviation: Path deviation, cueing to avoid hitting objects with FWW, cues for FWW mechanics THEREX: Patient was instructed in several upper and lower extremity strengthening exercises, performed in a seated position, as per flow sheet. STAIRS:Up/down 6x4 and 4x6 using B rails and a step-to pattern with supervision ASSESSMENT: Patient was able to tolerate a significant progression in gait distance with FWW support, requiring CGA?SBA as well as cueing for FWW mechanics and to avoid objects. He demonstrates path deviation throughout gait training. PLAN: Continue with global strengthening and gait and transfer training for continued progression towards baseline level of function TREATMENT CODE/TIME: Session 1: 25 minutes; [id number], [id number] (08:40) Session 2: 30 minutes; [id number], [id number] (14:20)
--- NOTE | 2020-08-01 10:45 | PGE_ITS ---
Date of Service Date of service: 08/01/20 Time of Service: 10:46 Assessment and Plan Assessment and plan (1) Alcohol withdrawal: Status: Resolved Assessment and plan: Continue vitamin supplements multivitamin and thiamine and folic acid. Discontinue CIWA scoring. Qualifiers: Complication of substance-induced condition: uncomplicated Qualified Code(s): F10.230 - Alcohol dependence with withdrawal, uncomplicated (2) Hypomagnesemia: Status: Acute Assessment and plan: Continues to demonstrate low magnesium level at 1.3. This in spite of him receiving magnesium oxide 800 mg twice a day. I will give him additional IV bolus of magnesium and recheck his levels in the morning. Continue oral replacement. (3) Hypokalemia: Status: Acute Assessment and plan: Potassium level remains low at 3.4 this morning despite having received replacement yesterday. I will give him additional oral supplementation in addition to repeating his magnesium and recheck his levels in the morning. (4) Pancytopenia: Status: Acute Assessment and plan: Chronic. Check B12/folate levels. This was checked and his B12 level was found to be normal at 575 (5) Psoriasis: Status: Chronic Assessment and plan: Topical Kenalog along with as needed Benadryl for itching. (6) Cough: Status: Acute Assessment and plan: Check a chest x-ray. This may be either postnasal drainage for smoker's cough. However given his length of stay and debilitation from his alcohol withdrawal he is at risk for atelectasis and/or pneumonia. Currently he is afebrile and not mobilizing any purulent sputum. We will check a chest x-ray for follow-up. (7) DVT prophylaxis: Status: Acute Assessment and plan: TEDs/SCDs. Chemical DVT ppx is contraindicated in this case due to thrombocytopenia (8) Discharge planning issues: Status: Acute Assessment and plan: Full code Patient no longer meets criteria for ICU stay. Patient will be transferred to the medical/surgical floor while we continue to replace his electrolytes and work with him with physical therapy to improve his strength and ADL performance. Upon discharge he will be referred back to [facility] human services for housing placement given that he is homeless. Case management is working on this. Subjective Subjective Interval history since last seen: Asking approachPatient continues to improve from a mental standpoint. He is completely alert and oriented questions no agitation no anxiety. He participated with physical therapy this morning using a front wheel walker with no loss of balance. From an alcohol withdrawal standpoint I feel that he is out of the danger zone of having any alcohol withdrawal seizures. He had been receiving phenobarbital to I discontinued that due to the fact that he had maximized the safe limits of phenobarbital. Checked a phenobarbital level yesterday and it was slightly above the upper therapeutic level of 40. I will discontinue his CIWA scoring. He is eligible for transfer out to the medical/surgical floor. At this point he is just needing rehab services. Once physical therapy feels he is safe for discharge he can be discharged to [facility] for homeless placement. He does have an nonproductive moist cough but has no fever. I did a [id number] ultrasound he has some bibasilar B-lines but no pleural effusion and no consolidation. Lung exam reveals bibasilar rales. Exam Narrative Exam Narrative: Alert and oriented person place time circumstance. He is able to sit up in bed on his own is able to stand on his own holding himself up with a front wheel walker. He says that his itching from his psoriasis is much better today. He has a nonproductive cough. Lungs with bibasilar rales upper rom[place] are clear Heart regular rate and rhythm Abdomen soft and nontender Neuro exam is grossly intact no focal motor or sensory deficits. He has no tremors and no asterixis. Objective Last Vital Signs Temp 36.6 C 08/01/20 05:37 Pulse 69 08/01/20 08:44 Resp 17 08/01/20 08:01 BP 139/80 08/01/20 08:44 Pulse Ox 93 08/01/20 07:07 Laboratory Results - last 24 hr 07/31/20 08/01/20 08/01/20 13:00 06:10 06:10 WBC 3.85 L RBC 3.06 L Hgb 11.1 L Hct 32.2 L MCV 105.2 H MCH 36.3 H MCHC 34.5 RDW 14.1 Plt Count 50 L MPV 11.0 Immature Gran % 1.3 Neutrophils % 72.9 Lymphocytes % 10.9 Monocytes % 9.9 Eosinophils % 4.2 Basophils % 0.8 Nucleated RBC % 0 Absolute Neutrophils 2.81 Absolute Lymphocytes 0.42 L Absolute Monocytes 0.38 Absolute Eosinophils 0.16 Absolute Basophils 0.03 RBC Morphology See below Polychromasia Present Poikilocytosis 1+ Macrocytosis 2+ Sodium 135 L Potassium 3.4 L Chloride 99 Carbon Dioxide 27.0 Anion Gap 9.0 BUN 8 Creatinine 0.7 Estimated GFR/1.73 m2 >= 60.00 Glucose 84 Calcium 8.1 L Magnesium Total Bilirubin 0.8 AST 67 H ALT 28 Alkaline Phosphatase 75 Total Protein 6.4 Albumin 2.8 L Phenobarbital 43.0 H 08/01/20 06:10 WBC RBC Hgb Hct MCV MCH MCHC RDW Plt Count MPV Immature Gran % Neutrophils % Lymphocytes % Monocytes % Eosinophils % Basophils % Nucleated RBC % Absolute Neutrophils Absolute Lymphocytes Absolute Monocytes Absolute Eosinophils Absolute Basophils RBC Morphology Polychromasia Poikilocytosis Macrocytosis Sodium Potassium Chloride Carbon Dioxide Anion Gap BUN Creatinine Estimated GFR/1.73 m2 Glucose Calcium Magnesium 1.3 L Total Bilirubin AST ALT Alkaline Phosphatase Total Protein Albumin Phenobarbital
[2020-08-01] MEDS: Potassium Chloride Liquid 20 MEQ PKT 40 MEQ PO (11:46)
[2020-08-01] MEDS: Normal Saline Flush 10 ML SYR IVP (11:47)
[2020-08-01] MEDS: Normal Saline 500 ML 30 ML IV (11:47)
[2020-08-01] MEDS: MAGNESIUM SULFATE 4 GM/100 ML BAG IVPB (11:48)
--- NOTE | 2020-08-01 13:01 | W.NUTRFU ---
Date of service: 08/01/20 Time of Service: 13:01 Nutritional Follow up NOTE: 64 year old male admitted for ETOH withdrawl with hx of HTN, COPD. BMI wnl. Supplemented with MVI, thiamin and folic acid for repletion. Tolerating regular diet with adequate intake. Not at nutritional risk. Will continue to follow. Time Spent in Nutritional Counseling and Treatment: 0
--- NOTE | 2020-08-01 13:05 | CMPROGNOTE_ITS ---
Care Management Progress Note S/O: Per MD, South is through withdrawal and will be transitioned to M/S status. Per PT evaluation, South will require short term rehab prior to discharging back to the community. CM faxed referrals to [facility] and [facility] and will await determinations from the facilities. CM continues to follow. A: 64 year old male admitted to [facility] 07/29/20 for Alcohol withdrawal, Hypomagnesemia P: South will discharge when ready per , [facility] attempting SNF coordination. Anticipate South will enter [facility] if bed is unavailable. CM will support South in calling 211 to secure housing assistance if returning to the community. coach tour driver, and [facility] referrals may be appropriate upon discharge as well; dependent on disposition. Anticipate he will transport via [facility], coordinated by [facility].
--- NOTE | 2020-08-01 13:05 | PDOC.CMPRO ---
Care Management Progress Note S/O: Per MD, South is through withdrawal and will be transitioned to M/S status. Per PT evaluation, South will require short term rehab prior to discharging back to the community. CM faxed referrals to [facility] and [facility] and will await determinations from the facilities. CM continues to follow. A: 64 year old male admitted to [facility] 07/29/20 for Alcohol withdrawal, Hypomagnesemia P: South will discharge when ready per , [facility] attempting SNF coordination. Anticipate South will enter [facility] if bed is unavailable. CM will support South in calling 211 to secure housing assistance if returning to the community. assistant womens volleyball coach, and [facility] referrals may be appropriate upon discharge as well; dependent on disposition. Anticipate he will transport via [facility], coordinated by [facility].
--- NOTE | 2020-08-01 13:07 | DI.RAD_ITS ---
EXAM: XR CHEST 2V PA LATERAL CLINICAL HISTORY: Cough. TECHNIQUE: 2D digital imaging was performed. COMPARISON: Prior chest x-ray July 29, 2020 FINDINGS: Heart size is normal. The mediastinum is not widened. Left lung is clear. Small nodular density in the right lower lobe noted which is possibly the breast nipple. There is al so now platelike atelectasis in the lateral right lung base and slight blunting of the right costophr enic angle which indicates small amount of pleural fluid. IMPRESSION: Lateral mild right lung base infiltrate and small right pleural effusion. Possible ipsilateral nodul e versus nipple.Close follow-up to resolution recommended. DATA REPOSITORY: RADIATION DOSE DELIVERED:
[2020-08-01] MEDS: Bacitracin 1 PACKET (16:19)
--- NOTE | 2020-08-01 19:18 | STREC_ITS ---
Date of service: 08/01/20 Time of Service: 17:19 Speech Therapy Recommendations Report ST Recommendations: VICE PRESIDENT OF MARKETING Non-Treatment Note: Consult received, chart reviewed. Patient received alert/awake, however disoriented to place/situation (states he is at a friend's house, able to orient self with cue to read hospital name on white board, then states he is at the [facility] when asked a few moments later). VICE PRESIDENT OF MARKETING discussed following recommendations with RN, wrote recommendations on white board to be reviewed with care staff for all PO intake. No diet texture changes at this time. Objective: [place] Swallow Protocol - Pass IDDSI Level(s) 0 - thin liquids via slow cup sip: (-) overt s/s aspiration 7 - regular solid (indpendent self feeding) (-) overt s/s aspiration Recommendations: Oral Care Q4H; Distant Supervision Reduce environmental distractions during all PO intake (ie, television, etc) Encourage patient to reduce rate/volume of intake (small bites, small sips, go slow) Upright/midline for all PO intake Plan: Please reconsult PRN. Communicated above to covering VICE PRESIDENT OF MARKETING for following day for follow-up as needed. Marisabel Bragg MA CCC-VICE PRESIDENT OF MARKETING Speech-Language Pathologist [place]#[phone]
[2020-08-01] MEDS: Nicotine 14 MG/24 HR PATCH TD (21:00)
[2020-08-01] MEDS: Acetaminophen 325 MG TAB PO (22:26)
[2020-08-01] MEDS: diphenhydrAMINE 25 MG CAP PO (22:27)
[2020-08-02] VITALS (7 sets, daily range): BP systolic 129–141; BP diastolic 74–80; PULSE 62–79; TEMP 36.1–36.3; O2SAT 94–96
[2020-08-02] MEDS: Acetaminophen 325 MG TAB PO ×2 (04:37→16:06)
[2020-08-02] MEDS: diphenhydrAMINE 25 MG CAP PO (04:37)
[2020-08-02 05:52] LABS: Anion Gap 9.4 mmol/L (3-11); BUN 12 mg/dL (7-18); CO2 26.6 mmol/L (21.0-32.0); CREATININE 0.9 mg/dL (0.70-1.30); Calcium 8.8 mg/dL (8.5-10.1); Chloride 99 mmol/L (98-107); Glucose 95 mg/dL (74-106); Magnesium 1.7 mg/dL (1.8-2.4); Sodium 135 mmol/L (136-145)
[2020-08-02 06:01] LABS: Potassium 4.1 mmol/L (3.5-5.1)
[2020-08-02] MEDS: Budesonide/Formoterol 160/4.5 6 GM 60 PUFF INH IH ×2 (08:01→20:41)
[2020-08-02] MEDS: Magnesium Oxide 400 MG TAB 800 MG PO ×2 (08:10→20:38)
[2020-08-02] MEDS: Tamsulosin 0.4 MG CAPCR PO (08:11)
[2020-08-02] MEDS: Omeprazole 20 MG CAPCR 40 MG PO (08:11)
[2020-08-02] MEDS: Multivitamin TAB 1 TAB PO (08:14)
[2020-08-02] MEDS: Fluticasone NASAL SPRAY 16 GM BTL NS (08:14)
[2020-08-02] MEDS: Thiamine 100 MG TAB PO (08:14)
[2020-08-02] MEDS: Folic Acid 1 MG TAB PO (08:14)
[2020-08-02] MEDS: Escitalopram 10 MG TAB PO (08:14)
[2020-08-02] MEDS: Triamcinolone 0.1% OINT 15 GM TUBE TP ×3 (08:15→20:41)
--- NOTE | 2020-08-02 09:08 | CMPROGNOTE_ITS ---
- If Service Date Differs Date of service: 08/02/20 Time of Service: 09:08 Care Management Progress Note S/O: South was sitting up in a chair fully dressed when CM met with him. He stated that he was doing well and hoped to be discharged soon. Per PT, South has made great progress in the past 24 hours and will likely not require rehab or SB1 prior to discharge. CM provided him with the contact information for [employer] as well as the 211 number to assist with housing. South stated that all of his belongings are at his girlfriend's house in [place]. He shared that she broke up with him on the phone this morning but that he will be able to get his belongings when ready. A: 64 year old male admitted to [facility] 07/29/20 for Alcohol withdrawal, Hypomagnesemia P: South will likely discharge back to the community when medically cleared. CM will support South in calling 211 to secure housing assistance.. transit coach operator, and [facility] referrals may be appropriate upon discharge as well. Anticipate he will transport via [facility], coordinated by [facility]. CM will continue to support South and his discharge planning needs.
--- NOTE | 2020-08-02 12:03 | PT.INTREAT ---
Date of service: 08/02/20 Time of Service: 09:40 PT Notes Visit Reasons: ALCOHOL WITHDRAWAL, HYPOMAGNESEMIA Inpatient Physical Therapy Treatment Note [facility] Date: 08/02/2020 PRECAUTIONS: Fall SUBJECTIVE: South states that he is feeling pretty good today. He is pleasant and agreeable to participating in PT. OBJECTIVE: Following discussion with nursing, patient cleared to be independent with transfers, bed mobility, and short-distance ambulation within his room without use of assistive device. PAIN: No complaints of pain BED MOBILITY/TRANSFERS Supine-sit: I with HOB flat Sit-supine: I with HOB flat Sit-stand: I Stand-sit: I Bed-chair: I Chair-bed: I GAIT Assistive Device: No AD Weight bearing: Full Assist: SBA in a.m.; S in p.m. Distance: 500' in a.m.; 500' in p.m. Deviation: Mild path deviation THEREX: Patient was instructed in a lower extremity strengthening program, performed in a standing position, as per flow sheet. He also completed functional [id number] exercise without UE support. STAIRS: Up/down 6x4 and 4x6 using B rails a step-over pattern independently ASSESSMENT: Patient was able to tolerate a significant progression in gait distance without use of assistive device. He continues to demonstrate path deviation, although minimal, during gait training. He demonstrates independence and safety with transfers, bed mobility, and short distance ambulation at this time. PLAN: Continue with global strengthening and gait training for continued progression towards baseline level of function TREATMENT CODE/TIME: Session 1: 20 minutes; [id number] (09:40) Session 2: 10 minutes; [id number] (14:00)
[2020-08-02 12:13] LABS: Ammonia < 10 umol/L (11-32)
--- NOTE | 2020-08-02 13:33 | W.PM.PROGNOT ---
Date of Service Date of service: 08/02/20 Time of Service: 13:33 Assessment and Plan Assessment and plan (1) Hypomagnesemia: Status: Acute Assessment and plan: Improving. Now up to 1.7. He continues w/ oral supplementation. I will give him another dose of Magnesium sulfate parenterally and recheck in the a.m. (2) Hypokalemia: Status: Acute Assessment and plan: Resolved. K+ is now 4.1. He received total of 60 meq yesterday. I will keep him on small supplementation of 20 meq per day (3) Pancytopenia: Status: Acute Assessment and plan: Chronic. Check B12/folate levels. This was checked and his B12 level was found to be normal at 575 (4) Psoriasis: Status: Chronic Assessment and plan: Topical Kenalog along with as needed Benadryl for itching. (5) DVT prophylaxis: Status: Acute Assessment and plan: TEDs/SCDs. Chemical DVT ppx is contraindicated in this case due to thrombocytopenia (6) Discharge planning issues: Status: Acute Assessment and plan: [facility] is working on disposition. He no longer requires acute medical care and can be discharged from the hospital. Subjective Subjective Interval history since last seen: Patient wants to go out to smoke and nursing is concerned that he might leave AMA if he is not appeased. He has a nicotine patch 14 mg/day prn. I changed this to 21 mg/day scheduled and ordered nicotrol inhaler. He seems content w/ this. I explained to him that while he is mentally alert and back to his baseline status and is capable of making his own mind up about staying or leaving, right now the weather is severe and it would not be safe for him to leave w/out a safe plan. He is considering asking his girlfriend to allow him to return to her place. [facility] is working on placement. See P.T. note from today about his ability to ambulate independent of assistive devices. I do not feel that he is going to qualify for needs for SNF placement and he would prefer to not go to a SNF. Exam Narrative Exam Narrative: A&Ox3, normal ROM and strength. Psoriasis plaques appear better, less red. excoriations have improved. Lungs are clear Heart is RRR Abdomen: benign Neuro: no tremors nor asterixis, and no sweating nor agitation. Objective Last Vital Signs Temp 36.4 C L 08/01/20 23:30 Pulse 73 08/02/20 01:55 Resp 20 08/01/20 20:00 BP 131/80 08/02/20 01:55 Pulse Ox 94 08/02/20 01:55 Laboratory Results - last 24 hr 08/02/20 08/02/20 05:30 11:50 Sodium 135 L Potassium 4.1 D Chloride 99 Carbon Dioxide 26.6 Anion Gap 9.4 BUN 12 Creatinine 0.9 Estimated GFR/1.73 m2 >= 60.00 Glucose 95 Calcium 8.8 Magnesium 1.7 L Ammonia < 10 L
[2020-08-02] MEDS: MAGNESIUM SULFATE 2 GM/50 ML BAG IVPB (14:40)
[2020-08-02] MEDS: Potassium Chloride 20 MEQ TABCR PO (14:40)
[2020-08-02] MEDS: Normal Saline 500 ML IV (14:41)
[2020-08-02] MEDS: Nicotine 21 MG/24 HR PATCH TD (16:08)
[2020-08-03 02:02] VITALS: RESP 18
[2020-08-03 02:43] VITALS: RESP 16
[2020-08-03 04:45] VITALS: PULSE 72; RESP 16; TEMP 36.1; O2SAT 92
[2020-08-03 06:39] LABS: Anion Gap 9.6 mmol/L (3-11); BUN 10 mg/dL (7-18); CO2 27.4 mmol/L (21.0-32.0); CREATININE 0.8 mg/dL (0.70-1.30); Calcium 9.2 mg/dL (8.5-10.1); Chloride 98 mmol/L (98-107); Glucose 93 mg/dL (74-106); Magnesium 1.5 mg/dL (1.8-2.4); Potassium 4.5 mmol/L (3.5-5.1); Sodium 135 mmol/L (136-145)
[2020-08-03] MEDS: Nicotine 21 MG/24 HR PATCH TD (07:50)
[2020-08-03] MEDS: Omeprazole 20 MG CAPCR 40 MG PO (07:50)
[2020-08-03] MEDS: Magnesium Oxide 400 MG TAB 800 MG PO (07:51)
[2020-08-03] MEDS: Tamsulosin 0.4 MG CAPCR PO (07:51)
[2020-08-03] MEDS: Potassium Chloride 20 MEQ TABCR PO (07:51)
[2020-08-03] MEDS: Escitalopram 10 MG TAB PO (07:51)
[2020-08-03] MEDS: Thiamine 100 MG TAB PO (07:51)
[2020-08-03] MEDS: Folic Acid 1 MG TAB PO (07:51)
[2020-08-03] MEDS: Triamcinolone 0.1% OINT 15 GM TUBE TP (07:51)
[2020-08-03] MEDS: Multivitamin TAB 1 TAB PO (07:51)
[2020-08-03] MEDS: Budesonide/Formoterol 160/4.5 6 GM 60 PUFF INH IH (08:25)
[2020-08-03] MEDS: MAGNESIUM SULFATE 4 GM/100 ML BAG IVPB (08:28)
[2020-08-03] MEDS: Fluticasone NASAL SPRAY 16 GM BTL NS (09:06)
--- NOTE | 2020-08-03 11:31 | DSE_ITS ---
Date of service: 08/03/20 Time of Service: 11:32 DS: Diagnosis Discharge Diagnosis (1) Alcohol withdrawal: Status: Resolved Asessment and Plan: His acute alcohol withdrawal responded nicely to adequate loading doses of phenobarbital. Patient has an alcohol rehab living coach that he meets with weekly. He is encouraged to continue follow-up on at least a weekly basis with his living coach and he should see his primary care provider in a couple of weeks. He understands he needs to abstain from further alcohol intake if he wants to avoid withdrawal seizures. (2) Hypomagnesemia: Status: Chronic Asessment and Plan: Patient's hypomagnesemia was treated with both oral and IV supplementation and in spite of this we never could achieve and sustain normal magnesium levels. Nevertheless we markedly improved his magnesium levels. On admission his magnesium level was 1.0 and dropped to as low 0.7. At the time of discharge his magnesium level varied between 1.5 and 1.7. Repeat level will be ordered in 1 week along with his BMP. He was sent home on magnesium gluconate 500 mg twice a day. (3) Hypokalemia: Status: Resolved Asessment and Plan: Hypokalemia responded to IV and oral potassium supplementation. He will be discharged on oral supplementation with a repeat BMP in a week (4) Pancytopenia: Status: Chronic Asessment and Plan: Patient demonstrated a stable chronic anemia and thrombocytopenia and leukopenia. Is felt that his pancytopenia secondary to chronic alcoholism and bone marrow suppression however further evaluation is recommended by his PCP. (5) Psoriasis: Status: Chronic Asessment and Plan: Patient was treated with Kenalog cream which markedly improved his psoriatic plaques. It reduced his itching. Upon discharge he was prescribed Topicort cream as this was one of the few steroid creams on his insurance plan. (6) Atelectasis: Status: Acute Asessment and Plan: Patient will continue use of his incentive spirometer and Acapella device. He can use his inhalers as needed for acute wheezing or dyspnea. He should remain on his home medications for his COPD which includes air duo respi-click and albuterol. Repeat chest x-ray is ordered in 4 weeks (7) Discharge planning issues: Status: Resolved Discharge Plan Disposition Patient Disposition: HOME Condition: Serious Discharge Details Reason For Visit: ALCOHOL WITHDRAWAL, HYPOMAGNESEMIA Admit Date/Time: 07/29/20 15:29 Admit Provider: Lorraine Delacruz Attending Provider: Lorraine Delacruz Primary Care Provider: Mounika Heard Hospital Course Hospital Course: 64-year-old male with history of alcohol withdrawal seizures, BPH, COPD, depression, essential hypertension, pancytopenia presented to the emergency department July 29, 2020 experiencing symptoms of severe alcohol withdrawal. On the day prior to admission he was evaluated in the emergency department where he was treated for hypothermia after being found outside intoxicated after he was kicked out from his girlfriend's home and discharged to a homeless half-way after treatment emergency department. He was sent from the homeless half-way with symptoms of nausea, tremors, body aches, anxiety and headache similar to his previous alcohol withdrawal symptoms. Laboratory evaluation showed a stable anemia with a hemoglobin of 12 g with a macrocytosis with MCV of 106 and thrombocytopenia with a platelet count of 67,000 and a mild leukopenia with a white cell count 3900. Chemistry panel demonstrated a hypokalemia with a potassium of 3.3 and an elevated anion gap is 16.9 with normal BUN and creatinine of 7 and 1.3 and a glucose of 184. LFTs were mildly elevated with an AST of 130 and a normal ALT of 37 and a normal alkaline phosphatase of 97. Serial troponins were obtained and were within normal limits. CRP was normal. Vitamin B12 was checked and was normal at 575 and folate level was normal at 17. Procalcitonin was less than 0.1 urinalysis was consistent with dehydration with a specific gravity greater than 1.030 and 100 mg/dL protein and 50 mg/dL of ketones with small amount of blood and small amount of bilirubin. Negative for leukocyte esterase and he had 10-20 hyaline casts. Rapid COVID-19 swab was obtained and was negative for SARS-CoV-2. Diagnostic imaging included a chest x-ray which showed no acute pulmonary findings. Patient was admitted for treatment of acute alcohol withdrawal. In the emergency department he was given a couple of doses of IV Ativan. Dr. Delacruz, hospitalist, admitted the patient to the intensive care unit and ordered CIWA protocol along with as needed parenteral phenobarbital at a dose of 130-260 mg IV every 30 minutes prn severe withdrawal symptoms. I assumed his care on July 30, 2020. When I saw him he seemed to be responding to the treatment he had been receiving as needed doses of phenobarbital and seemed calm and relaxed. Nevertheless I prescribed a loading dose of phenobarbital 500 mg IV because he had not received a loading dose at the time I saw him he had less than adequate loading of phenobarbital. However on the evening of July 30, 2020 he became severely agitated and confused and was crawl around on the floor I Dr. Cardenas prescribed Haldol. This calm his agitation. Patient continued to receive as needed dosing of phenobarbital. By SaturdayJuly 31, 2020 I found that the patient had actually exceeded the maximum recommended loading dose of phenobarbital which is 30 mg/kg. And when I added up all of his doses it came out to the equivalent of 40 mg/kg. At that point I obtained a phenobarbital level and found to be elevated at 43. I discontinued all further phenobarbital. Patient continued to do well remained calm with no further evidence of acute alcohol withdrawal. No agitation or tachycardia or diaphoresis or nausea or vomiting. Over the next couple days he continued to do well although he did have a moist cough. I checked a repeat chest x-ray on August 01 that showed platelike atelectasis in the right lung base there is also some questionable nodule versus breast nipple in the right lower lobe. However this was not seen on his admission chest x-ray from July 29. As the patient had no purulent sputum production and no fevers I did not put him on antibiotics. I encouraged him to use an incentive spirometer and Acapella device. Case management reached out to [facility] human services to arrange domicile facility for him to safely go to. Patient was set up to stay at the [facility]. Patient's dehydration responded to IV fluids and his electrolytes were corrected with supplemental potassium and magnesium. Patient will have follow-up labs in a week and a follow-up chest x-ray in 4 weeks. Patient is encouraged to refrain from further drinking and he already has an alcohol counselor that he sees weekly. Home Meds and New Rx's Prescriptions: New magnesium gluconate 27.5 mg magne- sium (500 mg) tablet 27.5 mg PO BID Qty: 60 RF: 0 potassium chloride 15 mEq tablet,ER particles/crystals 15 meq PO DAILY Qty: 30 RF: 0 desoximetasone 0.25 % ointment 1 applic topical BID Qty: 60 RF: 0 Continued cetirizine 10 mg Tablet 10 mg PO DAILY Qty: 30 RF: 0 thiamine HCl (vitamin B1) 100 mg tablet 100 mg PO DAILY Qty: 30 RF: 0 omeprazole 40 mg capsule,delayed release(DR/EC) 40 mg PO DAILY Qty: 30 RF: 0 citalopram [Celexa] 20 mg Tablet 20 mg PO DAILY Qty: 30 RF: 0 tamsulosin 0.4 mg capsule 0.4 mg PO DAILY Qty: 30 RF: 0 albuterol sulfate [ProAir HFA] 90 mcg/actuation HFA aerosol inhaler 2 puff IH Q6H PRNQty: 18 RF: 0 fluticasone propionate [Flonase Allergy Relief] 50 mcg/actuation spray,suspension 1 spray CRISTIANA DAILY Qty: 15.8 RF: 0 Therems-M 27-0.4 mg Tablet 1 tab PO DAILY Qty: 30 RF: 0 fluticasone propion-salmeterol [AirDuo RespiClick] 113-14 mcg/actuation Aerosol Powdr Breath Activated 1 puff INHALATION BID Qty: 1 RF: 0 Discontinued magnesium oxide 400 mg (241.3 mg magnesium) Tablet 400 mg PO BID Qty: 0 RF: 0 Discharge Instructions Instructions: Alcohol Withdrawal (DC), Hypomagnesemia (DC), Alcohol Dependence (DC) Referrals: Mounika Heard [Primary Care Provider] - Activity:: Activity as Tolerated Equipment/Supplies:: No Equipment Needed Diet:: Normal Diet Discharge Orders Discharge Orders: Discharge Order (Routine); Ordered 08/03/20 Ordered By: Earnest Moran Other Ambulatory Orders: Basic Metabolic Panel (Routine) Timeframe: 1 Week Facility: [facility] - Location: Laboratory Outpatient Ordered By: Earnest Moran XR chest 2V PA & lateral (Routine) Timeframe: 4 Weeks Facility: [facility] - Location: DIAGNOSTIC IMAGING DEPT Ordered By: Earnest Moran Magnesium (Routine) Timeframe: 1 Week Facility: [facility] - Location: Laboratory Outpatient Ordered By: Earnest Moran DS: Summary Time Spent with Patient providing and/or coordinating discharge services: Greater than 30 minutes Specific discharge activities: Prescribing medications and follow-up tests. Coordination of care with high risk case manager Status at Discharge Functional status at discharge: independent ambulation Overall status at discharge: patient is back to baseline Mental Status: mental status grossly normal Speech and Movement: speech and movement normal Mood: congruent mood Affect: normal affect Exam Narrative Exam Narrative: A&Ox3, normal ROM and strength. Psoriasis plaques appear better, less red. excoriations have improved. Lungs are clear Heart is RRR Abdomen: benign Neuro: no tremors nor asterixis, and no sweating nor agitation. Psych Mental Status: mental status grossly normal Speech and Movement: speech and movement normal Mood: congruent mood Affect: normal affect DS: Data Vitals/I&O Vitals and I&O: Vital Signs Temperature 36.1 C L 08/03/20 04:45 Temperature Source Temporal Artery Scan 08/03/20 04:45 Pulse 72 08/03/20 04:45 Pulse Rhythm Regular 08/03/20 08:25 Pulse 81 07/31/20 21:17 Respiratory Rate 16 08/03/20 04:45 Respiratory Effort Non-Labored 08/03/20 08:25 Respiratory Depth Normal 08/03/20 08:25 Respiratory Pattern Normal 08/03/20 08:25 Blood Pressure 141/77 H 08/02/20 20:28 Blood Pressure Mean 91 08/02/20 20:28 Blood Pressure Position Sitting 07/29/20 11:47 Pulse Oximetry 92 08/03/20 04:45 Oxygen Delivery Method Room Air 08/03/20 04:45 Oxygen Flow Rate 0 08/03/20 04:45 Pain Level 5 08/02/20 17:06 Comment 08/03/20 02:43 Intake & Output 08/02/20 08/02/20 08/03/20 11:59 23:59 11:59 Intake Total 200 / 250.059 50.059 / 250.059 530 / 530 Output Total 450 / 1500 1050 / 1500 Balance -250 / -1249.941 -999.941 / -1249.941 530 / 530 Weight 90.5 kg Intake: IV 50.059 / 50.059 50 / 50 Oral 200 / 200 480 / 480 Output: Urine 450 / 1500 1050 / 1500 Other: Urine Color Light Leona Yellow Urine Appearance Clear Clear Clear Urine Odor Normal Normal Voiding Methods Urinal Bedside Commode Data Completed and Pending Labs on day of discharge: Labs from last 24 hours 08/03/20 08/02/20 06:20 11:50 Sodium 135 L Potassium 4.5 Chloride 98 Carbon Dioxide 27.4 Anion Gap 9.6 BUN 10 Creatinine 0.8 Estimated GFR/1.73 m2 >= 60.00 Glucose 93 Calcium 9.2 Magnesium 1.5 L Ammonia < 10 L [facility], [facility] Medical History (Updated 08/03/20 @ 12:41 by Earnest Moran) Alcohol abuse Alcohol withdrawal seizure BPH (benign prostatic hyperplasia) COPD (chronic obstructive pulmonary disease) Depression HTN (hypertension) Hx of angioedema Unknown allergic rxn 07/25/18 requiring endotracheal intubation and transfer to [facility] for further treatment. Left knee pain Normal colonoscopy 09/26/18 Dr Acosta, [facility], normal, repeat 10 years. Surgical History H/O hernia repair Social History Smoking/Tobacco Use Status: Current every day Tobacco Type: cigarettes Years smoked: 40 Smoking risk assessment performed?: Yes Alcohol Intake: current Alcohol Intake frequency: 3 or more drinks per day Alcohol type: hard liquor Drug use: Never Substance use type: does not use Do you feel safe at home: Yes (Suicidal) Do you feel safe in your relationship?: Yes
--- NOTE | 2020-08-03 11:38 | NUR.NOTE ---
Patient's ex girlfriend (Skye) called and wanted to talk about the patient's mental status (confusion). The patient gave verbal consent for me to speak with her and to discuss his medical history and plan. We discussed the patient's chronic alcohol use and the presence of wet brain. She relayed that the patient had showed mental decline in the 6 months that she lived with her. She feels the patient has Wernicke's Korsakoff symptoms. I was able to reorient the patient and he is able to do daily functions independently here in the room. The patient had told his ex girlfriend that her daughter was coming to pick him up but then he denied remembering saying this when I asked him and clearly stated that he had a room at [facility]. I oriented the patient to place as he could not remember what the name of this building is ([facility] or hospital). I was able to speak with Alan at [facility] (distillery worker general) and he confirmed they have a room for the patient reserved until 08/17/2020. Care management was contacted and they are setting up [facility] transportation for this afternoon. Dr. Moran was told the plan for housing and agreed to discharge and transportation plans being started. Plan is for patient to leave by 1PM. Laon Perez RN primary RN involved in the plan and D/C planning. Nursing Note:
--- NOTE | 2020-08-03 12:04 | PT.INTREAT ---
Date of service: 08/03/20 Time of Service: 11:10 PT Notes Visit Reasons: ALCOHOL WITHDRAWAL, HYPOMAGNESEMIA Inpatient Physical Therapy Treatment Note [facility] Date: 08/03/2020 PRECAUTIONS: Fall SUBJECTIVE: South states that he is feeling good today and that he is being discharged. He is pleasant and agreeable to participating in PT. OBJECTIVE: Following discussion with nursing, patient cleared to be independent with transfers, bed mobility, and short-distance ambulation within his room without use of assistive device. PAIN: No complaints of pain BED MOBILITY/TRANSFERS Sit-stand: I Stand-sit: I Bed-chair: I Chair-bed: I GAIT Assistive Device: No AD Weight bearing: Full Assist: I Distance: 900' Deviation: No path deviation noted ASSESSMENT: Patient was able to tolerate a significant progression in gait distance without use of assistive device. He does not demonstrate path deviation during gait training at this time. Per nursing, he has done well with independent transfers and ambulation within his room. PLAN: Patient to discharge later today without home services TREATMENT CODE/TIME: 10 minutes; 94316 (11:10)
--- NOTE | 2020-08-03 17:15 | PDOC.CMDIS ---
LACE Index Scoring Tool - Questions: Length of Stay (in days): 4 - 6 Acuity (Admit via E.D.?): Yes Comorbidities: Chronic Pulmonary Disease E.D. Visits: 9 - Answers: Total Score: 13 Risk of Readmission: High Risk Care Management Discharge Reason for Hospitalization: Alcohol withdrawal, hypomagnesemia Discharge Plan: South will discharge back to the community when medically cleared. He connected with [facility] and will be staying at the [facility]. He will follow up with his pyridine recovery operator, PCP and plan of care as prescribed. CM faxed [facility] referral as well. He will transport via [facility] in a private vehicle, coordinated by CM. Patient/Family Education Needs: Review discharge instructions, discuss Ask Me Three. Services Needed at Discharge: Transportation ([facility])
--- NOTE | 2020-08-05 18:20 | INDS_ITS ---
Date of service: 08/08/20 PT Notes Visit Reasons: ALCOHOL WITHDRAWAL, HYPOMAGNESEMIA Inpatient Physical Therapy Discharge Summary Date: 08/05/20 Dates of Service: 07/31/2020 through 08/03/2020 This is a clinical summary of care provided on the duration of dates listed above. No charge was made in the completion of this documentation. Referring Doctor: Earnest Najera MD PT Orders: PT CONSULT: Limited Ability Precautions: Standard, Fall Patient Profile/Admitting Diagnosis: South is a 64 yo male brought to ER on 07/28/20 for alcohol intoxication and was discharged the same day. He returned to the ER on 05/28/21 for alcohol withdrawal and was admitted as inpatient. PMHX: Alcohol abuse, Alcohol withdrawal seizure, BPH (benign prostatic hyperplasia), COPD (chronic obstructive pulmonary disease), Depression, HTN (hypertension), Hx of angioedema, Unknown allergic rxn 07/25/18 requiring endotracheal intubation and transfer to [facility] for further treatment, Left knee pain, Normal colonoscopy, H/O hernia repair Social History/Home Situation: Currently homeless Current Functional Limitations: Decreased mobility, coordination, balance, and decision making Equipment Owned/DME: None Subjective: NT. See most recent CONTINUOUS PILLOWCASE CUTTER notes. Objective: General Observation: NT. See most recent CONTINUOUS PILLOWCASE CUTTER notes. Pain: NT. See most recent CONTINUOUS PILLOWCASE CUTTER notes. ROM: Right Upper Extremity:R UE ROM Within functional limits Left Upper Extremity: L UE ROM Within functional limits Right Lower Extremity: R LE ROM Within functional limits Left Lower Extremity: L LE ROM Within functional limits Strength: Right Upper Extremity: Grossly 5/5 R UE strength Left Upper Extremity: Grossly 5/5 L UE strength Right Lower Extremity: Grossly 5/5 R LE strength Left Lower Extremity: Grossly 5/5 L LE strength Sensation: Intact Bed Mobility/Transfers: Sit to supine independent Sit to stand independent Stand to sit independent Bed to chair independent Chair to bed independent Gait: Up to 900 feet using no AD independently without an assistive device without path deviation. Balance: Static Sitting: Normal Dynamic Sitting: Good Static Standing: Fair Dynamic Standing: Poor Assessment: Patient is a 64 year old male referred to physical therapy services with the diagnosis of limited ability due to alcohol withdrawal. Patient presents with clinical signs and symptoms consistent with diagnosis. He has delayed response times and poor coordination. He demonstrates UE and LE ROM and strength within functional limits and grossly 5/5 respectively. He reports some lightheadedness with standing and walking. During ambulation he has difficulty coordinating turns while keeping the walker directly in front. There was some loss of balance with posterior sway in standing. Goals: Goals X1 week 1. Supine-Sit Independent MET 2. Sit-Supine Independent MET 3. Sit-Stand Independent MET 4. Stand-Sit Independent MET 5. Bed-Chair Independent MET 6. Chair-Bed Independent MET 7. Gait 150ft with FWW supervision MET 8. Stairs Amb 4 steps with rails, alternating gait, supervision MET 9. Independent with home exercise program MET 10. Dynamic Balance improved to good MET DISCHARGE RECOMMENDATIONS: At this time recommend SNF placement, but will monitor function closely and may be able to resume independence. TREATMENT CODE/TIME: UT Thank you for the opportunity to participate in the care of this patient. Felecia Arguello PT, DPT, CLT [facility] [place], [place]
== END 2020-08-03 12:59 | disposition home or self-care (01) | DRG 897 ==
LOC: ER 15:57 → ICU 16:37
PROVIDERS: Internal Medicine; Admitting Provider Internal Medicine; Emergency Provider Physician Assistant; PCP Nurse Practitioner Family; Visit Provider Internal Medicine
DX: F10.231 Alcohol dependence with withdrawal delirium (principal); D61.818 Other pancytopenia; J98.11 Atelectasis; J44.9 Chronic obstructive pulmonary disease, unspecified; N40.0 Benign prostatic hyperplasia without lower urinary tract symptoms; I10 Essential (primary) hypertension; F32.9 Major depressive disorder, single episode, unspecified; Z59.0 Homelessness; Z20.822 Contact with and (suspected) exposure to COVID-19; E83.42 Hypomagnesemia; E87.6 Hypokalemia; F17.210 Nicotine dependence, cigarettes, uncomplicated; L40.0 Psoriasis vulgaris; H01.009 Unspecified blepharitis unspecified eye, unspecified eyelid; D64.9 Anemia, unspecified; D72.819 Decreased white blood cell count, unspecified
CPT/HCPCS: 36415; 80048; 80053; 80076; 83690; 84145; 85027; 87637; 93005; 94640; 96365; 96366; 96375; 96376; 97110; 97163; 97530; 99232; 99233; 99239; 99291; 71045; 71046; 80184; 80320; 81003; 81015; 82140; 82607; 82728; 82746; 83540; 83550; 83735; 84484; 85025; 85379; 85610; 85730; 86140; 93010; J1630; J2060; J2560; J3475

== ENCOUNTER 2020-08-24 16:38 | Inpatient (IN) | payer MEDICAID, SELFPAY ==
[2020-08-24] VITALS (38 sets, daily range): BP systolic 114–151; BP diastolic 46–98; PULSE 73–88; RESP 12–25; TEMP 36.6; O2SAT 1–98
[2020-08-24 17:06] LABS: Abs Immature Grans 0.02 10^3/uL (0.0-0.06); Absolute Basophil Count 0.03 10^3/uL (0.0-0.2); Absolute Eosinophil Count 0.17 10^3/uL (0.0-0.7); Absolute Lymphocyte Count 1.49 10^3/uL (1.2-3.4); Absolute Monocyte Count 0.67 10^3/uL (0.1-0.8); Absolute Neutrophil Count 3.83 10^3/uL (1.2-6.7); Basophils % 0.5; Eosinophils % 2.7; HCT 42.5 % (40.0-50.0); HGB 14.3 g/dL (13.5-17.5); Immature Grans % 0.3; MCH 34.9 pg (27.0-33.0); MCHC 33.6 % (32.0-36.0); MCV 103.7 fL (80-95); MPV 9.9 fL (8.0-11.0); Monocytes % 10.8; Neutrophils % 61.7; Nucleated RBC 0 %; Platelet Count 140 10^3/uL (130-400); RDW 14.2 % (11.8-14.1); RDW-SD 54.8 fL; WBC 6.21 10^3/uL (4.4-10.8)
[2020-08-24] MEDS: Normal Saline 1,000 ML 150 ML IV (17:20)
--- NOTE | 2020-08-24 17:21 | ED.GENADUL_ITS ---
Discharge Plan Disposition Patient Disposition: [facility] INPATIENT Condition: Stable Discharge Details Clinical Impression: Alcohol intoxication, Alcohol abuse, COPD exacerbation Admit Date/Time: 08/24/20 21:46 Admit Provider: Craig Barrera Attending Provider: Craig Barrera Primary Care Provider: Mounika Heard ED Provider: Sergio Muro Discharge Data Discharge Date/Time-TO BE ENTERED AT DEPARTURE: 08/24/20 23:50 Medical Decision Making 64-year-old male brought by EMS. He was kicked out of the motel where he was staying today. Continues to drink daily including earlier, and now is currently homeless. Patient states he has had a cough with some congestion and subjective fevers. He arrives to the ER with a blood pressure 144/66, pulse 78, respirations 20, 36.6 temperature. Differential diagnosis includes dehydration, electrolyte abnormality, intoxication, pneumonia, COPD exacerbation. Patient IV access established, placed on a cardiac technologist, fluids initiated screening labs and chest x-ray obtained. Patient COVID-19 screen negative. White blood cell count 6 hematocrit 42, platelets 140. Chemistries unremarkable. Alcohol level 394. Chest x-ray with patchy infiltrate right lower lung field and 2 left-sided lung nodules. CT recommended and performed: This reveals atelectasis, emphysema, no pulmonary infiltrates seen. Patient has had episodes of hypoxia to 81% on room air, requiring 1 to 2 L supplemental oxygen. He is given Solu-Medrol and inhaled beta agonist for COPD exacerbation. Given his intoxication, hypoxia, and that he is currently undomiciled, will discuss admission. Lab Data Lab results reviewed: Yes I reviewed the patient's lab results. Labs: Laboratory Results - last 24 hr 08/24/20 08/24/20 08/24/20 16:55 16:55 16:55 WBC 6.21 RBC 4.10 L Hgb 14.3 Hct 42.5 MCV 103.7 H MCH 34.9 H MCHC 33.6 RDW 14.2 H Plt Count 140 MPV 9.9 Immature Gran % 0.3 Neutrophils % 61.7 Lymphocytes % 24.0 Monocytes % 10.8 Eosinophils % 2.7 Basophils % 0.5 Nucleated RBC % 0 Absolute Neutrophils 3.83 Absolute Lymphocytes 1.49 Absolute Monocytes 0.67 Absolute Eosinophils 0.17 Absolute Basophils 0.03 Sodium 142 Potassium 4.0 Chloride 102 Carbon Dioxide 31.1 Anion Gap 8.9 BUN 8 Creatinine 1.0 Estimated GFR/1.73 m2 >= 60.00 Glucose 94 Calcium 8.6 Total Bilirubin 0.4 AST 51 H ALT 37 Alkaline Phosphatase 87 Total Protein 8.0 Albumin 3.5 TSH 0.16 L Urine Color Urine Clarity Urine pH Ur Specific [place] Urine Protein Urine Ketones Urine Blood Urine Nitrite Urine Bilirubin Urine Urobilinogen Ur Leukocyte Esterase Urine RBC Urine WBC Ur Epithelial Cells Urine Crystals Urine Bacteria Urine Casts Urine Mucus Urine Other Ur Culture Indicated? Urine Glucose Salicylates < 2.8 Urine Opiates Screen Urine Methadone Screen Acetaminophen < 2 Ur Barbiturates Screen Ur Tricyclics Screen Ur Amphetamines Screen U Benzodiazepines Scrn Urine Cocaine Screen Ur THC Screen Ethyl Alcohol 394.4 COVID-19 Source SARS-CoV-2 (PCR) Influenza Type A (PCR) Influenza Type B (PCR) RSV (PCR) 08/24/20 08/24/20 08/24/20 16:55 17:25 17:25 WBC RBC Hgb Hct MCV MCH MCHC RDW Plt Count MPV Immature Gran % Neutrophils % Lymphocytes % Monocytes % Eosinophils % Basophils % Nucleated RBC % Absolute Neutrophils Absolute Lymphocytes Absolute Monocytes Absolute Eosinophils Absolute Basophils Sodium Potassium Chloride Carbon Dioxide Anion Gap BUN Creatinine Estimated GFR/1.73 m2 Glucose Calcium Total Bilirubin AST ALT Alkaline Phosphatase Total Protein Albumin TSH Urine Color Yellow Urine Clarity Clear Urine pH 6.5 Ur Specific [place] 1.025 Urine Protein Trace H Urine Ketones Negative Urine Blood Negative Urine Nitrite Negative Urine Bilirubin Negative Urine Urobilinogen 1.0 H Ur Leukocyte Esterase Negative Urine RBC Negative Urine WBC 5-10 Ur Epithelial Cells Negative Urine Crystals Negative Urine Bacteria Negative Urine Casts Negative Urine Mucus Negative Urine Other Negative Ur Culture Indicated? Yes Urine Glucose Negative Salicylates Urine Opiates Screen Negative Urine Methadone Screen Negative Acetaminophen Ur Barbiturates Screen Positive A Ur Tricyclics Screen Negative Ur Amphetamines Screen Negative U Benzodiazepines Scrn Negative Urine Cocaine Screen Negative Ur THC Screen Negative Ethyl Alcohol COVID-19 Source Nasopharyx SARS-CoV-2 (PCR) Negative Influenza Type A (PCR) Negative Influenza Type B (PCR) Negative RSV (PCR) Negative HPI General Mode of arrival: ambulatory . Date/Time Provider Initiated Documentation: 08/24/20 16:40 . Limitations to Documentation: no limitations . Information obtained by: patient . History of Present Illness 64 year old M presents to the emergency department with the chief complaint of Cough, homeless, alcohol abuse, described as moderate, and is localized to the chest. Patient reports no radiation. Patient started experiencing this day(s) and it has been intermittent. No relieving factors improve symptom(s), No exacerbating factors reported . Patient notes fever/chills and malaise; denies syncope. Patient did receive the following treatments prior to arrival, none Related Data Home Medications Medication Instructions Recorded Confirmed Therems-M 1 tab PO DAILY #30 tab 08/03/20 08/24/20 cetirizine 10 mg PO DAILY #30 tab 08/03/20 08/24/20 citalopram [Celexa] 20 mg PO DAILY #30 tab 08/03/20 08/24/20 desoximetasone 1 applic TOPICAL BID #60 g 08/03/20 08/24/20 fluticasone propion-salmeterol 1 puff INHALATION BID #1 ea 08/03/20 08/24/20 [AirDuo RespiClick] fluticasone propionate [Flonase 1 spray CRISTIANA DAILY #15.8 ml 08/03/20 08/24/20 Allergy Relief] magnesium gluconate 27.5 mg PO BID #60 tab 08/03/20 08/24/20 omeprazole 40 mg PO DAILY #30 cap 08/03/20 08/24/20 potassium chloride 15 meq PO DAILY #30 tab 08/03/20 08/24/20 tamsulosin 0.4 mg PO DAILY #30 cap 08/03/20 08/24/20 thiamine HCl (vitamin B1) 100 mg PO DAILY #30 tab 08/03/20 08/24/20 albuterol sulfate [ProAir HFA] 2 puff IH Q6H PRN #18 g 08/26/20 doxycycline hyclate 100 mg PO BID 7 Days #14 tab 08/26/20 prednisone 40 mg PO DAILY 5 Days #10 tab 08/26/20 Previous Rx's Medication Instructions Recorded Therems-M 1 tab PO DAILY #30 tab 08/03/20 cetirizine 10 mg PO DAILY #30 tab 08/03/20 citalopram [Celexa] 20 mg PO DAILY #30 tab 08/03/20 desoximetasone 1 applic TOPICAL BID #60 g 08/03/20 fluticasone propion-salmeterol 1 puff INHALATION BID #1 ea 08/03/20 [AirDuo RespiClick] fluticasone propionate [Flonase 1 spray CRISTIANA DAILY #15.8 ml 08/03/20 Allergy Relief] magnesium gluconate 27.5 mg PO BID #60 tab 08/03/20 omeprazole 40 mg PO DAILY #30 cap 08/03/20 potassium chloride 15 meq PO DAILY #30 tab 08/03/20 tamsulosin 0.4 mg PO DAILY #30 cap 08/03/20 thiamine HCl (vitamin B1) 100 mg PO DAILY #30 tab 08/03/20 albuterol sulfate [ProAir HFA] 2 puff IH Q6H PRN #18 g 08/26/20 doxycycline hyclate 100 mg PO BID 7 Days #14 tab 08/26/20 prednisone 40 mg PO DAILY 5 Days #10 tab 08/26/20 Allergies Allergy/AdvReac Type Severity Reaction Status Date / Time lisinopril Allergy Severe Swelling/Ed Unverified 08/24/20 17:14 pastor Penicillins Allergy pt unsure Unverified 08/24/20 17:14 happened in childhood ? Rash, hives Sulfa (Sulfonamide AdvReac Skin Rash Unverified 08/24/20 17:14 Antibiotics) General Stated Complaint: ETOHWithdr ALEENA: 2 Review of Systems Narrative: Subjective fever and chills. Cough with minimal production of sputum. Mild shortness of breath. No chest pain. Continues to drink daily including today. Was kicked out of his residence today. 8 systems reviewed and otherwise negative [facility] Medical History (Updated 08/27/20 @ 09:31 by Earnest Moran) Alcohol abuse Alcohol withdrawal seizure BPH (benign prostatic hyperplasia) COPD (chronic obstructive pulmonary disease) Depression HTN (hypertension) Hx of angioedema Unknown allergic rxn 07/25/18 requiring endotracheal intubation and transfer to [facility] for further treatment. Left knee pain Normal colonoscopy 09/26/18 Dr Acosta, [facility], normal, repeat 10 years. Surgical History H/O hernia repair Social History Smoking/Tobacco Use Status: Current every day Tobacco Type: cigarettes Years smoked: 40 Smoking risk assessment performed?: Yes Alcohol Intake: current Alcohol Intake frequency: 3 or more drinks per day Alcohol type: hard liquor Drug use: Never Substance use type: does not use Do you feel safe at home: Yes (Suicidal) Do you feel safe in your relationship?: Yes Exam Narrative Exam Narrative: GEN: awake, alert, oriented 3. interactive. HEAD: Normocephalic, atraumatic ENT: Mucous membranes dry, oropharynx unremarkable, External ear exam unremarkable EYES: PERRL, EOMI NECK: Full ROM, no SCARLETT, no menigismus CHEST/RESP: Nontender, diminished bilateral, distant with cough noted, scattered rhonchi CARDIOVASCULAR: RRR, no murmur, rub alee. 2+ Rad pulse bilateral ABDOMEN: Soft, nontender, no mass. +Bowel sounds EXT: Full ROM, no edema, no rash, excoriations on back Neuro: Grossly normal neurologic exam, conversant, interactive. Psych: Speech fluent, thoughts congruent, affect normal Course Vital Signs Vital signs: Vital Signs Temperature 36.6 C 08/24/20 16:54 Pulse 78 08/24/20 16:54 Respiratory Rate 20 08/24/20 16:54 Blood Pressure 144/66 H 08/24/20 16:54 Pulse Oximetry 1 L 08/24/20 16:54 Temperature 36.6 C 08/24/20 16:54 Temperature Source Skin 08/24/20 16:54 Pulse 78 08/24/20 16:54 Respiratory Rate 20 08/24/20 16:54 Respiratory Effort Non-Labored 08/24/20 16:54 Respiratory Pattern Normal 08/24/20 17:18 Blood Pressure 144/66 H 08/24/20 16:54 Blood Pressure Position Sitting 08/24/20 16:54 Pulse Oximetry 1 L 08/24/20 16:54 Oxygen Delivery Method Room Air 08/24/20 16:54 Oxygen Flow Rate 0 08/24/20 16:54 Pain Level 0 08/24/20 16:54 Lab/Test Results Lab/Test Results: Laboratory Tests Range/Units 08/24/20 08/24/20 16:55 16:55 WBC (4.4-10.8) 10^3/uL 6.21 RBC (4.36-5.78) 10^6/uL 4.10 L Hgb (13.5-17.5) g/dL 14.3 Hct (40.0-50.0) % 42.5 MCV (80-95) fL 103.7 H MCH (27.0-33.0) pg 34.9 H MCHC (32.0-36.0) % 33.6 RDW (11.8-14.1) % 14.2 H Plt Count (130-400) 10^3/uL 140 MPV (8.0-11.0) fL 9.9 Immature Gran % 0.3 Neutrophils % 61.7 Lymphocytes % 24.0 Monocytes % 10.8 Eosinophils % 2.7 Basophils % 0.5 Nucleated RBC % % 0 Absolute Neutrophils (1.2-6.7) 10^3/uL 3.83 Absolute Lymphocytes (1.2-3.4) 10^3/uL 1.49 Absolute Monocytes (0.1-0.8) 10^3/uL 0.67 Absolute Eosinophils (0.0-0.7) 10^3/uL 0.17 Absolute Basophils (0.0-0.2) 10^3/uL 0.03 COVID-19 Source Nasopharyx
[2020-08-24 17:36] LABS: ALT 37 U/L (16-63); AST 51 U/L (15-37); Albumin 3.5 g/dL (3.4-5.0); Alkaline Phosphatase 87 U/L (46-116); Anion Gap 8.9 mmol/L (3-11); BUN 8 mg/dL (7-18); Bilirubin, Total 0.4 mg/dL (0.2-1.0); CO2 31.1 mmol/L (21.0-32.0); Calcium 8.6 mg/dL (8.5-10.1); Chloride 102 mmol/L (98-107); Glucose 94 mg/dL (74-106); Sodium 142 mmol/L (136-145); TSH 0.16 uIU/mL (0.36-3.74)
[2020-08-24 17:37] LABS: ETHANOL BLOOD 394.4 mg/dL (<3)
[2020-08-24 17:38] LABS: COVID-19 PCR Negative (Negative); Influenza A PCR Negative (Negative); Influenza B PCR Negative (Negative); RSV PCR Negative (Negative)
[2020-08-24 17:39] LABS: Bilirubin Negative (Negative); Blood Negative (Negative); Clarity Clear (Clear); Glucose Negative (Negative); Ketones Negative (Negative); Leukocyte Esterase Negative (Negative); Nitrite Negative (Negative); Specific Gravity 1.025 (1.005-1.025); pH 6.5 (5-8)
[2020-08-24] MEDS: Normal Saline Flush 10 ML SYR IVP ×2 (17:39→19:21)
[2020-08-24 17:42] LABS: Salicylate < 2.8 mg/dL (<2.8)
[2020-08-24 17:46] LABS: Acetaminophen < 2 ug/mL (10-30)
[2020-08-24 17:52] LABS: *AMPHETAMINES SCREEN URINE Negative (Negative); *BARBITURATES SCREEN URINE POSITIVE (Negative); *BENZODIAZEPINES SCREEN URINE Negative (Negative); Cannabinoids THC Negative (Negative); Cocaine Screen,Urine Negative (Negative); METHADONE URINE SCREEN Negative (Negative); OPIATES URINE SCREEN Negative (Negative)
[2020-08-24 18:00] LABS: Tricyclic Antidepressants Negative (Negative)
[2020-08-24 18:05] LABS: Bacteria Negative HPF (Negative); C & S Indicated? Yes; Casts Negative LPF (Negative); Crystals Negative HPF (Negative); Epithelial Cells Negative HPF (Negative); Mucus Negative (Negative); Other Cells Negative (Negative); RBC Negative HPF (0-2)
--- NOTE | 2020-08-24 18:22 | DI.RAD_ITS ---
EXAM: XR CHEST 2V PA LATERAL CLINICAL HISTORY: Cough TECHNIQUE: 2D digital imaging was performed. COMPARISON: CR XR CHEST 2V PA LATERAL from 08/01/2020 FINDINGS: MEDIASTINUM: Normal. HEART: Normal. PULMONARY VASCULATURE: Normal. LUNGS: Clear. Nipple shadows are seen overlying the lower lung romano bilaterally. The lungs are hy perinflated with flattened diaphragms consistent with underlying COPD. There is a question of a nodu lar density to the left of the heart on the frontal view. Consider CT scan of the chest for further evaluation. PLEURAL SPACE: No pleural effusion or pneumothorax. BONE:Within normal limits for the patient's age. OTHER FINDINGS:Normal. IMPRESSION: 1. COPD. 2. Question of a nodular density lateral to the heart shadow and inferior to beneath the nipple jj w. Consider CT scan of the chest. DATA REPOSITORY: RADIATION DOSE DELIVERED:
--- NOTE | 2020-08-24 18:33 | DI.VRAD_ITS ---
PROCEDURE INFORMATION: Exam: XR Chest Exam date and time: 08/24/2020 6:15 PM Age: 64 years old Clinical indication: Cough TECHNIQUE: Imaging protocol: XR of the chest Views: 2 views. COMPARISON: CR XR CHEST 2V PA LATERAL 08/01/2020 12:57 PM FINDINGS: Lungs: Two nodules in the left lower lung field measuring up to [address] Patchy infiltrate in the right lower lung field. Consider CT. Pleural spaces: Unremarkable. No pleural effusion. No pneumothorax. Heart/Mediastinum: Unremarkable. No cardiomegaly. Vasculature: Atherosclerosis. Bones/joints: Mild degenerative changes in the spine. IMPRESSION: 1. Two nodules in the left lower lung field measuring up to [address] 2. Patchy infiltrate in the right lower lung field. Consider CT. Dictated and Authenticated by: Mike Thakur MD. Ordering:MILES Hill MD
--- NOTE | 2020-08-24 19:20 | DI.CT_ITS ---
EXAM: CT CHEST PE CTA CLINICAL HISTORY: Cough, R infiltrate. TECHNIQUE: Imaging Protocol: Axial CT angiography was performed with multi-slice acquisition and mu lti-planar and/or 3D reconstructions. CONTRAST MATERIAL: Intravenous: Omnipaque 350 Contrast volume:80 mL COMPARISON: CT CT CHEST PE CTA from 02/12/2020 FINDINGS: Tracheobronchial tree: Patent where visualized. Pulmonary parenchyma: No consolidation or dominant measurable mass. Mild centrilobular emphysematous changes are present. Mild scarring or atelectasis is seen in the lung bases. Pulmonary Arteries: No evidence of filling defect to suggest pulmonary emboli. Mediastinum and Zhanna: No dominant adenopathy or fluid collection. Visualized thyroid gland: Unremarkable. Pleura: No effusion or pneumothorax. Heart: The heart is not dilated. No coronary artery calcifications are seen. No pericardial effusion. Aorta: Thoracic aorta non-dilated. No evidence of dissection. Mild atherosclerosis. Upper abdomen: Diffuse decreased attenuation of the liver consistent with fatty infiltration. Soft tissues: Bilateral gynecomastia. Bones: Normal. IMPRESSION: 1. No evidence of pulmonary embolism, thoracic aortic dissection or aneurysm. 2. Mild centrilobular emphysema. 3. No acute pulmonary infiltrate. RADIATION DOSE DELIVERED: 343.16mGy.cm Total DLP DATA REPOSITORY: All CT scans at this facility are submitted to the National Radiology Data Registry (NRDR) Dose Index Registry (DIR) with the [employer] (A[employer]). RADIATION OPTIMIZATION: All CT scans at this facility use at least one of these dose optimization te chniques: automated exposure control; mA and/or kV adjustment per patient size (includes targeted exa ms where dose is matched to clinical indication); or iterative reconstruction.
[2020-08-24] MEDS: Omnipaque 350 MG/ML 100 ML BTL IJ (19:21)
[2020-08-24] MEDS: Normal Saline - Diluent 50 ML VIAL IV (19:22)
--- NOTE | 2020-08-24 20:08 | DI.VRAD_ITS ---
PROCEDURE INFORMATION: Exam: CT Angiography Chest With Contrast Exam date and time: 08/24/2020 7:13 PM Age: 64 years old Clinical indication: Patient HX: No recent trauma, HX copd, cough, RT infiltrate TECHNIQUE: Imaging protocol: Computed tomographic angiography of the chest with contrast. 3D rendering (Not supervised by radiologist): MIP and/or 3D reconstructed images were created by the technologist. Radiation optimization: All CT scans at this facility use at least one of these dose optimization techniques: automated exposure control; mA and/or kV adjustment per patient size (includes targeted exams where dose is matched to clinical indication); or iterative reconstruction. Contrast material: [id number]; Contrast volume: 80 ml; Contrast route: INTRAVENOUS (IV); COMPARISON: CT CHEST PE CTA 02/12/2020 7:33 PM FINDINGS: Pulmonary arteries: Normal. No pulmonary emboli. Aorta: Unremarkable. No aortic aneurysm. No aortic dissection. Lungs: Subsegmental atelectasis at the base. Mild centrilobular emphysema. No len pulmonary infiltrate. Pleural spaces: Unremarkable. No pneumothorax. No pleural effusion. Heart: Unremarkable. No cardiomegaly. No pericardial effusion. Lymph nodes: Unremarkable. No enlarged lymph nodes. Bones/joints: degenerative changes in the spine. Soft tissues: Unremarkable. IMPRESSION: 1. Subsegmental atelectasis at the base. 2. Mild centrilobular emphysema. 3. No len pulmonary infiltrate. Dictated and Authenticated by: Mike Thakur MD. Ordering:MILES Hill MD
[2020-08-24] MEDS: Albuterol HFA 8 GM 60 PUFF INH IH (20:18)
[2020-08-24] MEDS: methylPREDNISolone SUCC 125 MG VIAL IVP (20:18)
--- NOTE | 2020-08-24 22:13 | W.PM.HP.N ---
Date of service: 08/24/20 [facility] Medical History (Updated 08/25/20 @ 12:50 by Earnest Moran) Alcohol abuse Alcohol withdrawal seizure BPH (benign prostatic hyperplasia) COPD (chronic obstructive pulmonary disease) Depression HTN (hypertension) Hx of angioedema Unknown allergic rxn 07/25/18 requiring endotracheal intubation and transfer to [facility] for further treatment. Left knee pain Normal colonoscopy 09/26/18 Dr Acosta, [facility], normal, repeat 10 years. Surgical History H/O hernia repair Social History Smoking/Tobacco Use Status: Current every day Tobacco Type: cigarettes Years smoked: 40 Smoking risk assessment performed?: Yes Alcohol Intake: current Alcohol Intake frequency: 3 or more drinks per day Alcohol type: hard liquor Drug use: Never Substance use type: does not use Do you feel safe at home: Yes (Suicidal) Do you feel safe in your relationship?: Yes Meds Home Medications and Allergies Allergies Allergy/AdvReac Type Severity Reaction Status Date / Time lisinopril Allergy Severe Swelling/Ed Unverified 08/24/20 17:14 pastor Penicillins Allergy pt unsure Unverified 08/24/20 17:14 happened in childhood ? Rash, hives Sulfa (Sulfonamide AdvReac Skin Rash Unverified 08/24/20 17:14 Antibiotics) Home Medications Medication Instructions Recorded Confirmed Type Therems-M 1 tab PO DAILY #30 tab 08/03/20 08/24/20 Rx albuterol sulfate [ProAir HFA] 2 puff IH Q6H PRN #18 g 08/03/20 08/24/20 Rx cetirizine 10 mg PO DAILY #30 tab 08/03/20 08/24/20 Rx citalopram [Celexa] 20 mg PO DAILY #30 tab 08/03/20 08/24/20 Rx desoximetasone 1 applic TOPICAL BID #60 g 08/03/20 08/24/20 Rx fluticasone propion-salmeterol 1 puff INHALATION BID #1 ea 08/03/20 08/24/20 Rx [AirDuo RespiClick] fluticasone propionate [Flonase 1 spray CRISTIANA DAILY #15.8 ml 08/03/20 08/24/20 Rx Allergy Relief] magnesium gluconate 27.5 mg PO BID #60 tab 08/03/20 08/24/20 Rx omeprazole 40 mg PO DAILY #30 cap 08/03/20 08/24/20 Rx potassium chloride 15 meq PO DAILY #30 tab 08/03/20 08/24/20 Rx tamsulosin 0.4 mg PO DAILY #30 cap 08/03/20 08/24/20 Rx thiamine HCl (vitamin B1) 100 mg PO DAILY #30 tab 08/03/20 08/24/20 Rx Results Labs Result diagrams: 08/24/20 16:55 08/26/20 06:30 Labs: Laboratory Results - last 24 hr 08/24/20 08/24/20 08/24/20 16:55 16:55 16:55 WBC 6.21 RBC 4.10 L Hgb 14.3 Hct 42.5 MCV 103.7 H MCH 34.9 H MCHC 33.6 RDW 14.2 H Plt Count 140 MPV 9.9 Immature Gran % 0.3 Neutrophils % 61.7 Lymphocytes % 24.0 Monocytes % 10.8 Eosinophils % 2.7 Basophils % 0.5 Nucleated RBC % 0 Absolute Neutrophils 3.83 Absolute Lymphocytes 1.49 Absolute Monocytes 0.67 Absolute Eosinophils 0.17 Absolute Basophils 0.03 Sodium 142 Potassium 4.0 Chloride 102 Carbon Dioxide 31.1 Anion Gap 8.9 BUN 8 Creatinine 1.0 Estimated GFR/1.73 m2 >= 60.00 Glucose 94 Calcium 8.6 Magnesium Total Bilirubin 0.4 AST 51 H ALT 37 Alkaline Phosphatase 87 Troponin I Total Protein 8.0 Albumin 3.5 TSH 0.16 L Urine Color Urine Clarity Urine pH Ur Specific [place] Urine Protein Urine Ketones Urine Blood Urine Nitrite Urine Bilirubin Urine Urobilinogen Ur Leukocyte Esterase Urine RBC Urine WBC Ur Epithelial Cells Urine Crystals Urine Bacteria Urine Casts Urine Mucus Urine Other Ur Culture Indicated? Urine Glucose Salicylates < 2.8 Urine Opiates Screen Urine Methadone Screen Acetaminophen < 2 Ur Barbiturates Screen Ur Tricyclics Screen Ur Amphetamines Screen U Benzodiazepines Scrn Urine Cocaine Screen Ur THC Screen Ethyl Alcohol 394.4 COVID-19 Source SARS-CoV-2 (PCR) Influenza Type A (PCR) Influenza Type B (PCR) RSV (PCR) 03/10/21 03/10/21 03/10/21 16:55 17:25 17:25 WBC RBC Hgb Hct MCV MCH MCHC RDW Plt Count MPV Immature Gran % Neutrophils % Lymphocytes % Monocytes % Eosinophils % Basophils % Nucleated RBC % Absolute Neutrophils Absolute Lymphocytes Absolute Monocytes Absolute Eosinophils Absolute Basophils Sodium Potassium Chloride Carbon Dioxide Anion Gap BUN Creatinine Estimated GFR/1.73 m2 Glucose Calcium Magnesium Total Bilirubin AST ALT Alkaline Phosphatase Troponin I Total Protein Albumin TSH Urine Color Yellow Urine Clarity Clear Urine pH 6.5 Ur Specific [place] 1.025 Urine Protein Trace H Urine Ketones Negative Urine Blood Negative Urine Nitrite Negative Urine Bilirubin Negative Urine Urobilinogen 1.0 H Ur Leukocyte Esterase Negative Urine RBC Negative Urine WBC 5-10 Ur Epithelial Cells Negative Urine Crystals Negative Urine Bacteria Negative Urine Casts Negative Urine Mucus Negative Urine Other Negative Ur Culture Indicated? Yes Urine Glucose Negative Salicylates Urine Opiates Screen Negative Urine Methadone Screen Negative Acetaminophen Ur Barbiturates Screen Positive A Ur Tricyclics Screen Negative Ur Amphetamines Screen Negative U Benzodiazepines Scrn Negative Urine Cocaine Screen Negative Ur THC Screen Negative Ethyl Alcohol COVID-19 Source Nasopharyx SARS-CoV-2 (PCR) Negative Influenza Type A (PCR) Negative Influenza Type B (PCR) Negative RSV (PCR) Negative 08/24/20 21:44 WBC RBC Hgb Hct MCV MCH MCHC RDW Plt Count MPV Immature Gran % Neutrophils % Lymphocytes % Monocytes % Eosinophils % Basophils % Nucleated RBC % Absolute Neutrophils Absolute Lymphocytes Absolute Monocytes Absolute Eosinophils Absolute Basophils Sodium Cancelled Potassium Cancelled Chloride Cancelled Carbon Dioxide Cancelled Anion Gap Cancelled BUN Cancelled Creatinine Cancelled Estimated GFR/1.73 m2 Cancelled Glucose Cancelled Calcium Cancelled Magnesium Cancelled Total Bilirubin Cancelled AST Cancelled ALT Cancelled Alkaline Phosphatase Cancelled Troponin I Cancelled Total Protein Cancelled Albumin Cancelled TSH Urine Color Urine Clarity Urine pH Ur Specific [place] Urine Protein Urine Ketones Urine Blood Urine Nitrite Urine Bilirubin Urine Urobilinogen Ur Leukocyte Esterase Urine RBC Urine WBC Ur Epithelial Cells Urine Crystals Urine Bacteria Urine Casts Urine Mucus Urine Other Ur Culture Indicated? Urine Glucose Salicylates Urine Opiates Screen Urine Methadone Screen Acetaminophen Ur Barbiturates Screen Ur Tricyclics Screen Ur Amphetamines Screen U Benzodiazepines Scrn Urine Cocaine Screen Ur THC Screen Ethyl Alcohol COVID-19 Source SARS-CoV-2 (PCR) Influenza Type A (PCR) Influenza Type B (PCR) RSV (PCR) Last Vital Signs Temp 36.6 C 08/24/20 16:54 Pulse 81 08/24/20 20:16 Resp 19 08/24/20 19:50 BP 125/58 L 08/24/20 20:16 Pulse Ox 89 L 08/24/20 20:20 COVID-19 Screening Have you, or household traveled for leisure in last 14 days?: No Had IN PERSON contact w/suspected or confirmed C-19 person: No
[2020-08-24 22:38] LABS: Magnesium 1.6 mg/dL (1.8-2.4)
[2020-08-24 22:54] LABS: FREE T4 1.07 ng/dL (0.76-1.46)
[2020-08-25] VITALS (99 sets, daily range): BP systolic 117–184; BP diastolic 51–85; PULSE 61–110; RESP 1–23; TEMP 36.6–38.3; O2SAT 89–99
[2020-08-25] MEDS: Normal Saline 1,000 ML 150 ML IV ×2 (00:18→06:29)
[2020-08-25] MEDS: Albuterol/Ipratropium 3 ML UPD VIAL UPD ×4 (01:00→19:50)
[2020-08-25] MEDS: Nicotine 21 MG/24 HR PATCH TD (02:38)
[2020-08-25] MEDS: LORazepam 1 MG TAB PO/SL ×2 (03:15→08:22)
[2020-08-25] MEDS: Normal Saline Flush 10 ML SYR IVP ×2 (06:25→11:58)
[2020-08-25] MEDS: methylPREDNISolone SUCC 125 MG VIAL 60 MG IVP (06:25)
--- NOTE | 2020-08-25 07:03 | HPE_ITS ---
Date of service: 08/24/20 Time of Service: 21:00 Assessment and Plan Assessment and plan (1) Acute alcohol intoxication: Status: Resolved Qualifiers: Complication of substance-induced condition: uncomplicated Qualified Code(s): F10.920 - Alcohol use, unspecified with intoxication, uncomplicated (2) Hypoxia: Status: Acute History of Present Illness History of Present Illness Chief Complaint: Hypoxia and alcohol intoxication Narrative: This 64-year-old male who is here because of difficulty breathing and being homeless and alcohol intoxication. He says he was smoking at the [facility] where he has been staying and was kicked out. He has been using his inhalers about 4 times a day. He drinks frequently with vodka shots or 12 packs of beer or vodka and soda. He was having some shortness of breath but he feels better. He was evaluated emergency department and his oxygenation improved with oxygen and respiratory treatments. Review of Systems All systems reviewed & are unremarkable except as noted in HPI and below PFS Medical History (Updated 08/25/20 @ 07:10 by Craig Barrera MD) Alcohol abuse Alcohol withdrawal seizure BPH (benign prostatic hyperplasia) COPD (chronic obstructive pulmonary disease) Depression HTN (hypertension) Hx of angioedema Unknown allergic rxn 07/25/18 requiring endotracheal intubation and [place] [facility] [place]. Left knee pain Normal colonoscopy 09/26/18 Dr Acosta, [facility], normal, repeat 10 years. Surgical History H/O hernia repair Social History Smoking/Tobacco Use Status: Current every day Tobacco Type: cigarettes Years smoked: 40 Smoking risk assessment performed?: Yes Alcohol Intake: current Alcohol Intake frequency: 3 or more drinks per day Alcohol type: hard liquor Drug use: Never Substance use type: does not use Do you feel safe at home: Yes (Suicidal) Do you feel safe in your relationship?: Yes Meds Home Medications and Allergies Allergies Allergy/AdvReac Type Severity Reaction Status Date / Time lisinopril Allergy Severe Swelling/Ed Unverified 08/24/20 17:14 pastor Penicillins Allergy pt unsure Unverified 08/24/20 17:14 happened in childhood ? Rash, hives Sulfa (Sulfonamide AdvReac Skin Rash Unverified 08/24/20 17:14 Antibiotics) Home Medications Medication Instructions Recorded Confirmed Type Therems-M 1 tab PO DAILY #30 tab 08/03/20 08/24/20 Rx albuterol sulfate [ProAir HFA] 2 puff IH Q6H PRN #18 g 08/03/20 08/24/20 Rx cetirizine 10 mg PO DAILY #30 tab 08/03/20 08/24/20 Rx citalopram [Celexa] 20 mg PO DAILY #30 tab 08/03/20 08/24/20 Rx desoximetasone 1 applic TOPICAL BID #60 g 08/03/20 08/24/20 Rx fluticasone propion-salmeterol 1 puff INHALATION BID #1 ea 08/03/20 08/24/20 Rx [AirDuo RespiClick] fluticasone propionate [Flonase 1 spray CRISTIANA DAILY #15.8 ml 08/03/20 08/24/20 Rx Allergy Relief] magnesium gluconate 27.5 mg PO BID #60 tab 08/03/20 08/24/20 Rx omeprazole 40 mg PO DAILY #30 cap 08/03/20 08/24/20 Rx potassium chloride 15 meq PO DAILY #30 tab 08/03/20 08/24/20 Rx tamsulosin 0.4 mg PO DAILY #30 cap 08/03/20 08/24/20 Rx thiamine HCl (vitamin B1) 100 mg PO DAILY #30 tab 08/03/20 08/24/20 Rx Exam Const General: cooperative and intoxicated appearing Orientation: oriented to person [facility] Head: normocephalic Neck Neck: normal visual inspection, no lymphadenopathy and trachea midline Chest Chest: normal inspection of the chest Resp Effort & Inspection: normal respiratory effort Other: No wheezes or rhonchi at the present time. Cardio Rate: regular rate Heart Sounds: S1 normal and S2 normal Extrem General: normal to inspection, no pedal edema and no calf tenderness Results Labs Result diagrams: 08/24/20 16:55 08/24/20 16:55 Labs: Laboratory Results - last 24 hr 08/24/20 08/24/20 08/24/20 16:55 16:55 16:55 WBC 6.21 RBC 4.10 L Hgb 14.3 Hct 42.5 MCV 103.7 H MCH 34.9 H MCHC 33.6 RDW 14.2 H Plt Count 140 MPV 9.9 Immature Gran % 0.3 Neutrophils % 61.7 Lymphocytes % 24.0 Monocytes % 10.8 Eosinophils % 2.7 Basophils % 0.5 Nucleated RBC % 0 Absolute Neutrophils 3.83 Absolute Lymphocytes 1.49 Absolute Monocytes 0.67 Absolute Eosinophils 0.17 Absolute Basophils 0.03 Sodium 142 Potassium 4.0 Chloride 102 Carbon Dioxide 31.1 Anion Gap 8.9 BUN 8 Creatinine 1.0 Estimated GFR/1.73 m2 >= 60.00 Glucose 94 Calcium 8.6 Magnesium Total Bilirubin 0.4 AST 51 H ALT 37 Alkaline Phosphatase 87 Troponin I Total Protein 8.0 Albumin 3.5 TSH 0.16 L Free T4 Urine Color Urine Clarity Urine pH Ur Specific [place] Urine Protein Urine Ketones Urine Blood Urine Nitrite Urine Bilirubin Urine Urobilinogen Ur Leukocyte Esterase Urine RBC Urine WBC Ur Epithelial Cells Urine Crystals Urine Bacteria Urine Casts Urine Mucus Urine Other Ur Culture Indicated? Urine Glucose Salicylates < 2.8 Urine Opiates Screen Urine Methadone Screen Acetaminophen < 2 Ur Barbiturates Screen Ur Tricyclics Screen Ur Amphetamines Screen U Benzodiazepines Scrn Urine Cocaine Screen Ur THC Screen Ethyl Alcohol 394.4 COVID-19 Source SARS-CoV-2 (PCR) Influenza Type A (PCR) Influenza Type B (PCR) RSV (PCR) 08/24/20 08/24/20 08/24/20 16:55 16:55 16:55 WBC RBC Hgb Hct MCV MCH MCHC RDW Plt Count MPV Immature Gran % Neutrophils % Lymphocytes % Monocytes % Eosinophils % Basophils % Nucleated RBC % Absolute Neutrophils Absolute Lymphocytes Absolute Monocytes Absolute Eosinophils Absolute Basophils Sodium Potassium Chloride Carbon Dioxide Anion Gap BUN Creatinine Estimated GFR/1.73 m2 Glucose Calcium Magnesium 1.6 L Total Bilirubin AST ALT Alkaline Phosphatase Troponin I Total Protein Albumin TSH Free T4 1.07 Urine Color Urine Clarity Urine pH Ur Specific [place] Urine Protein Urine Ketones Urine Blood Urine Nitrite Urine Bilirubin Urine Urobilinogen Ur Leukocyte Esterase Urine RBC Urine WBC Ur Epithelial Cells Urine Crystals Urine Bacteria Urine Casts Urine Mucus Urine Other Ur Culture Indicated? Urine Glucose Salicylates Urine Opiates Screen Urine Methadone Screen Acetaminophen Ur Barbiturates Screen Ur Tricyclics Screen Ur Amphetamines Screen U Benzodiazepines Scrn Urine Cocaine Screen Ur THC Screen Ethyl Alcohol COVID-19 Source Nasopharyx SARS-CoV-2 (PCR) Negative Influenza Type A (PCR) Negative Influenza Type B (PCR) Negative RSV (PCR) Negative 08/24/20 08/24/20 08/24/20 17:25 17:25 21:44 WBC RBC Hgb Hct MCV MCH MCHC RDW Plt Count MPV Immature Gran % Neutrophils % Lymphocytes % Monocytes % Eosinophils % Basophils % Nucleated RBC % Absolute Neutrophils Absolute Lymphocytes Absolute Monocytes Absolute Eosinophils Absolute Basophils Sodium Cancelled Potassium Cancelled Chloride Cancelled Carbon Dioxide Cancelled Anion Gap Cancelled BUN Cancelled Creatinine Cancelled Estimated GFR/1.73 m2 Cancelled Glucose Cancelled Calcium Cancelled Magnesium Cancelled Total Bilirubin Cancelled AST Cancelled ALT Cancelled Alkaline Phosphatase Cancelled Troponin I Cancelled Total Protein Cancelled Albumin Cancelled TSH Free T4 Urine Color Yellow Urine Clarity Clear Urine pH 6.5 Ur Specific [place] 1.025 Urine Protein Trace H Urine Ketones Negative Urine Blood Negative Urine Nitrite Negative Urine Bilirubin Negative Urine Urobilinogen 1.0 H Ur Leukocyte Esterase Negative Urine RBC Negative Urine WBC 5-10 Ur Epithelial Cells Negative Urine Crystals Negative Urine Bacteria Negative Urine Casts Negative Urine Mucus Negative Urine Other Negative Ur Culture Indicated? Yes Urine Glucose Negative Salicylates Urine Opiates Screen Negative Urine Methadone Screen Negative Acetaminophen Ur Barbiturates Screen Positive A Ur Tricyclics Screen Negative Ur Amphetamines Screen Negative U Benzodiazepines Scrn Negative Urine Cocaine Screen Negative Ur THC Screen Negative Ethyl Alcohol COVID-19 Source SARS-CoV-2 (PCR) Influenza Type A (PCR) Influenza Type B (PCR) RSV (PCR) Last Vital Signs Temp 37.0 C 08/25/20 03:22 Pulse 91 H 08/25/20 05:01 Resp 18 08/25/20 05:01 BP 140/78 08/25/20 05:01 Pulse Ox 92 08/25/20 05:01 COVID-19 Screening Have you, or household traveled for leisure in last 14 days?: No Had IN PERSON contact w/suspected or confirmed C-19 person: No
[2020-08-25] MEDS: Cetirizine 10 MG TAB PO (08:08)
[2020-08-25] MEDS: Tamsulosin 0.4 MG CAPCR PO (08:08)
[2020-08-25] MEDS: Omeprazole 20 MG CAPCR 40 MG PO (08:08)
[2020-08-25] MEDS: Folic Acid 1 MG TAB PO (08:08)
[2020-08-25] MEDS: Thiamine 100 MG TAB PO (08:08)
[2020-08-25] MEDS: Citalopram 20 MG TAB PO (08:09)
[2020-08-25] MEDS: Enoxaparin 40 MG/0.4 ML SYR SC (08:09)
[2020-08-25] MEDS: Multivitamin TAB 1 TAB PO (08:09)
[2020-08-25] MEDS: Magnesium Gluconate 500 MG TAB PO ×2 (08:12→19:48)
--- NOTE | 2020-08-25 08:59 | PDOC.CMIN ---
- If Service Date Differs Date of service: 08/25/20 Time of Service: 08:59 Care Management Initial Assess REASON FOR HOSPITALIZATION:: acute alcohol intoxication PAST MEDICAL HISTORY/PAST SURGICAL HISTORY:: Medical History (Updated 08/25/20 @ 07:10 by Craig Barrera MD). Alcohol abuse. Alcohol withdrawal seizure. BPH (benign prostatic hyperplasia). COPD (chronic obstructive pulmonary disease). Depression. HTN (hypertension). Hx of angioedema. Unknown allergic rxn 07/25/18 requiring endotracheal intubation and transfer to [facility] for further treatment. Left knee pain. Normal colonoscopy. 09/26/18 Dr Acosta, [facility], normal, repeat 10 years. Surgical History . H/O hernia repair PREVIOUS FUNCTIONAL STATUS/SOCIAL/FAMILY SUPPORTS:: South is currently homeless. He was staying at the [facility] [facility] but was kicked out because he was smoking in his room. He is not sure what he will do after discharge. He has a brother William and a girlfriend Thelma that he identifies as supports. CURRENT FUNCTIONAL STATUS:: South was sitting up in bed in ICU. He was slow to respond to questions but appeared alert and oriented to his situation and surroundings. South was admitted for COPD exacerbation but is actively withdrawing from alcohol. He is on a Phenobarbital regimen for this. ADVANCE DIRECTIVES:: none on file at [facility] Has patient been provided with info about the portal/API?: Yes Did the patient sign up for the portal?: No CODE STATUS:: Full Code INSURANCE COVERAGE / FINANCIAL ISSUES:: Medicaid PRIMARY CARE PHYSICIAN:: Mounika Heard POTENTIAL DISCHARGE NEEDS:: Follow up with PCP and discharge plan of care. South could benefit from tratment for alcohol/substance abuse PATIENT/FAMILY EDUCATION NEEDS:: Discharge plan, limitations, follow up plan, Ask Me Three TRANSPORTATION:: to be determined; likely [facility] PLAN:: South will be discharged home' when medically ready. It is unclear where exactly he will go. He will folloe up with community providers and plan of care. CM will continue to support South and his discharge planning needs.
[2020-08-25] MEDS: MAGNESIUM SULFATE 4 GM/100 ML BAG IVPB (10:45)
[2020-08-25 10:48] LABS: Vitamin B12 677 pg/mL (193-986)
--- NOTE | 2020-08-25 11:35 | PHA.REVIEW ---
Pharmacy Admission Review - Admission Clinical Review (Last Reviewed 08/24/20 @ 17:22 by Sergio Muro MD) Hypoxia (Acute) COPD exacerbation (Acute) Alcohol intoxication (Acute) lisinopril Allergy (Severe, Unverified 08/24/20 17:14) Swelling/Edema Penicillins Allergy (Unverified 08/24/20 17:14) pt unsure happened in childhood ? Rash, hives Sulfa (Sulfonamide Antibiotics) Adverse Reaction (Unverified 08/24/20 17:14) Skin Rash Height 6 ft 3 in Weight 87.9 kg COPD EXACERBATION, ALCOHOL WITHDRAWL - Comments Comments/Follow Ups: Alcohol withdrawl, scoring >10, Phenobarbital loading dose initiated 08/25/20 ~ 11am (Provider wanted 15mg/kg...using Fedora body weight (85kg) which is almost the same as his current weight (87.9kg)..dosing of 1300mg IV piggyback over 30min x1, then 130-260mg Q30min prn, not to exceed 30mg/kg which would be 2600mg max dosing. Alcohol level on admission 394. IV steroids, has Duonebs ordered (no inhalers at this time). Follow Magnesium level. BP elevated, Temp 37.7 w/Tmax 38.3 - Renal Dosing Renal Dosing: BUN Cancelled 08/24/20 21:44 Creatinine Cancelled 08/24/20 21:44 SCr 1.0 08/24/2020 Medications needing adjustments: Reviewed (CrCl~89ml/min) - Anticoagulation Anticoagulation: Hgb 14.3 g/dL (13.5-17.5) 08/24/20 16:55 Hct 42.5 % (40.0-50.0) 08/24/20 16:55 Plt Count 140 10^3/uL (130-400) 08/24/20 16:55 Creatinine Cancelled 08/24/20 21:44 DVT Prohphylaxis: Reviewed Medications: Enoxaparin - Relevant Labs Sodium Cancelled 08/24/20 21:44 Potassium Cancelled 08/24/20 21:44 Chloride Cancelled 08/24/20 21:44 Magnesium Cancelled 08/24/20 21:44 Mag 1.6, K+ 4.0, TSH 0.16 (low) Electrolytes, C-Reactive P, ESR: Reviewed (Mag 4gram IV x1 in addition to Mag Gluconate twice daily) - DM Control DM Control: Glucose Cancelled 08/24/20 21:44 Insulin Dosing: N/A - Heart Failure/NY Heart Failure/NY: Troponin I Cancelled 08/24/20 21:44 EF%, TUTU's, B-Blockers, Diuretics: N/A - BP Control BP Control: Blood Pressure 184/83 Blood Pressure 178/84 Blood Pressure 164/85 Blood Pressure 172/84 Blood Pressure 152/68 Blood Pressure 150/70 Blood Pressure 140/78 Blood Pressure 131/70 Blood Pressure 138/73 Blood Pressure 123/52 Blood Pressure 147/85 Blood Pressure 144/72 Blood Pressure 125/58 Blood Pressure 143/78 If elevated: Reviewed (detoxing, no BP meds ordered) - Qtc Review If Elevated: N/A - IV to PO Switch IV Medications: Reviewed (IV steroids, IV Phenobarbital) - Home Meds Home Med List reviewed: Reviewed (left message to obtain med list from [facility] on [address], awaiting fax) Relevent Home Meds Not ordered & why?: Grace (has Rosa), Alli NS, Potassium..will clean up med list once available from provider
--- NOTE | 2020-08-25 12:37 | PGE_ITS ---
Date of Service Date of service: 08/25/20 Time of Service: 12:37 Assessment and Plan Assessment and plan (1) COPD exacerbation: Status: Acute Assessment and plan: Discontinue Solu-Medrol start prednisone 40 mg daily. Continue bronchodilators. Add doxycycline for acute bronchitis. Add pulmonary toiletry with Acapella and incentive spirometry. (2) Alcohol intoxication: Status: Acute Assessment and plan: Blood alcohol level is elevated at 394 however he is now showing signs of withdrawal with agitation and tremulousness. Patient's been started on multivitamin supplements IV fluids and has been given benzodiazepines which will switch over to phenobarbital. (3) Alcohol withdrawal: Status: Resolved Assessment and plan: Multivitamin supplements, IV fluids, replace his magnesium, loading dose of phenobarbital 15 mg/kg then use phenobarbital 130 mg - 260 mg IV every 30 minutes as needed CIWA greater than 8 Qualifiers: Complication of substance-induced condition: uncomplicated Qualified Code(s): F10.230 - Alcohol dependence with withdrawal, uncomplicated (4) Hypomagnesemia: Status: Resolved Assessment and plan: Replace with oral and parenteral supplementation. (5) DVT prophylaxis: Status: Acute Assessment and plan: Enoxaparin prophylaxis (6) Discharge planning issues: Status: Acute Subjective Subjective Interval history since last seen: 64-year-old male with history of COPD and alcoholism presented emergency department after he was [facility] out of [place] [facility] [place] he [place] staying in yesterday. Patient continues to drink at least a 12 pack of beer daily. Comes in with nonproductive cough and subjective fevers. On arrival his vital signs were stable with a blood pressure 144/66 pulse 78 respirations 20 he was afebrile. He underwent nasopharyngeal swab for SARS-CoV-2 and was negative. On admission his white blood cell count was normal at 6000 he had no anemia chemistries are unremarkable. Blood alcohol level was elevated 394. Chest x-ray showed patchy infiltrate right lower lobe and 2 left- sided lung nodules for which a CT scan was recommended and performed. CT reportedly showed atelectasis and emphysema but no infiltrates. He was hypoxic at 81% on room air and required supplemental oxygen he was given Solu-Medrol and an inhaled beta agonist for COPD exacerbation. He was admitted to the hospital service last night as a medical/surgical floor overflow to the ICU. He was placed on CIWA protocol. Since that time he has been scoring up to 14 on his CIWA protocol and required up to 3 mg of Ativan. I have discussed his case with the pharmacist and his ICU nurse and I recommend that he be loaded with phenobarbital at a dose of 15 mg/kg and then instead of using benzodiazepines to treat for withdrawal symptoms he should be given further phenobarbital at a dose of 130-260 mg IV every 30 minutes for CIWA score greater than 8. Ideally he should be sedated mildly to a RASS scale of 0 to -1. Patient states his cough is nonproductive he denies any rigors. No chest discomfort. He was not started on antibiotics last night. He did have a low- grade temperature this morning of 38.3 which is since come down to 37.7. I will start him on some doxycycline for acute bronchitis and continue with the steroids but switch him from IV Solu-Medrol to prednisone and be sure that he is on a PPI for GI protection. We will continue to monitor his CIWA score and treat him with phenobarbital rather than benzodiazepines. Exam Narrative Exam Narrative: Middle-age male sitting up in his chair not in any respiratory distress. He is somewhat lethargic but he is arousable and speaking coherently. He is not hallucinating. He does have some mild tremulousness. Lungs with diminished breath sounds no rhonchi or wheezing. Heart regular rate and rhythm. Abdomen soft nontender Hands with some mild tremors but no diaphoresis. Psychologic patient is alert coherent nonhallucinatory answers questions appropriately Objective Last Vital Signs Temp 37.7 C H 08/25/20 11:08 Pulse 61 08/25/20 11:08 Resp 17 08/25/20 11:08 BP 184/83 H 08/25/20 11:01 Pulse Ox 94 08/25/20 09:01 Laboratory Results - last 24 hr 08/24/20 08/24/20 08/24/20 16:55 16:55 16:55 WBC 6.21 RBC 4.10 L Hgb 14.3 Hct 42.5 MCV 103.7 H MCH 34.9 H MCHC 33.6 RDW 14.2 H Plt Count 140 MPV 9.9 Immature Gran % 0.3 Neutrophils % 61.7 Lymphocytes % 24.0 Monocytes % 10.8 Eosinophils % 2.7 Basophils % 0.5 Nucleated RBC % 0 Absolute Neutrophils 3.83 Absolute Lymphocytes 1.49 Absolute Monocytes 0.67 Absolute Eosinophils 0.17 Absolute Basophils 0.03 Sodium 142 Potassium 4.0 Chloride 102 Carbon Dioxide 31.1 Anion Gap 8.9 BUN 8 Creatinine 1.0 Estimated GFR/1.73 m2 >= 60.00 Glucose 94 Calcium 8.6 Magnesium Total Bilirubin 0.4 AST 51 H ALT 37 Alkaline Phosphatase 87 Troponin I Total Protein 8.0 Albumin 3.5 Vitamin B12 TSH 0.16 L Free T4 Urine Color Urine Clarity Urine pH Ur Specific [place] Urine Protein Urine Ketones Urine Blood Urine Nitrite Urine Bilirubin Urine Urobilinogen Ur Leukocyte Esterase Urine RBC Urine WBC Ur Epithelial Cells Urine Crystals Urine Bacteria Urine Casts Urine Mucus Urine Other Ur Culture Indicated? Urine Glucose Salicylates < 2.8 Urine Opiates Screen Urine Methadone Screen Acetaminophen < 2 Ur Barbiturates Screen Ur Tricyclics Screen Ur Amphetamines Screen U Benzodiazepines Scrn Urine Cocaine Screen Ur THC Screen Ethyl Alcohol 394.4 COVID-19 Source SARS-CoV-2 (PCR) Influenza Type A (PCR) Influenza Type B (PCR) RSV (PCR) 08/24/20 08/24/20 08/24/20 16:55 16:55 16:55 WBC RBC Hgb Hct MCV MCH MCHC RDW Plt Count MPV Immature Gran % Neutrophils % Lymphocytes % Monocytes % Eosinophils % Basophils % Nucleated RBC % Absolute Neutrophils Absolute Lymphocytes Absolute Monocytes Absolute Eosinophils Absolute Basophils Sodium Potassium Chloride Carbon Dioxide Anion Gap BUN Creatinine Estimated GFR/1.73 m2 Glucose Calcium Magnesium 1.6 L Total Bilirubin AST ALT Alkaline Phosphatase Troponin I Total Protein Albumin Vitamin B12 TSH Free T4 1.07 Urine Color Urine Clarity Urine pH Ur Specific [place] Urine Protein Urine Ketones Urine Blood Urine Nitrite Urine Bilirubin Urine Urobilinogen Ur Leukocyte Esterase Urine RBC Urine WBC Ur Epithelial Cells Urine Crystals Urine Bacteria Urine Casts Urine Mucus Urine Other Ur Culture Indicated? Urine Glucose Salicylates Urine Opiates Screen Urine Methadone Screen Acetaminophen Ur Barbiturates Screen Ur Tricyclics Screen Ur Amphetamines Screen U Benzodiazepines Scrn Urine Cocaine Screen Ur THC Screen Ethyl Alcohol COVID-19 Source Nasopharyx SARS-CoV-2 (PCR) Negative Influenza Type A (PCR) Negative Influenza Type B (PCR) Negative RSV (PCR) Negative 08/24/20 08/24/20 08/24/20 16:55 17:25 17:25 WBC RBC Hgb Hct MCV MCH MCHC RDW Plt Count MPV Immature Gran % Neutrophils % Lymphocytes % Monocytes % Eosinophils % Basophils % Nucleated RBC % Absolute Neutrophils Absolute Lymphocytes Absolute Monocytes Absolute Eosinophils Absolute Basophils Sodium Potassium Chloride Carbon Dioxide Anion Gap BUN Creatinine Estimated GFR/1.73 m2 Glucose Calcium Magnesium Total Bilirubin AST ALT Alkaline Phosphatase Troponin I Total Protein Albumin Vitamin B12 677 TSH Free T4 Urine Color Yellow Urine Clarity Clear Urine pH 6.5 Ur Specific [place] 1.025 Urine Protein Trace H Urine Ketones Negative Urine Blood Negative Urine Nitrite Negative Urine Bilirubin Negative Urine Urobilinogen 1.0 H Ur Leukocyte Esterase Negative Urine RBC Negative Urine WBC 5-10 Ur Epithelial Cells Negative Urine Crystals Negative Urine Bacteria Negative Urine Casts Negative Urine Mucus Negative Urine Other Negative Ur Culture Indicated? Yes Urine Glucose Negative Salicylates Urine Opiates Screen Negative Urine Methadone Screen Negative Acetaminophen Ur Barbiturates Screen Positive A Ur Tricyclics Screen Negative Ur Amphetamines Screen Negative U Benzodiazepines Scrn Negative Urine Cocaine Screen Negative Ur THC Screen Negative Ethyl Alcohol COVID-19 Source SARS-CoV-2 (PCR) Influenza Type A (PCR) Influenza Type B (PCR) RSV (PCR) 08/24/20 21:44 WBC RBC Hgb Hct MCV MCH MCHC RDW Plt Count MPV Immature Gran % Neutrophils % Lymphocytes % Monocytes % Eosinophils % Basophils % Nucleated RBC % Absolute Neutrophils Absolute Lymphocytes Absolute Monocytes Absolute Eosinophils Absolute Basophils Sodium Cancelled Potassium Cancelled Chloride Cancelled Carbon Dioxide Cancelled Anion Gap Cancelled BUN Cancelled Creatinine Cancelled Estimated GFR/1.73 m2 Cancelled Glucose Cancelled Calcium Cancelled Magnesium Cancelled Total Bilirubin Cancelled AST Cancelled ALT Cancelled Alkaline Phosphatase Cancelled Troponin I Cancelled Total Protein Cancelled Albumin Cancelled Vitamin B12 TSH Free T4 Urine Color Urine Clarity Urine pH Ur Specific [place] Urine Protein Urine Ketones Urine Blood Urine Nitrite Urine Bilirubin Urine Urobilinogen Ur Leukocyte Esterase Urine RBC Urine WBC Ur Epithelial Cells Urine Crystals Urine Bacteria Urine Casts Urine Mucus Urine Other Ur Culture Indicated? Urine Glucose Salicylates Urine Opiates Screen Urine Methadone Screen Acetaminophen Ur Barbiturates Screen Ur Tricyclics Screen Ur Amphetamines Screen U Benzodiazepines Scrn Urine Cocaine Screen Ur THC Screen Ethyl Alcohol COVID-19 Source SARS-CoV-2 (PCR) Influenza Type A (PCR) Influenza Type B (PCR) RSV (PCR)
[2020-08-25] MEDS: predniSONE 20 MG TAB 40 MG PO (13:34)
[2020-08-25] MEDS: Doxycycline Hyclate 100 MG CAP PO ×2 (14:11→21:34)
--- NOTE | 2020-08-25 18:56 | NUR.NOTE ---
Nursing Note: Pt transferred from ICU to room 226 via WC. SBG up to wheelchair and then bed. Pt A&Ox3, VSS, see worklist. Pt drowsy, wants to sleep. On tele. Bed alarms on.
[2020-08-25] MEDS: guaiFENesin 600 MG TABCR PO (19:48)
[2020-08-25] MEDS: Budesonide/Formoterol 160/4.5 6 GM 60 PUFF INH IH (19:48)
[2020-08-26] VITALS (11 sets, daily range): BP systolic 126–146; BP diastolic 54–73; PULSE 54–71; RESP 1–93; TEMP 36.3–36.9; O2SAT 92–99
[2020-08-26] MEDS: Albuterol/Ipratropium 3 ML UPD VIAL UPD ×3 (02:27→13:46)
[2020-08-26] MEDS: Acetaminophen 650 MG SUPP PR (02:54)
[2020-08-26 07:05] LABS: ALT 25 U/L (16-63); AST 33 U/L (15-37); Albumin 2.8 g/dL (3.4-5.0); Alkaline Phosphatase 62 U/L (46-116); Anion Gap 5.4 mmol/L (3-11); BUN 14 mg/dL (7-18); Bilirubin, Total 1.1 mg/dL (0.2-1.0); CO2 30.6 mmol/L (21.0-32.0); CREATININE 0.8 mg/dL (0.70-1.30); Calcium 8.2 mg/dL (8.5-10.1); Chloride 103 mmol/L (98-107); Glucose 92 mg/dL (74-106); Magnesium 1.8 mg/dL (1.8-2.4); Potassium 3.5 mmol/L (3.5-5.1); Sodium 139 mmol/L (136-145); Total Protein 6.2 g/dL (6.4-8.2)
[2020-08-26] MEDS: Enoxaparin 40 MG/0.4 ML SYR SC (07:54)
[2020-08-26] MEDS: Acetaminophen 325 MG TAB 650 MG PO ×2 (07:54→15:44)
[2020-08-26] MEDS: Omeprazole 20 MG CAPCR 40 MG PO (07:56)
[2020-08-26] MEDS: predniSONE 20 MG TAB 40 MG PO (07:56)
[2020-08-26] MEDS: Magnesium Gluconate 500 MG TAB PO (07:56)
[2020-08-26] MEDS: guaiFENesin 600 MG TABCR PO (07:56)
[2020-08-26] MEDS: Citalopram 20 MG TAB PO (07:56)
[2020-08-26] MEDS: Folic Acid 1 MG TAB PO (07:56)
[2020-08-26] MEDS: Tamsulosin 0.4 MG CAPCR PO (07:57)
[2020-08-26] MEDS: Multivitamin TAB 1 TAB PO (07:57)
[2020-08-26] MEDS: Thiamine 100 MG TAB PO (07:57)
[2020-08-26] MEDS: Cetirizine 10 MG TAB PO (07:57)
[2020-08-26] MEDS: Budesonide/Formoterol 160/4.5 6 GM 60 PUFF INH IH (08:03)
[2020-08-26] MEDS: Potassium Chloride 10 MEQ CAPCR 20 MEQ PO (09:29)
[2020-08-26] MEDS: Doxycycline Hyclate 100 MG CAP PO (09:29)
--- NOTE | 2020-08-26 11:04 | W.NUTRFU ---
Date of service: 08/26/20 Time of Service: 11:04 Nutritional Follow up NOTE: 64 year old male with hx of ETOH abuse, homelessness. BMI wnl. Following regular meal plan with excellent intake (>75%). Not considered at nutritional risk. Will continue to follow. Time Spent in Nutritional Counseling and Treatment: 0
[2020-08-26] MEDS: Nicotine 21 MG/24 HR PATCH TD (14:35)
--- NOTE | 2020-08-26 18:33 | PDOC.CMDIS ---
LACE Index Scoring Tool - Questions: Length of Stay (in days): 2 Acuity (Admit via E.D.?): Yes Comorbidities: Chronic Pulmonary Disease E.D. Visits: 10 - Answers: Total Score: 11 Risk of Readmission: High Risk Care Management Discharge Reason for Hospitalization: acute alcohol intoxication Discharge Plan: South will discharge to home when ready per MD. He will transport via [facility] private tilt tray driver, coordinated by this proposal manager writer. Patient/Family Education Needs: Review discharge instructions, discuss Ask Me Three. Services Needed at Discharge: Transportation ([facility] private tilt tray driver. )
--- NOTE | 2020-08-27 09:14 | DSE_ITS ---
Date of service: 08/26/20 Time of Service: 17:30 DS: Diagnosis Discharge Diagnosis (1) COPD exacerbation: Status: Acute Asessment and Plan: Patient was treated with DuoNeb nebulizers, supplemental oxygen, IV Solu-Medrol and oral doxycycline. Patient's hypoxemia and dyspnea improved to the point where he was weaned off of oxygen and maintain his oxygen saturation at greater than 90% from the night prior to his discharge throughout the day of his discharge. Patient was switched to oral prednisone. Patient was discharged with 7-day course of doxycycline 100 mg p.o. twice daily and a 5-day course of prednisone 40 mg daily. (2) Alcohol intoxication: Status: Resolved Asessment and Plan: Patient presented intoxicated with a blood alcohol 394 however after admission went into acute alcohol withdrawal requiring phenobarbital. (3) Alcohol withdrawal: Status: Resolved Asessment and Plan: Patient initially had a CIWA score of 3-5 but then later the next day on August 25, 2020 was scoring up to 14 in the morning. However the patient responded well to phenobarbital was given a loading dose of 15 mg/kg with subsequent doses of 130-260 mg IV every 30 minutes and his CIWA scores came down. On the day of discharge she was not requiring any additional phenobarbital and his CIWA scores were 2. It is felt the patient could be safely discharged home without risk of severe alcohol withdrawal or seizures. During his stay he was treated w/ thiamine, MVS and folic acid in addition to magnesium. (4) Hypomagnesemia: Status: Resolved Asessment and Plan: magnesium level was as low as 1.5 on admission but was corrected w/ oral and IV boluses and at discharge was up to 1.8. (5) Discharge planning issues: Status: Resolved Asessment and Plan: although the patient is homeless, he has options including returning to his girlfriend's home and he was also advised to call [facility] to arrange emergency temporary housing. He also had the option of going to [facility] in [facility]. He was advised that he could no longer stay at the hospital as he no longer had acute medical needs for hospitalization. Discharge Plan Disposition Patient Disposition: HOME Condition: Stable Discharge Details Reason For Visit: COPD EXAC Admit Date/Time: 08/24/20 21:46 Admit Provider: Craig Barrera Attending Provider: Craig Barrera Primary Care Provider: Mounika Heard Hospital Course Hospital Course: Patient is a 64-year-old male smoker with a history of alcoholism with previous history of alcohol withdrawal. Patient has been homeless and kicked out of temporary housing in motels where he had been placed. He frequently drinks vodka shots and 12 packs of beer and presented to the emergency department intoxicated with symptoms of shortness of breath as well as a cough and subjective complaints of fever. On arrival to the emergency department his respirations were nonlabored at 20 breaths/min he was afebrile with a temperature 36.6 and stable blood pressure 144/66. He underwent nasopharyngeal PCR testing for SARS-CoV-2 and was negative. His blood alcohol level was 394 his chemistries were unremarkable. His leukocyte count was 6000 and his hematocrit is 42%. Chest x-ray showed patchy infiltrate right lower lung field and 2 left-sided lung nodules. CT scan of chest was performed and revealed emphysema and atelectasis but no pulmonary infiltrates. Oxygen level was 81% on room air and he was placed on 2 L nasal cannula and started on beta agonist updraft and given IV Solu-Medrol. Patient was admitted to the hospitalist service with Dr. Barrera continue the Solu-Medrol and aerosolized bronchodilators but did not start antibiotics as the patient was afebrile. I saw the patient the next day on August 25, 2020 and started him on doxycycline for acute purulent bronchitis and discontinued his Solu-Medrol and put him on prednisone 40 mg daily. Although he had presented intoxicated he was now started to show some signs of withdrawal with agitation and tremulousness. He was treated with thiamine and multivitamin and although he had been given benzodiazepines earlier during the night I switch him over to phenobarbital began with a loading dose of phenobarbital 15 mg/kg and then wrote for as needed use of phenobarbital at a dose of 130 mg - 260 mg IV every 30 minutes as needed for CIWA scale greater than 8. His hypomagnesemia was treated with parenteral and oral supplementation. He was placed on enoxaparin for DVT prophylaxis. Although the patient had initially been admitted to the ICU as a medical/surgical floor overload he was transferred out to the medical/surgical floor. He did well with the phenobarbital management and showed no signs of severe withdrawal. On the day of discharge his CIWA scores were low at 2. He had been weaned off oxygen on the evening of August 25, 2020 and remained on room air throughout the day of discharge. industrial maintenance manager met with the patient and encouraged him to call [facility] at [address] to arrange temporary housing as the patient was no longer requiring acute hospital care. The patient was discharged with prescriptions for doxycycline 100 mg p.o. twice daily for 7 days along with a 5-day course of prednisone 40 mg daily. He was given a new prescription for proair HFA inhaler. He was encouraged to follow-up with his PCP and to refrain from further alcohol consumption. industrial maintenance manager arranged for RCT transportation home. Home Meds and New Rx's Prescriptions: New doxycycline hyclate 100 mg tablet 100 mg PO BID 7 Days Qty: 14 RF: 0 prednisone 20 mg tablet 40 mg PO DAILY 5 Days Qty: 10 RF: 0 Continued albuterol sulfate [ProAir HFA] 90 mcg/actuation HFA aerosol inhaler 2 puff IH Q6H PRNQty: 18 RF: 0 cetirizine 10 mg Tablet 10 mg PO DAILY Qty: 30 RF: 0 thiamine HCl (vitamin B1) 100 mg tablet 100 mg PO DAILY Qty: 30 RF: 0 omeprazole 40 mg capsule,delayed release(DR/EC) 40 mg PO DAILY Qty: 30 RF: 0 citalopram [Celexa] 20 mg Tablet 20 mg PO DAILY Qty: 30 RF: 0 tamsulosin 0.4 mg capsule 0.4 mg PO DAILY Qty: 30 RF: 0 fluticasone propionate [Flonase Allergy Relief] 50 mcg/actuation spray,suspension 1 spray CRISTIANA DAILY Qty: 15.8 RF: 0 Therems-M 27-0.4 mg Tablet 1 tab PO DAILY Qty: 30 RF: 0 fluticasone propion-salmeterol [AirDuo RespiClick] 113-14 mcg/actuation Aerosol Powdr Breath Activated 1 puff INHALATION BID Qty: 1 RF: 0 magnesium gluconate 27.5 mg magne- sium (500 mg) tablet 27.5 mg PO BID Qty: 60 RF: 0 potassium chloride 15 mEq tablet,ER particles/crystals 15 meq PO DAILY Qty: 30 RF: 0 desoximetasone 0.25 % ointment 1 applic topical BID Qty: 60 RF: 0 Discharge Instructions Instructions: COPD (Chronic Obstructive Pulmonary Disease) (DC) Stand Alone Forms: Nursing Discharge Form Referrals: Mounika Heard [Primary Care Provider] - (Call for follow-up appointment in 1 week) SARS-COVID,SARS-COVID [OTHER] - 09/25/20 9:40 am (Go to the [facility] on September 25 at 0940 for your second Moderna vaccine) Activity:: Activity as Tolerated Equipment/Supplies:: No Equipment Needed Diet:: Normal Diet Discharge Orders Discharge Orders: Discharge Order (Routine); Ordered 08/26/20 Ordered By: Earnest Moran Discharge Data Discharge Date/Time-TO BE ENTERED AT DEPARTURE: 08/26/20 19:42 DS: Summary Time Spent with Patient providing and/or coordinating discharge services: Less than 30 minutes Status at Discharge Functional status at discharge: independent ambulation Overall status at discharge: patient is back to baseline Mental Status: mental status grossly normal Speech and Movement: speech and movement normal Mood: congruent mood Affect: normal affect Exam Psych Mental Status: mental status grossly normal Speech and Movement: speech and movement normal Mood: congruent mood Affect: normal affect DS: Data Vitals/I&O Vitals and I&O: Vital Signs Temperature 36.9 C 08/26/20 15:36 Temperature Source Tympanic 08/26/20 15:36 Pulse 71 08/26/20 15:54 Pulse Rhythm Regular 08/26/20 11:39 Pulse 95 H 08/25/20 16:01 Respiratory Rate 16 08/26/20 15:36 Respiratory Effort Non-Labored 08/26/20 11:39 Respiratory Depth Normal 08/26/20 11:39 Respiratory Pattern Normal 08/26/20 11:39 Blood Pressure 131/54 L 08/26/20 15:36 Blood Pressure Mean 95 08/25/20 16:01 Blood Pressure Position Sitting 08/24/20 16:54 Pulse Oximetry 92 08/26/20 15:36 Oxygen Delivery Method Room Air 08/26/20 13:46 Oxygen Flow Rate 0 08/26/20 13:46 Pain Level 8 08/26/20 15:44 Intake & Output 08/26/20 08/26/20 08/27/20 11:59 23:59 11:59 Intake Total 360 / 840 480 / 840 Output Total 400 / 700 300 / 700 Balance -40 / 140 180 / 140 Intake: Oral 360 / 840 480 / 840 Output: Urine 400 / 700 300 / 700 Other: Urine Color Yellow Urine Appearance Clear Clear Urine Odor Normal Voiding Methods Urinal Urinal Data Completed and Pending Labs on day of discharge: 08/26/20 08:07 Sputum Sputum Culture - Pending Preliminary micro results at discharge 08/26/20 08:07 Sputum Culture - Pending Sputum PFSH Medical History (Updated 08/27/20 @ 09:31 by Earnest Moran) Alcohol abuse Alcohol withdrawal seizure BPH (benign prostatic hyperplasia) COPD (chronic obstructive pulmonary disease) Depression HTN (hypertension) Hx of angioedema Unknown allergic rxn 07/25/18 requiring endotracheal intubation and transfer to [facility] for further treatment. Left knee pain Normal colonoscopy 09/26/18 Dr Acosta, [facility], normal, repeat 10 years. Surgical History H/O hernia repair Social History Smoking/Tobacco Use Status: Current every day Tobacco Type: cigarettes Years smoked: 40 Smoking risk assessment performed?: Yes Alcohol Intake: current Alcohol Intake frequency: 3 or more drinks per day Alcohol type: hard liquor Drug use: Never Substance use type: does not use Do you feel safe at home: Yes (Suicidal) Do you feel safe in your relationship?: Yes
== END 2020-08-26 19:42 | disposition home or self-care (01) | DRG 191 ==
LOC: ER 08-25 00:08 → ICU 08-25 00:11 → MS 08-25 18:33
PROVIDERS: Internal Medicine; Admitting Provider Family Medicine; Emergency Provider Emergency Medicine; PCP Nurse Practitioner Family; Visit Provider Family Medicine
DX: J44.0 Chronic obstructive pulmonary disease with (acute) lower respiratory infection (principal); F10.139 Alcohol abuse with withdrawal, unspecified; F10.129 Alcohol abuse with intoxication, unspecified; J44.1 Chronic obstructive pulmonary disease with (acute) exacerbation; R09.02 Hypoxemia; J20.9 Acute bronchitis, unspecified; Z59.0 Homelessness; N40.0 Benign prostatic hyperplasia without lower urinary tract symptoms; F32.9 Major depressive disorder, single episode, unspecified; I10 Essential (primary) hypertension; F17.210 Nicotine dependence, cigarettes, uncomplicated; E83.42 Hypomagnesemia; Y90.8 Blood alcohol level of 240 mg/100 ml or more; Z20.822 Contact with and (suspected) exposure to COVID-19
CPT/HCPCS: 36415; 71275; 80053; 80307; 94640; 96361; 96374; 99222; 99233; 99238; 99285; J1650; 71046; 80320; 80329; 81003; 81015; 82607; 83735; 84439; 84443; 84484; 85025; 87070; 87086; 87205; 94667; 99232; J2560; J2930; J3475; J3490; J7512; J7620

== ENCOUNTER 2021-09-25 16:03 | Outpatient (REF) | payer MEDICARE, MEDICAID, SELFPAY ==
[2021-09-25 19:32] LABS: ALT 20 U/L (16-63); AST 19 U/L (15-37); Albumin 3.8 g/dL (3.4-5.0); Alkaline Phosphatase 78 U/L (46-116); Anion Gap 6.8 mmol/L (3-11); BUN 14 mg/dL (7-18); Bilirubin, Total 1.4 mg/dL (0.2-1.0); CO2 30.2 mmol/L (21.0-32.0); CREATININE 1.1 mg/dL (0.70-1.30); Chloride 104 mmol/L (98-107); Glucose 100 mg/dL (74-106); Sodium 141 mmol/L (136-145); Total Protein 6.9 g/dL (6.4-8.2)
== END 2021-09-25 16:04 | disposition home or self-care (01) ==
LOC: NCHCN 16:03
PROVIDERS: PCP Nurse Practitioner Family; Visit Provider Nurse Practitioner Family
DX: R79.89 Other specified abnormal findings of blood chemistry (principal); N40.0 Benign prostatic hyperplasia without lower urinary tract symptoms; Z00.00 Encounter for general adult medical examination without abnormal findings
CPT/HCPCS: 80053

== ENCOUNTER 2022-04-27 08:03 | Emergency (ER) | payer MEDICARE, MEDICAID, SELFPAY ==
[2022-04-27 08:10] VITALS: BP 155/86; PULSE 87; RESP 16; TEMP 36.6; O2SAT 95
--- NOTE | 2022-04-27 10:00 | DI.RAD_ITS ---
Exam(s) XR CHEST 2V PA LATERAL EXAM: XR CHEST 2V PA LATERAL CLINICAL HISTORY: SOB. TECHNIQUE: 2D digital imaging was performed. COMPARISON: CR,XR XR CHEST 2V PA LATERAL from 08/24/2020 FINDINGS: 2 views: Heart size is normal. The mediastinum is not widened. Bilateral hyperinflation but no infiltrates nor pleural effusions. Symmetrical bilateral nodules are unchanged and are consistent with the patient's breast nipple shadows. No pneumothorax. No pulmonary edema. IMPRESSION: No acute pulmonary findings.Hyperinflation again noted. DATA REPOSITORY: RADIATION DOSE DELIVERED:
--- NOTE | 2022-04-27 10:42 | W.ED.GENAD ---
Discharge Plan Disposition Patient Disposition: HOME Condition: Stable Discharge Details Chief Complaint: RashLesion Clinical Impression: Psoriasis, Rash and nonspecific skin eruption, Blepharitis Primary Care Provider: DIMPLE NOBLE ED Provider: Maikel Stevens Home Meds and New Rx's Prescriptions: Continued albuterol sulfate [ProAir HFA] 90 mcg/actuation HFA aerosol inhaler 2 puff IH Q6H PRNQty: 18 0RF cetirizine 10 mg Tablet 10 mg PO DAILY Qty: 30 0RF thiamine HCl (vitamin B1) 100 mg tablet 100 mg PO DAILY Qty: 30 0RF omeprazole 40 mg capsule,delayed release(DR/EC) 40 mg PO DAILY Qty: 30 0RF citalopram [Celexa] 20 mg Tablet 20 mg PO DAILY Qty: 30 0RF tamsulosin 0.4 mg capsule 0.4 mg PO DAILY Qty: 30 0RF fluticasone propionate [Flonase Allergy Relief] 50 mcg/actuation spray,suspension 1 spray CRISTIANA DAILY Qty: 15.8 0RF Therems-M 27-0.4 mg Tablet 1 tab PO DAILY Qty: 30 0RF fluticasone propion-salmeterol [AirDuo RespiClick] 113-14 mcg/actuation Aerosol Powdr Breath Activated 1 puff INHALATION BID Qty: 1 0RF magnesium gluconate 27.5 mg magne- sium (500 mg) tablet 27.5 mg PO BID Qty: 60 0RF potassium chloride 15 mEq tablet,ER particles/crystals 15 meq PO DAILY Qty: 30 0RF desoximetasone 0.25 % ointment 1 applic topical BID Qty: 60 0RF Rx Instructions: apply to affected skin bid for up to 10 days then use bid prn rash Discharge Instructions Instructions: Psoriasis (ED) Additional Instructions: Use Benadryl 25 mg every 8 hours as needed for itching. Please take prednisone as prescribed. Your initial dose was given here in the emergency department. Your next dose is tomorrow. Please follow-up with your primary care physician. It is recommended that you have a follow-up echocardiogram of your heart. Please be sure to discuss this with your doctor. Please follow-up with dermatology. Return to the emergency department immediately for any worsening or new concerning symptoms. Referrals: DIMPLE NOBLE, PEDIATRIC NURSE PRACTITIONER [Primary Care Provider] - Eliceo Gastelum MD [ CONSULTING PHYSICIAN] - Discharge Data Discharge Date/Time-TO BE ENTERED AT DEPARTURE: 04/27/22 13:15 Medical Decision Making Concern for psoriasis flare, possible autoimmune process affecting both eyes and skin, CHF, other pulmonary disease, other. Doubt bacterial conjunctivitis at this time. Exam/history at this time not consistent with acute coronary syndrome, pulmonary embolism, sepsis, acute aortic pathology, Hamilton-Julius syndrome, TEN. Plan for EKG, chest x-ray, screening labs. Patient signed out to Dr. Maikel Stevens at time of shift change with EKG, chest x-ray, screening labs, reassessment pending. Medical Records Medical records reviewed: Yes I reviewed the patient's medical records. HPI General Mode of arrival: ambulatory. Date/Time Provider Initiated Documentation: 04/27/22 08:29. Limitations to Documentation: no limitations. Information obtained by: patient, RN notes reviewed and old records reviewed. HPI Narrative: [place] is a 66-year-old man with a history of COPD, psoriasis, alcohol abuse in the past, hypertension, depression presenting to the emergency department with eye redness and skin itching. Patient reports that the inner lids of both of his eyes became very red approximately 1 month ago. He also developed significant clear discharge. Patient reports that he sought medical care, was seen at a clinic (unsure of name), where he was prescribed 10 days of oral antibiotics. Patient reports that he took this medication as prescribed and saw no change at all in his symptoms. Patient reports that at around the time that he developed eye symptoms he also developed skin itching. He reports that he has not sought medical care for the itching. Patient reports that it is over most of his body. Patient also reports that he has had shortness of breath when lying flat over the past month or so. He reports that he has not had any exertional shortness of breath, or shortness of breath at rest. He denies any swelling. He denies any other symptoms: No fever, cough, vomiting, diarrhea, numbness, weakness. Patient denies history of rash; he has been diagnosed with psoriasis in the past upon record review. Related Data Home Medications Medication Instructions Recorded Confirmed cetirizine 10 mg tablet 10 mg PO DAILY #30 tabs 08/03/20 04/27/22 citalopram 20 mg tablet (Celexa) 20 mg PO DAILY #30 tabs 08/03/20 04/27/22 desoximetasone 0.25 % topical 1 applic topical BID #60 grams 08/03/20 04/27/22 ointment fluticasone 113 mcg-salmeterol 14 1 puff inhalation BID #1 ea 08/03/20 04/27/22 mcg/actuation breath activated powdr (AirDuo RespiClick) fluticasone propionate 50 1 spray intranasal DAILY #15.8 mL 08/03/20 04/27/22 mcg/actuation nasal spray,suspension (Flonase Allergy Relief) magnesium gluconate 27.5 mg 27.5 mg PO BID #60 tabs 08/03/20 04/27/22 magnesium (500 mg) tablet multivitamin,vn-anbd-ezeerytm 27 1 tab PO DAILY #30 tabs 08/03/20 04/27/22 mg-0.4 mg tablet (Therems-M) omeprazole 40 mg capsule,delayed 40 mg PO DAILY #30 caps 08/03/20 04/27/22 release potassium chloride 15 mEq 15 meq PO DAILY #30 tabs 08/03/20 04/27/22 tablet,extended release(part/cryst) tamsulosin 0.4 mg capsule 0.4 mg PO DAILY #30 caps 08/03/20 04/27/22 thiamine HCl (vitamin B1) 100 mg 100 mg PO DAILY #30 tabs 08/03/20 04/27/22 tablet albuterol sulfate 90 mcg/actuation 2 puff inhalation Q6H PRN #18 grams 08/26/20 04/27/22 aerosol inhaler (ProAir HFA) Previous Rx's Medication Instructions Recorded cetirizine 10 mg tablet 10 mg PO DAILY #30 tabs 08/03/20 citalopram 20 mg tablet (Celexa) 20 mg PO DAILY #30 tabs 08/03/20 desoximetasone 0.25 % topical 1 applic topical BID #60 grams 08/03/20 ointment fluticasone 113 mcg-salmeterol 14 1 puff inhalation BID #1 ea 08/03/20 mcg/actuation breath activated powdr (AirDuo RespiClick) fluticasone propionate 50 1 spray intranasal DAILY #15.8 mL 08/03/20 mcg/actuation nasal spray,suspension (Flonase Allergy Relief) magnesium gluconate 27.5 mg 27.5 mg PO BID #60 tabs 08/03/20 magnesium (500 mg) tablet multivitamin,kt-vibb-qliautij 27 1 tab PO DAILY #30 tabs 08/03/20 mg-0.4 mg tablet (Therems-M) omeprazole 40 mg capsule,delayed 40 mg PO DAILY #30 caps 08/03/20 release potassium chloride 15 mEq 15 meq PO DAILY #30 tabs 08/03/20 tablet,extended release(part/cryst) tamsulosin 0.4 mg capsule 0.4 mg PO DAILY #30 caps 08/03/20 thiamine HCl (vitamin B1) 100 mg 100 mg PO DAILY #30 tabs 08/03/20 tablet albuterol sulfate 90 mcg/actuation 2 puff inhalation Q6H PRN #18 grams 08/26/20 aerosol inhaler (ProAir HFA) Allergies Allergy/AdvReac Type Severity Reaction Status Date / Time lisinopril Allergy Severe Swelling/Ed Unverified 04/27/22 08:16 pastor Penicillins Allergy pt unsure Unverified 04/27/22 08:16 happened in childhood ? Rash, hives Sulfa (Sulfonamide AdvReac Skin Rash Unverified 04/27/22 08:16 Antibiotics) General Stated Complaint: RashLesion ALEENA: 4 Review of Systems Narrative: Constitutional: denies fevers Eyes: denies eye pain, vision changes, reports clear discharge from both eyes, redness of inner eyelids both eyes ENT: denies ear pain, dental pain, sore throat Cardiovascular: denies chest pain, edema Respiratory: Reports orthopnea denies SOB at rest, dyspnea on exertion, cough GI: denies abdominal pain, vomiting, diarrhea : denies flank pain MSK: denies back pain, neck pain, arthralgias, myalgias Skin: Reports all over body skin itching Neuro: denies headaches, numbness, weakness PFSH All Active Problems Hypoxia (Acute) COPD exacerbation (Acute) Atelectasis (Acute) Psoriasis (Chronic) Pancytopenia (Chronic) Hypomagnesemia (Chronic) Rash (Acute) Conjunctivitis (Acute) Alcohol abuse (Chronic) Depression (Chronic) Encounter for screening colonoscopy (Acute) Medical History Alcohol abuse Alcohol withdrawal seizure BPH (benign prostatic hyperplasia) COPD (chronic obstructive pulmonary disease) Depression HTN (hypertension) Hx of angioedema Unknown allergic rxn 07/25/18 requiring endotracheal intubation and transfer to [facility] [place] [facility] for further treatment. Left knee pain Normal colonoscopy 09/26/18 Dr Acosta, [facility], normal, repeat 10 years. Surgical History H/O hernia repair Social History Smoking/Tobacco Use Status: Current every day Tobacco Type: cigarettes Years smoked: 40 Smoking risk assessment performed?: Yes Alcohol Intake: former Drug use: Never Substance use type: does not use Do you feel safe at home: Yes (Suicidal) Do you feel safe in your relationship?: Yes Exam Narrative Exam Narrative: Constitutional: well and [id number], pleasant, conversing normally HENT: head atraumatic/normocephalic/normal inspection, mucous membranes moist Eyes: Palpebral conjunctiva injected and mildly edematous bilaterally, there is no bulbar conjunctival injection sclera normal, pupils 3mm b/l ERRLA, EOMI and painless, no periorbital edema/erythema Neck: no stridor, normal ROM, trachea midline Resp: normal work of breathing, speaking in full sentences Cardio: normal rate, normal rhythm Skin: warm, dry, normal color, diffuse skin scaling Neuro: alert, not altered, grossly non-focal, normal tone Ext: no edema Psych: normal mood, normal affect, normal behavior Course Vital Signs Vital signs: Vital Signs Temperature 36.6 C 04/27/22 08:10 Pulse 87 04/27/22 08:10 Respiratory Rate 16 04/27/22 08:10 Blood Pressure 155/86 H 04/27/22 08:10 Pulse Oximetry 95 04/27/22 08:10 Temperature 36.6 C 04/27/22 08:10 Temperature Source Tympanic 04/27/22 08:10 Pulse 87 04/27/22 08:10 Respiratory Rate 16 04/27/22 08:10 Respiratory Effort Non-Labored 04/27/22 08:14 Blood Pressure 155/86 H 04/27/22 08:10 Blood Pressure Position Sitting 04/27/22 08:10 Pulse Oximetry 95 04/27/22 08:10 Oxygen Delivery Method Room Air 04/27/22 08:10 Oxygen Flow Rate 0 04/27/22 08:10 Pain Level 10 04/27/22 08:10
--- NOTE | 2022-04-27 10:45 | RT.EKG_ITS ---
APPROVED REPORT Exam: Resting ECG Reason for Exam: SOB Patient Location: E HR:68 bpm ECG Measurements Heart Rate 68 AXIS MD 152 P 77 QRSd 98 QRS 50 QT 424 T 53 QTc 452 Conclusion Sinus rhythm...normal P axis, V-rate 60- 99 Anteroseptal infarct, age indeterminate...Q >35mS, T neg, V1-V2. Sinus. Normal axis. No STEMI. I have reviewed and interpreted ECG and agree with software generated interpretation.
[2022-04-27 11:28] LABS: Abs Immature Grans 0.03 10^3/uL (0.0-0.06); Absolute Basophil Count 0.04 10^3/uL (0.0-0.2); Absolute Eosinophil Count 0.39 10^3/uL (0.0-0.7); Absolute Lymphocyte Count 1.45 10^3/uL (1.2-3.4); Absolute Monocyte Count 0.84 10^3/uL (0.1-0.8); Absolute Neutrophil Count 7.13 10^3/uL (1.2-6.7); Basophils % 0.4; Eosinophils % 3.9; HCT 45.8 % (40.0-50.0); HGB 14.9 g/dL (13.5-17.5); Immature Grans % 0.3; Lymphocytes % 14.7; MCH 31.6 pg (27.0-33.0); MCHC 32.5 % (32.0-36.0); MCV 97 fL (80-95); MPV 9.7 fL (8.0-11.0); Monocytes % 8.5; Neutrophils % 72.2; Platelet Count 223 10^3/uL (130-400); RBC 4.72 10^6/uL (4.36-5.78); RDW 13.8 % (11.8-14.1); RDW-SD 50.1 fL; WBC 9.88 10^3/uL (4.4-10.8)
[2022-04-27 11:34] LABS: ESR 15 mm/hr (0-20)
[2022-04-27 12:02] LABS: ALT 18 U/L (16-63); AST 29 U/L (15-37); Albumin 3.6 g/dL (3.4-5.0); Alkaline Phosphatase 88 U/L (46-116); Anion Gap 6.3 mmol/L (3-11); BUN 11 mg/dL (7-18); Bilirubin, Total 0.9 mg/dL (0.2-1.0); C-Reactive Protein 1.18 mg/dL (0.0-0.3); CO2 32.7 mmol/L (21.0-32.0); CREATININE 1.1 mg/dL (0.70-1.30); Calcium 9.2 mg/dL (8.5-10.1); Chloride 104 mmol/L (98-107); Estimated GFR 74.04 (mL/min/1.73m2); Glucose 108 mg/dL (74-106); NT-proBNP 621 pg/mL (<300); Sodium 143 mmol/L (136-145); Total Protein 7.6 g/dL (6.4-8.2); Troponin I < 50 ng/L (<or=60)
[2022-04-27 12:14] LABS: Bilirubin Negative (Negative); Blood Negative (Negative); Clarity Clear (Clear); Glucose Negative (Negative); Ketones Negative (Negative); Leukocyte Esterase Negative (Negative); Nitrite Negative (Negative); Urobilinogen 0.2 EU/dL (Up TO 0.2); pH 7.5 (5-8)
--- NOTE | 2022-04-27 12:39 | ED.PROG_ITS ---
Date of service: 04/27/22 Time of Service: 12:39 Medical Decision Making Care was signed out by Dr. Liz Stevens with plan to follow-up on labs and chest x-ray and reassess patient for disposition. Patient had completed recent course of doxycycline for eye inflammation without any improvement and now also having skin inflammation. Labs reviewed and nondiagnostic. Patient does have elevated CRP, no leukocytosis, mild elevation of BNP. Chest x-ray was reviewed and interpreted by radiology: No acute cardiopulmonary disease. Hyperinflation is again noted. Patient reassessed and remained stable. Results were discussed with the patient. Plan for discharge with outpatient follow-up with PCP as well as d ermatology. Given mild elevation of BNP and orthopnea, patient will need outpatient echocardiogram. Regarding dermatologic condition, I believe this is an exacerbation of his psoriasis. I will treat with prednisone burst as well as hydrocortisone cream. Initial dose of prednisone was provided here as well as Benadryl. Disposition decision was made weighing the risks and benefits of hospitalization versus outpatient treatment, the risk for further decompensation, and the patient's wishes. The patient was stable and requested discharge. Prior to discharge, my usual and customary return precautions were reviewed with the patient - this included follow-up instructions and reason to return to the emergency department if condition worsens, does not improve as expected, or other new concerns arise. Discharge Plan Disposition Patient Disposition: HOME Condition: Stable Discharge Details Chief Complaint: RashLesion Clinical Impression: Psoriasis, Rash and nonspecific skin eruption, Blepharitis Primary Care Provider: DIMPLE NOBLE ED Provider: Maikel Stevens Home Meds and New Rx's Prescriptions: New hydrocortisone 1 % lotion 1 applic topical BID 7 Days Qty: 120 0RF Rx Instructions: Apply to affected areas on neck, torso and extremities. Do not apply to face or eyes. Continued albuterol sulfate [ProAir HFA] 90 mcg/actuation HFA aerosol inhaler 2 puff IH Q6H PRNQty: 18 0RF cetirizine 10 mg Tablet 10 mg PO DAILY Qty: 30 0RF thiamine HCl (vitamin B1) 100 mg tablet 100 mg PO DAILY Qty: 30 0RF omeprazole 40 mg capsule,delayed release(DR/EC) 40 mg PO DAILY Qty: 30 0RF citalopram [Celexa] 20 mg Tablet 20 mg PO DAILY Qty: 30 0RF tamsulosin 0.4 mg capsule 0.4 mg PO DAILY Qty: 30 0RF fluticasone propionate [Flonase Allergy Relief] 50 mcg/actuation spray,suspension 1 spray CRISTIANA DAILY Qty: 15.8 0RF Therems-M 27-0.4 mg Tablet 1 tab PO DAILY Qty: 30 0RF fluticasone propion-salmeterol [AirDuo RespiClick] 113-14 mcg/actuation Aerosol Powdr Breath Activated 1 puff INHALATION BID Qty: 1 0RF magnesium gluconate 27.5 mg magne- sium (500 mg) tablet 27.5 mg PO BID Qty: 60 0RF potassium chloride 15 mEq tablet,ER particles/crystals 15 meq PO DAILY Qty: 30 0RF desoximetasone 0.25 % ointment 1 applic topical BID Qty: 60 0RF Rx Instructions: apply to affected skin bid for up to 10 days then use bid prn rash Discharge Instructions Instructions: Psoriasis (ED) Additional Instructions: Use Benadryl 25 mg every 8 hours as needed for itching. Please take prednisone as prescribed. Your initial dose was given here in the emergency department. Your next dose is tomorrow. Please follow-up with your primary care physician. It is recommended that you have a follow-up echocardiogram of your heart. Please be sure to discuss this with your doctor. Please follow-up with dermatology. Return to the emergency department immediately for any worsening or new concerning symptoms. Referrals: DIMPLE NOBLE NP [Primary Care Provider] - Eliceo Gastelum MD [MD CONSULTING PHYSICIAN] - Discharge Data Discharge Date/Time-TO BE ENTERED AT DEPARTURE: 04/27/22 13:15
[2022-04-27] MEDS: predniSONE 20 MG TAB 40 MG PO (13:07)
[2022-04-27] MEDS: diphenhydrAMINE 25 MG CAP PO (13:07)
--- NOTE | 2022-04-29 09:19 | NUR.NOTE ---
Nursing Note: 0718 patient called stating that he had a printed prescription. He was wondering if he could take it to any pharmacy, even if it was not his usual one. I told him that he can take a printed prescription to any pharmacy to be filled and if it was not his usual one, he would probably need his insurance card too.
== END 2022-04-27 13:15 | disposition home or self-care (01) ==
PROVIDERS: Student in an Organized Health Care Education/Training Program; Emergency Provider Student in an Organized Health Care Education/Training Program; PCP Nurse Practitioner Family
DX: L40.9 Psoriasis, unspecified (principal); H01.006 Unspecified blepharitis left eye, unspecified eyelid; H01.003 Unspecified blepharitis right eye, unspecified eyelid; R79.82 Elevated C-reactive protein (CRP); I11.0 Hypertensive heart disease with heart failure; I50.9 Heart failure, unspecified; J44.9 Chronic obstructive pulmonary disease, unspecified; R79.89 Other specified abnormal findings of blood chemistry
CPT/HCPCS: 36415; 80053; 85652; 93005; 99284; 71046; 81003; 83880; 84484; 85025; 86140; 93010; J7512

== ENCOUNTER 2023-02-05 10:24 | Emergency (ER) | payer MEDICARE, MEDICAID, SELFPAY ==
[2023-02-05] VITALS (28 sets, daily range): BP systolic 119–164; BP diastolic 64–104; PULSE 76–95; RESP 14–24; TEMP 36.6; O2SAT 99
--- NOTE | 2023-02-05 10:30 | RT.EKG_ITS ---
APPROVED REPORT Exam: Resting ECG Reason for Exam: chest pain Patient Location: E HR:85 bpm ECG Measurements Heart Rate 85 AXIS AR 153 P 89 QRSd 103 QRS 83 QT 373 T 70 QTc 443 Conclusion Sinus rhythm...normal P axis, V-rate 60- 99 Anteroseptal infarct, age indeterminate...Q >35mS, T neg, V1-V2 sinus rhythm, normal axis, normal intervals,non ischemic
--- NOTE | 2023-02-05 11:15 | DI.RAD_ITS ---
Exam(s) XR CHEST 2V PA LATERAL EXAM: XR CHEST 2V PA LATERAL CLINICAL HISTORY: SOB, Chest Pain, Hx COPD. TECHNIQUE: 2D digital imaging was performed. COMPARISON: CR XR CHEST 2V PA LATERAL from 04/27/2022 FINDINGS: 2 views: Heart size is normal. The mediastinum is not widened. Bilateral hyperinflation again noted. Nipple shadows again evident. No new ominous masses. No pleu ral effusions. No pneumothorax. IMPRESSION: For inflation-COPD. No acute lungfindings and no pleural effusions. DATA REPOSITORY: RADIATION DOSE DELIVERED:
--- NOTE | 2023-02-05 11:23 | ED.GENADUL_ITS ---
Discharge Plan Disposition Patient Disposition: Home Condition: Stable Discharge Details Clinical Impression: CHF (congestive heart failure), Hypomagnesemia, COPD exacerbation Primary Care Provider: DIMPLE NOBLE ED Provider: Hanh Santana Home Meds and New Rx's Prescriptions: New furosemide [Lasix] 20 mg tablet 20 mg PO QAM 14 Days Qty: 14 0RF Rx Instructions: Take 1 tablet in the morning daily for the next 2 weeks potassium chloride 10 mEq capsule, extended release 10 meq PO DAILY 7 Days Qty: 7 0RF Rx Instructions: Take 1 tablet daily for the next 7 days prednisone 20 mg tablet 60 mg PO DAILY 5 Days Qty: 15 0RF No Action albuterol sulfate [ProAir HFA] 90 mcg/actuation HFA aerosol inhaler 2 puff IH Q6H PRNQty: 18 0RF cetirizine 10 mg Tablet 10 mg PO DAILY Qty: 30 0RF thiamine HCl (vitamin B1) 100 mg tablet 100 mg PO DAILY Qty: 30 0RF omeprazole 40 mg capsule,delayed release(DR/EC) 40 mg PO DAILY Qty: 30 0RF citalopram [Celexa] 20 mg Tablet 20 mg PO DAILY Qty: 30 0RF tamsulosin 0.4 mg capsule 0.4 mg PO DAILY Qty: 30 0RF fluticasone propionate [Flonase Allergy Relief] 50 mcg/actuation spray,suspension 1 spray CRISTIANA DAILY Qty: 15.8 0RF Therems-M 27-0.4 mg Tablet 1 tab PO DAILY Qty: 30 0RF fluticasone propion-salmeterol [AirDuo RespiClick] 113-14 mcg/actuation Aerosol Powdr Breath Activated 1 puff INHALATION BID Qty: 1 0RF magnesium gluconate 27.5 mg magne- sium (500 mg) tablet 27.5 mg PO BID Qty: 60 0RF potassium chloride 15 mEq tablet,ER particles/crystals 15 meq PO DAILY Qty: 30 0RF desoximetasone 0.25 % ointment 1 applic topical BID Qty: 60 0RF Rx Instructions: apply to affected skin bid for up to 10 days then use bid prn rash Discharge Instructions Instructions: Heart Failure (ED), COPD (Chronic Obstructive Pulmonary Disease) (ED), Hypomagnesemia (ED) Additional Instructions: Follow up with primary care provider in 2-3 days. Return to ED sooner if any worsening or concerns. Please take your medications as prescribed. You are given an albuterol inhaler here in the ER today 1 or 2 puffs every 4-6 hours as needed. Please take the Lasix once a day in the a.m. and the potassium. Your magnesium was also low consider taking a multivitamin with magnesium in it. Please take the prednisone 3 tablets a day for the next 5 days. Referrals: DIMPLE NOBLE, TECH[employer]GRAMS MANAGER [Primary Care Provider] - 2 days Discharge Data Discharge Date/Time-TO BE ENTERED AT DEPARTURE: 02/05/23 14:34 Medical Decision Making 67-year-old male presents to the ER with a chief complaint of chest tightness for the last 2 days. Rates it a 3 out of 10, increased shortness of breath cough. He did stop the urgent care prior to arrival and was sent here via EMS. Normal EKG. He does not take any medications on a regular basis. He reports his last medication was 6 tablets of Sudafed yesterday because he thought it would help. He is out of his nebulizers per patient report. Patient does have a past medical history of COPD, alcohol abuse, alcohol withdrawal seizure, BPH, depression, hypertension He does have inspiratory aspiratory wheezes on auscultation bilaterally, does have a barrel chest. Prolonged next duration. He is speaking in full sentences. Denies any nausea vomiting diarrhea he does report fever and chills. He also states that he just started smoking again. He is nontremulous, does not appear to be under the influence at this time. Work-up ordered including CBC, CMP, VBG, blood cultures, troponin, proBNP EKG is within normal limits, normal sinus rhythm. Albuterol nebulizer 324 mg of aspirin and chest x-ray ordered. 125 mg Solumedrol ordered. Informed by ED staff that patient had received aspirin prior to arrival. Aspirin held here. CBC shows white blood cell count 11.71, positive left shift absolute neutrophils 9.64 VBG has a critical high PCO2 at 66 bicarb 35 CO2 32 base excess 9 pH 7.33, this does appear chronic hypercarbic, carbon dioxide serum on CMP is 36.2 anion gap 2.8 sodium potassium within normal limits, magnesium slightly low at 1.7 AST is 40 which is improved from previous, initial troponin less than 50 proBNP is elevated at 1977 FLUVID pending at this time. Patient up to the bathroom without assistance at this time. Post Lasix administration. 1356: Spoke with Darcy LOUISE with hospitalist group, she will call me back after discussion with Dr. Moran. At this time patient does not meet criteria for admission due to chronic nature of complaints and stability per hospitalist team. Care management contacted and home health ordered for medication management, physical therapy and home safety eval. Will be forwarded to PCP. This text was generated using [employer] system, please disregard any oddities of phrase or misspellings. Medical Records Medical records reviewed: Yes I reviewed the patient's medical records. Imaging Data Radiologic Study: Imaging: X-Ray Radiologist's impression: EXAM:? XR CHEST 2V PA ? LATERAL CLINICAL HISTORY: ? SOB, Chest Pain, Hx COPD. ? TECHNIQUE:? 2D digital imaging was performed. COMPARISON:? CR XR CHEST 2V PA ? LATERAL from 04/27/2022 FINDINGS: 2 views: Heart size is normal.? The mediastinum is not widened. Bilateral hyperinflation again noted.? Nipple shadows again evident.? No new ominous masses.? No pleural effusions.? No pneumothorax. IMPRESSION: For inflation-COPD.? No acute lungfindings and no pleural effusions. Lab Data Lab results reviewed: Yes I reviewed the patient's lab results. Labs: 02/05/23 11:55 Blood Blood Culture - Pending 02/05/23 11:32 Blood Blood Culture - Pending Laboratory Tests Range/Units 02/05/23 02/05/23 02/05/23 11:32 11:32 11:32 WBC (4.4-10.8) 10^3/uL 11.71 H RBC (4.36-5.78) 10^6/uL 4.36 Hgb (13.5-17.5) g/dL 13.7 Hct (40.0-50.0) % 42.0 MCV (80-95) fL 96 H MCH (27.0-33.0) pg 31.4 MCHC (32.0-36.0) % 32.6 RDW (11.8-14.1) % 14.2 H Plt Count (130-400) 10^3/uL 239 MPV (8.0-11.0) fL 9.0 Immature Gran % 0.4 Neutrophils % 82.3 Lymphocytes % 6.8 Monocytes % 6.9 Eosinophils % 3.2 Basophils % 0.4 Nucleated RBC % (0.0-0.3) % 0.0 Absolute Neutrophils (1.2-6.7) 10^3/uL 9.64 H Absolute Lymphocytes (1.2-3.4) 10^3/uL 0.80 L Absolute Monocytes (0.1-0.8) 10^3/uL 0.81 H Absolute Eosinophils (0.0-0.7) 10^3/uL 0.37 Absolute Basophils (0.0-0.2) 10^3/uL 0.05 VBG pH (7.31-7.41) 7.33 VBG pCO2 (41-51) mmHg 66 H* VBG pO2 mmHg 27 VBG HCO3 (23-28) mmol/L 35 H VBG Total CO2 (24-29) mmol/L 32 H VBG O2 Saturation % 47 VBG Base Excess (-2-3) mmol/L 9 H Sodium (136-145) mmol/L 139 Potassium (3.5-5.1) mmol/L 4.2 Chloride (98-107) mmol/L 100 Carbon Dioxide (21.0-32.0) mmol/L 36.2 H Anion Gap (3-11) mmol/L 2.8 L BUN (7-18) mg/dL 11 Creatinine (0.70-1.30) mg/dL 1.1 Est GFR (CKD-EPI 2020) (mL/min/1.73m2) 73.58 Glucose (74-106) mg/dL 106 Calcium (8.5-10.1) mg/dL 9.3 Magnesium (1.8-2.4) mg/dL 1.7 L Total Bilirubin (0.2-1.0) mg/dL 0.6 AST (15-37) U/L 40 H ALT (16-63) U/L 23 Alkaline Phosphatase (46-116) U/L 99 Troponin I (<or=60) ng/L 51 NT-Pro-B Natriuret Pep (<300) pg/mL 1978 H Total Protein (6.4-8.2) g/dL 8.0 Albumin (3.4-5.0) g/dL 3.3 L COVID-19 Source SARS-CoV-2 (PCR) (Negative) Influenza Type A (PCR) (Negative) Influenza Type B (PCR) (Negative) RSV (PCR) (Negative) Range/Units 02/05/23 12:30 WBC (4.4-10.8) 10^3/uL RBC (4.36-5.78) 10^6/uL Hgb (13.5-17.5) g/dL Hct (40.0-50.0) % MCV (80-95) fL MCH (27.0-33.0) pg MCHC (32.0-36.0) % RDW (11.8-14.1) % Plt Count (130-400) 10^3/uL MPV (8.0-11.0) fL Immature Gran % Neutrophils % Lymphocytes % Monocytes % Eosinophils % Basophils % Nucleated RBC % (0.0-0.3) % Absolute Neutrophils (1.2-6.7) 10^3/uL Absolute Lymphocytes (1.2-3.4) 10^3/uL Absolute Monocytes (0.1-0.8) 10^3/uL Absolute Eosinophils (0.0-0.7) 10^3/uL Absolute Basophils (0.0-0.2) 10^3/uL VBG pH (7.31-7.41) VBG pCO2 (41-51) mmHg VBG pO2 mmHg VBG HCO3 (23-28) mmol/L VBG Total CO2 (24-29) mmol/L VBG O2 Saturation % VBG Base Excess (-2-3) mmol/L Sodium (136-145) mmol/L Potassium (3.5-5.1) mmol/L Chloride (98-107) mmol/L Carbon Dioxide (21.0-32.0) mmol/L Anion Gap (3-11) mmol/L BUN (7-18) mg/dL Creatinine (0.70-1.30) mg/dL Est GFR (CKD-EPI 2020) (mL/min/1.73m2) Glucose (74-106) mg/dL Calcium (8.5-10.1) mg/dL Magnesium (1.8-2.4) mg/dL Total Bilirubin (0.2-1.0) mg/dL AST (15-37) U/L ALT (16-63) U/L Alkaline Phosphatase (46-116) U/L Troponin I (<or=60) ng/L NT-Pro-B Natriuret Pep (<300) pg/mL Total Protein (6.4-8.2) g/dL Albumin (3.4-5.0) g/dL COVID-19 Source Nasopharynx SARS-CoV-2 (PCR) (Negative) Negative Influenza Type A (PCR) (Negative) Negative Influenza Type B (PCR) (Negative) Negative RSV (PCR) (Negative) Negative HPI General Mode of arrival: EMS . Date/Time Provider Initiated Documentation: 02/05/23 10:50 . Limitations to Documentation: no limitations . Information obtained by: patient, RN notes reviewed and old records reviewed . HPI Narrative: 67-year-old male presents to the ER with a chief complaint of chest tightness for the last 2 days. Rates it a 3 out of 10, increased shortness of breath cough. He did stop the urgent care prior to arrival and was sent here via EMS. Normal EKG. He does not take any medications on a regular basis. He reports his last medication was 6 tablets of Sudafed yesterday because he thought it would help. He is out of his nebulizers per patient report. Patient does have a past medical history of COPD, alcohol abuse, alcohol withdrawal seizure, BPH, depression, hypertension He does have inspiratory aspiratory wheezes on auscultation bilaterally, does have a barrel chest. Prolonged next duration. He is speaking in full sentences. Denies any nausea vomiting diarrhea he does report fever and chills. He also states that he just started smoking again. He is nontremulous, does not appear to be under the influence at this time. Related Data Home Medications Medication Instructions Recorded Confirmed cetirizine 10 mg tablet 10 mg PO DAILY #30 tabs 08/03/20 04/27/22 citalopram 20 mg tablet (Celexa) 20 mg PO DAILY #30 tabs 08/03/20 04/27/22 desoximetasone 0.25 % topical 1 applic topical BID #60 grams 08/03/20 04/27/22 ointment fluticasone 113 mcg-salmeterol 14 1 puff inhalation BID #1 ea 08/03/20 04/27/22 mcg/actuation breath activated powdr (AirDuo RespiClick) fluticasone propionate 50 1 spray intranasal DAILY #15.8 mL 08/03/20 04/27/22 mcg/actuation nasal spray,suspension (Flonase Allergy Relief) magnesium gluconate 27.5 mg 27.5 mg PO BID #60 tabs 08/03/20 04/27/22 magnesium (500 mg) tablet multivitamin,bs-bvby-sebodadz 27 1 tab PO DAILY #30 tabs 08/03/20 04/27/22 mg-0.4 mg tablet (Therems-M) omeprazole 40 mg capsule,delayed 40 mg PO DAILY #30 caps 08/03/20 04/27/22 release potassium chloride 15 mEq 15 meq PO DAILY #30 tabs 08/03/20 04/27/22 tablet,extended release(part/cryst) tamsulosin 0.4 mg capsule 0.4 mg PO DAILY #30 caps 08/03/20 04/27/22 thiamine HCl (vitamin B1) 100 mg 100 mg PO DAILY #30 tabs 08/03/20 04/27/22 tablet albuterol sulfate 90 mcg/actuation 2 puff inhalation Q6H PRN #18 grams 08/26/20 04/27/22 aerosol inhaler (ProAir HFA) furosemide 20 mg tablet (Lasix) 20 mg PO QAM CHF 2 weeks #14 tabs 02/05/23 potassium chloride 10 mEq 10 meq PO DAILY 7 days #7 caps 02/05/23 capsule,extended release prednisone 20 mg tablet 60 mg PO DAILY 5 days #15 tabs 02/05/23 Previous Rx's Medication Instructions Recorded cetirizine 10 mg tablet 10 mg PO DAILY #30 tabs 08/03/20 citalopram 20 mg tablet (Celexa) 20 mg PO DAILY #30 tabs 08/03/20 desoximetasone 0.25 % topical 1 applic topical BID #60 grams 08/03/20 ointment fluticasone 113 mcg-salmeterol 14 1 puff inhalation BID #1 ea 08/03/20 mcg/actuation breath activated powdr (AirDuo RespiClick) fluticasone propionate 50 1 spray intranasal DAILY #15.8 mL 08/03/20 mcg/actuation nasal spray,suspension (Flonase Allergy Relief) magnesium gluconate 27.5 mg 27.5 mg PO BID #60 tabs 08/03/20 magnesium (500 mg) tablet multivitamin,lh-lvmx-erwfltbg 27 1 tab PO DAILY #30 tabs 08/03/20 mg-0.4 mg tablet (Therems-M) omeprazole 40 mg capsule,delayed 40 mg PO DAILY #30 caps 08/03/20 release potassium chloride 15 mEq 15 meq PO DAILY #30 tabs 08/03/20 tablet,extended release(part/cryst) tamsulosin 0.4 mg capsule 0.4 mg PO DAILY #30 caps 08/03/20 thiamine HCl (vitamin B1) 100 mg 100 mg PO DAILY #30 tabs 08/03/20 tablet albuterol sulfate 90 mcg/actuation 2 puff inhalation Q6H PRN #18 grams 08/26/20 aerosol inhaler (ProAir HFA) furosemide 20 mg tablet (Lasix) 20 mg PO QAM CHF 2 weeks #14 tabs 02/05/23 potassium chloride 10 mEq 10 meq PO DAILY 7 days #7 caps 02/05/23 capsule,extended release prednisone 20 mg tablet 60 mg PO DAILY 5 days #15 tabs 02/05/23 Allergies Allergy/AdvReac Type Severity Reaction Status Date / Time lisinopril Allergy Severe Swelling/Ed Unverified 04/27/22 08:16 pastor Penicillins Allergy pt unsure Unverified 04/27/22 08:16 happened in childhood ? Rash, hives Sulfa (Sulfonamide AdvReac Skin Rash Unverified 04/27/22 08:16 Antibiotics) General Stated Complaint: Chest Pain ALEENA: 3 Review of Systems All systems reviewed & are unremarkable except as noted in HPI and below Constitutional Constitutional: Reports as per HPI Cardiovascular Cardiovascular: Reports chest pain, Reports dyspnea and Reports paroxysmal nocturnal dyspnea Respiratory Respiratory: Reports chest congestion, Reports cough and Reports dyspnea PFSH All Active Problems (Updated 02/05/23 @ 13:58 by Hanh Santana NP) CHF (congestive heart failure) (Chronic) Hypoxia (Acute) COPD exacerbation (Acute) Atelectasis (Acute) Psoriasis (Chronic) Pancytopenia (Chronic) Hypomagnesemia (Chronic) Rash (Acute) Conjunctivitis (Acute) Alcohol abuse (Chronic) Depression (Chronic) Encounter for screening colonoscopy (Acute) Medical History (Updated 02/05/23 @ 13:58 by Hanh Santana NP) Alcohol abuse Alcohol withdrawal seizure BPH (benign prostatic hyperplasia) COPD (chronic obstructive pulmonary disease) Depression HTN (hypertension) Hx of angioedema Unknown allergic rxn 07/25/18 requiring [place]otracheal intubation [place] [facility] [place]. Left knee pain Normal colonoscopy 09/26/18 Dr Acosta, [facility], normal, repeat 10 years. Surgical History H/O hernia repair Social History Smoking/Tobacco Use Status: Current every day Tobacco Type: cigarettes Years smoked: 40 Smoking risk assessment performed?: Yes Alcohol Intake: former Drug use: Never Substance use type: does not use Housing: apartment Do you feel safe at home: Yes (Suicidal) Do you feel safe in your relationship?: Yes Exam Narrative Exam Narrative: Constitutional: Alert and oriented x3. Appears older than stated age. Normal body habitus. Head: Normocephalic, no trauma. Eyes: Pupils PERRL, Red reflex noted, EOM's intact. Eyelids symmetrical erythemic, droopy does have a history of chronic conjunctivitis. ENT: Bilateral TM's WNL, External ear normal to inspection, no mastoid TTP, swelling, or erythema, Nasal turbinates WNL, no nasal discharge. Poor dentition, Posterior pharynx WNL, no exudate. Chest: RRR, Normal S1, S2, distal pulses intact. Resp: Rhonchorous in the bases, inspiratory and expiratory wheezes noted. Abdomen: Soft, non-distended, Normoactive bowel sounds all 4 quads. Musculoskeletal: Left lower extremity appears more swollen than his right lower extremity. Skin: Scaly rashes to generalized body, open lesion noted to his right lower extremity, Neurologic: Cranial nerves II-XII intact. Alert and oriented x 3. Hematologic/Lymphatic: No ecchymosis, no lymphadenopathy. Course Vital Signs Vital signs: Vital Signs Temperature 36.6 C 02/05/23 10:29 Pulse 80 02/05/23 10:29 Respiratory Rate 18 02/05/23 10:29 Blood Pressure 128/80 02/05/23 10:29 Pulse Oximetry 99 02/05/23 10:29 Temperature 36.6 C 02/05/23 10:29 Temperature Source Oral 02/05/23 10:29 Pulse 80 02/05/23 10:29 Respiratory Rate 20 02/05/23 11:17 Respiratory Effort Non-Labored, Short of Breath 02/05/23 11:17 Respiratory Depth Normal 02/05/23 11:17 Respiratory Pattern Normal 02/05/23 11:17 Blood Pressure 128/80 02/05/23 10:29 Blood Pressure Position Sitting 02/05/23 10:29 Pulse Oximetry 99 02/05/23 10:29 Oxygen Delivery Method Room Air 02/05/23 10:29 Oxygen Flow Rate 0 02/05/23 10:29 Pain Level 3 02/05/23 10:29 Lab/Test Results Lab/Test Results: 02/05/23 11:09 Blood Blood Culture - Pending 02/05/23 11:09 Blood Blood Culture - Pending
[2023-02-05 11:41] LABS: BE (Venous) 9 mmol/L (-2-3); HCO3 (Venous) 35 mmol/L (23-28); O2 Sat (Venous) 47 %; TCO2 (Venous) 32 mmol/L (24-29); pH (Venous) 7.33 (7.31-7.41); pO2 (Venous) 27 mmHg
[2023-02-05 11:42] LABS: Abs Immature Grans 0.05 10^3/uL (0.0-0.06); Absolute Basophil Count 0.05 10^3/uL (0.0-0.2); Absolute Eosinophil Count 0.37 10^3/uL (0.0-0.7); Absolute Monocyte Count 0.81 10^3/uL (0.1-0.8); Basophils % 0.4; Eosinophils % 3.2; HGB 13.7 g/dL (13.5-17.5); Immature Grans % 0.4; Lymphocytes % 6.8; MCH 31.4 pg (27.0-33.0); MCHC 32.6 % (32.0-36.0); MCV 96 fL (80-95); Monocytes % 6.9; Neutrophils % 82.3; Platelet Count 239 10^3/uL (130-400); RBC 4.36 10^6/uL (4.36-5.78); RDW 14.2 % (11.8-14.1); RDW-SD 50.1 fL; WBC 11.71 10^3/uL (4.4-10.8)
[2023-02-05 11:46] LABS: pCO2 (Venous) 66 mmHg (41-51)
[2023-02-05 11:49] LABS: Absolute Neutrophil Count 9.64 10^3/uL (1.2-6.7)
[2023-02-05 12:09] LABS: ALT 23 U/L (16-63); AST 40 U/L (15-37); Albumin 3.3 g/dL (3.4-5.0); Alkaline Phosphatase 99 U/L (46-116); Anion Gap 2.8 mmol/L (3-11); BUN 11 mg/dL (7-18); Bilirubin, Total 0.6 mg/dL (0.2-1.0); CO2 36.2 mmol/L (21.0-32.0); CREATININE 1.1 mg/dL (0.70-1.30); Calcium 9.3 mg/dL (8.5-10.1); Chloride 100 mmol/L (98-107); Estimated GFR 73.58 (mL/min/1.73m2); Glucose 106 mg/dL (74-106); Magnesium 1.7 mg/dL (1.8-2.4); NT-proBNP 1978 pg/mL (<300); Potassium 4.2 mmol/L (3.5-5.1); Sodium 139 mmol/L (136-145); Troponin I 51 ng/L (<or=60)
[2023-02-05] MEDS: Albuterol/Ipratropium 3 ML UPD VIAL UPD (12:12)
[2023-02-05] MEDS: methylPREDNISolone SUCC 125 MG VIAL IVP (12:12)
[2023-02-05] MEDS: Aspirin 81 MG CHEW 324 MG CH (12:12)
[2023-02-05 13:17] LABS: COVID-19 PCR Negative (Negative); Influenza A PCR Negative (Negative); Influenza B PCR Negative (Negative); RSV PCR Negative (Negative)
[2023-02-05 13:20] LABS: Source Nasopharynx
[2023-02-05] MEDS: Magnesium Oxide 400 MG TAB PO (13:30)
[2023-02-05] MEDS: Furosemide 20 MG/2 ML VIAL IVP (13:30)
--- NOTE | 2023-02-05 16:27 | NUR.NOTE ---
Nursing Note: Referral faxed to PCP for COPD exacerbation/CHF. In 2 to 3 days.
--- NOTE | 2023-02-06 13:21 | NUR.NOTE ---
Accessed chart to determine orders for EKG and to determine whether or not one needs to be cancelled. Nursing Note:
== END 2023-02-05 14:34 | disposition home or self-care (01) ==
PROVIDERS: Emergency Provider Registered Nurse Emergency; PCP Nurse Practitioner Family
DX: R07.9 Chest pain, unspecified (principal); R94.31 Abnormal electrocardiogram [ECG] [EKG]; I11.0 Hypertensive heart disease with heart failure; I50.9 Heart failure, unspecified; E83.42 Hypomagnesemia; J44.1 Chronic obstructive pulmonary disease with (acute) exacerbation; Z79.899 Other long term (current) drug therapy
CPT/HCPCS: 36415; 80053; 82805; 87040; 87077; 87637; 93005; 94640; 96374; 99284; 71046; 83735; 83880; 84484; 85025; 87186; 93010; J1941; J2930; J7620

== ENCOUNTER 2023-02-07 13:20 | Observation (INO) | payer MEDICARE, SELFPAY ==
[2023-02-07] VITALS (10 sets, daily range): BP systolic 113–151; BP diastolic 57–86; PULSE 67–88; RESP 1–20; TEMP 36.7–37; O2SAT 92–99
--- NOTE | 2023-02-07 13:45 | RT.EKG_ITS ---
APPROVED REPORT Exam: Resting ECG Reason for Exam: dizziness Patient Location: E HR:73 bpm ECG Measurements Heart Rate 73 AXIS ID 149 P 82 QRSd 103 QRS 66 QT 414 T 57 QTc 457 Conclusion Sinus rhythm...normal P axis, V-rate 60- 99 Low voltage, extremity leads...all extremity leads <0.5mV
[2023-02-07] MEDS: Albuterol HFA 8 GM 60 PUFF INH IH (14:30)
[2023-02-07] MEDS: Inhaler, Assist Device 1 EACH MC (14:31)
[2023-02-07] MEDS: Furosemide 20 MG/2 ML VIAL IVP (14:31)
[2023-02-07 14:34] LABS: Abs Immature Grans 0.05 10^3/uL (0.0-0.06); Absolute Basophil Count 0.05 10^3/uL (0.0-0.2); Absolute Eosinophil Count 0.57 10^3/uL (0.0-0.7); Absolute Lymphocyte Count 1.57 10^3/uL (1.2-3.4); Absolute Monocyte Count 0.79 10^3/uL (0.1-0.8); Absolute Neutrophil Count 5.52 10^3/uL (1.2-6.7); Basophils % 0.6; Eosinophils % 6.7; HCT 37.1 % (40.0-50.0); HGB 12.1 g/dL (13.5-17.5); Immature Grans % 0.6; Lymphocytes % 18.4; MCH 31.5 pg (27.0-33.0); MCHC 32.6 % (32.0-36.0); MCV 97 fL (80-95); MPV 9.4 fL (8.0-11.0); Monocytes % 9.2; Neutrophils % 64.5; Platelet Count 258 10^3/uL (130-400); RBC 3.84 10^6/uL (4.36-5.78); RDW 14.6 % (11.8-14.1); RDW-SD 51.5 fL; WBC 8.55 10^3/uL (4.4-10.8)
[2023-02-07 15:12] LABS: ALT 25 U/L (16-63); AST 40 U/L (15-37); Albumin 2.9 g/dL (3.4-5.0); Alkaline Phosphatase 84 U/L (46-116); BUN 20 mg/dL (7-18); Bilirubin, Total 0.7 mg/dL (0.2-1.0); CREATININE 1.1 mg/dL (0.70-1.30); Calcium 8.3 mg/dL (8.5-10.1); Chloride 99 mmol/L (98-107); Estimated GFR 73.58 (mL/min/1.73m2); Glucose 96 mg/dL (74-106); Magnesium 1.6 mg/dL (1.8-2.4); NT-proBNP 1558 pg/mL (<300); Potassium 4.1 mmol/L (3.5-5.1); Sodium 137 mmol/L (136-145); Total Protein 6.9 g/dL (6.4-8.2); Troponin I < 50 ng/L (<or=60)
--- NOTE | 2023-02-07 15:28 | ED.GENADUL_ITS ---
Discharge Plan Disposition Patient Disposition: Admit to [facility] Condition: Serious Discharge Details Chief Complaint: Dizzy/Sync Clinical Impression: CHF (congestive heart failure), Acute exacerbation of chronic obstructive pulmonary disease Primary Care Provider: DIMPLE NOBLE ED Provider: Maikel Stevens Home Meds and New Rx's Prescriptions: No Action albuterol sulfate [ProAir HFA] 90 mcg/actuation HFA aerosol inhaler 2 puff IH Q6H PRNQty: 18 0RF Patient Comments: No longer taking 02/07/23 CT furosemide [Lasix] 20 mg tablet 20 mg PO QAM 14 Days Qty: 14 0RF Patient Comments: Has not picked up yet 02/07/23 CT Rx Instructions: Take 1 tablet in the morning daily for the next 2 weeks potassium chloride 10 mEq capsule, extended release 10 meq PO DAILY 7 Days Qty: 7 0RF Patient Comments: No longer taking 02/07/23 CT Rx Instructions: Take 1 tablet daily for the next 7 days prednisone 20 mg tablet 60 mg PO DAILY 5 Days Qty: 15 0RF Patient Comments: No longer taking 02/07/23 CT cetirizine 10 mg Tablet 10 mg PO DAILY Qty: 30 0RF Patient Comments: No longer taking 02/07/23 CT thiamine HCl (vitamin B1) 100 mg tablet 100 mg PO DAILY Qty: 30 0RF Patient Comments: No longer taking 02/07/[address] CT omeprazole 40 mg capsule,delayed release(DR/EC) 40 mg PO DAILY Qty: 30 0RF Patient Comments: No longer taking 02/07/23 CT citalopram [Celexa] 20 mg Tablet 20 mg PO DAILY Qty: 30 0RF Patient Comments: No longer taking 02/07/23 CT tamsulosin 0.4 mg capsule 0.4 mg PO DAILY Qty: 30 0RF Patient Comments: No longer taking 02/07/23 CT fluticasone propionate [Flonase Allergy Relief] 50 mcg/actuation spray,suspension 1 spray CRISTIANA DAILY Qty: 15.8 0RF Patient Comments: No longer taking 02/07/23 CT Therems-M 27-0.4 mg Tablet 1 tab PO DAILY Qty: 30 0RF Patient Comments: No longer taking 02/07/23 CT fluticasone propion-salmeterol [AirDuo RespiClick] 113-14 mcg/actuation Aerosol Powdr Breath Activated 1 puff INHALATION BID Qty: 1 0RF Patient Comments: No longer taking 02/07/23 CT magnesium gluconate 27.5 mg magne- sium (500 mg) tablet 27.5 mg PO BID Qty: 60 0RF Patient Comments: No longer taking 02/07/23 CT potassium chloride 15 mEq tablet,ER particles/crystals 15 meq PO DAILY Qty: 30 0RF Patient Comments: No longer taking 02/07/[address] CT desoximetasone 0.25 % ointment 1 applic topical BID Qty: 60 0RF Patient Comments: No longer taking 02/07/23 CT Rx Instructions: apply to affected skin bid for up to 10 days then use bid prn rash Medical Decision Making 1535 --67-year-old male with history of COPD, alcohol abuse, hypertension, was seen here 2 days ago for chest tightness and shortness of breath with wheezing. He was found to have COPD and exacerbation and acute CHF. Patient was discharged with plan for oral Lasix, prednisone and outpatient follow-up. Unfortunately his not been able to secure his medication the past 2 days and symptoms have worsened. Patient is saturating in the low to mid 90s on room air. He is not in any respiratory distress but does have bilateral wheezing. Concern for persistent congestive heart failure. I spoke with the patient's primary care physician who notes he does not have any history of CHF. BNP was rechecked and remains elevated. EKG was reviewed and interpreted by me: Sinus rhythm, 73 bpm, low voltage. Patient does complain of some dull left-sided intermittent chest discomfort. Consider ACS. Initial troponin negative. Plan to diurese and will give Lasix 20 mg IV. I will give Solu-Medrol 60 mg IV for COPD exacerbation. I will provide albuterol inhaler. Patient notes he was not provided inhaler on prior visit. Hypomagnesemia noted. Magnesium 1.6. I will give magnesium 1 g IV. -- Plan to admit for further work-up of acute CHF. I spoke with Dr. Moran discussed ED presentation and course, he will admit the patient. Lab Data Lab results reviewed: Yes I reviewed the patient's lab results. Labs: Laboratory Tests Range/Units 02/07/23 02/07/23 14:26 14:26 WBC (4.4-10.8) 10^3/uL 8.55 RBC (4.36-5.78) 10^6/uL 3.84 L Hgb (13.5-17.5) g/dL 12.1 L Hct (40.0-50.0) % 37.1 L MCV (80-95) fL 97 H MCH (27.0-33.0) pg 31.5 MCHC (32.0-36.0) % 32.6 RDW (11.8-14.1) % 14.6 H Plt Count (130-400) 10^3/uL 258 MPV (8.0-11.0) fL 9.4 Immature Gran % 0.6 Neutrophils % 64.5 Lymphocytes % 18.4 Monocytes % 9.2 Eosinophils % 6.7 Basophils % 0.6 Nucleated RBC % (0.0-0.3) % 0.0 Absolute Neutrophils (1.2-6.7) 10^3/uL 5.52 Absolute Lymphocytes (1.2-3.4) 10^3/uL 1.57 Absolute Monocytes (0.1-0.8) 10^3/uL 0.79 Absolute Eosinophils (0.0-0.7) 10^3/uL 0.57 Absolute Basophils (0.0-0.2) 10^3/uL 0.05 Sodium (136-145) mmol/L 137 Potassium (3.5-5.1) mmol/L 4.1 Chloride (98-107) mmol/L 99 Carbon Dioxide (21.0-32.0) mmol/L 37.0 H Anion Gap (3-11) mmol/L 1.0 L BUN (7-18) mg/dL 20 H Creatinine (0.70-1.30) mg/dL 1.1 Est GFR (CKD-EPI 2020) (mL/min/1.73m2) 73.58 Glucose (74-106) mg/dL 96 Calcium (8.5-10.1) mg/dL 8.3 L Magnesium (1.8-2.4) mg/dL 1.6 L Total Bilirubin (0.2-1.0) mg/dL 0.7 AST (15-37) U/L 40 H ALT (16-63) U/L 25 Alkaline Phosphatase (46-116) U/L 84 Troponin I (<or=60) ng/L < 50 NT-Pro-B Natriuret Pep (<300) pg/mL 1558 H Total Protein (6.4-8.2) g/dL 6.9 Albumin (3.4-5.0) g/dL 2.9 L HPI General Mode of arrival: ambulatory . Date/Time Provider Initiated Documentation: 02/07/23 13:23 . Limitations to Documentation: no limitations . Information obtained by: patient . HPI Narrative: 67-year-old male with multiple medical problems including history of COPD, psoriasis, here with chief complaint of generally not feeling well, shortness of breath with exertional activities and orthopnea. Patient was here 2 days ago with similar presentation found to be in acute exacerbation of COPD with CHF. The ED nurse practitioner felt that patient could benefit from hospitalization and spoke with the hospitalist team. Hospitalization was declined and patient was discharged. Unfortunately he has not been compliant with medication - he felt too weak and had transportation issues to go to pharmacy and pickle cutter lasix and prednisone. Related Data Home Medications Medication Instructions Recorded Confirmed cetirizine 10 mg tablet 10 mg PO DAILY #30 tabs 08/03/20 04/27/22 citalopram 20 mg tablet (Celexa) 20 mg PO DAILY #30 tabs 08/03/20 04/27/22 desoximetasone 0.25 % topical 1 applic topical BID #60 grams 08/03/20 04/27/22 ointment fluticasone 113 mcg-salmeterol 14 1 puff inhalation BID #1 ea 08/03/20 04/27/22 mcg/actuation breath activated powdr (AirDuo RespiClick) fluticasone propionate 50 1 spray intranasal DAILY #15.8 mL 08/03/20 04/27/22 mcg/actuation nasal spray,suspension (Flonase Allergy Relief) magnesium gluconate 27.5 mg 27.5 mg PO BID #60 tabs 08/03/20 04/27/22 magnesium (500 mg) tablet multivitamin,dt-bapr-swvcokdz 27 1 tab PO DAILY #30 tabs 08/03/20 04/27/22 mg-0.4 mg tablet (Therems-M) omeprazole 40 mg capsule,delayed 40 mg PO DAILY #30 caps 08/03/20 04/27/22 release potassium chloride 15 mEq 15 meq PO DAILY #30 tabs 08/03/20 04/27/22 tablet,extended release(part/cryst) tamsulosin 0.4 mg capsule 0.4 mg PO DAILY #30 caps 08/03/20 04/27/22 thiamine HCl (vitamin B1) 100 mg 100 mg PO DAILY #30 tabs 08/03/20 04/27/22 tablet albuterol sulfate 90 mcg/actuation 2 puff inhalation Q6H PRN #18 grams 08/26/20 04/27/22 aerosol inhaler (ProAir HFA) furosemide 20 mg tablet (Lasix) 20 mg PO QAM CHF 2 weeks #14 tabs 02/05/23 potassium chloride 10 mEq 10 meq PO DAILY 7 days #7 caps 02/05/23 capsule,extended release prednisone 20 mg tablet 60 mg PO DAILY 5 days #15 tabs 02/05/23 Previous Rx's Medication Instructions Recorded cetirizine 10 mg tablet 10 mg PO DAILY #30 tabs 08/03/20 citalopram 20 mg tablet (Celexa) 20 mg PO DAILY #30 tabs 08/03/20 desoximetasone 0.25 % topical 1 applic topical BID #60 grams 08/03/20 ointment fluticasone 113 mcg-salmeterol 14 1 puff inhalation BID #1 ea 08/03/20 mcg/actuation breath activated powdr (AirDuo RespiClick) fluticasone propionate 50 1 spray intranasal DAILY #15.8 mL 08/03/20 mcg/actuation nasal spray,suspension (Flonase Allergy Relief) magnesium gluconate 27.5 mg 27.5 mg PO BID #60 tabs 08/03/20 magnesium (500 mg) tablet multivitamin,ym-mtrz-occdkbhd 27 1 tab PO DAILY #30 tabs 08/03/20 mg-0.4 mg tablet (Therems-M) omeprazole 40 mg capsule,delayed 40 mg PO DAILY #30 caps 08/03/20 release potassium chloride 15 mEq 15 meq PO DAILY #30 tabs 08/03/20 tablet,extended release(part/cryst) tamsulosin 0.4 mg capsule 0.4 mg PO DAILY #30 caps 08/03/20 thiamine HCl (vitamin B1) 100 mg 100 mg PO DAILY #30 tabs 08/03/20 tablet albuterol sulfate 90 mcg/actuation 2 puff inhalation Q6H PRN #18 grams 08/26/20 aerosol inhaler (ProAir HFA) furosemide 20 mg tablet (Lasix) 20 mg PO QAM CHF 2 weeks #14 tabs 02/05/23 potassium chloride 10 mEq 10 meq PO DAILY 7 days #7 caps 02/05/23 capsule,extended release prednisone 20 mg tablet 60 mg PO DAILY 5 days #15 tabs 02/05/23 Allergies Allergy/AdvReac Type Severity Reaction Status Date / Time lisinopril Allergy Severe Swelling/Ed Unverified 02/07/23 13:41 pastor Penicillins Allergy pt unsure Unverified 02/07/23 13:41 happened in childhood ? Rash, hives Sulfa (Sulfonamide AdvReac Skin Rash Unverified 02/07/23 13:41 Antibiotics) General Stated Complaint: Dizzy/Sync ALEENA: 3 PFSH All Active Problems (Updated 02/07/23 @ 15:55 by Maikel Stevens MD) CHF (congestive heart failure) (Chronic) CHF (congestive heart failure) (Chronic) Acute exacerbation of chronic obstructive pulmonary disease (Acute) Hypoxia (Acute) COPD exacerbation (Acute) Atelectasis (Acute) Psoriasis (Chronic) Pancytopenia (Chronic) Hypomagnesemia (Chronic) Rash (Acute) Conjunctivitis (Acute) Alcohol abuse (Chronic) Depression (Chronic) Encounter for screening colonoscopy (Acute) Medical History (Updated 02/07/23 @ 15:55 by Maikel Stevens MD) Alcohol abuse Alcohol withdrawal seizure BPH (benign prostatic hyperplasia) COPD (chronic obstructive pulmonary disease) Depression HTN (hypertension) Hx of angioedema Unknown allergic rxn 07/25/18 requiring endotracheal intubation and transfer to [facility] [place] for further treatment. Left knee pain Normal colonoscopy 09/26/18 Dr Acosta, [facility], normal, repeat 10 years. Surgical History H/O hernia repair Social History Smoking/Tobacco Use Status: Current every day Tobacco Type: cigarettes Years smoked: 40 Smoking risk assessment performed?: Yes Alcohol Intake: former Drug use: Never Substance use type: does not use Details: pT STATES HE HAD A FEW BEEERS LAST NIGHT- 'THIS BENITO WAS JUST WALKING BY AND OFFERED ME A FEW BEERS' Housing: apartment Do you feel safe at home: Yes (Suicidal) Do you feel safe in your relationship?: Yes Exam Const General: cooperative and no acute distress HENMT Mouth: moist mucous membranes Eyes Conjunctivae: conjunctival abnormality bilaterally conjunctival injection Resp Auscultation: no rales, no rhonchi and wheezes Cardio Rate: regular rate and not tachycardic Rhythm: regular rhythm GI Palpation: soft, not firm, no guarding, no masses, not rigid and nontender Skin Other: Psoriasis noted on his extremities and face Neuro General: patient alert, patient awake and tone normal Extrem General: no calf tenderness and edema Laterality: bilateral (1+) Psych Appearance: grossly normal Mental Status: mental status grossly normal Course Vital Signs Vital signs: Vital Signs Temperature 37.0 C 02/07/23 13:35 Pulse 84 02/07/23 13:35 Respiratory Rate 15 02/07/23 13:35 Blood Pressure 113/57 L 02/07/23 13:35 Pulse Oximetry 94 02/07/23 13:35 Temperature 37.0 C 02/07/23 13:35 Temperature Source Temporal Artery Scan 02/07/23 13:35 Pulse 84 02/07/23 13:35 Respiratory Rate 17 02/07/23 13:49 Respiratory Effort Normal, Non-Labored 02/07/23 13:49 Respiratory Depth Normal 02/07/23 13:49 Respiratory Pattern Normal 02/07/23 13:49 Blood Pressure 113/57 L 02/07/23 13:35 Blood Pressure Position Sitting 02/07/23 13:35 Pulse Oximetry 94 02/07/23 13:35 Oxygen Delivery Method Room Air 02/07/23 13:35 Oxygen Flow Rate 0 02/07/23 13:35 Pain Level 8 02/07/23 13:35 Lab/Test Results Lab/Test Results: Laboratory Tests Range/Units 02/07/23 02/07/23 14:26 14:26 WBC (4.4-10.8) 10^3/uL 8.55 RBC (4.36-5.78) 10^6/uL 3.84 L Hgb (13.5-17.5) g/dL 12.1 L Hct (40.0-50.0) % 37.1 L MCV (80-95) fL 97 H MCH (27.0-33.0) pg 31.5 MCHC (32.0-36.0) % 32.6 RDW (11.8-14.1) % 14.6 H Plt Count (130-400) 10^3/uL 258 MPV (8.0-11.0) fL 9.4 Immature Gran % 0.6 Neutrophils % 64.5 Lymphocytes % 18.4 Monocytes % 9.2 Eosinophils % 6.7 Basophils % 0.6 Nucleated RBC % (0.0-0.3) % 0.0 Absolute Neutrophils (1.2-6.7) 10^3/uL 5.52 Absolute Lymphocytes (1.2-3.4) 10^3/uL 1.57 Absolute Monocytes (0.1-0.8) 10^3/uL 0.79 Absolute Eosinophils (0.0-0.7) 10^3/uL 0.57 Absolute Basophils (0.0-0.2) 10^3/uL 0.05 Sodium (136-145) mmol/L 137 Potassium (3.5-5.1) mmol/L 4.1 Chloride (98-107) mmol/L 99 Carbon Dioxide (21.0-32.0) mmol/L 37.0 H Anion Gap (3-11) mmol/L 1.0 L BUN (7-18) mg/dL 20 H Creatinine (0.70-1.30) mg/dL 1.1 Est GFR (CKD-EPI 2020) (mL/min/1.73m2) 73.58 Glucose (74-106) mg/dL 96 Calcium (8.5-10.1) mg/dL 8.3 L Magnesium (1.8-2.4) mg/dL 1.6 L Total Bilirubin (0.2-1.0) mg/dL 0.7 AST (15-37) U/L 40 H ALT (16-63) U/L 25 Alkaline Phosphatase (46-116) U/L 84 Troponin I (<or=60) ng/L < 50 NT-Pro-B Natriuret Pep (<300) pg/mL 1558 H Total Protein (6.4-8.2) g/dL 6.9 Albumin (3.4-5.0) g/dL 2.9 L PAWSS Have you Been Recently Intoxicated or Drunk Within the Last 30 days?: No Have you Ever Experienced Previous Episodes of Alcohol Withdrawal?: Yes Have you ever Experienced Withdrawal Seizures?: Yes Have you ever Experienced Delirium Tremens(DT)s?: Yes Have you ever undergone Alcohol Rehabilitation Treatment (i.e, inpt ot outpatient treatment programs)?: Yes Have you ever Experienced Blackouts?: No Have you ever Combined Alcohol with other Downers within the last 90 days?: No Have you ever Combined Alcohol with any other Substance of Abuse during the last 90 days?: No Positive Blood Alcohol level on Presentation? [PCS.BAL]: No Evidence of Increased Autonomic Activity (i.e. HR>120, tremor, sweating, agitation, nausea)?: No Result: 4
--- NOTE | 2023-02-07 16:21 | DI.RAD_ITS ---
Exam(s) XR CHEST 2V PA LATERAL EXAM: XR CHEST 2V PA LATERAL CLINICAL HISTORY: shortness of breath, orthopnea TECHNIQUE: 2D digital imaging was performed of the chest. Three images were obtained. PA and later al views were obtained. COMPARISON: CR XR CHEST 2V PA LATERAL from 02/05/2023 FINDINGS: MEDIASTINUM: Normal. HEART: Normal. PULMONARY VASCULATURE: Normal. LUNGS: The lungs are hyperinflated with flattened diaphragms suggesting underlying COPD. No focal co nsolidating infiltrates are present. PLEURAL SPACE: No pleural effusion or pneumothorax. BONE:Within normal limits for the patient's age. OTHER FINDINGS:Normal. IMPRESSION: No acute pulmonary findings. DATA REPOSITORY: RADIATION DOSE DELIVERED:
--- NOTE | 2023-02-07 16:23 | HPE_ITS ---
Date of service: 02/07/23 Time of Service: 16:23 Assessment and Plan Assessment and plan (1) Acute exacerbation of chronic obstructive pulmonary disease: Status: Acute Assessment and plan: admit to med/surg on telemetry continue steroid burst, add procal for ? role of antibiotics. has not been febrile, no evidence of pneumonia on xray normal white count scheduled duonebs for wheezing will need maintenance meds, was prescribed but not taking. ? why non compliance (2) CHF (congestive heart failure): Status: Chronic Assessment and plan: received 20 mg iv lasix in ED and diuresed over 1 liter. echo pending monitor I&O and daily weights. suspect pulmonary hypertension discussed with dr Moran (3) DVT prophylaxis: Status: Acute Assessment and plan: enoxaparin (4) Discharge planning issues: Status: Acute Assessment and plan: case management for discharge planning, barriers to discharge include non compliance discussed with Dr Moran History of Present Illness History of Present Illness Chief Complaint: shortness of breath Narrative: returns to ED after failing outpatient treatment of copd exac and chf. mostly d/t non compliance. received IV lasix in ED diuresed over one liter prior to admission. no oxygen requirements. will be admitted to hospitalist services for further management Review of Systems All systems reviewed & are unremarkable except as noted in HPI and below PFSH All Active Problems (Updated 02/07/23 @ 16:52 by Nilsa William NP) Discharge planning issues (Acute) DVT prophylaxis (Acute) CHF (congestive heart failure) (Chronic) CHF (congestive heart failure) (Chronic) Acute exacerbation of chronic obstructive pulmonary disease (Acute) Hypoxia (Acute) COPD exacerbation (Acute) Atelectasis (Acute) Psoriasis (Chronic) Pancytopenia (Chronic) Hypomagnesemia (Chronic) Rash (Acute) Conjunctivitis (Acute) Alcohol abuse (Chronic) Depression (Chronic) Encounter for screening colonoscopy (Acute) Medical History (Updated 02/07/23 @ 16:52 by Nilsa William NP) Alcohol abuse Alcohol withdrawal seizure BPH (benign prostatic hyperplasia) COPD (chronic obstructive pulmonary disease) Depression HTN (hypertension) Hx of angioedema Unknown allergic rxn 07/25/18 requiring endotracheal intubation [place] [facility] [place]. Left knee pain Normal colonoscopy 09/26/18 Dr Acosta, [facility], normal, repeat 10 years. Surgical History H/O hernia repair Social History Smoking/Tobacco Use Status: Current every day Tobacco Type: cigarettes Years smoked: 40 Smoking risk assessment performed?: Yes Alcohol Intake: former Drug use: Never Substance use type: does not use Details: pT STATES HE HAD A FEW BEEERS LAST NIGHT- 'THIS BENITO WAS JUST WALKING BY AND OFFERED ME A FEW BEERS' Housing: apartment Do you feel safe at home: Yes (Suicidal) Do you feel safe in your relationship?: Yes Meds Allergies and Home Medications Allergies Allergy/AdvReac Type Severity Reaction Status Date / Time lisinopril Allergy Severe Swelling/Ed Unverified 02/07/23 13:41 pastor Penicillins Allergy pt unsure Unverified 02/07/23 13:41 happened in childhood ? Rash, hives Sulfa (Sulfonamide AdvReac Skin Rash Unverified 02/07/23 13:41 Antibiotics) Home Medications Medication Instructions Recorded Confirmed Type cetirizine 10 mg tablet 10 mg PO DAILY #30 tabs 08/03/20 02/07/23 Rx citalopram 20 mg tablet (Celexa) 20 mg PO DAILY #30 tabs 08/03/20 02/07/23 Rx desoximetasone 0.25 % topical 1 applic topical BID #60 grams 08/03/20 02/07/23 Rx ointment fluticasone 113 mcg-salmeterol 14 1 puff inhalation BID #1 ea 08/03/20 02/07/23 Rx mcg/actuation breath activated powdr (AirDuo RespiClick) fluticasone propionate 50 1 spray intranasal DAILY #15.8 mL 08/03/20 02/07/23 Rx mcg/actuation nasal spray,suspension (Flonase Allergy Relief) magnesium gluconate 27.5 mg 27.5 mg PO BID #60 tabs 08/03/20 02/07/23 Rx magnesium (500 mg) tablet multivitamin,ra-kkoq-bbdplujf 27 1 tab PO DAILY #30 tabs 08/03/20 02/07/23 Rx mg-0.4 mg tablet (Therems-M) omeprazole 40 mg capsule,delayed 40 mg PO DAILY #30 caps 08/03/20 02/07/23 Rx release potassium chloride 15 mEq 15 meq PO DAILY #30 tabs 08/03/20 02/07/23 Rx tablet,extended release(part/cryst) tamsulosin 0.4 mg capsule 0.4 mg PO DAILY #30 caps 08/03/20 02/07/23 Rx thiamine HCl (vitamin B1) 100 mg 100 mg PO DAILY #30 tabs 08/03/20 02/07/23 Rx tablet albuterol sulfate 90 mcg/actuation 2 puff inhalation Q6H PRN #18 grams 08/26/20 02/07/23 Rx aerosol inhaler (ProAir HFA) furosemide 20 mg tablet (Lasix) 20 mg PO QAM CHF 2 weeks #14 tabs 02/05/23 02/07/23 Rx potassium chloride 10 mEq 10 meq PO DAILY 7 days #7 caps 02/05/23 02/07/23 Rx capsule,extended release prednisone 20 mg tablet 60 mg PO DAILY 5 days #15 tabs 02/05/23 02/07/23 Rx Exam Const General: cooperative and no acute distress HENNC Mouth: moist mucous membranes Eyes Conjunctivae: conjunctival abnormality bilaterally conjunctival injection Resp Auscultation: no rales, no rhonchi and wheezes Cardio Rate: regular rate and not tachycardic Rhythm: regular rhythm GI Palpation: soft, not firm, no guarding, no masses, not rigid and nontender Skin Other: Psoriasis noted on his extremities and face Neuro General: patient alert, patient awake and tone normal Extrem General: no calf tenderness and edema Laterality: bilateral (1+) Psych Appearance: grossly normal Mental Status: mental status grossly normal Results Labs 02/08/23 06:12 02/08/23 06:12 Labs: Laboratory Results - last 24 hr 02/07/23 02/07/23 14:26 14:26 WBC 8.55 RBC 3.84 L Hgb 12.1 L Hct 37.1 L MCV 97 H MCH 31.5 MCHC 32.6 RDW 14.6 H Plt Count 258 MPV 9.4 Immature Gran % 0.6 Neutrophils % 64.5 Lymphocytes % 18.4 Monocytes % 9.2 Eosinophils % 6.7 Basophils % 0.6 Nucleated RBC % 0.0 Absolute Neutrophils 5.52 Absolute Lymphocytes 1.57 Absolute Monocytes 0.79 Absolute Eosinophils 0.57 Absolute Basophils 0.05 Sodium 137 Potassium 4.1 Chloride 99 Carbon Dioxide 37.0 H Anion Gap 1.0 L BUN 20 H Creatinine 1.1 Est GFR (CKD-EPI 2020) 73.58 Glucose 96 Calcium 8.3 L Magnesium 1.6 L Total Bilirubin 0.7 AST 40 H ALT 25 Alkaline Phosphatase 84 Troponin I < 50 NT-Pro-B Natriuret Pep 1558 H Total Protein 6.9 Albumin 2.9 L Last Vital Signs Temp 37.0 C 02/07/23 13:35 Pulse 84 02/07/23 13:35 Resp 17 02/07/23 13:49 BP 113/57 L 02/07/23 13:35 Pulse Ox 94 02/07/23 13:35 PAWSS Have you Been Recently Intoxicated or Drunk Within the Last 30 days?: No Have you Ever Experienced Previous Episodes of Alcohol Withdrawal?: Yes Have you ever Experienced Withdrawal Seizures?: Yes Have you ever Experienced Delirium Tremens(DT)s?: Yes Have you ever undergone Alcohol Rehabilitation Treatment (i.e, inpt ot ou tpatient treatment programs)?: Yes Have you ever Experienced Blackouts?: No Have you ever Combined Alcohol with other Downers within the last 90 days?: No Have you ever Combined Alcohol with any other Substance of Abuse during the last 90 days?: No Positive Blood Alcohol level on Presentation? [PCS.BAL]: No Evidence of Increased Autonomic Activity (i.e. HR>120, tremor, sweating, agitation, nausea)?: No Result: 4 Time Spent Time spent with Patient: 40-54 minutes Time was spent: preparing to see the patient(eg.review tests), obtaining and/or reviewing separately [facility], ordering medications,tests, procedures, indepentently interpreting results and counseling the patient
[2023-02-07 16:58] LABS: Procalcitonin < 0.1 ng/mL
[2023-02-07] MEDS: Albuterol/Ipratropium 3 ML UPD VIAL UPD (17:07)
[2023-02-07 17:57] LABS: Troponin I < 50 ng/L (<or=60)
[2023-02-07] MEDS: Enoxaparin 40 MG/0.4 ML SYR SC (18:27)
[2023-02-07] MEDS: MAGNESIUM SULFATE 1 GM/100 ML BAG IVPB (18:27)
[2023-02-07] MEDS: Nicotine 21 MG/24 HR PATCH TD (18:28)
[2023-02-07] MEDS: Acetaminophen 325 MG TAB 650 MG PO (20:11)
[2023-02-07] MEDS: methylPREDNISolone SUCC 125 MG VIAL 60 MG IVP (20:12)
[2023-02-08] VITALS (10 sets, daily range): BP systolic 107–133; BP diastolic 63–72; PULSE 67–82; RESP 2–17; TEMP 36.7–37.4; O2SAT 90–96
[2023-02-08 07:07] LABS: Abs Immature Grans 0.03 10^3/uL (0.0-0.06); Absolute Basophil Count 0.01 10^3/uL (0.0-0.2); Absolute Lymphocyte Count 0.51 10^3/uL (1.2-3.4); Absolute Monocyte Count 0.08 10^3/uL (0.1-0.8); Absolute Neutrophil Count 4.15 10^3/uL (1.2-6.7); Basophils % 0.2; HCT 37.4 % (40.0-50.0); HGB 12.7 g/dL (13.5-17.5); Immature Grans % 0.6; Lymphocytes % 10.7; MCH 31.8 pg (27.0-33.0); MCV 94 fL (80-95); MPV 9.8 fL (8.0-11.0); Monocytes % 1.7; Neutrophils % 86.8; Platelet Count 242 10^3/uL (130-400); RBC 3.99 10^6/uL (4.36-5.78); RDW 14.4 % (11.8-14.1); RDW-SD 49.7 fL; WBC 4.78 10^3/uL (4.4-10.8)
[2023-02-08 07:18] LABS: BUN 19 mg/dL (7-18); CREATININE 1.2 mg/dL (0.70-1.30); Calcium 8.5 mg/dL (8.5-10.1); Chloride 99 mmol/L (98-107); Estimated GFR 66.28 (mL/min/1.73m2); Glucose 138 mg/dL (74-106); Potassium 4.3 mmol/L (3.5-5.1); Sodium 136 mmol/L (136-145)
[2023-02-08] MEDS: Omeprazole 20 MG CAPCR 40 MG PO (07:42)
[2023-02-08] MEDS: predniSONE 20 MG TAB 40 MG PO (08:16)
[2023-02-08] MEDS: Nicotine 21 MG/24 HR PATCH TD (08:17)
[2023-02-08] MEDS: Albuterol/Ipratropium 3 ML UPD VIAL UPD ×3 (08:44→20:40)
--- NOTE | 2023-02-08 11:27 | INITIAL_ITS ---
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 He is independent at baseline. CURRENT FUNCTIONAL STATUS:: South was not in the room when CM attempted to visit. Per report, he is being treated with steroids for his COPD exacerbation. He had an echo today, which showed an EF of 60-65%. He will return home once he is medically cleared. No anticipated services. ADVANCE DIRECTIVES:: None on file. Has patient been provided with info about the portal/API?: Yes Did the patient sign up for the portal?: No CODE STATUS:: Full Code INSURANCE COVERAGE / FINANCIAL ISSUES:: IVETTE, DANIEL CURRENT HOME/COMMUNITY SERVICES/EQUIPMENT:: None PRIMARY CARE PHYSICIAN:: Marilu Gill POTENTIAL DISCHARGE NEEDS:: Follow up appointments PATIENT/FAMILY EDUCATION NEEDS:: Review discharge instructions and limitations, discussion of self care needs including ask me three. ANTICIPATED BARRIERS TO DISCHARGE:: None identified. TRANSPORTATION:: Via private vehicle by friend vs RCT PLAN:: Anticipate South will return home when medically cleared. He will transport home via private vehicle. He will follow up with his PCP and discharge plan of care. CM will continue to follow. PFSH All Active Problems (Updated 02/07/23 @ 16:52 by Nilsa William NP) Discharge planning issues (Acute) DVT prophylaxis (Acute) CHF (congestive heart failure) (Chronic) CHF (congestive heart failure) (Chronic) Acute exacerbation of chronic obstructive pulmonary disease (Acute) Hypoxia (Acute) COPD exacerbation (Acute) Atelectasis (Acute) Psoriasis (Chronic) Pancytopenia (Chronic) Hypomagnesemia (Chronic) Rash (Acute) Conjunctivitis (Acute) Alcohol abuse (Chronic) Depression (Chronic) Encounter for screening colonoscopy (Acute) Medical History (Updated 02/07/23 @ 16:52 by Nilsa William NP) Alcohol abuse Alcohol withdrawal seizure BPH (benign prostatic hyperplasia) COPD (chronic obstructive pulmonary disease) Depression HTN (hypertension) Hx of angioedema Unknown allergic rxn 07/25/18 requiring endotracheal intubation and transfer [place] [facility] [place]. Left knee pain Normal colonoscopy 09/26/18 Dr Acosta, [facility], normal, repeat 10 years. Surgical History H/O hernia repair Social History Smoking/Tobacco Use Status: Current every day Tobacco Type: cigarettes Years smoked: 40 Smoking risk assessment performed?: Yes Alcohol Intake: former Drug use: Never Substance use type: does not use Details: pT STATES HE HAD A FEW BEEERS LAST NIGHT- 'THIS BENITO WAS JUST WALKING BY AND OFFERED ME A FEW BEERS' Housing: apartment Do you feel safe at home: Yes (Suicidal) Do you feel safe in your relationship?: Yes
[2023-02-08] MEDS: Acetaminophen 325 MG TAB 650 MG PO (14:35)
--- NOTE | 2023-02-08 14:57 | DI.US_ITS ---
APPROVED REPORT EXAM: Comprehensive 2D, Doppler, and color-flow Echocardiogram Patient Location: In-Patient Room/Bed: [address] Lap Tender: Brant White RDCS Indications: SOB, COPD, CHF Other Information Study Quality: Adequate Conclusion The left ventricular wall thickness and chamber size. Ejection fraction is 65%. Wall motion is norm al Normal right ventricular size and systolic function Both atria are normal in size There is no structural or hemodynamically significant valvular disease Right ventricular systolic pressure could not be estimated Wall motion Left Ventricle The left ventricle is normal size. The left ventricular systolic function is normal. The left ventric ular ejection fraction is within the normal range. There is normal left ventricular wall thickness. T here is normal LV segmental wall motion. There is no ventricular septal defect visualized. LVEF is 65 %. Right Ventricle The right ventricle is normal size. Right ventricular systolic function is grossly normal. Unable to assess PA pressure. Atria The left atrium size is normal. The right atrium size is normal. The interatrial septum is intact wit h no evidence for an atrial septal defect. Aortic Valve The aortic valve is normal in structure. Aortic valve is trileaflet. There is no aortic valvular sten osis. No aortic regurgitation is present. Mitral Valve The mitral valve is normal in structure. No evidence of mitral valve stenosis. There is no mitral gabriele ve regurgitation noted. Tricuspid Valve The tricuspid valve is normal in structure. There is no tricuspid valve stenosis. Trace tricuspid reg urgitation. Pulmonic Valve The pulmonary valve is normal in structure. There is no pulmonic valvular stenosis. There is no pulmo amanda valvular regurgitation. Great Vessels Aortic root is normal in size. Aortic arch is not well visualized. Ascending aorta is not well visual ized. IVC is normal in size and collapses >50% with inspiration. Pericardium There is no pericardial effusion. 2D Dimensions IVSD d PLAX 0.92 cm M: 0.6-1.2 LVPW d PLAX 0.80 cm M: 0.6 - 1.2 LVID d PLAX 4.80 cm M: 4.2 - 5.8 LVDs 2.25 cm M: 2.5 - 4.0 Ao Root d 3.76 cm M: 3.1 - 3.7 RA Area A4C 11.81 cm2 LV EF Teichholz 83.8 % FS 52.75 % M-Mode TAPSE 3.68 cm (M/F) >1.7 LV Diastology MV E' medial 0.095 (>0.07 m/s) E/A Ratio 0.8 LV E/e MED 8.24 (<14) MV E Vmax 0.78 (0.4-1.3 m/s) MV E' lateral 0.097 (>0.1 m/s) MV A Vmax 0.95 (0.4-1.3 m/s) LV E/e LAT 8.02 (<14) MV E/E' medial 8.24 MV E/E' lateral 8.02 MV (E/E' average) 8.13 Aortic Valve LVOT Vmax 1.29 m/s AoV Area Vmax 3.98 cm2 LVOT Peak Grad 6.7 mmHg LVOT Mean Grad 3.8 mmHg LVOT Diam s 2.25 cm AoV Vmax 1.31 m/s Velocity Ratio 0.98 AoV Peak Grad 6.9 mmHg LVOT SV 108.27 mL AoV Mean Grad 3.7 mmHg AoV Area VTI 4.24 cm2 Mitral Valve MV DT 307 (160-240 msec) Pulmonary Valve PV Mean Grad 2.9 mmHg RVOT Peak Gr. 2.55 mmHg RVOT Mean Gr. 1.20 mmHg RVOT VTI 0.144 m RVOT Vmax 0.80 m/s Tricuspid Valve RA Pressure 3.00 mmHg
--- NOTE | 2023-02-08 15:42 | W.PM.PROGNOT ---
Date of Service Date of service: 02/08/23 Time of Service: 15:42 Assessment and Plan Assessment and plan (1) Acute exacerbation of chronic obstructive pulmonary disease: Status: Acute Assessment and plan: admit to med/surg on telemetry continue steroid burst, procal negative so will hold off on antibiotics. has not been febrile, no evidence of pneumonia on xray normal white count scheduled duonebs for wheezing will need maintenance meds, was prescribed but not taking. ? why non compliance (2) CHF (congestive heart failure): Status: Chronic Assessment and plan: received 20 mg iv lasix in ED and diuresed over 1 liter. echo today shows no WMA's, valvular disease and EF 60-65% continue to monitor I&O and daily weights. suspect pulmonary hypertension, unable to assess right ventricular function on echo (3) DVT prophylaxis: Status: Acute Assessment and plan: enoxaparin (4) Discharge planning issues: Status: Acute Assessment and plan: case management for discharge planning, barriers to discharge include non compliance anticipate home tomorrow with no services discussed with Dr Jewell Subjective Subjective Patient reports: no new complaints, tolerating liquids well, tolerating a regular diet and afebrile; denies shortness of breath Exam Const General: cooperative and no acute distress HENMT Mouth: moist mucous membranes Eyes Conjunctivae: conjunctival abnormality bilaterally conjunctival injection Resp Auscultation: no rales, no rhonchi and wheezes Cardio Rate: regular rate and not tachycardic Rhythm: regular rhythm GI Palpation: soft, not firm, no guarding, no masses, not rigid and nontender Skin Other: Psoriasis noted on his extremities and face Neuro General: patient alert, patient awake and tone normal Extrem General: no calf tenderness and edema Laterality: bilateral (1+) Psych Appearance: grossly normal Mental Status: mental status grossly normal Objective Last Vital Signs Temp 36.7 C 02/08/23 11:08 Pulse 78 02/08/23 13:05 Resp 16 02/08/23 12:56 BP 107/63 02/08/23 11:08 Pulse Ox 94 02/08/23 12:56 Laboratory Results - last 24 hr 02/07/23 02/07/23 02/08/23 14:26 17:07 06:12 WBC RBC Hgb Hct MCV MCH MCHC RDW Plt Count MPV Immature Gran % Neutrophils % Lymphocytes % Monocytes % Eosinophils % Basophils % Nucleated RBC % Absolute Neutrophils Absolute Lymphocytes Absolute Monocytes Absolute Eosinophils Absolute Basophils Sodium 136 Potassium 4.3 Chloride 99 Carbon Dioxide 32.0 Anion Gap 5.0 BUN 19 H Creatinine 1.2 Est GFR (CKD-EPI 2020) 66.28 Glucose 138 H Calcium 8.5 Troponin I < 50 Procalcitonin < 0.1 02/08/23 06:12 WBC 4.78 RBC 3.99 L Hgb 12.7 L Hct 37.4 L MCV 94 MCH 31.8 MCHC 34.0 RDW 14.4 H Plt Count 242 MPV 9.8 Immature Gran % 0.6 Neutrophils % 86.8 Lymphocytes % 10.7 Monocytes % 1.7 Eosinophils % 0.0 Basophils % 0.2 Nucleated RBC % 0.0 Absolute Neutrophils 4.15 Absolute Lymphocytes 0.51 L Absolute Monocytes 0.08 L Absolute Eosinophils 0.00 Absolute Basophils 0.01 Sodium Potassium Chloride Carbon Dioxide Anion Gap BUN Creatinine Est GFR (CKD-EPI 2020) Glucose Calcium Troponin I Procalcitonin PAWSS Have you Been Recently Intoxicated or Drunk Within the Last 30 days?: No Have you Ever Experienced Previous Episodes of Alcohol Withdrawal?: Yes Have you ever Experienced Withdrawal Seizures?: Yes Have you ever Experienced Delirium Tremens(DT)s?: Yes Have you ever undergone Alcohol Rehabilitation Treatment (i.e, inpt ot outpatient treatment programs)?: Yes Have you ever Experienced Blackouts?: No Have you ever Combined Alcohol with other Downers within the last 90 days?: No Have you ever Combined Alcohol with any other Substance of Abuse during the last 90 days?: No Positive Blood Alcohol level on Presentation? [PCS.BAL]: No Evidence of Increased Autonomic Activity (i.e. HR>120, tremor, sweating, agitation, nausea)?: No Result: 4 Time Spent with Patient Time Spent with Patient: 25-34 minutes Time was spent: preparing to see the patient(eg.review tests), indepentently interpreting results, counseling the patient and care coordination
[2023-02-08] MEDS: Enoxaparin 40 MG/0.4 ML SYR SC (17:43)
[2023-02-09 04:01] VITALS: BP 157/88; PULSE 74; RESP 15; TEMP 36.9; O2SAT 93
[2023-02-09 07:25] VITALS: BP 157/75; PULSE 71; TEMP 36.5; O2SAT 89
[2023-02-09 07:30] VITALS: BP 122/80
[2023-02-09] MEDS: Omeprazole 20 MG CAPCR 40 MG PO (07:35)
[2023-02-09] MEDS: Nicotine 21 MG/24 HR PATCH TD (07:35)
[2023-02-09] MEDS: predniSONE 20 MG TAB 40 MG PO (07:36)
[2023-02-09 07:56] VITALS: PULSE 68; RESP 19; RESP 4; RESP 5; RESP 8; O2SAT 94
[2023-02-09] MEDS: Albuterol/Ipratropium 3 ML UPD VIAL UPD (07:56)
[2023-02-09 08:00] VITALS: PULSE 76; RESP 18; RESP 4; RESP 5; RESP 8; O2SAT 95
--- NOTE | 2023-02-09 10:45 | DI.RAD_ITS ---
Exam(s) XR CHEST 2V PA LATERAL EXAM: XR CHEST 2V PA LATERAL CLINICAL HISTORY: cough congestion TECHNIQUE: 2D digital imaging was performed of the chest. Two images were obtained. PA and lateral views were obtained. COMPARISON: CR XR CHEST 2V PA LATERAL from 02/07/2023 FINDINGS: MEDIASTINUM: Normal. HEART: Normal. PULMONARY VASCULATURE: Normal. LUNGS: The lungs are hyperinflated with flattened diaphragms suggesting underlying COPD. No focal co nsolidating infiltrates are seen. PLEURAL SPACE: No pleural effusion or pneumothorax. BONE:Within normal limits for the patient's age. OTHER FINDINGS:Nipple shadows are seen bilaterally. IMPRESSION: No acute pulmonary findings. DATA REPOSITORY: RADIATION DOSE DELIVERED:
[2023-02-09 11:16] LABS: Abs Immature Grans 0.05 10^3/uL (0.0-0.06); Absolute Basophil Count 0.03 10^3/uL (0.0-0.2); Absolute Lymphocyte Count 0.57 10^3/uL (1.2-3.4); Absolute Monocyte Count 0.25 10^3/uL (0.1-0.8); Basophils % 0.3; HCT 40.8 % (40.0-50.0); HGB 13.3 g/dL (13.5-17.5); Immature Grans % 0.5; Lymphocytes % 5.2; MCH 31.4 pg (27.0-33.0); MCHC 32.6 % (32.0-36.0); MCV 96 fL (80-95); MPV 9.1 fL (8.0-11.0); Monocytes % 2.3; Neutrophils % 91.7; Platelet Count 242 10^3/uL (130-400); RBC 4.24 10^6/uL (4.36-5.78); RDW 14.6 % (11.8-14.1); RDW-SD 51.3 fL; WBC 10.93 10^3/uL (4.4-10.8)
[2023-02-09 11:23] LABS: Absolute Neutrophil Count 10.02 10^3/uL (1.2-6.7)
[2023-02-09 11:25] LABS: BUN 20 mg/dL (7-18); CREATININE 1.3 mg/dL (0.70-1.30); Calcium 9.1 mg/dL (8.5-10.1); Chloride 99 mmol/L (98-107); Estimated GFR 60.21 (mL/min/1.73m2); Glucose 109 mg/dL (74-106); Potassium 4.1 mmol/L (3.5-5.1); Sodium 137 mmol/L (136-145)
[2023-02-09 11:48] LABS: Procalcitonin < 0.1 ng/mL
[2023-02-09 11:58] LABS: COVID-19 PCR Negative (Negative); Influenza A PCR Negative (Negative); Influenza B PCR Negative (Negative); RSV PCR Negative (Negative)
[2023-02-09 12:00] LABS: Source Nasopharynx
--- NOTE | 2023-02-09 12:05 | DI.VRAD_ITS ---
PROCEDURE INFORMATION: Exam: XR Chest Exam date and time: 02/09/2023 11:46 AM Age: 67 years old Clinical indication: Other: Cough, congestion TECHNIQUE: Imaging protocol: Radiologic exam of the chest. Views: 2 views. COMPARISON: CR XR CHEST 2V PA LATERAL 02/07/2023 4:09 PM FINDINGS: Lungs: Hyperexpanded lung romano consistent with COPD. No focal consolidation Pleural spaces: Unremarkable. No pleural effusion. No pneumothorax. Heart/Mediastinum: Unremarkable. No cardiomegaly. Bones/joints: Unremarkable. IMPRESSION: Hyperexpanded lung romano consistent with COPD. Dictated and Authenticated by: Heron Chakraborty MD. Ordering:SHILA Ash MD
--- NOTE | 2023-02-09 14:19 | DSE_ITS ---
Date of service: 02/09/23 Time of Service: 14:19 DS: Diagnosis Discharge Diagnosis (1) Acute exacerbation of chronic obstructive pulmonary disease: Status: Acute (2) CHF (congestive heart failure): Status: Chronic Discharge Plan Disposition Patient Disposition: Home Condition: Stable Discharge Details Reason For Visit: COPD Exacerbation Admit Date/Time: 02/07/23 15:46 Admit Provider: Earnest Moran Attending Provider: Earnest Moran Primary Care Provider: DIMPLE NOBLE Hospital Course Hospital Course: This is a 67-year-old male patient with history of COPD chronic tobacco abuse schizophrenia who was seen in the emergency department and diagnosed with COPD e xacerbation but due to no oxygen requirements discharged to outpatient treatment. He did not go to the pharmacy and sampler pickup his medications so the next day returned again. Work-up again consistent with COPD exacerbation without a little CHF so did give him some diuresis in the emergency department he was admitted to the medical surgical unit under observation status. He remained hemodynamically stable with no oxygen requirements his procalcitonin was less than 0.1 so no antibiotics initiated. He slowly responded to treatment. Today he did complain of some increased nasal congestion. A repeat COVID FLUVID swab was obtained and negative for influenza RSV or COVID. I also repeated a chest x-ray which did not show any infiltrate and most consistent with COPD. Repeat Pro-Panfilo remained negative CBC also unremarkable. He has had no fever he is oxygenating in the mid to high 90s on room air. I do worry about his compliance again so I am going to dispense the remaining [address] eroid burst and to inhalers for home use Spiriva and Symbicort as he does not take the Advair he was previously prescribed. I did encourage him to stop smoking and to follow-up with primary care provider. I am doubtful he will follow-up. Discharge discussed with Dr. eJwell Home Meds and New Rx's Prescriptions: New prednisone 20 mg Tablet 40 mg PO DAILY Qty: 0 0RF budesonide-formoterol [Symbicort] 80-4.5 mcg/actuation Hfa Aerosol Inhaler 2 puff inhalation BID Qty: 0 0RF Spiriva Respimat 2.5 mcg/actuation Mist 2 puff inhalation DAILY Qty: 0 0RF Inhaler, Assist Devices [Pocket Chamber] 1 ea miscellaneous DIRECTED Qty: 0 0RF No Action albuterol sulfate [ProAir HFA] 90 mcg/actuation HFA aerosol inhaler 2 puff IH Q6H PRNQty: 18 0RF Patient Comments: No longer taking 02/07/23 CT furosemide [Lasix] 20 mg tablet 20 mg PO QAM 14 Days Qty: 14 0RF Patient Comments: Has not picked up yet 02/07/23 CT Rx Instructions: Take 1 tablet in the morning daily for the next 2 weeks potassium chloride 10 mEq capsule, extended release 10 meq PO DAILY 7 Days Qty: 7 0RF Patient Comments: No longer taking 02/07/23 CT Rx Instructions: Take 1 tablet daily for the next 7 days prednisone 20 mg tablet 60 mg PO DAILY 5 Days Qty: 15 0RF Patient Comments: No longer taking 02/07/23 CT cetirizine 10 mg Tablet 10 mg PO DAILY Qty: 30 0RF Patient Comments: No longer taking 02/07/23 CT thiamine HCl (vitamin B1) 100 mg tablet 100 mg PO DAILY Qty: 30 0RF Patient Comments: No longer taking 02/07/[address] CT omeprazole 40 mg capsule,delayed release(DR/EC) 40 mg PO DAILY Qty: 30 0RF Patient Comments: No longer taking 02/07/23 CT citalopram [Celexa] 20 mg Tablet 20 mg PO DAILY Qty: 30 0RF Patient Comments: No longer taking 02/07/23 CT tamsulosin 0.4 mg capsule 0.4 mg PO DAILY Qty: 30 0RF Patient Comments: No longer taking 02/07/23 CT fluticasone propionate [Flonase Allergy Relief] 50 mcg/actuation spray,suspen melyssa 1 spray CRISTIANA DAILY Qty: 15.8 0RF Patient Comments: No longer taking 02/07/23 CT Therems-M 27-0.4 mg Tablet 1 tab PO DAILY Qty: 30 0RF Patient Comments: No longer taking 02/07/23 CT fluticasone propion-salmeterol [AirDuo RespiClick] 113-14 mcg/actuation Aerosol Powdr Breath Activated 1 puff INHALATION BID Qty: 1 0RF Patient Comments: No longer taking 02/07/23 CT magnesium gluconate 27.5 mg magne- sium (500 mg) tablet 27.5 mg PO BID Qty: 60 0RF Patient Comments: No longer taking 02/07/23 CT potassium chloride 15 mEq tablet,ER particles/crystals 15 meq PO DAILY Qty: 30 0RF Patient Comments: No longer taking 02/07/[address] CT desoximetasone 0.25 % ointment 1 applic topical BID Qty: 60 0RF Patient Comments: No longer taking 02/07/23 CT Rx Instructions: apply to affected skin bid for up to 10 days then use bid prn rash Discharge Instructions Instructions: COPD (Chronic Obstructive Pulmonary Disease) (DC) Additional Instructions: please continue inhalers as directed, we have dispensed them to you for home use you have also been given prednisone to complete your course. you need to take 40 mg on Saturday, Saturday and Saturday then stop. Stand Alone Forms: Nursing Discharge Form Referrals: DIM[facility] NOBLE [facility] [Primary Care Provider] - (PLEASE CALL: Your Primary Care Provider SUNDAY 02/11 to schedule a follow up appointment for two weeks. [facility] ) Activity:: Activity as Tolerated Equipment/Supplies:: No Equipment Needed Diet:: As Tolerated Discharge Orders Discharge Orders: Discharge Order (Routine); Ordered 02/09/23 Ordered By: Nilsa William DS: Summary Time Spent with Patient providing and/or coordinating discharge services: Less than 30 minutes Status at Discharge Functional status at discharge: independent ambulation Overall status at discharge: patient is progressing back to baseline Mental Status: mental status grossly normal Speech and Movement: speech and movement normal Mood: congruent mood Affect: normal affect Exam Const General: cooperative and no acute distress HENMT Mouth: moist mucous membranes Eyes Conjunctivae: conjunctival abnormality bilaterally conjunctival injection Resp Auscultation: no rales, no rhonchi and wheezes Cardio Rate: regular rate and not tachycardic Rhythm: regular rhythm GI Palpation: soft, not firm, no guarding, no masses, not rigid and nontender Skin Other: Psoriasis noted on his extremities and face Neuro General: patient alert, patient awake and tone normal Extrem General: no calf tenderness and edema Laterality: bilateral (1+) Psych Appearance: grossly normal Mental Status: mental status grossly normal Speech and Movement: speech and movement normal Mood: congruent mood Affect: normal affect DS: Data Vitals/I&O Vitals and I&O: Vital Signs Temperature 36.5 C 02/09/23 07:25 Temperature Source Tympanic 02/09/23 07:25 Pulse 76 02/09/23 08:00 Pulse Rhythm Regular 02/09/23 07:30 Respiratory Rate 18 02/09/23 08:00 Respiratory Effort Short of Breath 02/09/23 07:30 Respiratory Depth Deep 02/09/23 07:30 Respiratory Pattern Irregular 02/09/23 07:30 Blood Pressure 122/80 02/09/23 07:30 Blood Pressure Position Sitting 02/07/23 13:35 Pulse Oximetry 95 02/09/23 08:00 Oxygen Delivery Method Room Air 02/09/23 07:56 Oxygen Flow Rate 0 02/09/23 07:56 Pain Level 3 02/09/23 07:25 Comment patient is asleep. 02/08/23 16:00 Intake & Output 02/08/23 02/09/23 02/09/23 23:59 11:59 23:59 Weight 76.34 kg Other: Comment unable to assess Voiding Methods Toilet Data Completed and Pending Labs on day of discharge: Labs from last 24 hours 02/09/23 02/09/23 02/09/23 11:11 11:04 11:04 WBC RBC Hgb Hct MCV MCH MCHC RDW Plt Count MPV Immature Gran % Neutrophils % Lymphocytes % Monocytes % Eosinophils % Basophils % Nucleated RBC % Absolute Neutrophils Absolute Lymphocytes Absolute Monocytes Absolute Eosinophils Absolute Basophils Sodium 137 Potassium 4.1 Chloride 99 Carbon Dioxide 33.0 H Anion Gap 5.0 BUN 20 H Creatinine 1.3 Est GFR (CKD-EPI 2020) 60.21 Glucose 109 H Calcium 9.1 Procalcitonin < 0.1 COVID-19 Source Nasopharynx SARS-CoV-2 (PCR) Negative Influenza Type A (PCR) Negative Influenza Type B (PCR) Negative RSV (PCR) Negative 02/09/23 11:04 WBC 10.93 H RBC 4.24 L Hgb 13.3 L Hct 40.8 MCV 96 H MCH 31.4 MCHC 32.6 RDW 14.6 H Plt Count 242 MPV 9.1 Immature Gran % 0.5 Neutrophils % 91.7 Lymphocytes % 5.2 Monocytes % 2.3 Eosinophils % 0.0 Basophils % 0.3 Nucleated RBC % 0.0 Absolute Neutrophils 10.02 H Absolute Lymphocytes 0.57 L Absolute Monocytes 0.25 Absolute Eosinophils 0.00 Absolute Basophils 0.03 Sodium Potassium Chloride Carbon Dioxide Anion Gap BUN Creatinine Est GFR (CKD-EPI 2020) Glucose Calcium Procalcitonin COVID-19 Source SARS-CoV-2 (PCR) Influenza Type A (PCR) Influenza Type B (PCR) RSV (PCR) PFSH All Active Problems (Updated 02/07/23 @ 16:52 by Nilsa William NP) Discharge planning issues (Acute) DVT prophylaxis (Acute) CHF (congestive heart failure) (Chronic) CHF (congestive heart failure) (Chronic) Acute exacerbation of chronic obstructive pulmonary disease (Acute) Hypoxia (Acute) COPD exacerbation (Acute) Atelectasis (Acute) Psoriasis (Chronic) Pancytopenia (Chronic) Hypomagnesemia (Chronic) Rash (Acute) Conjunctivitis (Acute) Alcohol abuse (Chronic) Depression (Chronic) Encounter for screening colonoscopy (Acute) Medical History (Updated 02/07/23 @ 16:52 by Nilsa William NP) Alcohol abuse Alcohol withdrawal seizure BPH (benign prostatic hyperplasia) COPD (chronic obstructive pulmonary disease) Depression HTN (hypertension) Hx of angioedema Unknown allergic rxn 07/25/18 requiring endotracheal intubation and [place] [facility] [place]. Left knee pain Normal colonoscopy 09/26/18 Dr Acosta, [facility], normal, repeat 10 years. Surgical History H/O hernia repair Social History Smoking/Tobacco Use Status: Current every day Tobacco Type: cigarettes Years smoked: 40 Smoking risk assessment performed?: Yes Alcohol Intake: former Drug use: Never Substance use type: does not use Details: pT STATES HE HAD A FEW BEEERS LAST NIGHT- 'THIS BENITO WAS JUST WALKING BY AND OFFERED ME A FEW BEERS' Housing: apartment Do you feel safe at home: Yes (Suicidal) Do you feel safe in your relationship?: Yes Time Spent with Patient Time Spent with Patient: <45 minutes Time was spent: preparing to see the patient(eg.review tests), ordering medications,tests, procedures and counseling the patient
[2023-02-09] MEDS: Budesonide/Formoterol 80/4.5 6.9 GM 60 PUFF INH IH (14:53)
[2023-02-09] MEDS: Tiotropium Bromide-Respimat 10 PUFF INH 2 PUFF IH (14:54)
--- NOTE | 2023-02-09 16:05 | PDOC.CMDIS ---
Date of service: 02/09/23 Time of Service: 16:05 LACE Index Scoring Tool Questions: Length of Stay (in days): 2 Was the patient admitted via the E.D.?: Yes Comorbidities: Congestive Heart Failure and Chronic Pulmonary Disease E.D. Visits: 2 Answers: Total Score: 12 Risk of Readmission: High Risk Care Management Discharge Plan Reason for Hospitalization: COPD Exacerbation Discharge Plan: South will return home with no new services. He will transport home via private vehicle and will follow up with his PCP and discharge plan of care. South was provided with enough medications at discharge to complete his course of treatment. He has not reliably filled prescriptions in the past and this was an effort to remove that barrier.
[2023-02-09] MEDS: Enoxaparin 40 MG/0.4 ML SYR SC (16:34)
== END 2023-02-09 17:54 | disposition home or self-care (01) ==
LOC: ER 16:13 → MS 02-08 07:44
PROVIDERS: Nurse Practitioner Acute Care; Admitting Provider Internal Medicine; Emergency Provider Student in an Organized Health Care Education/Training Program; PCP Nurse Practitioner Family; Visit Provider Internal Medicine
DX: J44.1 Chronic obstructive pulmonary disease with (acute) exacerbation (principal); I50.9 Heart failure, unspecified; R42 Dizziness and giddiness; F10.10 Alcohol abuse, uncomplicated; I11.0 Hypertensive heart disease with heart failure; L40.9 Psoriasis, unspecified; R06.02 Shortness of breath; R09.02 Hypoxemia; D61.818 Other pancytopenia; E83.42 Hypomagnesemia; F32.A Depression, unspecified; F17.210 Nicotine dependence, cigarettes, uncomplicated; Z91.148 Patient's other noncompliance with medication regimen for other reason; F20.9 Schizophrenia, unspecified; Z79.899 Other long term (current) drug therapy
CPT/HCPCS: 36415; 80048; 80053; 84145; 87637; 93005; 93306; 94640; 96365; 96372; 96374; 96375; 99285; J1650; 71046; 83735; 83880; 84484; 85025; 93010; 94664; 94667; 94668; 94760; 99223; 99232; 99238; G0378; J1941; J2930; J3475; J7512; J7620

== ENCOUNTER 2023-04-03 12:05 | Emergency (ER) | payer MEDICARE, SELFPAY ==
[2023-04-03] VITALS (11 sets, daily range): BP systolic 132–186; BP diastolic 68–93; PULSE 72–91; RESP 9–27; O2SAT 93–97
--- NOTE | 2023-04-03 12:00 | RT.EKG_ITS ---
APPROVED REPORT Exam: Resting ECG Reason for Exam: sob, chest pain Patient Location: E HR:91 bpm ECG Measurements Heart Rate 91 AXIS [place] 152 P 80 QRSd 81 QRS 94 QT 375 T 38 QTc 462 Conclusion Sinus rhythm...normal P axis, V-rate 60- 99 Atrial premature complex...SV complex w/ short R-R interval Right atrial enlargement...P>0.25mV 2 lds or<-0.24mV aVR/aVL Right axis deviation...QRS axis ( 91,269) sinus rhythm, normal axis, normal intervals, non ischemic
[2023-04-03] MEDS: Dexamethasone 10 MG/ML VIAL PO (12:56)
[2023-04-03] MEDS: Albuterol/Ipratropium 3 ML UPD VIAL UPD (12:56)
--- NOTE | 2023-04-03 13:48 | DI.RAD_ITS ---
Exam(s) XR CHEST 2V PA LATERAL EXAM: XR CHEST 2V PA LATERAL CLINICAL HISTORY: cough copd TECHNIQUE: 2D digital imaging was performed of the chest. Three images were obtained. PA and later al views were obtained. COMPARISON: CR,XR XR CHEST 2V PA LATERAL from 02/09/2023 FINDINGS: MEDIASTINUM: Normal. HEART: Normal. PULMONARY VASCULATURE: Normal. LUNGS: The lungs are hyperinflated consistent with underlying COPD. PLEURAL SPACE: No pleural effusion or pneumothorax. BONE:Within normal limits for the patient's age. OTHER FINDINGS:The nipple shadows are visualized. IMPRESSION: No acute pulmonary findings. DATA REPOSITORY: RADIATION DOSE DELIVERED:
--- NOTE | 2023-04-03 14:37 | ED.GENADUL_ITS ---
Discharge Plan Disposition Patient Disposition: Home Condition: Improving Discharge Details Chief Complaint: RespSymp Clinical Impression: COPD with exacerbation Primary Care Provider: DIMPLE NOBLE ED Provider: Justin Galindo Home Meds and New Rx's Prescriptions: No Action albuterol sulfate [ProAir HFA] 90 mcg/actuation HFA aerosol inhaler 2 puff IH Q6H PRNQty: 18 0RF Patient Comments: No longer taking 02/07/23 CT prednisone 20 mg Tablet 40 mg PO DAILY Qty: 0 0RF budesonide-formoterol [Symbicort] 80-4.5 mcg/actuation Hfa Aerosol Inhaler 2 puff inhalation BID Qty: 0 0RF Spiriva Respimat 2.5 mcg/actuation Mist 2 puff inhalation DAILY Qty: 0 0RF Inhaler, Assist Devices [Pocket Chamber] 1 ea miscellaneous DIRECTED Qty: 0 0RF cetirizine 10 mg Tablet 10 mg PO DAILY Qty: 30 0RF Patient Comments: No longer taking 02/07/23 CT thiamine HCl (vitamin B1) 100 mg tablet 100 mg PO DAILY Qty: 30 0RF Patient Comments: No longer taking 02/07/23 CT omeprazole 40 mg capsule,delayed release(DR/EC) 40 mg PO DAILY Qty: 30 0RF Patient Comments: No longer taking 02/07/23 CT citalopram [Celexa] 20 mg Tablet 20 mg PO DAILY Qty: 30 0RF Patient Comments: No longer taking 02/07/23 CT tamsulosin 0.4 mg capsule 0.4 mg PO DAILY Qty: 30 0RF Patient Comments: No longer taking 02/07/23 CT fluticasone propionate [Flonase Allergy Relief] 50 mcg/actuation spray,suspension 1 spray CRISTIANA DAILY Qty: 15.8 0RF Patient Comments: No longer taking 02/07/23 CT Therems-M 27-0.4 mg Tablet 1 tab PO DAILY Qty: 30 0RF Patient Comments: No longer taking 02/07/23 CT fluticasone propion-salmeterol [AirDuo RespiClick] 113-14 mcg/actuation Aerosol Powdr Breath Activated 1 puff INHALATION BID Qty: 1 0RF Patient Comments: No longer taking 02/07/23 CT magnesium gluconate 27.5 mg magne- sium (500 mg) tablet 27.5 mg PO BID Qty: 60 0RF Patient Comments: No longer taking 02/07/23 CT potassium chloride 15 mEq tablet,ER particles/crystals 15 meq PO DAILY Qty: 30 0RF Patient Comments: No longer taking 02/07/[address] CT desoximetasone 0.25 % ointment 1 applic topical BID Qty: 60 0RF Patient Comments: No longer taking 02/07/23 CT Rx Instructions: apply to affected skin bid for up to 10 days then use bid prn rash Discharge Instructions Instructions: COPD (Chronic Obstructive Pulmonary Disease) (ED) Additional Instructions: Please follow-up with primary care physician. Return to the emergency department for any worsening symptoms. Medical Decision Making 67-year-old male history of COPD presents with cough and shortness of breath. Patient is nontoxic, nonhypoxic. No respiratory distress at this time. Consider COPD exacerbation versus viral illness versus early pneumonia. Screening x-ray and EKG within normal limits. Patient feeling better after nebs and steroids. HPI General Date/Time Provider Initiated Documentation: 04/03/23 12:28 . HPI Narrative: 67-year-old male history of COPD presents with cough and shortness of breath. Related Data Home Medications Medication Instructions Recorded Confirmed cetirizine 10 mg tablet 10 mg PO DAILY #30 tabs 08/03/20 04/03/23 citalopram 20 mg tablet (Celexa) 20 mg PO DAILY #30 tabs 08/03/20 04/03/23 desoximetasone 0.25 % topical 1 applic topical BID #60 grams 08/03/20 04/03/23 ointment fluticasone 113 mcg-salmeterol 14 1 puff inhalation BID #1 ea 08/03/20 04/03/23 mcg/actuation breath activated powdr (AirDuo RespiClick) fluticasone propionate 50 1 spray intranasal DAILY #15.8 mL 08/03/20 04/03/23 mcg/actuation nasal spray,suspension (Flonase Allergy Relief) magnesium gluconate 27.5 mg 27.5 mg PO BID #60 tabs 08/03/20 04/03/23 magnesium (500 mg) tablet multivitamin,[id number] 27 1 tab PO DAILY #30 tabs 08/03/20 04/03/23 mg-0.4 mg tablet (Therems-M) omeprazole 40 mg capsule,delayed 40 mg PO DAILY #30 caps 08/03/20 04/03/23 release potassium chloride 15 mEq 15 meq PO DAILY #30 tabs 08/03/20 04/03/23 tablet,extended release(part/cryst) tamsulosin 0.4 mg capsule 0.4 mg PO DAILY #30 caps 08/03/20 04/03/23 thiamine HCl (vitamin B1) 100 mg 100 mg PO DAILY #30 tabs 08/03/20 04/03/23 tablet albuterol sulfate 90 mcg/actuation 2 puff inhalation Q6H PRN #18 grams 08/26/20 04/03/23 aerosol inhaler (ProAir HFA) Inhaler, Assist Devices [Pocket 1 ea miscellaneous DIRECTED ##0 02/09/23 04/03/23 Chamber] budesonide-formoterol HFA 80 2 puff inhalation BID #0 grams 02/09/23 04/03/23 mcg-4.5 mcg/actuation aerosol inhaler (Symbicort) prednisone 20 mg tablet 40 mg (2 x 20 mg) PO DAILY #0 tabs 02/09/23 04/03/23 tiotropium bromide 2.5 2 puff inhalation DAILY #0 grams 02/09/23 04/03/23 mcg/actuation mist for inhalation (Spiriva Respimat) Previous Rx's Medication Instructions Recorded cetirizine 10 mg tablet 10 mg PO DAILY #30 tabs 08/03/20 citalopram 20 mg tablet (Celexa) 20 mg PO DAILY #30 tabs 08/03/20 desoximetasone 0.25 % topical 1 applic topical BID #60 grams 08/03/20 ointment fluticasone 113 mcg-salmeterol 14 1 puff inhalation BID #1 ea 08/03/20 mcg/actuation breath activated powdr (AirDuo RespiClick) fluticasone propionate 50 1 spray intranasal DAILY #15.8 mL 08/03/20 mcg/actuation nasal spray,suspension (Flonase Allergy Relief) magnesium gluconate 27.5 mg 27.5 mg PO BID #60 tabs 08/03/20 magnesium (500 mg) tablet multivitamin,[id number]-[id number] 27 1 tab PO DAILY #30 tabs 08/03/20 mg-0.4 mg tablet (Therems-M) omeprazole 40 mg capsule,delayed 40 mg PO DAILY #30 caps 08/03/20 release potassium chloride 15 mEq 15 meq PO DAILY #30 tabs 08/03/20 tablet,extended release(part/cryst) tamsulosin 0.4 mg capsule 0.4 mg PO DAILY #30 caps 08/03/20 thiamine HCl (vitamin B1) 100 mg 100 mg PO DAILY #30 tabs 08/03/20 tablet albuterol sulfate 90 mcg/actuation 2 puff inhalation Q6H PRN #18 grams 08/26/20 aerosol inhaler (ProAir HFA) Inhaler, Assist Devices [Pocket 1 ea miscellaneous DIRECTED ##0 02/09/23 Chamber] budesonide-formoterol HFA 80 2 puff inhalation BID #0 grams 02/09/23 mcg-4.5 mcg/actuation aerosol inhaler (Symbicort) prednisone 20 mg tablet 40 mg (2 x 20 mg) PO DAILY #0 tabs 02/09/23 tiotropium bromide 2.5 2 puff inhalation DAILY #0 grams 02/09/23 mcg/actuation mist for inhalation (Spiriva Respimat) Allergies Allergy/AdvReac Type Severity Reaction Status Date / Time lisinopril Allergy Severe Swelling/Ed Unverified 04/03/23 12:47 pastor Penicillins Allergy pt unsure Unverified 04/03/23 12:47 happened in childhood ? Rash, hives Sulfa (Sulfonamide AdvReac Skin Rash Unverified 04/03/23 12:47 Antibiotics) General Stated Complaint: RespSymp ALEENA: 3 Review of Systems Narrative: Review of Systems Constitutional: negative Eyes: negative ENT: negative Cardiovascular: negative Respiratory: Cough, shortness of breath Gastrointestinal: negative : negative Musculoskeletal: negative Skin: negative Neurologic: negative Psych: negative PFSH All Active Problems (Updated 04/03/23 @ 14:39 by Justin Galindo MD) COPD with exacerbation (Acute) CHF (congestive heart failure) (Chronic) Acute exacerbation of chronic obstructive pulmonary disease (Acute) Hypoxia (Acute) COPD exacerbation (Acute) Atelectasis (Acute) Psoriasis (Chronic) Pancytopenia (Chronic) Hypomagnesemia (Chronic) Rash (Acute) Conjunctivitis (Acute) Alcohol abuse (Chronic) Depression (Chronic) Encounter for screening colonoscopy (Acute) Medical History (Updated 04/03/23 @ 14:39 by Justin Galindo MD) Normal colonoscopy 09/26/18 Dr Acosta, [facility], normal, repeat 10 years. Hx of angioedema Unknown allergic rxn 07/25/18 requiring endotracheal intubation and transfer to [facility] [place] for further treatment. Depression COPD (chronic obstructive pulmonary disease) BPH (benign prostatic hyperplasia) Alcohol withdrawal seizure Left knee pain Alcohol abuse HTN (hypertension) Surgical History H/O hernia repair Social History Smoking/Tobacco Use Status: Current every day Tobacco Type: cigarettes Years smoked: 40 Smoking risk assessment performed?: Yes Alcohol Intake: former Drug use: Never Substance use type: does not use Housing: apartment Do you feel safe at home: No Do you feel safe in your relationship?: Yes Additional Social history: does not feel safe at home. he feels since he is a lone if something happen no one is there to help Exam Narrative Exam Narrative: Physical Examination General: alert, awake, cooperative, resting comfortably, no acute distress HEENT: normocephalic, atraumatic; PERRL, EOM intact, conjunctiva normal; no nasal discharge; moist mucous membranes, oral and pharyngeal mucosa normal, tolerating secretions Neck: supple, trachea midline; full ROM Chest: normal to inspection Respiratory: normal respiratory effort, speaking in full sentences, clear to auscultation, no wheezing, rales or rhonchi Cardiac: regular rate, regular rhythm, S1S2 intact, no murmurs rubs or gallops GI: abdomen soft, non-tender, non-distended; no palpable mass or hepatosplenomegaly Skin: no lesions, rashes or trauma appreciated Neuro: AAOx3, normal speech, moving all extremities Psych: Appropriate mood and affect Course Vital Signs Vital signs: Vital Signs Pulse 91 H 04/03/23 12:09 Respiratory Rate 18 04/03/23 12:09 Blood Pressure 132/68 04/03/23 12:09 Pulse Oximetry 96 04/03/23 12:09 Pulse 72 04/03/23 14:01 Pulse 72 04/03/23 14:01 Respiratory Rate 15 04/03/23 14:01 Respiratory Effort Normal, Non-Labored 04/03/23 12:47 Respiratory Depth Normal 04/03/23 12:47 Blood Pressure 160/93 H 04/03/23 14:01 Blood Pressure Mean 116 04/03/23 14:01 Blood Pressure Position Sitting 04/03/23 12:09 Pulse Oximetry 96 04/03/23 14:01 Oxygen Delivery Method Room Air 04/03/23 12:09 Oxygen Flow Rate 0 04/03/23 12:09 Pain Level 7 04/03/23 12:09
[2023-04-03] MEDS: Albuterol HFA 8 GM 60 PUFF INH IH (14:48)
[2023-04-03] MEDS: Inhaler, Assist Device 1 EACH MC (14:49)
--- NOTE | 2023-04-03 14:50 | NUR.NOTE ---
Nursing Note: Pt stated upon arrival to RN that he was not able to obtain his prescribed medications due to the cost of the medications. MD notified; referral sent to pt's PCP for a f/u appt. to formulate a plan for pt to get his prescriptions. Pt also sent home today with number to [facility].
== END 2023-04-03 15:18 | disposition home or self-care (01) ==
PROVIDERS: Emergency Provider Emergency Medicine; PCP Nurse Practitioner Family
DX: J44.1 Chronic obstructive pulmonary disease with (acute) exacerbation (principal); R06.02 Shortness of breath
CPT/HCPCS: 93005; 94640; 99284; 71046; 93010; J1100; J7620